=== PATIENT | male | born 1930 | race Caucasian/White ===

== ENCOUNTER 2016-10-13 09:51 | Day surgery (SDC) | payer MEDICARE, BC ==
[~2016-10-13] VITALS: Ht 170.2 cm; Wt 75.0 kg
[2016-10-13] VITALS (23 sets, daily range): BP systolic 119–202; BP diastolic 50–110; PULSE 54–89; RESP 15–25; Ht 170.2 cm; Wt 75.0 kg
[~2016-10-13 09:51] MED LIST: ASCO500C7 PO; ASPI325T4 PO; BENA1TAB13 PO; CALC-176 PO; CLOB15CR2 TOP; CLOP75TA27 PO; ISOS30TA5 PO; METO-448 PO; NIT4 SL; PANT40TA3 PO; TAMS-14 PO
[2016-10-13] MEDS ORDERED: ASPI-664 PO (10:50)
[2016-10-13] MEDS ORDERED: AMIO100T4 PO (10:52)
[2016-10-13 11:14] LABS: ADD SCAN DIFF NO
[2016-10-13] MEDS ORDERED: IODIXANOL LOCM 50 ML BTL ONE (11:20)
[2016-10-13] MEDS ORDERED: LIDOCAINE 1% (MDV) 20 ML INJ ONE (11:20)
[2016-10-13] MEDS ORDERED: BUPIVACAINE 0.5% (SDV) 30 ML INJ ONE (11:20)
[2016-10-13] MEDS ORDERED: POLYMYXIN/BACITRACIN 1L IRRIG IRR SCH (11:30)
[2016-10-13 11:34] LABS: BASOPHIL # 0.1 10^3/ul (0.0-0.1); EOSINOPHILS # 0.2 10^3/ul (0.0-0.5); EOSINOPHILS % 2.5 % (0.0-7.0); HEMATOCRIT 39.7 % (42.0-52.0); HEMOGLOBIN 12.9 g/dl (14.0-18.0); LYMPHOCYTES # 1.2 10^3/ul (0.8-2.9); LYMPHOCYTES % 16.2 % (15.0-51.0); MEAN CORPUSCULAR HEMOGLOBIN 30.3 pg (29.0-33.0); MEAN CORPUSCULAR HGB CONC 32.5 g/dl (32.0-37.0); MEAN CORPUSCULAR VOLUME 93.2 fl (82.0-101.0); MEAN PLATELET VOLUME 10.5 fl (7.4-10.4); MONOCYTE # 0.7 10^3/ul (0.3-0.9); MONOCYTES % 9.6 % (0.0-11.0); NEUTROPHIL # 5.1 10^3/ul (1.6-7.5); NEUTROPHILS % 70.4 % (39.0-77.0); PLATELET COUNT 238 10^3/UL (140-415); RED BLOOD COUNT 4.26 10^6/ul (4.70-6.10); WHITE BLOOD COUNT 7.2 10^3/ul (4.8-10.8)
[2016-10-13 11:37] LABS: ALBUMIN/GLOBULIN RATIO 1.21; BILIRUBIN,INDIRECT 0.7 mg/dl (0-1.1); BILIRUBIN,TOTAL 0.7 mg/dl (0.2-1.3); CALCIUM 9.2 mg/dl (8.4-10.2); CREATININE 1.1 mg/dl (0.61-1.24); POTASSIUM 4.2 mmol/L (3.5-5.1); TOTAL PROTEIN 7.3 g/dl (6.1-8.1)
[2016-10-13 11:38] LABS: INR 1.11; PROTIME 14.3 Sec (12.2-14.2); PT RATIO 1.1
[2016-10-13 11:39] LABS: PARTIAL THROMBOPLASTIN TIME 33.3 Sec (25.0-35.0)
[2016-10-13] MEDS ORDERED: PROPOFOL 40 ML ONE (11:57)
[2016-10-13] MEDS ORDERED: LIDOCAINE 2% (SDV) 5 ML INJ ONE (11:57)
[2016-10-13] MEDS ORDERED: VANCOMYCIN 1 GM in NS 250 ML IVPB SCH (12:30)
[2016-10-13] MEDS ORDERED: SOD CHLORIDE 0.9% 1,000 ML IV SCH (12:52)
[2016-10-13] MEDS ORDERED: VANCOMYCIN IV PER PHARMACY XX STA (12:52)
[2016-10-13] MEDS ORDERED: ACETAMINOPHEN 325 MG TAB PO PRN (13:00)
[2016-10-13] MEDS ORDERED: AL HYDROX/MG HYDROX/SIMETH 30 ML CUP PO PRN (13:00)
[2016-10-13] MEDS ORDERED: morphine 2 MG INJ IV PRN (13:00)
[2016-10-13] MEDS ORDERED: FENTAnyl 50 MCG/ML VIAL ONE (13:07)
--- NOTE | 2016-10-13 13:15 | SP ---
DATE OF PROCEDURE: REFERRING PHYSICIAN: Dr. Medina and Dr. Barragan. REASON FOR IMPLANTATION: Symptomatic bradycardia, sick sinus syndrome. POST PROCEDURE DIAGNOSIS: Symptomatic bradycardia, sick sinus syndrome. PROCEDURE PERFORMED: 1. Upper extremity venogram. 2. Fluoroscopy. 3. Single chamber pacemaker placement. DEVICE INFORMATION: The implanted device is [employer] Assurity MRI pacemaker 1272, serial #[id number]. RV lead is [employer] Tendril MRI lead LPA, 1200-58 cm lead, serial number [id number] , placed in the RV apex, septal area. Acute threshold R-wave was 8.3 millivolts, lead impedance 750 ohms, threshold 0.75 volts at 0.4 msec. Initial setting is VVI 60. DESCRIPTION OF PROCEDURE: The informed consent was obtained the patient. The patient was brought t o catheterization, patient has ALLERGY TO PENICILLIN, and vancomycin was given for prophylaxis. Lef t side of the chest was prepped and draped in usual sterile fashion. Anesthesiologist supervised ai rway and sedation. Using #10 scalpel, a 3 cm incision was made in the left side of the chest. Usin g cautery and blunt dissection, the pocket was created. Upper extremity venogram was performed usin g modified Seldinger technique, subclavian vein was cannulated and J-wire passed easily. Using 8-Fr ench sheath as a base, the RV lead was advanced into RV apex and actively fixed into the wall and so me slack was left inside the lead and the sheath was pulled away. The lead was sutured to the muscl e with 0 Ethibond sutures. The device attached to the lead. Pocket was irrigated with antibiotic s olution and entire system was placed inside the pocket. The skin was closed in multiple layers of 2 -0 Vicryl sutures. Steri-Strips were applied and presented to the incision. The patient appears to have tolerated the procedure well. Chest x-ray was done to rule out pneumothorax. The patient renaldo l be monitored and discharged home with antibiotics. I would like to thank Dr. Medina and Dr. Barragan for referring this patient for my evaluation. Dictated By: JOSIAH CARD/JONATAN Conf#: [id number] DID#: [id number]
[2016-10-13] MEDS ORDERED: hydrALAzine 20 MG INJ IV PRN (13:30)
[2016-10-13] MEDS ORDERED: VANCOMYCIN IV PER PHARMACY XX SCH (13:30)
[2016-10-13] MEDS ORDERED: ONDANSETRON 4 MG INJ IV PRN (13:30)
[2016-10-13] MEDS ORDERED: METOCLOPRAMIDE 10 MG INJ IV PRN (13:30)
[2016-10-13] MEDS ORDERED: morphine (1 MG/ML) 10ML SYRINGE IV PRN (13:30)
[2016-10-13] MEDS ORDERED: FENTAnyl 50 MCG/ML VIAL IV PRN (13:30)
[2016-10-13] MEDS ORDERED: LABETALOL HCL 20MG INJ IV PRN (13:30)
[2016-10-13] MEDS ORDERED: OXYCODONE/ACETAMINOPHEN (5/325) TAB PO PRN ×2 (13:30)
[2016-10-13] MEDS ORDERED: DIPHENHYDRAMINE 50 MG INJ IV PRN (13:30)
[2016-10-13] MEDS ORDERED: MEPERIDINE 25 MG INJ IV PRN (13:30)
[2016-10-13] MEDS ORDERED: ASPIRIN 81 MG TAB PO STA (13:58)
[2016-10-13] MEDS ORDERED: CLOPIDOGREL 75 MG TAB PO STA (13:59)
--- NOTE | 2016-10-13 13:59 | RADRPT ---
PROCEDURE: XR Chest. CLINICAL INDICATION: Status post device implant. TECHNIQUE: Single frontal chest x-ray. COMPARISON: 01/09/2016 FINDINGS: The patient is status post a single lead left pacemaker placement with the the tip overlying the rig ht ventricle. There is mild hypoinflation with bibasilar atelectatic changes. No focal consolidati ons, pneumothorax, or pleural effusion is seen. The heart size is within normal limits. Aortic ath erosclerotic calcifications are present. Median sternotomy wires are in place. The osseous structu res are grossly intact. IMPRESSION: 1. Interval placement of single lead left-sided pacemaker with lead tip overlying the right ventric le. No radiographic evidence of complication. 2. Aortic atherosclerosis. RPTAT: EE .Pa Lundberg MD, Date Time Electronically viewed and signed by .Pa Lundberg MD, on 10/13/2016 13:59 .A/
[2016-10-13] MEDS ORDERED: LABETALOL HCL 20MG INJ ONE (14:40)
--- NOTE | 2016-10-13 18:51 | HP ---
Date/Time of Note Date/Time of Note DATE: 10/13/16 TIME: 18:44 Assessment/Plan VTE Prophylaxis VTE Prophylaxis Intervention: other Lines/Catheters IV Catheter Type (from Nrs): Peripheral IV Urinary Cath still in place: Yes Reason Cath still needed: urinary retention Assessment/Plan Problems: (1) BPH (benign prostatic hypertrophy) with urinary retention Status: Chronic Comment: Patient has a Mcgregor catheter in at this time as per cardiology. Continue his treatment with plan for ultimate urology discontinuation of (2) Diastolic dysfunction Status: Chronic Comment: Noted. With the pacemaker and we can use low-dose beta-blockade to help control for the (3) Gastroesophageal reflux disease Status: Chronic Comment: Proton pump inhibitor therapy Qualifiers: Esophagitis presence: without esophagitis Qualified Code: K21.9 - Gastroesophageal reflux disease without esophagitis (4) Anemia Status: Chronic Comment: Significantly improved as compared to 9 months ago Qualifiers: Anemia type: iron deficiency Iron deficiency anemia type: chronic blood loss Qualified Code: D50.0 - Iron deficiency anemia due to chronic blood loss (5) CAD (coronary artery disease) Status: Chronic Comment: Since his PCI with bare-metal stent placement of the right coronary artery 11 months ago he is done well. Continue the formal usage of Brilinta. Please note he may not be feeling well as a side effect of that medication cardiology will determine when it is safe to replace this with a different type of anticoagulant therapy Qualifiers: Coronary Disease-Associated Artery/Lesion type: cabazon artery [place] vs. transplanted heart: cabazon heart Associated angina: without angina Qualified Code: I25.10 - Coronary artery disease involving cabazon coronary artery of cabazon heart without angina pectoris (6) Essential (primary) hypertension Status: Chronic Comment: Stable and controlled (7) Dyslipidemia Status: Chronic Comment: On statin therapy HPI/ROS Admit Date/Time Admit Date/Time October 13, 2016 at 12:52 Hx of Present Illness 86-year-old male patient of Dr. Pearson admitted after elective pacemaker implantation. Inspector [employer] has asked us to take care of the paperwork for H&P. Please see dictated H&P from neurosurgery research director ARLEN Patient reports he is feeling well but states that he has not quite felt well for some months since 1 of his admissions when he came in for cardiac issues. He is also anxiously awaiting repair of his bilateral inguinal hernias. Constitutional: no complaints (Denies fevers chills or sweats) Eyes: no complaints Respiratory: no complaints Cardiovascular: no complaints (Specifically denies chest pain or palpitation) Gastrointestinal: no complaints Genitourinary: no complaints Musculoskeletal: no complaints Skin: no complaints Neurologic: no complaints Endocrine: no complaints PMH/Family/Social Past Medical History BPH with obstruction; status post prostatectomy; history of bladder stones; Medical History: congestive heart failure (Diastolic dysfunction), coronary artery disease, high cholesterol, hypertension Past Surgical History Status post cystoscopy and removal of bladder stone; status post TURP Family History Significant Family History: no pertinent family hx Social History Alcohol Use: none Smoking Status: Former smoker Drug Use: none Exam/Review of Systems Vital Signs Vitals Vital Signs Date Time Temp Pulse Resp B/P Pulse Ox O2 Delivery O2 Flow Rate FiO2 10/13/16 16:32 65 10/13/16 14:59 98.5 24 119/50 99 Nasal Cannula 2.0 Exam Exam Older male lying in bed Constitutional: alert, oriented Eyes: EOMI, nl conjunctiva, nl lids, nl sclera Neck: non-tender, supple Respiratory: clear to auscultation, normal air movement Cardiovascular: diastolic murmur (Consistent with aortic sclerosis without stenosis), nl pulses Gastrointestinal: nl liver, spleen, non-tender, soft Extremities: normal pulses Labs Result Diagram: 10/13/16 1108 10/13/16 1108 Medications Medications Current Medications Vancomycin HCl (Vancocin) 250 ml @ 125 mls/hr OC IVPB ; Start 10/13/16 at 12:30 ; Stop 10/13/16 at 20:00 Acetaminophen (Tylenol Tab) 650 mg Q4H PRN PO NON-CARDIAC PAIN LEVEL (1-3) Last administered on 10/13/16t 16:35; Admin Dose 650 MG; Start 10/13/16 at 13:00 Morphine Sulfate (morphine) 2 mg Q2H PRN IV FOR NON CARDIAC PAIN (4-10); Start 10/13/16 at 13:00 Al Hydrox/Mg Hydrox/Simethicone (Mag-Al Plus) 30 ml Q4H PRN PO GASTROINTESTINAL UPSET; Start 10/13/16 at 13:00 Miscellaneous Information (* Miscellaneous Pharmacy Order) DC all Lovenox, Hepari... ONCE XX ; Start 10/13/16 at 13:00 Vancomycin HCl (Vanco Iv Per Pharmacy) PER PHARMACY DOSING NOTE XX ; Start 10/13 at 13:30 LATIA RICE MD October 13, 2016 18:51
[2016-10-14 00:29] VITALS: PULSE 73
[2016-10-14 04:23] VITALS: BP 128/64; PULSE 63; RESP 20
[2016-10-14 07:33] LABS: ADD SCAN DIFF NO
[2016-10-14 07:36] LABS: BASOPHIL # 0.1 10^3/ul (0.0-0.1); BASOPHILS % 0.7 % (0.0-2.0); EOSINOPHILS # 0.2 10^3/ul (0.0-0.5); EOSINOPHILS % 1.8 % (0.0-7.0); HEMATOCRIT 35.5 % (42.0-52.0); HEMOGLOBIN 11.7 g/dl (14.0-18.0); LYMPHOCYTES # 1.1 10^3/ul (0.8-2.9); MEAN CORPUSCULAR HEMOGLOBIN 30.4 pg (29.0-33.0); MEAN CORPUSCULAR VOLUME 92.2 fl (82.0-101.0); MEAN PLATELET VOLUME 10.4 fl (7.4-10.4); MONOCYTE # 0.8 10^3/ul (0.3-0.9); MONOCYTES % 8.5 % (0.0-11.0); NEUTROPHIL # 6.8 10^3/ul (1.6-7.5); NEUTROPHILS % 76.7 % (39.0-77.0); PLATELET COUNT 202 10^3/UL (140-415); RED BLOOD COUNT 3.85 10^6/ul (4.70-6.10); RED CELL DISTRIBUTION WIDTH 14.1 % (11.5-14.5); WHITE BLOOD COUNT 8.8 10^3/ul (4.8-10.8)
[2016-10-14 08:07] LABS: CALCIUM 8.7 mg/dl (8.4-10.2); CREATININE 0.95 mg/dl (0.61-1.24); POTASSIUM 3.9 mmol/L (3.5-5.1)
[2016-10-14 08:14] VITALS: PULSE 69
[2016-10-14 08:28] VITALS: BP 163/58; RESP 18
[2016-10-14] MEDS ORDERED: VANCOMYCIN 1 GM in NS 250 ML IVPB SCH (10:00)
[2016-10-14 11:37] VITALS: BP 138/65; RESP 18
[2016-10-14 12:29] VITALS: PULSE 61
--- NOTE | 2016-10-14 13:04 | PDOCDIS ---
Discharge Instructions DIAGNOSIS Discharge Diagnosis: Bradycardia dysrhythmia; BPH; diastolic dysfunction; GERD CONDITION Patient Condition: Fair HOME CARE INSTRUCTIONS: Special Diet: Regular ACTIVITY: Activity Restrictions: Slowly Increase Activity Do not operate Power Tool FOLLOW UP/APPOINTMENTS Appointments Dr. Barragan of cardiology in the next 1 week. LATIA RICE MD October 14, 2016 13:04
--- NOTE | 2016-10-14 13:10 | DS ---
Date/Time of Note Date/Time of Note DATE: 10/14/16 TIME: 13:05 Discharge Summary Admission/Discharge Info Admit Date/Time October 13, 2016 at 12:52 Discharge Date/Time 10/14/2016 Final Diagnosis Cardiac dysrhythmia; atrial fibrillation; bradycardia dysrhythmia; diastolic dysfunction; aortic sclerosis; BPH; Patient Condition: Good Consults Internal medicine Procedures REFERRING PHYSICIAN: Dr. Medina and Dr. Barragan. REASON FOR IMPLANTATION: Symptomatic bradycardia, sick sinus syndrome. POST PROCEDURE DIAGNOSIS: Symptomatic bradycardia, sick sinus syndrome. PROCEDURE PERFORMED: 1. Upper extremity venogram. 2. Fluoroscopy. 3. Single chamber pacemaker placement. DEVICE INFORMATION: The implanted device is [employer] Assurity MRI pacemaker 1272, serial #[id number]. RV lead is [employer] Tendril MRI lead LPA, 1200-58 cm lead, serial number [id number], placed in the RV apex, septal area. Acute threshold R-wave was 8.3 millivolts, lead impedance 750 ohms, threshold 0.75 volts at 0.4 msec. Initial setting is VVI 60. DESCRIPTION OF PROCEDURE: The informed consent was obtained the patient. The patient was brought to catheterization, patient has ALLERGY TO PENICILLIN, and vancomycin was given for prophylaxis. Left side of the chest was prepped and draped in usual sterile fashion. Anesthesiologist supervised airway and sedation. Using #10 scalpel, a 3 cm incision was made in the left side of the chest. Using cautery and blunt dissection, the pocket was created. Upper extremity venogram was performed using modified Seldinger technique, subclavian vein was cannulated and J-wire passed easily. Using 8-[place] sheath as a base, the RV lead was advanced into RV apex and actively fixed into the wall and some slack was left inside the lead and the sheath was pulled away. The lead was sutured to the muscle with 0 Ethibond sutures. The device attached to the lead. Pocket was irrigated with antibiotic solution and entire system was placed inside the pocket. The skin was closed in multiple layers of 2-0 Vicryl sutures. Steri-Strips were applied and presented to the incision. The patient appears to have tolerated the procedure well. Chest x-ray was done to rule out pneumothorax. The patient will be monitored and discharged home with antibiotics. I would like to thank Dr. Medina and Dr. Barragan for referring this patient for my evaluation. Dictated By: JOSIAH SAUL MD Hx of Present Illness 86-year-old male patient of Dr. Pearson admitted after elective pacemaker implantation. [address] Magistrate has asked us to take care of the paperwork for H&P. Please see dictated H&P from counter hop Hospital Course 86-year-old male who is admitted for pacemaker placement to treat and support sick sinus syndrome with bradycardia dysrhythmia. At this time he is tolerated the procedure is doing well. He is ready for discharge. He will follow-up with cardiology Home Meds Active Scripts Clopidogrel Bisulfate (Clopidogrel) 75 Mg Tablet, 75 MG PO DAILY for 90 Days, # 90 TAB 3 Refills Prov:INDY CHAPMAN MD 10/22/15 Reported Medications Amiodarone Hcl* (Amiodarone Hcl*) 100 Mg Tablet, 100 MG PO DAILY, #30 TAB 10/13/16 Aspirin (Low Dose Aspirin) 81 Mg Tablet., 81 MG PO DAILY, #30 TAB 10/13/16 Pantoprazole* (Protonix*) 40 Mg Tablet.dr, 40 MG PO DAILY, TAB 01/09/16 Benazepril-Hydrochlorothiazide (Benazepril-Hydrochlorothiazide) 20-12.5 Mg Tablet, 1 TAB PO DAILY, #30 TAB 01/09/16 Nitroglycerin* (Nitrostat*) 0.4 Mg Tab.subl, 0.4 MG SL Q5MIN Y for CHEST PAIN, BOTTLE 10/18/15 Discontinued Reported Medications Clobetasol Propionate/Emoll (Clobetasol Emollient) 0.05%-45 Gm Cream..g., 1 APPLIC TOP BID, #1 TUB APPLY TO AFFECTE AREA 01/09/16 Tamsulosin Hcl* (Flomax*) 0.4 Mg Cap.er.24h, 0.4 MG PO BID, CAP 01/09/16 Aspirin* (Aspirin*) 325 Mg Tablet, 325 MG PO DAILY, TAB 01/09/16 Ascorbic Acid* (Vitamin C*) 500 Mg Capsule.sa, 100 MG PO DAILY, CAP 10/18/15 Calcium Cmb 2-Mag Cmb 12-Vit D3 (Calcium 500) 1 Each Tablet, 1 TAB PO DAILY, TAB 10/18/15 Discontinued Scripts Isosorbide Mononitrate* (Isosorbide Mononitrate*) 30 Mg Tab.er.24h, 30 MG PO DAILY for 30 Days, TAB 1 Refill Prov:LATIA RICE MD 01/12/16 Metoprolol Tartrate* (Lopressor*) 25 Mg Tab, 25 MG PO BID for 30 Days, TAB 1 Refill Prov:LATIA RICE MD 01/12/16 Primary Care Provider Robinson Pearson MD Time spent on discharge: < 30 minutes Pending Labs Laboratory Tests Test 10/13/16 18:55 10/14/16 07:05 Thyroid Stimulating Hormone (TSH) 1.160MIU/L (0.465-4.680) Hepatitis B Surface Antigen NEGATIVE (NEGATIVE) Hepatitis C Antibody NEGATIVE (NEGATIVE) White Blood Count 8.810^3/ul (4.8-10.8) Red Blood Count 3.8510^6/ul (4.70-6.10) Hemoglobin 11.7g/dl (14.0-18.0) Hematocrit 35.5% (42.0-52.0) Mean Corpuscular Volume 92.2fl (82.0-101.0) Mean Corpuscular Hemoglobin 30.4pg (29.0-33.0) Mean Corpuscular Hemoglobin Concent 33.0g/dl (32.0-37.0) Red Cell Distribution Width 14.1% (11.5-14.5) Platelet Count 65579^3/UL (140-415) Mean Platelet Volume 10.4fl (7.4-10.4) Neutrophils % 76.7% (39.0-77.0) Lymphocytes % 12.0% (15.0-51.0) Monocytes % 8.5% (0.0-11.0) Eosinophils % 1.8% (0.0-7.0) Basophils % 0.7% (0.0-2.0) Nucleated Red Blood Cells % 0.0/100WBC (0.0-0.0) Neutrophils # 6.810^3/ul (1.6-7.5) Lymphocytes # 1.110^3/ul (0.8-2.9) Monocytes # 0.810^3/ul (0.3-0.9) Eosinophils # 0.210^3/ul (0.0-0.5) Basophils # 0.110^3/ul (0.0-0.1) Nucleated Red Blood Cells # 0.010^3/ul (0.0-0.0) Sodium Level 137mmol/L (135-144) Potassium Level 3.9mmol/L (3.5-5.1) Chloride Level 107mmol/L (97-110) Carbon Dioxide Level 26mmol/L (21-31) Anion Gap 8 (8-16) Blood Urea Nitrogen 20mg/dl (7-20) Creatinine 0.95mg/dl (0.61-1.24) Glucose Level 102mg/dl (70-220) Calcium Level 8.7mg/dl (8.4-10.2) LATIA RICE MD October 14, 2016 13:10
--- NOTE | 2016-10-14 13:35 | CONS ---
Date/Time of Note Date/Time of Note DATE: 10/14/16 TIME: 13:29 Assessment/Plan Assessment/Plan Chief Complaint/Hosp Course IMp: 1.bradycardia s/p PPM POD#1 2.s/p PTCA/stent 3.H/O PAFL 4.HTN 5.HL Recc: -d/c planning -Continue current medications -will give abx prophylaxis x 5 days post procedure -f/u in office 7-10 days Problems: Consultation Date/Type/Reason Admit Date/Time October 13, 2016 at 12:52 Initial Consult Date 10/13/2016 Type of Consultation: Cardiology Reason for Consultation cardiomyopathy Referring Provider: LATIA RICE MD Exam/Review of Systems Vital Signs Vitals Vital Signs Date Time Temp Pulse Resp B/P Pulse Ox O2 Delivery O2 Flow Rate FiO2 10/14/16 12:29 61 10/14/16 11:37 97.6 18 138/65 96 10/13/16 20:00 Nasal Cannula 4.0 Intake and Output 10/13/16 10/13/16 10/14/16 15:00 23:00 07:00 Intake Total 630 ml 300 ml Output Total 625 ml 300 ml 600 ml Balance -625 ml 330 ml -300 ml Exam Review of Systems: CONSTITUTIONAL: No fevers, chills. PULMONARY: No sob CARDIOVASCULAR: No chest pain/palpitations GASTROINTESTINAL: No nausea/vomiting. GENITOURINARY: No hematuria/dysuria. MUSCULOSKELETAL: No myagias/arthalgias. PSYCHIATRIC: The patient denies depression. NEUROLOGIC: No weakness Constitutional: alert Psych: no complaints Head: normocephalic ENMT: mucosa pink and moist Neck: jvd, supple Respiratory: diminished breath sounds Cardiovascular: regular rate and rhythm Gastrointestinal: non-tender, soft Musculoskeletal: muscle tone Extremities: normal pulses Neurological: confused Results Result Diagram: 10/14/16 0705 10/14/16 0705 Results 24 hrs Laboratory Tests Test 10/13/16 18:55 10/14/16 07:05 Thyroid Stimulating Hormone (TSH) 1.160 Hepatitis B Surface Antigen NEGATIVE Hepatitis C Antibody NEGATIVE White Blood Count 8.8 # Red Blood Count 3.85 L Hemoglobin 11.7 L Hematocrit 35.5 L Mean Corpuscular Volume 92.2 Mean Corpuscular Hemoglobin 30.4 Mean Corpuscular Hemoglobin Concent 33.0 Red Cell Distribution Width 14.1 Platelet Count 202 Mean Platelet Volume 10.4 Neutrophils % 76.7 Lymphocytes % 12.0 L Monocytes % 8.5 Eosinophils % 1.8 Basophils % 0.7 Nucleated Red Blood Cells % 0.0 Neutrophils # 6.8 Lymphocytes # 1.1 Monocytes # 0.8 Eosinophils # 0.2 Basophils # 0.1 Nucleated Red Blood Cells # 0.0 Sodium Level 137 Potassium Level 3.9 Chloride Level 107 Carbon Dioxide Level 26 Anion Gap 8 Blood Urea Nitrogen 20 Creatinine 0.95 Glucose Level 102 Calcium Level 8.7 Medications Medications Current Medications Acetaminophen (Tylenol Tab) 650 mg Q4H PRN PO NON-CARDIAC PAIN LEVEL (1-3) Last administered on 10/13/16t 16:35; Admin Dose 650 MG; Start 10/13/16 at 13:00 Morphine Sulfate (morphine) 2 mg Q2H PRN IV FOR NON CARDIAC PAIN (4-10); Start 10/13/16 at 13:00 Al Hydrox/Mg Hydrox/Simethicone (Mag-Al Plus) 30 ml Q4H PRN PO GASTROINTESTINAL UPSET; Start 10/13/16 at 13:00 Vancomycin HCl PER PHARMACY DOSING NOTE XX ; Start 10/13/16 at 13:30 Vancomycin HCl (Vancocin) 250 ml @ 125 mls/hr Q24H IVPB ; Start 10/14/16 at 10: 00 JEFF REYNOSO October 14, 2016 13:35
--- NOTE | 2016-10-14 20:35 | RADRPT ---
Vent Rate: 60 bpm RR Interval: 0 msec AL Interval: 0 msec QRS Duration: 186 msec QT Interval: 560 msec QTC Interval: 560 msec P-R-T [place]: 0 - 133 - -37 degrees Electronic ventricular pacemaker Electronically Signed By: Wiliam Barragan [id number]
== END 2016-10-14 14:16 | disposition home or self-care (01) ==
LOC: SDS 09:51 → REC 12:52 → TEL 13:47
PROVIDERS: ADMIT Internal Medicine Clinical Cardiac Electrophysiology; ATTEND Internal Medicine Clinical Cardiac Electrophysiology
DX: I49.5 Sick sinus syndrome (principal); I48.91 Unspecified atrial fibrillation; N40.0 Benign prostatic hyperplasia without lower urinary tract symptoms; I10 Essential (primary) hypertension; I25.10 Atherosclerotic heart disease of native coronary artery without angina pectoris; Z98.61 Coronary angioplasty status; I25.2 Old myocardial infarction; Z95.1 Presence of aortocoronary bypass graft
CPT/HCPCS: 33212; 71010; 75820; 80048; 80053; 84443; 85025; 85610; 85730; 86803; 87340; 93005; A4310; G0378; J0360; J3010; J3370; Q9967

== ENCOUNTER 2017-08-18 12:40 | Inpatient (IN) | END 2017-08-22 15:06 | disposition home or self-care (01) | DRG 391 ==

== ENCOUNTER 2017-08-25 13:42 | Observation (INO) | END 2017-08-27 16:13 | disposition home or self-care (01) ==

== ENCOUNTER 2018-10-01 10:33 | Inpatient (IN) | payer MEDICARE, BC ==
[~2018-10-01] VITALS: Ht 177.8 cm; Wt 70.0 kg
[~2018-10-01 10:33] MED LIST changes: -ASCO500C7 PO; -ASPI325T4 PO; +BISA5TAB6 PO; -CALC-176 PO; -CLOB15CR2 TOP; +DUTA0.5C PO; +HYDR-3601 PO; -ISOS30TA5 PO; -METO-448 PO; +MULT-7 PO; -NIT4 SL; +NITR0.4T39 SL; -PANT40TA3 PO; +PANT40TA4 PO; -TAMS-14 PO
[2018-10-01 10:44] VITALS: Ht 177.8 cm; Wt 70.0 kg
[2018-10-01] MEDS ORDERED: AMIO200T4 PO (11:41)
[2018-10-01] MEDS ORDERED: DILT180C72 PO (11:42)
[2018-10-01] MEDS ORDERED: ISOS30TA67 PO (11:42)
[2018-10-01] MEDS ORDERED: CLOP75TA27 PO (11:42)
[2018-10-01] MEDS ORDERED: PANT40TA3 PO (11:43)
[2018-10-01] MEDS ORDERED: TAMS-14 PO (11:43)
[2018-10-01] MEDS ORDERED: FENTAnyl 50 MCG/ML VIAL IV ONE (12:00)
[2018-10-01] MEDS ORDERED: ONDANSETRON 4 MG INJ IV STA (13:06)
[2018-10-01] MEDS ORDERED: morphine 2 MG INJ IV STA ×2 (13:06→13:59)
[2018-10-01] MEDS ORDERED: ONDANSETRON 4 MG INJ IV PRN ×2 (13:30→15:30)
[2018-10-01] MEDS ORDERED: ACETAMINOPHEN 325 MG TAB PO PRN (13:30)
--- NOTE | 2018-10-01 13:43 | ERD ---
ER Documentation Chief Complaint Chief Complaint MECHANICAL FALL; DENIES KO/SYNCOPE HPI This is an 88-year-old male with a past medical history of hypertension, coronary artery disease status post CABG, atrial fibrillation, CHF status post pacemaker, on Plavix who is presenting after a mechanical fall. The patient was deconstruct think boxes in his home when he lost his balance and fell to the right. He hit his right hip and right shoulder and he has pain with difficulty ranging both joints. The patient did not hit his head. He does not endorse any head trauma or injury. He did not lose consciousness. He does not endorse any other trauma or injury. The patient denies feeling sick recently. The patient denies fever or chills. The patient has had no headache or vision changes. The patient does not endorse neck or back pain. The patient denies lightheadedness or dizziness. The patient has had no chest pain or trouble breathing. The patient denies nausea or vomiting. The patient denies abdominal pain. The patient denies changes to bowel movements or urination. The patient has had no focal deficits. The patient has had no weakness or numbness or tingling to the face or extremities. ROS All systems reviewed and are negative except as per history of present illness. Medications Home Meds Reported Medications Tamsulosin Hcl* (Flomax*) 0.4 Mg Cap.er.24h, 0.4 MG PO DAILY, CAP 10/01/18 Pantoprazole* (Protonix*) 40 Mg Tablet.dr, 40 MG PO DAILY, TAB 10/01/18 Isosorbide Mononitrate* (Isosorbide Mononitrate*) 30 Mg Tab.er.24h, 30 MG PO DAILY, TAB 10/01/18 Clopidogrel Bisulfate (Clopidogrel) 75 Mg Tablet, 75 MG PO DAILY, #30 TAB 10/01/18 Diltiazem Hcl* (Cardizem CD*) 180 Mg Cap.sr.24h, 180 MG PO DAILY, #30 CAP 10/01/18 Amiodarone Hcl* (Amiodarone Hcl*) 200 Mg Tablet, 200 MG PO DAILY, #30 TAB 10/01/18 Discontinued Reported Medications Hydrocodone Bit-Acetaminophen (Hydrocodone Bit-APAP) 5-325MG Tablet, 1 TAB PO Q6H PRN for PAIN, TAB 08/19/17 Multivitamin (Daily Multiple Vitamin) 1 Each Tablet, 1 EACH PO, TAB 3/22/18 Bisacodyl* (Bisacodyl*) 5 Mg Tablet.dr, 10 MG PO DAILY PRN for CONSTIPATION, TAB 08/19/17 Pantoprazole* (Pantoprazole*) 40 Mg Tablet.dr, 40 MG PO AC BREAKFAST, TAB 08/18/17 Clopidogrel Bisulfate (Clopidogrel) 75 Mg Tablet, 75 MG PO DAILY, #30 TAB 08/18/17 Nitroglycerin* (Nitrostat*) 0.4 Mg Tab.subl, 0.4 MG SL Q5MIN PRN for CHEST PAIN, BOTTLE 08/18/17 Dutasteride* (Avodart*) 0.5 Mg Capsule, 0.5 MG PO DAILY, CAP 08/18/17 Benazepril-Hydrochlorothiazide (Benazepril-Hydrochlorothiazide) 20-12.5 Mg Tablet, 0.5 TAB PO DAILY, #30 TAB 08/18/17 Allergies Allergies: Coded Allergies: Penicillins (Verified Allergy, Severe, hives, 10/01/18) ticagrelor (Verified Allergy, Intermediate, N/V, 10/01/18) Sulfa (Sulfonamide Antibiotics) (Verified Allergy, Unknown, 10/01/18) cephalexin (Verified Allergy, Unknown, 10/01/18) ciprofloxacin (Verified Allergy, Unknown, 10/01/18) dutasteride (Verified Allergy, Unknown, 10/01/18) nitrofurantoin (Verified Allergy, Unknown, 10/01/18) sotalol (Verified Allergy, Unknown, 10/01/18) amlodipine (Verified Adverse Reaction, Intermediate, extreme nausea, 10/01) lubiprostone (Verified Adverse Reaction, Intermediate, severe nausea, 10/01/18) carvedilol (Unverified Adverse Reaction, Mild, nausea, 10/01/18) apixaban (Unverified Adverse Reaction, Unknown, UPSET STOMACH, 10/01/18) lisinopril (Verified Adverse Reaction, Unknown, severe nausea, 10/01/18) PMhx/Soc History of Surgery: Yes (CABG 1974, pacemaker) Anesthesia Reaction: No Hx Neurological Disorder: No Hx Respiratory Disorders: No Hx Cardiac Disorders: Yes (Hypertension, coronary artery disease, atrial fibrillation, CHF) Hx Psychiatric Problems: No Hx Miscellaneous Medical Probl: Yes (GERD) Hx Alcohol Use: No Hx Substance Use: No Hx Tobacco Use: No (hx of smoking for 34 years) Smoking Status: Never smoker FmHx Family History: No diabetes Physical Exam Vitals Vital Signs Date Temp Pulse Resp B/P (MAP) Pulse Ox O2 O2 Flow FiO2 Time Delivery Rate 10/01/18 88 16 159/82 98 Room Air 12:54 (107) 10/01/18 98.1 78 18 153/87 99 10:44 (109) Physical Exam Const: No apparent distress, well-developed, well-nourished Head: Normocephalic, Atraumatic Eyes: Normal Conjunctiva. Extraocular movements intact. Pupils equal, round a nd reactive to light ENT: Normal External Ears, Nose and Mouth. Neck: Full range of motion. No meningismus. Resp: Clear to auscultation bilaterally, No wheezes, rales or rhonchi Cardio: Regular rate and rhythm. No murmurs, rubs or gallops. Pacemaker present. Abd: Soft, non tender, non distended. Normal bowel sounds Skin: No petechiae or rashes Back: No midline tenderness. No CVA tenderness Ext: No cyanosis. Right leg shortening. Decreased range of motion to right hip and right shoulder secondary to pain. Strength and sensation intact distally. Pulses intact distally. Neur: Awake and alert, oriented 4. Cranial nerves intact. No facial droop. Normal strength, sensation and coordination. Psych: Normal Mood and Affect Result Diagram: 10/01/18 1151 10/01/18 1151 Results 24 hrs Laboratory Tests Test 10/01/18 11:51 White Blood Count 8.6 10^3/ul Red Blood Count 3.48 10^6/ul Hemoglobin 10.6 g/dl Hematocrit 32.1 % Mean Corpuscular Volume 92.2 fl Mean Corpuscular Hemoglobin 30.5 pg Mean Corpuscular Hemoglobin Concent 33.0 g/dl Red Cell Distribution Width 15.8 % Platelet Count 230 10^3/UL Mean Platelet Volume 10.2 fl Immature Granulocytes % 0.500 % Neutrophils % 79.7 % Lymphocytes % 10.9 % Monocytes % 6.9 % Eosinophils % 1.2 % Basophils % 0.8 % Nucleated Red Blood Cells % 0.0 /100WBC Immature Granulocytes # 0.040 10^3/ul Neutrophils # 6.9 10^3/ul Lymphocytes # 0.9 10^3/ul Monocytes # 0.6 10^3/ul Eosinophils # 0.1 10^3/ul Basophils # 0.1 10^3/ul Nucleated Red Blood Cells # 0.0 10^3/ul Prothrombin Time 14.7 Sec Prothrombin Time Ratio 1.1 INR International Normalized Ratio 1.14 Sodium Level 142 mmol/L Potassium Level 4.1 mmol/L Chloride Level 107 mmol/L Carbon Dioxide Level 27 mmol/L Anion Gap 8 Blood Urea Nitrogen 27 mg/dl Creatinine 1.40 mg/dl Est Glomerular Filtrat Rate mL/min mL/min Glucose Level 128 mg/dl Calcium Level 9.4 mg/dl Current Medications Medications Dose Sig/Dolores Start Time Status Last (Trade) Ordered Route PRN Stop Time Admin Dose Reason Admin Fentanyl 25 mcg ONCE ONCE 10/01/18 DC 10/01/18 (Sublimaze) IV 12:00 10/01/18 12:15 12:01 Ondansetron 4 mg BRIDGE ORDER 10/01/18 HCl (Zofran PRN IV 13:30 10/02/18 Inj) NAUSEA/VOMITI 13:29 NG 650 mg ER BRIDGE 10/01/18 Acetaminophen PRN PO 13:30 10/02/18 (Tylenol .MILD PAIN 13:29 Tab) 1-3 OR TEMP Morphine 2 mg ONCE STAT 10/01/18 DC 10/01/18 Sulfate IV 13:06 10/01/18 13:21 (morphine) 13:15 Ondansetron 4 mg ONCE STAT 10/01/18 DC 10/01/18 HCl (Zofran IV 13:06 10/01/18 13:21 Inj) 13:16 Procedures/MDM MDM The patient's presentation warrants further investigation. Previous medical records, if available, were reviewed. LABS The patient's laboratory testing was obtained and reviewed. No emergent treatment was required unless described below. CBC: No E/o systemic infection or thrombocytopenia. Normocytic anemia, not emergent. Chemistry: No E/o severe acidosis or alkalosis or diabetic ketoacidosis. Elevated BUN and creatinine in line with chronic kidney disease. PT/INR: No E/o significant coagulopathy EKG EKG read by me: Rate/Rhythm: Irregular irregular rhythm indicating atrial fibrillation with a demand pacemaker Intervals: Normal QRS and QTc [place]: Normal Impression: No evidence of acute ischemia. Negative sgarbossa criteria. At rial fibrillation. IMAGING Imaging and Radiology interpretation reviewed. CXR COMPARISON: DR FARRAR 08/25/2017 FINDINGS: Support lines and tubes: Left-sided dual chamber pacemaker with its leads over the heart. Mediastinum: Enlarged heart. Calcified atherosclerosis in the aorta. Median sternotomy wires and surgical clips over the heart. Lungs: Central pulmonary vascular congestion and interstitial prominence in both lungs. Retrocardiac opacity that may reflect left lower lobe atelectasis or infiltrate combined with small pleural effusion. Right lower lung infiltrates with small right pleural effusion. No pneumothorax. Osseous structures: Intact. Osteopenia. Degenerative changes in the shoulders. Other: None. IMPRESSION: Cardiomegaly with calcified atherosclerosis in the aorta. Central pulmonary vascular congestion and interstitial prominence in both lungs. Retrocardiac opacity that may reflect left lower lobe atelectasis or infiltrate combined with small pleural effusion. Right lower lung infiltrates with small right pleural effusion. Electronically viewed and signed by Miky Jaime MD, MD on 10/01/2018 12:43 XR R Shoulder FINDINGS: There is a minimally displaced fracture of the surgical neck of the humerus. The fracture involves the margin of the greater tuberosity. The humeral head remains in the glenoid. There is moderate degenerative change at the acromioclavicular joint and there is marginal hypertrophy at the lateral edge of the acromion. The soft tissues are unremarkable. IMPRESSION: Nondisplaced fracture of the surgical neck of the right humerus. Electronically viewed and signed by Physician Shanon on 10/01/2018 11:39 XR R Hip FINDINGS: There is an intertrochanteric fracture of the right femur with mild varus angulation. There is mild circumferential degenerative change at the hip with a cam and pincer deformity. The soft tissues are unremarkable. IMPRESSION: Intertrochanteric fracture of the right femur with mild varus deformity. 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 Electronically viewed and signed by Physician Shanon on 10/01/2018 11:41 TREATMENT/DISPOSITION The patient presents after a mechanical fall. He hit his right hip and right shoulder, both of which sustained fractures as described above. The patient has been treated for pain in the emergency department. He was provided a sling for his right humeral fracture. The patient is not currently ambulatory. The patie nt will require admission and orthopedic evaluation in the hospital. The patient does have a skin tear to the right elbow. A wound dressing was applied. There is nothing to suture. The patient reports that his last tetanus shot was 2 or 3 years ago. The patient did not hit his head. The patient presents after a trauma. The patient was evaluated fully without evidence of emergent posttraumatic pathology. The patient has no focal deficits. I've low suspicion for intracranial pathology. I have low suspicion for cerebral ischemia or intracranial hemorrhage. The patient has no cervical spine tenderness. He can move his neck in all directions without any pain. As stated above, he does not have any focal deficits. He is not altered or intoxicated. He does not have any distracting injuries. The patient's cervical spine was clinically cleared using the Nexus C-spine rule. The patient does not have any saddle anesthesia. He has not been incontinent of urine or stool. He has not had any retention of urine or stool. I have low suspicion for spinal cord injury. The patient's chest x-ray does not reveal any evidence of pneumothorax. There is evidence of pleural effusions and pulmonary edema. The radiologist describes infiltration in the lungs as well, which I suspect is related to his chronic CHF. The patient's symptoms are not consistent with pneumonia. I doubt an infectious etiology and do not intend to initiate antibiotics in the emergency department. I do not suspect pericardial effusion. I do not see any mediastinal free air. I have low suspicion for esophageal tear or rupture. The patient does not have a widened mediastinum. The patient does not have chest pain radiating to the back. It does not have a sharp or tearing quality. I have low suspicion for thoracic aortic aneurysm or rupture or dissection. The patient's symptoms are not consistent with pulmonary embolism. The patient does not have any abdominal pain. I have low suspicion for posttraumatic intra-abdominal pathology. The patient's vital signs are unremarkable. I low suspicion for hepatic or splenic or renal trauma. The patient does not have any GI or urinary bleeding. I decreased suspicion for intestinal injury. I have low suspicion for urethral injury. ADMISSION At this time, I feel that the patient requires admission for further evaluation and management. The patient will be admitted to Dr. Maher in accordance with the patient's insurance. The patient was accepted at 1300 on 10/01/2018. Dr. Edwards was called to be consulted on the case. Disclaimer: Inadvertent spelling and grammatical errors are likely due to EHR/dictation software use and do not reflect on the overall quality of patient care. Note that the electronic time recorded on this note does not necessarily reflect the actual time of the patient encounter. Departure Diagnosis: Primary Impression: Hip fracture, right Encounter type: initial encounter Fracture type: closed Qualified Codes: S72.001A - Fracture of unspecified part of neck of right femur, initial encounter for closed fracture Additional Impressions: Right humeral fracture Encounter type: initial encounter Humerus Location: surgical neck F racture type: closed Fracture morphology: 2-part Fracture alignment: nondisplaced Qualified Codes: S42.224A - 2-part nondisplaced fracture of surgical neck of right humerus, initial encounter for closed fracture Fall from ground level Normocytic anemia Chronic kidney disease Chronic kidney disease stage: unspecified stage Qualified Codes: N18.9 - Chronic kidney disease, unspecified Chronic CHF Heart failure type: unspecified Qualified Codes: I50.9 - Heart failure, unspecified Chronic atrial fibrillation Condition: Serious JADON HAMILTON MD October 01, 2018 13:41
[2018-10-01] MEDS ORDERED: NACL 0.9% 3 ML SYG IV SCH (15:30)
[2018-10-01] MEDS: morphine 2 MG INJ IV PRN ×2 (17:15→21:49)
[2018-10-01 18:26] VITALS: BP 133/87; PULSE 99; RESP 18
--- NOTE | 2018-10-01 19:26 | CONS ---
Assessment/Plan Assessment/Plan Hospital Course (Demo Recall) 88-year-old male with multiple medical problems including significant cardiac history with right minimally displaced proximal humerus fracture and right intertrochanteric hip fracture. Given the patient's age and comorbidities we will have to weigh the benefits and risks of performing surgery for both the proximal humerus and the hip. It would be difficult for the patient to mobilize without fixing the humerus fracture after fixation of the hip fracture. However given the patient's significant comorbidities it may be best to operate on the hip fracture first and see how he does clinically and if he is unable to mobilize return back to the operating room to fix the proximal humerus fracture. Benefits and risks reviewed with the patient. Risks include but not limited to medical complications, anesthetic complications, cardiopulmonary complications, bleeding, infection, nonunion, malunion, hardware failure, pain, stiffness, arthritis, need for further surgery, hardware removal, neurovascular injury. He understood these and wished to proceed with surgery. Plan: Plan for intramedullary nailing of right IT fracture. We will further discuss options to fix the humerus. Nonweightbearing right upper extremity and right lower extremity N.p.o. at midnight Medical clearance for surgery Pain control Consultation Date/Type/Reason Admit Date/Time October 01, 2018 at 13:07 Date of Consultation: October 01, 2018 Reason for Consultation Right humeral neck fracture and right intertrochanteric hip fracture Date/Time of Note DATE: 10/01/18 TIME: 19:12 Hx of Present Illness 88-year-old male presents to the emergency department by [facility] after a ground-level fall while he was cleaning his garage. He was unable to get up for 30 minutes until help arrived. He complains right shoulder and right hip pain. Denies numbness and tingling. Denies any head trauma. Denies loss of consciousness. Patient denies fever, chills, shortness of breath, chest pain, nausea/vomiting, constipation, diarrhea, numbness, and tingling. Past Medical History Hypertension A. fib CHF Pacemaker Home Meds Reported Medications Tamsulosin Hcl* (Flomax*) 0.4 Mg Cap.er.24h, 0.4 MG PO DAILY, CAP 10/01/18 Pantoprazole* (Protonix*) 40 Mg Tablet.dr, 40 MG PO DAILY, TAB 10/01/18 Isosorbide Mononitrate* (Isosorbide Mononitrate*) 30 Mg Tab.er.24h, 30 MG PO DAILY, TAB 10/01/18 Clopidogrel Bisulfate (Clopidogrel) 75 Mg Tablet, 75 MG PO DAILY, #30 TAB 10/01/18 Diltiazem Hcl* (Cardizem CD*) 180 Mg Cap.sr.24h, 180 MG PO DAILY, #30 CAP 10/01/18 Amiodarone Hcl* (Amiodarone Hcl*) 200 Mg Tablet, 200 MG PO DAILY, #30 TAB 10/01/18 Discontinued Reported Medications Hydrocodone Bit-Acetaminophen (Hydrocodone Bit-APAP) 5-325MG Tablet, 1 TAB PO Q6H PRN for PAIN, TAB 08/19/17 Multivitamin (Daily Multiple Vitamin) 1 Each Tablet, 1 EACH PO, TAB 08/19/17 Bisacodyl* (Bisacodyl*) 5 Mg Tablet.dr, 10 MG PO DAILY PRN for CONSTIPATION, TAB 08/19/17 Pantoprazole* (Pantoprazole*) 40 Mg Tablet.dr, 40 MG PO AC BREAKFAST, TAB 08/18/17 Clopidogrel Bisulfate (Clopidogrel) 75 Mg Tablet, 75 MG PO DAILY, #30 TAB 08/18/17 Nitroglycerin* (Nitrostat*) 0.4 Mg Tab.subl, 0.4 MG SL Q5MIN PRN for CHEST PAIN, BOTTLE 08/18/17 Dutasteride* (Avodart*) 0.5 Mg Capsule, 0.5 MG PO DAILY, CAP 08/18/17 Benazepril-Hydrochlorothiazide (Benazepril-Hydrochlorothiazide) 20-12.5 Mg Tablet, 0.5 TAB PO DAILY, #30 TAB 08/18/17 Medications Current Medications Ondansetron HCl (Zofran Inj) 4 mg BRIDGE ORDER PRN IV NAUSEA/VOMITING Last administered on 10/01/18at 17:15; Admin Dose 4 MG; Start 10/01/18 at 13:30; Stop 10/02/18 at 13:29 Acetaminophen (Tylenol Tab) 650 mg ER BRIDGE PRN PO .MILD PAIN 1-3 OR TEMP; Start 10/01/18 at 13:30; Stop 10/02/18 at 13:29 Amiodarone HCl (Cordarone) 200 mg DAILY PO ; Start 10/02/18 at 09:00 Clopidogrel Bisulfate (plaVIX) 75 mg DAILY PO ; Start 10/02/18 at 09:00 Diltiazem HCl (Cardizem Cd) 180 mg DAILY PO ; Start 10/02/18 at 09:00 Isosorbide Mononitrate (Imdur) 30 mg DAILY PO ; Start 10/02/18 at 09:00 Pantoprazole (Protonix Tab) 40 mg DAILY@0600 PO ; Start 10/02/18 at 06:00 Tamsulosin HCl (Flomax) 0.4 mg DAILY@2100 PO ; Start 10/01/18 at 21:00 IV Flush (NS 3 ml) 3 ml PER PROTOCOL IV ; Start 10/01/18 at 15:30 Ondansetron HCl (Zofran Inj) 4 mg Q6H PRN IV NAUSEA/VOMITING; Start 10/01/18 at 15:30 Acetaminophen (Tylenol Tab) 650 mg Q6H PRN PO .PAIN 1-3 OR TEMP; Start 10/01/18 at 15:30 Ibuprofen (Motrin) 600 mg Q6H PRN PO .PAIN 1-3; Start 10/01/18 at 15:30 Acetaminophen/ Hydrocodone Bitart ([place] (5/325)) 1 tab Q6H PRN PO .MOD PAIN 4- 6; Start 10/01/18 at 15:30 Morphine Sulfate (morphine) 2 mg Q4H PRN IV .SEVERE PAIN 7-10 Last administered on 10/01/18at 17:15; Admin Dose 2 MG; Start 10/01/18 at 15:30 Docusate Sodium (Colace) 100 mg Q12H PRN PO .CONSTIPATION; Start 10/01/18 at 15:30 Bisacodyl (Dulcolax) 5 mg DAILY PRN PO .CONSTIPATION; Start 10/01/18 at 15:30 Sodium Biphosphate/ Sodium Phosphate (Fleet Enema) 133 ml DAILY PRN ND .CONSTIPATION; Start 10/01/18 at 15:30 Heparin Sodium (Porcine) (Heparin (5000 Units/1ml)) 5,000 unit Q12 SC ; Start 10/01/18 at 21:00 Allergies: Coded Allergies: Penicillins (Verified Allergy, Severe, hives, 10/01/18) ticagrelor (Verified Allergy, Intermediate, N/V, 10/01/18) Sulfa (Sulfonamide Antibiotics) (Verified Allergy, Unknown, 10/01/18) cephalexin (Verified Allergy, Unknown, 10/01/18) ciprofloxacin (Verified Allergy, Unknown, 10/01/18) dutasteride (Verified Allergy, Unknown, 10/01/18) nitrofurantoin (Verified Allergy, Unknown, 10/01/18) sotalol (Verified Allergy, Unknown, 10/01/18) amlodipine (Verified Adverse Reaction, Intermediate, extreme nausea, 10/01/18) lubiprostone (Verified Adverse Reaction, Intermediate, severe nausea, 10/01/18) carvedilol (Unverified Adverse Reaction, Mild, nausea, 10/01/18) apixaban (Unverified Adverse Reaction, Unknown, UPSET STOMACH, 10/01/18) lisinopril (Verified Adverse Reaction, Unknown, severe nausea, 10/01/18) Past Surgical History CABG 1974 Family History Significant Family History: no pertinent family hx Social History Smoking Status: Former smoker Drug Use: none Exam/Review of Systems Exam Vitals Vital Signs Date Temp Pulse Resp B/P (MAP) Pulse Ox O2 O2 Flow FiO2 Time Delivery Rate 10/01/18 98.2 99 18 133/87 98 Room Air 18:26 (102) Exam General: Awake, alert, in no acute distress, pleasant and cooperative Heart: regular rhythm Lungs: breathing comfortably, no tachypnea or dyspnea MUSCULOSKELETAL: Right upper extremity: Skin intact. There is ecchymosis over the anterior shoulder and proximal humerus. There is tenderness to palpation over the proximal humerus. No gross deformity. No significant swelling. Sensation intact to light touch in a median, ulnar, radial, and axillary distribution. Motor is intact in a median, ulnar, radial, anterior interosseous, and posterior interosseous nerve distribution. Radial and ulnar artery are +2. Wrist extension and flexion are intact. Compartments are soft. Right lower extremity: Skin intact. The leg is shortened and externally rotated when compared to contralateral extremity. There is groin pain to logroll. Sensation intact to light touch in a sural, saphenous, deep peroneal, sup erficial peroneal, medial and lateral plantar nerve distribution. Motor is intact, patient able to dorsiflex and plantarflex ankle and extend and flex great toe. Dorsalis Pedis pulse +2, Brisk capillary refill. Compartments are soft. Calves non-tender to palpation bilaterally. Results Result Diagram: 10/01/18 1151 10/01/18 1151 Results 24hrs Laboratory Tests Test 10/01/18 11:51 White Blood Count 8.6 # Red Blood Count 3.48 L Hemoglobin 10.6 L Hematocrit 32.1 L Mean Corpuscular Volume 92.2 Mean Corpuscular Hemoglobin 30.5 Mean Corpuscular Hemoglobin Concent 33.0 Red Cell Distribution Width 15.8 H Platelet Count 230 # Mean Platelet Volume 10.2 Immature Granulocytes % 0.500 H Neutrophils % 79.7 H Lymphocytes % 10.9 L Monocytes % 6.9 Eosinophils % 1.2 Basophils % 0.8 Nucleated Red Blood Cells % 0.0 Immature Granulocytes # 0.040 H Neutrophils # 6.9 Lymphocytes # 0.9 Monocytes # 0.6 Eosinophils # 0.1 Basophils # 0.1 Nucleated Red Blood Cells # 0.0 Prothrombin Time 14.7 Prothrombin Time Ratio 1.1 INR International Normalized Ratio 1.14 Sodium Level 142 Potassium Level 4.1 Chloride Level 107 Carbon Dioxide Level 27 Anion Gap 8 Blood Urea Nitrogen 27 H Creatinine 1.40 H Est Glomerular Filtrat Rate mL/min Glucose Level 128 Calcium Level 9.4 Imaging Imaging The patient received a standard set of films of the affected shoulder including an AP, Scapular Y and Axillary views in the emergency department. Films personally reviewed by myself: The glenohumeral joint is reduced. 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 The humeral head is high riding. There is acetabularization of the acromion and femoralization of the humerus. There is a minimally displaced proximal humerus fracture involving the surgical neck and greater tuberosity. AP and lateral views of the right hip and femur were personally reviewed. Demonstrate a minimally comminuted intertrochanteric hip fracture. There are moderate to severe degenerative changes of the hip joint. Medications Medication Current Medications Ondansetron HCl (Zofran Inj) 4 mg BRIDGE ORDER PRN IV NAUSEA/VOMITING Last administered on 10/01/18at 17:15; Admin Dose 4 MG; Start 10/01/18 at 13:30; Stop 10/02/18 at 13:29 Acetaminophen (Tylenol Tab) 650 mg ER BRIDGE PRN PO .MILD PAIN 1-3 OR TEMP; Start 10/01/18 at 13:30; Stop 10/02/18 at 13:29 Amiodarone HCl (Cordarone) 200 mg DAILY PO ; Start 10/02/18 at 09:00 Clopidogrel Bisulfate (plaVIX) 75 mg DAILY PO ; Start 10/02/18 at 09:00 Diltiazem HCl (Cardizem Cd) 180 mg DAILY PO ; Start 10/02/18 at 09:00 Isosorbide Mononitrate (Imdur) 30 mg DAILY PO ; Start 10/02/18 at 09:00 Pantoprazole (Protonix Tab) 40 mg DAILY@0600 PO ; Start 10/02/18 at 06:00 Tamsulosin HCl (Flomax) 0.4 mg DAILY@2100 PO ; Start 10/01/18 at 21:00 IV Flush (NS 3 ml) 3 ml PER PROTOCOL IV ; Start 10/01/18 at 15:30 Ondansetron HCl (Zofran Inj) 4 mg Q6H PRN IV NAUSEA/VOMITING; Start 10/01/18 at 15:30 Acetaminophen (Tylenol Tab) 650 mg Q6H PRN PO .PAIN 1-3 OR TEMP; Start 10/01/18 at 15:30 Ibuprofen (Motrin) 600 mg Q6H PRN PO .PAIN 1-3; Start 10/01/18 at 15:30 Acetaminophen/ Hydrocodone Bitart ([place] (5/325)) 1 tab Q6H PRN PO .MOD PAIN 4- 6; Start 10/01/18 at 15:30 Morphine Sulfate (morphine) 2 mg Q4H PRN IV .SEVERE PAIN 7-10 Last administered on 10/01/18at 17:15; Admin Dose 2 MG; Start 10/01/18 at 15:30 Docusate Sodium (Colace) 100 mg Q12H PRN PO .CONSTIPATION; Start 10/01/18 at 15:30 Bisacodyl (Dulcolax) 5 mg DAILY PRN PO .CONSTIPATION; Start 10/01/18 at 15:30 Sodium Biphosphate/ Sodium Phosphate (Fleet Enema) 133 ml DAILY PRN ND .CONSTIPATION; Start 10/01/18 at 15:30 Heparin Sodium (Porcine) (Heparin (5000 Units/1ml)) 5,000 unit Q12 SC ; Start 10/01/18 at 21:00 HAM ROBLES MD October 01, 2018 19:26
[2018-10-01 19:45] VITALS: BP 155/86; PULSE 88; RESP 20
[2018-10-01 20:10] VITALS: BP 136/79; PULSE 82
[2018-10-01] MEDS: HEPARIN 5,000 UNIT/1 ML VIAL SC SCH (21:00)
[2018-10-01] MEDS: TAMSULOSIN (SR) 0.4 MG CAP PO SCH (21:00)
[2018-10-02] VITALS (9 sets, daily range): BP systolic 120–146; BP diastolic 58–84; PULSE 79–137; RESP 16–23
--- NOTE | 2018-10-02 01:46 | CONS ---
DATE OF ADMISSION: 10/01/2018 DATE OF CONSULTATION: 10/01/2018 REASON FOR CONSULTATION: Preoperative evaluation. REQUESTING PHYSICIAN: Dr. Maher. HISTORY OF PRESENT ILLNESS: Mr. Santo is an 88-year-old male with a history of coronary artery dise ase, status post known stent to right coronary artery in 2016 by myself and then followed more recent ly by alternative cardiology, ____, who appears to have done a PCI of the patient's ramus, circu mflex and RCA in the recent past, peripheral arterial disease, status post MANAGER PORTABLE to SFAs bilaterally, a trial fibrillation, recurrent, recently off of anticoagulation, possibly due to a gastrointestinal bl eed, status post permanent pacemaker for bradyarrhythmias in 2016, who states that today he was in [employer] s garage doing some work and he went to cut something and as he went to cut it he states that he lost his balance, fell back on his side, and subsequently had pain and inability to stand. The patient d enied a prodrome of chest pain, shortness of breath, palpitations. Upon arrival, temperature of 98.1 , blood pressure 150/87, pulse 70, respiratory rate 18, sat 99%. The patient's labs revealed a white count 8.6, BUN 10.6, platelet count 230. Sodium 142, potassium 4.1, creatinine 1.4, BUN 27. INR o f 1.1. The patient underwent a hip x-ray revealing intertrochanteric fracture of the right femur, a shoulder x-ray revealing a nondisplaced fracture of the surgical neck of the right humerus, a chest x -ray that revealed cardiomegaly, calcified ____ pulmonary vascular congestion ____ in both lungs, ret rocardiac opacity may reflect left lower lobe atelectasis or infiltrate, right lower lung infiltrates and small right pleural effusion. The patient's electrocardiogram revealed atrial fibrillation, rat e 91, with intermittent demand pacing within the middle of the EKG with nonspecific ST-T abnormalitie s. The patient is admitted to the floor and admit to floor, ____ denies chest pain, shortness of glen ath. PAST MEDICAL HISTORY: As above in HPI. MEDICATIONS: Currently in hospital: 1. Amiodarone 10 mg a day. 1. Plavix 75 mg daily. 2. Diltiazem 180 mg p.o. daily. 3. Imdur 30 mg daily. 4. Protonix 40 mg daily. 5. Flomax 0.4 mg daily. 6. Heparin 5000 subq q.12h. 7. Morphine p.r.n. 8. Colace p.r.n. 9. Zofran p.r.n. 10. Tylenol p.r.n. ALLERGIES: PENICILLIN, SULFA, AMLODIPINE, ELIQUIS, CARVEDILOL, KEFLEX, CIPROFLOXACIN, LISONOPRIL. SOCIAL HISTORY: No current tobacco, ETOH or illicit drug use. FAMILY HISTORY: No history of sudden cardiac or early CAD. REVIEW OF SYSTEMS: As above in HPI. CONSTITUTIONAL: No fevers, chills. PULMONARY: Shortness of breath. CARDIOVASCULAR: No current chest pain. ENDOCRINE: History of stents. GASTROINTESTINAL: No vomiting. GENITOURINARY: Renal failure. PSYCHIATRIC: No documented psychiatric history. NEUROLOGIC: No documented history of CVA. PHYSICAL EXAMINATION VITAL SIGNS: Temperature 98.4, blood pressure most recently 155/86, pulse 88, respiratory rate 20, s at 95%. GENERAL: The patient is alert, awake, complaining of pain in the hip and shoulder. NECK: JVP approximately 90 cm water. CHEST: Fair movement throughout with mildly decreased breath sounds at bases bilaterally. HEART: Irregularly irregular, I/ systolic murmur. ABDOMEN: Positive bowel sounds, soft. EXTREMITIES: No significant pitting edema, 1+ pulses, bilateral posterior tibial. LABORATORY DATA: As above in HPI. No further labs for my review at this time. IMAGING STUDIES: As above in HPI. No further imaging studies for my review at this time. ECG: As above in HPI. No further electrograms for my review at this time. IMPRESSION: 1. Preoperative evaluation prior to lower extremity open reduction internal fixation for right hip f racture. 2. Abnormal electrocardiogram with nonspecific ST ____ abnormality, assess for acute coronary syndro me. 3. Atrial fibrillation, currently rate controlled at this time, not on systemic anticoagulation at [facility] due to possible bleeding complications. 4. History of percutaneous transluminal coronary angioplasty and stent placement to the right keith ry artery in 2016 and unknown if possibly restented in addition to ramus and circumflex in 1999 or mo re recently by Dr. Ng. 5. History of MANAGER PORTABLE to lower extremities. 6. Status post fall, mechanical by description. 7. Right hip fracture. 8. Right humeral fracture. RECOMMENDATIONS: 1. At this time, would check serial EKGs to assess for any significant ongoing changes; an EKG in th e morning, EKG for any complaints of chest pain or change in rhythm. 2. Continue the patient's diltiazem for control of heart rate at this time with possible need for up titration to improve overall heart rate control. Additionally, continue the patient's amiodarone fo r now, although if the patient remains in atrial fibrillation, likely would ____ discontinue this. 3. Continue the patient's Plavix. Unclear when the patient's most recent stent was placed, and the patient is unclear about this on questioning. Will have to speak with Dr. Ng. 4. Continue the patient ____ Imdur for now. 5. Would reassess patient's ejection fraction with a 2D echo. 6. We will complete a rule out for myocardial infarction to ensure the patient's ____ chronic in denise ure and patient did not suffer any recent acute coronary syndromes in anticipation of upcoming need f or surgery. 7. If patient's troponins return negative x3 and the patient's echo does not reveal any new signific ant new abnormalities, the patient will be reasonable to proceed to the OR at a moderate cardiovascu lar risks on current medications, possibly including Plavix, depending on when the patient's most rec ent stent has been placed. 8. Postoperatively, would check a 12-lead EKG to assess for any significant changes and watch closel y for any signs or symptoms of cardiovascular complications including, but not limited to, the onset of chest pain, shortness of breath, uncontrolled cardiac arrhythmias or development of congestive hea rt failure. Thank you for allowing me to take part in the care of this patient. Dictated By: JEFF CARMICHAEL/JONATAN Conf#: [id number] DID#: [id number] CC: Dontrell Edwards; FREEDOM MAHER MD;*End*
[2018-10-02] MEDS: PANTOPRAZOLE (EC) 40 MG TAB PO SCH (06:00)
[2018-10-02] MEDS: morphine 2 MG INJ IV PRN ×4 (06:12→18:39)
[2018-10-02] MEDS ORDERED: EPHEDrine 25 MG/5 ML SYG ONE (07:00)
--- NOTE | 2018-10-02 07:40 | HP ---
Date/Time of Note Date/Time of Note DATE: 10/02/18 TIME: Assessment/Plan VTE Prophylaxis [place] [facility] [place]: 11 SCD applied [place] [facility] [place] Yes Pharmacological prophylaxis: NA/contraindicated Pharm contraindication: surgical contra Lines/Catheters IV Catheter Type (from [facility] Saline Lock Urinary Cath still in place: No (able to use urinal while on bed; no MD order for FC insertion) Assessment/Plan Problems: (1) Fall from ground level Status: Acute Comment: Resulting in 2 fractures. Post-op PT very important to reduce risk of fractures in future. (2) Right humeral fracture Status: Acute Comment: To OR today provided cleared by cardiology. Defer to Ortho. Qualifiers: Encounter type: initial encounter Humerus Location: surgical neck Fracture type: closed Fracture morphology: 2-part Fracture alignment: nondisplaced Qualified Codes: S42.224A - 2-part nondisplaced fracture of surgical neck of right humerus, initial encounter for closed fracture (3) Hip fracture, right Status: Acute Comment: To OR today provided cleared by cardiology. Defer to Ortho. Qualifiers: Encounter type: initial encounter Fracture type: closed Qualified Codes: S72.001A - Fracture of unspecified part of neck of right femur, initial encounter for closed fracture (4) CVD (cardiovascular disease) Status: Chronic Comment: On plavix and imdur. Defer to cardiology. (5) Ischemic cardiomyopathy Status: Resolved Comment: Pt. having current ECHO to confirm EF. On plavix and imdur. Defer to cardiology. (6) Diastolic dysfunction Status: Chronic Comment: Pt. having current ECHO to confirm EF and diastolic fxn. On low-dose lasix. Defer to cardiology. (7) Ejection fraction < 50% Status: Chronic Comment: Pt. having current ECHO to confirm EF. Defer to cardiology. (8) Aortic stenosis Status: Chronic Comment: Stable. Having ECHO. Cardiology monitoring. Qualifiers: Cardiac valve disease etiology: nonrheumatic Qualified Codes: I35.0 - Nonrheumatic aortic (valve) stenosis (9) Atrial fibrillation Status: Chronic Comment: Rate controlled. 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 had bleeding episode previously w/ anticoag. Pt. was to have Watchman procedure in near future. Rate controlled and stable. Qualifiers: Atrial fibrillation type: chronic Qualified Codes: I48.2 - Chronic atrial fibrillation (10) Essential (primary) hypertension Status: Chronic Comment: BP in fair control. On diltiazem 180 mg bid (11) Dyslipidemia Status: Chronic Comment: Not currently on statin. Defer to dyslipidemia (12) BPH (benign prostatic hypertrophy) with urinary retention Status: Chronic Comment: Cont. tamsulosin (13) Gastroesophageal reflux disease Status: Chronic Comment: Cont. pantoprazole (14) Chronic kidney disease Status: Chronic Comment: Mildly improved since admit yesterday. Stable Qualifiers: Chronic kidney disease stage: unspecified stage Qualified Codes: N18.9 - Chronic kidney disease, unspecified (15) Normocytic anemia Status: Chronic Comment: Likely related to underlying renal disease. 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 seen and evaluated. Pt. w/ 2 fractures and requires surgery per ortho. Pt. is intermediate risk for these intermediate risk procedures. Provided pt. is cleared by cardiology pt. should proceed at this level with surgery without further risk stratification. Result Diagram: 10/02/18 0440 10/02/18 0440 Results 24hrs Laboratory Tests Test 10/01/18 11:51 10/02/18 00:28 10/02/18 04:40 White Blood Count 8.6 # 8.5 Red Blood Count 3.48 L 3.42 L Hemoglobin 10.6 L 10.4 L Hematocrit 32.1 L 31.1 L Mean Corpuscular Volume 92.2 90.9 Mean Corpuscular Hemoglobin 30.5 30.4 Mean Corpuscular Hemoglobin Concent 33.0 33.4 Red Cell Distribution Width 15.8 H 15.9 H Platelet Count 230 # 210 Mean Platelet Volume 10.2 10.2 Immature Granulocytes % 0.500 H 0.400 Neutrophils % 79.7 H 74.4 Lymphocytes % 10.9 L 12.5 L Monocytes % 6.9 11.4 H Eosinophils % 1.2 0.5 Basophils % 0.8 0.8 Nucleated Red Blood Cells % 0.0 0.0 Immature Granulocytes # 0.040 H 0.030 Neutrophils # 6.9 6.3 Lymphocytes # 0.9 1.1 Monocytes # 0.6 1.0 H Eosinophils # 0.1 0.0 Basophils # 0.1 0.1 Nucleated Red Blood Cells # 0.0 0.0 Prothrombin Time 14.7 Prothrombin Time Ratio 1.1 INR International Normalized Ratio 1.14 Sodium Level 142 139 Potassium Level 4.1 4.6 Chloride Level 107 106 Carbon Dioxide Level 27 26 Anion Gap 8 7 Blood Urea Nitrogen 27 H 23 H Creatinine 1.40 H 1.21 Est Glomerular Filtrat Rate mL/min Glucose Level 128 102 Calcium Level 9.4 9.4 Troponin I < 0.012 < 0.012 Hemoglobin A1c 5.5 Total Bilirubin 1.1 Direct Bilirubin 0.00 Indirect Bilirubin 1.1 Aspartate Amino Transf (AST/SGOT) 22 Alanine Aminotransferase (ALT/SGPT) 19 Alkaline Phosphatase 50 Total Protein 6.3 Albumin 3.6 Globulin 2.70 Albumin/Globulin Ratio 1.33 Thyroid Stimulating Hormone (TSH) 1.520 HPI/ROS Admit Date/Time Admit Date/Time October 01, 2018 at 13:07 Hx of Present Illness 88 y/o C M w/ h/o CAD s/p CABG and stent, , A-fib, ischemic cardiomyopathy w/ diastolic dysfxn, PVD, HTN, hyperlipidemia, CKD stage 2, BPH, GERD, mycosis fungoides in [facility] until yesterday am when he was in his garage cutting boxes. Box was difficult to cut and w/ excess force pt. threw himself off-balance. Back-peddled and fell striking his R shoulder and R hip. Could not get up. Yelled for help for 30 minutes before someone came and called 911. BIBA to [facility]- ER. In ER XR showed intertrochanteric R hip fx w/ mild varus deformity and non- displaced fx R humeral neck. ROS Constitutional: no complaints Eyes: no complaints ENT: no complaints Respiratory: no complaints Cardiovascular: no complaints Gastrointestinal: no complaints Genitourinary: no complaints Musculoskeletal: bone/joint pain (fracture sites) Neurologic: no complaints PMH/Family/Social Past Medical History Medical History: cancer (mycosis fungoides), congestive heart failure, coronary artery disease, GERD, high cholesterol, hypertension, renal disease, other (A- fib, PVD) Medications Current Medications Ondansetron HCl (Zofran Inj) 4 mg BRIDGE ORDER PRN IV NAUSEA/VOMITING Last administered on 10/01/18at 17:15; Admin Dose 4 MG; Start 10/01/18 at 13:30; Stop 10/02/18 at 13:29 Acetaminophen (Tylenol Tab) 650 mg ER BRIDGE PRN PO .MILD PAIN 1-3 OR TEMP; St art 10/01/18 at 13:30; Stop 10/02/18 at 13:29 Amiodarone HCl (Cordarone) 200 mg DAILY PO ; Start 10/02/18 at 09:00 Clopidogrel Bisulfate (plaVIX) 75 mg DAILY PO ; Start 10/02/18 at 09:00 Isosorbide Mononitrate (Imdur) 30 mg DAILY PO ; Start 10/02/18 at 09:00 Pantoprazole (Protonix Tab) 40 mg DAILY@0600 PO ; Start 10/02/18 at 06:00 Tamsulosin HCl (Flomax) 0.4 mg DAILY@2100 PO ; Start 10/01/18 at 21:00 IV Flush (NS 3 ml) 3 ml PER PROTOCOL IV ; Start 10/01/18 at 15:30 Ondansetron HCl (Zofran Inj) 4 mg Q6H PRN IV NAUSEA/VOMITING; Start 10/01/18 at 15:30 Acetaminophen (Tylenol Tab) 650 mg Q6H PRN PO .PAIN 1-3 OR TEMP; Start 10/01/18 at 15:30 Ibuprofen (Motrin) 600 mg Q6H PRN PO .PAIN 1-3; Start 10/01/18 at 15:30 Acetaminophen/ Hydrocodone Bitart ([place] (5/325)) 1 tab Q6H PRN PO .MOD PAIN 4- 6; Start 10/01/18 at 15:30 Morphine Sulfate (morphine) 2 mg Q4H PRN IV .SEVERE PAIN 7-10 Last administered on 10/02/18at 06:12; Admin Dose 2 MG; Start 10/01/18 at 15:30 Docusate Sodium (Colace) 100 mg Q12H PRN PO .CONSTIPATION; Start 10/01/18 at 15:30 Bisacodyl (Dulcolax) 5 mg DAILY PRN PO .CONSTIPATION; Start 10/01/18 at 15:30 Sodium Biphosphate/ Sodium Phosphate (Fleet Enema) 133 ml DAILY PRN [place] .CONSTIPATION; Start 10/01/18 at 15:30 Heparin Sodium (Porcine) (Heparin (5000 Units/1ml)) 5,000 unit Q12 SC ; Start 10/01/18 at 21:00 Diltiazem HCl (Cardizem Cd) 180 mg BID PO ; Start 10/02/18 at 09:00 Furosemide (Lasix) 20 mg ONCE ONCE IV ; Start 10/02/18 at 08:00; Stop 10/02/18 at 08:01 Coded Allergies: Penicillins (Verified Allergy, Severe, hives, 10/01/18) ticagrelor (Verified Allergy, Intermediate, N/V, 10/01/18) Sulfa (Sulfonamide Antibiotics) (Verified Allergy, Unknown, 10/01/18) cephalexin (Verified Allergy, Unknown, 10/01/18) ciprofloxacin (Verified Allergy, Unknown, 10/01/18) dutasteride (Verified Allergy, Unknown, 10/01/18) nitrofurantoin (Verified Allergy, Unknown, 10/01/18) sotalol (Verified Allergy, Unknown, 10/01/18) amlodipine (Verified Adverse Reaction, Intermediate, extreme nausea, 10/01/18) lubiprostone (Verified Adverse Reaction, Intermediate, severe nausea, 10/01/18) carvedilol (Unverified Adverse Reaction, Mild, nausea, 10/01/18) apixaban (Unverified Adverse Reaction, Unknown, UPSET STOMACH, 10/01/18) lisinopril (Verified Adverse Reaction, Unknown, severe nausea, 10/01/18) Past Surgical History Past Surgical Hx: angioplasty, coronary bypass surgery, other (TURP, cataracts, inguinal hernia, umbilical hernia, PVD stent, pacemaker) Family History Significant Family History: no pertinent family hx Social History lives w/ and son Alcohol Use: none Smoking Status: Former smoker (quit > 40 y. ago) Drug Use: none Exam/Review of Systems Vital Signs Vitals VS - Last 72 Hours, by Label Date Temp Pulse Resp B/P (MAP) Pulse Ox O2 O2 Flow FiO2 Time Delivery Rate 10/02/18 98.0 79 17 132/75 96 Room Air 02:35 (94) 10/01/18 98.1 82 136/79 20:10 (98) 10/01/18 98.4 88 20 155/86 95 19:45 (109) 10/01/18 98.2 99 18 133/87 98 Room Air 18:26 (102) 10/01/18 88 18 138/76 99 Room Air 17:22 (96) 10/01/18 97.9 75 22 147/87 97 Room Air 15:00 (107) 10/01/18 99.0 77 16 149/81 98 Room Air 13:00 (103) 10/01/18 88 16 159/82 98 Room Air 12:54 (107) 10/01/18 98.1 78 18 153/87 99 10:44 (109) Vital Signs Date Temp Pulse Resp B/P (MAP) Pulse Ox O2 O2 Flow FiO2 Time Delivery Rate 10/02/18 98.0 79 17 132/75 96 Room Air 02:35 (94) Intake and Output 10/01/18 10/01/18 10/02/18 1515:00 23:00 07:00 IntakeIntake Total 660 ml 120 ml OutputOutput Total 950 ml 400 ml BalanceBalance -290 ml -280 ml Exam Constitutional: alert, oriented, well developed Psych: no complaints, nl mood/affect Eyes: nl conjunctiva, EOMI, nl lids, nl sclera, PERRL ENMT: nl external ears & nose, mucosa pink and moist Neck: supple, non-tender; No bruits, No masses, No thyromegaly Respiratory: clear to auscultation, normal air movement Cardiovascular: nl pulses, irregular rhythm; No regular rate and rhythm, No edema, No murmurs/extra sounds, No rub Gastrointestinal: soft, nl liver, spleen, non-tender, bowel sounds; No mass, No rebound or guarding Musculoskeletal: nl extremities to inspection Extremities: normal pulses; No cyanosis, No clubbing, No edema Neurological: MILL OPERATOR II-XII intact, nl mental status, nl speech, nl strength FREEDOM REYES MD October 02, 2018 07:30
[2018-10-02] MEDS ORDERED: FUROSEMIDE 20 MG INJ IV ONE (08:00)
[2018-10-02] MEDS: HEPARIN 5,000 UNIT/1 ML VIAL SC SCH ×2 (09:00→23:52)
[2018-10-02] MEDS ORDERED: DILTIAZEM (CD) 180 MG CAP PO SCH (09:00)
[2018-10-02] MEDS: CLOPIDOGREL 75 MG TAB PO SCH (09:00)
[2018-10-02] MEDS: AMIODARONE 200 MG TAB PO SCH (09:18)
[2018-10-02] MEDS: ISOSORBIDE MONONITRATE(SR)30 MG TAB PO SCH (09:19)
[2018-10-02] MEDS: DILTIAZEM (CD) 180 MG CAP PO SCH (09:20)
--- NOTE | 2018-10-02 13:02 | RADRPT ---
Echocardiogram Report Patient Name: JB RICARDOPatient ID: [id number] : [id number] (88y 5m)Study Date: 10/02/2018 7:12:31 AM Gender: MAccession #: [id number] [facility] Location: [facility] Ref.Physician: JEFF BARRAGAN Height(Cm): BSA: Weight(Kg): Quality: AdequateAccount #: Procedures: Echocardiographic Report: Transthoracic echocardiogram with complete 2D, M-Mode, and doppler examination. Indications: Pre-op. Measurements: 2D/M Mode Doppler Measurement Value Normal Range Measurement Value Normal Range LVIDd 2D 4.4 [ 4.2 - 5.8 ] cm HARIKA VTI 1.3 [ 2.0 - 4.0 ] cm2 LVIDs 2D 3.5 [ 2.5 - 4.0 ] cm AV Mean Blayne 1.4 [ 70.0 - 90.0 ] cm/sec LVPWd 2D 0.9 [ 0.6 - 1.0 ] cm AV Mean PG 9.0 [ 2.0 - 4.0 ] mmHg IVSd 2D 0.8 [ 0.6 - 1.0 ] cm AV VTI 39.9 cm EDV 2D 89.6 [ 62.0 - 150.0 ] ml LVOT Mean Blayne 0.6 [ 60.0 - 80.0 ] cm/sec ESV 2D 51.9 [ 21.0 - 61.0 ] ml LVOT Mean PG 2.0 [ 1.0 - 3.0 ] mmHg EF 2D 42.1 [ 52.0 - 72.0 ] percent LVOT Peak Blayne 1.0 [ 70.0 - 110.0 ] cm/sec LA Dimen 2D 5.0 [ 3.0 - 4.0 ] cm LVOT Peak PG 4.0 [ 2.0 - 6.0 ] mmHg LVOT Diam 2.0 [ 2.3 - 2.9 ] cm LVOT VTI 16.0 [ 20.0 - 30.0 ] cm MV E Peak Blayne 1.5 [ 60.0 - 130.0 ] cm/sec Lat E` Blayne 0.1 [ 10.0 - 15.0 ] cm/sec Lateral E/E` 11.3 [ 1.0 - 2.0 ] ratio Med E` Blayne 0.1 cm/sec TR Peak Blayne 2.7 [ 100.0 - 280.0 ] cm/sec TR Peak PG 30.0 mmHg Findings: Left Ventricle: Normal left ventricular cavity size. Normal left ventricular wall thickness. Moderate global left ventricular systolic dysfunction. Ejection fraction is visually estimated at 30 %. Right Ventricle: Normal right ventricular size. Normal right ventricular systolic function. Left Atrium: There is mild to mod enlargement of left atrium. Right Atrium: The right atrium is normal in size. Atrial Septum: Normal atrial septum. Ventricular septum: Normal/intact ventricular septum. Mitral Valve: Normal appearance of the mitral valve. Moderate mitral valve regurgitation. Aortic Valve: Moderate aortic stenosis. Aortic valve Max velocity 2.01 m/sec. Max PG 16.10 mmHg. Mean PG 9.00 mmHg. Aortic valve area 1.26 cm2. Tricuspid Valve: Normal appearance of the tricuspid valve. There is mild tricuspid regurgitation. Pulmonic Valve: Normal pulmonic valve appearance. No evidence of pulmonic regurgitation. Pericardium: Normal pericardium with no significant pericardial effusion. Aorta: Normal aortic root. IVC: The IVC is not well visualized. Conclusions: Normal left ventricular cavity size. Normal left ventricular wall thickness. Moderate to severe global left ventricular systolic dysfunction. Ejection fraction is visually estimated at 30 %. There is mild to mod enlargement of left atrium. Normal appearance of the mitral valve. Moderate mitral valve regurgitation. Moderate aortic stenosis. Aortic valve Max velocity 2.01 m/sec. Max PG 16.10 mmHg. Mean PG 9.00 mmHg. Aortic valve area 1.26 cm2. Normal appearance of the tricuspid valve. There is mild tricuspid regurgitation. Electronically Signed By: Jeff Barragan 2018-10-02 13:01:54 PDT
--- NOTE | 2018-10-02 13:48 | PN ---
Date/Time of Note Date/Time of Note DATE: 10/02/18 TIME: 13:45 Assessment/Plan Lines/Catheters IV Catheter Type (from Nrsg): Saline Lock [place] in Place (from Nrs): No (able to use urinal while on bed; no MD order for FC insertion) Assessment/Plan Chief Complaint/Hosp Course 88-year-old male with significant cardiac history with acute right intertrochanteric hip fracture and nondisplaced right humeral surgical neck fracture. Cardiology has seen the patient. Personally spoke with part time. Per part time review patient is high risk secondary to cardiac disease. Patient recently has undergone numerous attempts of revascularization some being not successful. Taking this into consideration in speaking with the family the decision was made to nonoperatively treat the right humerus neck fracture. We will continue to plan to fix the right intertrochanteric hip fracture today. Plan: Nonweightbearing right lower extremity Nonweightbearing right upper extremity. Sling for right upper extremity. Pain control N.p.o. Surgery today for IM nail of right IT fracture. Subjective 24 Hr Interval Summary Patient doing well No acute events overnight Pain is well controlled Exam/Review of Systems Vital Signs Vitals Vital Signs Date Temp Pulse Resp B/P (MAP) Pulse Ox O2 O2 Flow FiO2 Time Delivery Rate 10/02/18 98.2 108 18 139/84 93 Room Air 08:23 (102) Intake and Output 10/01/18 10/01/18 10/02/18 1515:00 23:00 07:00 IntakeIntake Total 660 ml 120 ml OutputOutput Total 950 ml 400 ml BalanceBalance -290 ml -280 ml Exam Free Text/Dictation MUSCULOSKELETAL: Right upper extremity: Skin intact. There is ecchymosis over the anterior shoulder and proximal humerus. There is tenderness to palpation over the proximal humerus. No gross deformity. No significant swelling. Sensation intact to light touch in a median, ulnar, radial, and axillary distribution. Motor is intact in a median, ulnar, radial, anterior interosseous, and posterior interosseous nerve distribution. Radial and ulnar artery are +2. Wrist extension and flexion are intact. Compartments are soft. Right lower extremity: Skin intact. The leg is shortened and externally rotated when compared to contralateral extremity. There is groin pain to logroll. Sensation intact to light touch in a sural, saphenous, deep peroneal, superficial peroneal, medial and lateral plantar nerve distribution. Motor is intact, patient able to dorsiflex and plantarflex ankle and extend and flex great toe. Dorsalis Pedis pulse +2, Brisk capillary refill. Compartments are soft. Calves non-tender to palpation bilaterally. Results Result Diagram: 10/02/18 0440 10/02/18 0440 HAM ROBLES MD October 02, 2018 13:48
--- NOTE | 2018-10-02 13:54 | CONS ---
Assessment/Plan Assessment/Plan Hospital Course (Demo Recall) IMPRESSION: 1. Preoperative evaluation prior to lower extremity open reduction internal fixation for right hip fracture.-neg trop x 3/Echo EF 30% with moderate 2. Abnormal electrocardiogram with nonspecific ST abnormality, assess for acute coronary syndrome.-neg trop x 3 3. Atrial fibrillation, currently rate controlled at this time, not on systemic anticoagulation at baseline due to possible bleeding complications. 4. History of percutaneous transluminal coronary angioplasty and stent placement to the right coronary artery in 2016 and to LCX 2017(now known to be occluded chronically with SHEET METAL ENGINEER of LAD that is collateralized by RCA after discussion with DR GARCIA this AM) 5. History of INGREDIENT HANDLER to lower extremities with occlusion of RLE 6. Status post fall, mechanical by description. 7. Right hip fracture. 8. Right humeral fracture. 9. H/O BIV/ICD Recc: -At this time patient has no contraindication to proceeding to OR(no active ACS/decompensated CHF/controlled arrythmia) but is at high risk for cardiovascular complications due to chronic occlusions of coronary vessels and depressed EF/mod /AF. Have discussed this with treating surgeon and patient who understand and would like to proceed given high morbidity/mortality of un- operated Hip fx. Would avoid fluid shifts/BP swing and stage surgery for Hip and shoulder as you are doing. Post--operatively check 12 lead ecg and watch closely for s/sx of cv complications. -Post-operatively would resume patient's baseline dilitiazem/imdur/amio and plavix as soon as safe per treating surgeon. -pain control -post-operatively will add afterload reduction given low EF Consultation Date/Type/Reason Admit Date/Time October 01, 2018 at 13:07 Initial Consult Date 10/01/18 Type of Consult Cardiology Reason for Consultation preop Requesting Provider: FREEDOM REYES MD Date/Time of Note DATE: 10/02/18 TIME: 13:42 Exam/Review of Systems Vital Signs Vitals Vital Signs Date Temp Pulse Resp B/P (MAP) Pulse Ox O2 O2 Flow FiO2 Time Delivery Rate 10/02/18 98.2 108 18 139/84 93 Room Air 08:23 (102) Intake and Output 10/01/18 10/01/18 10/02/18 1515:00 23:00 07:00 IntakeIntake Total 660 ml 120 ml OutputOutput Total 950 ml 400 ml BalanceBalance -290 ml -280 ml Exam Exam Review of Systems: CONSTITUTIONAL: No fevers, chills. PULMONARY: No sob CARDIOVASCULAR: No chest pain/palpitations GASTROINTESTINAL: No nausea/vomiting. GENITOURINARY: No hematuria/dysuria. MUSCULOSKELETAL: No myagias/arthalgias. PSYCHIATRIC: The patient denies depression. NEUROLOGIC: No weakness Constitutional: alert Psych: no complaints Head: normocephalic ENMT: mucosa pink and moist Neck: supple, jvd (9 cm water) Respiratory: diminished breath sounds (at vbases/B) Cardiovascular: irregular rhythm Gastrointestinal: soft, non-tender Musculoskeletal: muscle tone (normal) Extremities: edema (none) Labs Result Diagram: 10/02/180 10/02/18 0440 Results 24hrs Laboratory Tests Test 10/02/18 00:28 10/02/18 04:40 10/02/18 12:01 Troponin I < 0.012 < 0.012 < 0.012 White Blood Count 8.5 Red Blood Count 3.42 L Hemoglobin 10.4 L Hematocrit 31.1 L Mean Corpuscular Volume 90.9 Mean Corpuscular Hemoglobin 30.4 Mean Corpuscular Hemoglobin Concent 33.4 Red Cell Distribution Width 15.9 H Platelet Count 210 Mean Platelet Volume 10.2 Immature Granulocytes % 0.400 Neutrophils % 74.4 Lymphocytes % 12.5 L Monocytes % 11.4 H Eosinophils % 0.5 Basophils % 0.8 Nucleated Red Blood Cells % 0.0 Immature Granulocytes # 0.030 Neutrophils # 6.3 Lymphocytes # 1.1 Monocytes # 1.0 H Eosinophils # 0.0 Basophils # 0.1 Nucleated Red Blood Cells # 0.0 Sodium Level 139 Potassium Level 4.6 Chloride Level 106 Carbon Dioxide Level 26 Anion Gap 7 Blood Urea Nitrogen 23 H Creatinine 1.21 Est Glomerular Filtrat Rate mL/min Glucose Level 102 Hemoglobin A1c 5.5 Calcium Level 9.4 Total Bilirubin 1.1 Direct Bilirubin 0.00 Indirect Bilirubin 1.1 Aspartate Amino Transf (AST/SGOT) 22 Alanine Aminotransferase (ALT/SGPT) 19 Alkaline Phosphatase 50 Total Protein 6.3 Albumin 3.6 Globulin 2.70 Albumin/Globulin Ratio 1.33 Thyroid Stimulating Hormone (TSH) 1.520 Medications Medications Current Medications Amiodarone HCl (Cordarone) 200 mg DAILY PO Last administered on 10/02/18at 09:18; Admin Dose 200 MG; Start 10/02/18 at 09:00 Clopidogrel Bisulfate (plaVIX) 75 mg DAILY PO ; Start 10/02/18 at 09:00 Isosorbide Mononitrate (Imdur) 30 mg DAILY PO Last administered on 10/02/18at 09:19; Admin Dose 30 MG; Start 10/02/18 at 09:00 Pantoprazole (Protonix Tab) 40 mg DAILY@0600 PO ; Start 10/02/18 at 06:00 Tamsulosin HCl (Flomax) 0.4 mg DAILY@2100 PO ; Start 10/01/18 at 21:00 IV Flush (NS 3 ml) 3 ml PER PROTOCOL IV ; Start 10/01/18 at 15:30 Ondansetron HCl (Zofran Inj) 4 mg Q6H PRN IV NAUSEA/VOMITING; Start 10/01/18 at 15:30 Acetaminophen (Tylenol Tab) 650 mg Q6H PRN PO .PAIN 1-3 OR TEMP; Start 10/01/18 at 15:30 Ibuprofen (Motrin) 600 mg Q6H PRN PO .PAIN 1-3; Start 10/01/18 at 15:30 Acetaminophen/ Hydrocodone Bitart ([place] (5/325)) 1 tab Q6H PRN PO .MOD PAIN 4- 6; Start 10/01/18 at 15:30 Morphine Sulfate (morphine) 2 mg Q4H PRN IV .SEVERE PAIN 7-10 Last administered on 10/02/18at 10:09; Admin Dose 2 MG; Start 10/01/18 at 15:30 Docusate Sodium (Colace) 100 mg Q12H PRN PO .CONSTIPATION; Start 10/01/18 at 15:30 Bisacodyl (Dulcolax) 5 mg DAILY PRN PO .CONSTIPATION; Start 10/01/18 at 15:30 Sodium Biphosphate/ Sodium Phosphate (Fleet Enema) 133 ml DAILY PRN [place] .CONSTIPATION; Start 10/01/18 at 15:30 Heparin Sodium (Porcine) (Heparin (5000 Units/1ml)) 5,000 unit Q12 SC ; Start 10/01/18 at 21:00 Diltiazem HCl (Cardizem Cd) 180 mg BID PO Last administered on 10/02/18at 09:20; Admin Dose 180 MG; Start 10/02/18 at 09:00 JEFF REYNOSO October 02, 2018 13:54
[2018-10-02] MEDS ORDERED: ROPIVACAINE 0.5 % 30 ML VIAL ONE (18:42)
--- NOTE | 2018-10-02 18:56 | PREAC ---
Date/Time of Note Date/Time of Note DATE: 10/02/18 TIME: 18:52 Anesthesia Eval and Record Evaluation Time Pre-Procedure Interview DATE: 10/02/18 TIME: 18:52 Age 88 Sex male NPO: 8 hrs Preoperative diagnosis right hip fx Planned procedure ORIF right hip Past Medical History Past Medical History: Includes Cardio: HTN, Dyslipidemia, CAD, CABG, PTCA/Stent, Arrythmia, PPM/AICD, CHF (EF30%) GI: GERD Surgery & Anesthesia Issues No known issue Meds Anticoagulation: No Beta Joseph within 24 hr: No Reason Beta Joseph not given: Pt. not on B-Joseph Reported Medications Tamsulosin Hcl* (Flomax*) 0.4 Mg Cap.er.24h, 0.4 MG PO DAILY, CAP 10/01/18 Pantoprazole* (Protonix*) 40 Mg Tablet.dr, 40 MG PO DAILY, TAB 10/01/18 Isosorbide Mononitrate* (Isosorbide Mononitrate*) 30 Mg Tab.er.24h, 30 MG PO DAILY, TAB 10/01/18 Clopidogrel Bisulfate (Clopidogrel) 75 Mg Tablet, 75 MG PO DAILY, #30 TAB 10/01/18 Diltiazem Hcl* (Cardizem CD*) 180 Mg Cap.sr.24h, 180 MG PO DAILY, #30 CAP 10/01/18 Amiodarone Hcl* (Amiodarone Hcl*) 200 Mg Tablet, 200 MG PO DAILY, #30 TAB 10/01/18 Discontinued Reported Medications Hydrocodone Bit-Acetaminophen (Hydrocodone Bit-APAP) 5-325MG Tablet, 1 TAB PO Q6H PRN for PAIN, TAB 08/19/17 Multivitamin (Daily Multiple Vitamin) 1 Each Tablet, 1 EACH PO, TAB 08/19/17 Bisacodyl* (Bisacodyl*) 5 Mg Tablet.dr, 10 MG PO DAILY PRN for CONSTIPATION, TAB 08/19/17 Pantoprazole* (Pantoprazole*) 40 Mg Tablet.dr, 40 MG PO AC BREAKFAST, TAB 08/18/17 Clopidogrel Bisulfate (Clopidogrel) 75 Mg Tablet, 75 MG PO DAILY, #30 TAB 08/18/17 Nitroglycerin* (Nitrostat*) 0.4 Mg Tab.subl, 0.4 MG SL Q5MIN PRN for CHEST PAIN, BOTTLE 08/18/17 Dutasteride* (Avodart*) 0.5 Mg Capsule, 0.5 MG PO DAILY, CAP 08/18/17 Benazepril-Hydrochlorothiazide (Benazepril-Hydrochlorothiazide) 20-12.5 Mg Tablet, 0.5 TAB PO DAILY, #30 TAB 08/18/17 Current Medications Amiodarone HCl (Cordarone) 200 mg DAILY PO Last administered on 10/02/18at 09:18; Admin Dose 200 MG; Start 10/02/18 at 09:00 Clopidogrel Bisulfate (plaVIX) 75 mg DAILY PO ; Start 10/02/18 at 09:00 Isosorbide Mononitrate (Imdur) 30 mg DAILY PO Last administered on 10/02/18at 09:19; Admin Dose 30 MG; Start 10/02/18 at 09:00 Pantoprazole (Protonix Tab) 40 mg DAILY@0600 PO ; Start 10/02/18 at 06:00 Tamsulosin HCl (Flomax) 0.4 mg DAILY@2100 PO ; Start 10/01/18 at 21:00 IV Flush (NS 3 ml) 3 ml PER PROTOCOL IV ; Start 10/01/18 at 15:30 Ondansetron HCl (Zofran Inj) 4 mg Q6H PRN IV NAUSEA/VOMITING; Start 10/01/18 at 15:30 Acetaminophen (Tylenol Tab) 650 mg Q6H PRN PO .PAIN 1-3 OR TEMP; Start 10/01/18 at 15:30 Ibuprofen (Motrin) 600 mg Q6H PRN PO .PAIN 1-3; Start 10/01/18 at 15:30 Acetaminophen/ Hydrocodone Bitart ([place] (5/325)) 1 tab Q6H PRN PO .MOD PAIN 4- 6; Start 10/01/18 at 15:30 Morphine Sulfate (morphine) 2 mg Q4H PRN IV .SEVERE PAIN 7-10 Last administered on 10/02/18at 18:39; Admin Dose 2 MG; Start 10/01/18 at 15:30 Docusate Sodium (Colace) 100 mg Q12H PRN PO .CONSTIPATION; Start 10/01/18 at 15:30 Bisacodyl (Dulcolax) 5 mg DAILY PRN PO .CONSTIPATION; Start 10/01/18 at 15:30 Sodium Biphosphate/ Sodium Phosphate (Fleet Enema) 133 ml DAILY PRN [place] .CONSTIPATION; Start 10/01/18 at 15:30 Heparin Sodium (Porcine) (Heparin (5000 Units/1ml)) 5,000 unit Q12 SC ; Start 10/01/18 at 21:00 Diltiazem HCl (Cardizem Cd) 180 mg BID PO Last administered on 10/02/18at 09:20; Admin Dose 180 MG; Start 10/02/18 at 09:00 Meds reviewed: Yes Allergies Coded Allergies: Penicillins (Verified Allergy, Severe, hives, 10/01/18) ticagrelor (Verified Allergy, Intermediate, N/V, 10/01/18) Sulfa (Sulfonamide Antibiotics) (Verified Allergy, Unknown, 10/01/18) cephalexin (Verified Allergy, Unknown, 10/01/18) ciprofloxacin (Verified Allergy, Unknown, 10/01/18) dutasteride (Verified Allergy, Unknown, 10/01/18) nitrofurantoin (Verified Allergy, Unknown, 10/01/18) sotalol (Verified Allergy, Unknown, 10/01/18) amlodipine (Verified Adverse Reaction, Intermediate, extreme nausea, 10/01/18) lubiprostone (Verified Adverse Reaction, Intermediate, severe nausea, 10/01/18) carvedilol (Unverified Adverse Reaction, Mild, nausea, 10/01/18) apixaban (Unverified Adverse Reaction, Unknown, UPSET STOMACH, 10/01/18) lisinopril (Verified Adverse Reaction, Unknown, severe nausea, 10/01/18) Allergies Reviewed: Yes Labs/Studies Labs Reviewed: Reviewed by anesthesiologist Result Diagram: 10/02/18 0440 10/02/18 0440 Laboratory Tests 10/02/18 04:40 test: N/A Studies: ECG (a fib), CXR (vascular congestion) Pre-procedure Exam Last vitals Vital Signs Date Temp Pulse Resp B/P (MAP) Pulse Ox O2 O2 Flow FiO2 Time Delivery Rate 10/02/18 98.1 103 18 138/72 92 Room Air 15:09 (94) Airway: Adequate mouth opening Mallampati: Mallampati I Teeth: Abnormal (partial denture) Lung: Normal Heart: Abnormal (a fib) ASA Physical Status ASA physical status: 3 Emergency: None Planned Anesthetic General/MAC: ETT, LMA Nerve block: Femoral (right) Planned Pain Management Single shot nerve block, Parenteral pain med Pre-operative Attestations Prior to commencing anesthesia and surgery, the patient was re-evaluated, there was verification of: *The patient's identity *The results of appropriate recent lab work and preoperative vital signs *The above evaluation not changing prior to induction *Anesthetic plan, risk benefits, alternative and complications discussed with patient/family; questions answered; patient/family understands, accepts and wishes to proceed. DENA THOMAS MD October 02, 2018 18:56
[2018-10-02] MEDS ORDERED: FENTAnyl 50 MCG/ML VIAL ONE ×2 (19:04→20:14)
[2018-10-02] MEDS ORDERED: CLINDAMYCIN 900 MG/D5W (PMX) 50 ML IVPB ONE (19:04)
[2018-10-02] MEDS ORDERED: ONDANSETRON 4 MG INJ ONE (19:04)
[2018-10-02] MEDS ORDERED: ETOMIDATE 20 MG INJ ONE (19:04)
[2018-10-02] MEDS ORDERED: METOCLOPRAMIDE 10 MG INJ ONE (19:04)
[2018-10-02] MEDS ORDERED: PHENYLephrine (100 MCG/ML) 10ML SYG ONE ×3 (19:37→21:11)
[2018-10-02] MEDS ORDERED: TRANEXAMIC ACID 1GM/100ML(PMX) 100 ML ONE ×2 (19:48→21:38)
[2018-10-02] MEDS ORDERED: EPINEPHRINE 4 MG in D5W 250 ML IV ONE (20:00)
[2018-10-02] MEDS ORDERED: PHENYLephrine 20MG IN 250 ML 250 ML ONE (20:13)
[2018-10-02] MEDS ORDERED: MIDAZOLAM 1 MG/ML 2 ML INJ ONE (20:20)
[2018-10-02] MEDS ORDERED: PHENYLephrine 20MG IN 250 ML 250 ML IV SCH (21:00)
[2018-10-02] MEDS ORDERED: MEPERIDINE 25 MG INJ IV PRN (21:30)
[2018-10-02] MEDS ORDERED: ONDANSETRON 4 MG INJ IV PRN (21:30)
[2018-10-02] MEDS ORDERED: HYDROmorphONE 0.5 MG/0.5 ML SYG IV PRN ×3 (21:30)
[2018-10-02] MEDS ORDERED: EPHEDrine SULFATE 50 MG/5 ML SYG IV PRN (21:30)
[2018-10-02] MEDS ORDERED: FENTAnyl 50 MCG/ML VIAL IV PRN ×3 (21:30)
[2018-10-02] MEDS ORDERED: DIPHENHYDRAMINE 50 MG INJ IV PRN (21:30)
[2018-10-02] MEDS: CLINDAMYCIN 900 MG/D5W (PMX) 50 ML IVPB SCH (23:54)
[2018-10-03] VITALS (41 sets, daily range): BP systolic 100–146; BP diastolic 51–78; PULSE 78–118; RESP 15–30
--- NOTE | 2018-10-03 00:20 | OPR ---
Date/Time of Note Date/Time of Note DATE: 10/03/18 TIME: 00:13 Operative Report Procedure Date: October 02, 2018 Preoperative Diagnosis Right IT fracture Postoperative Diagnosis As above Operation/Procedure Performed Right intramedullary nailing of right IT fracture Surgeon see signature line Slurry Tank Tender None Anesthesia Type: general Estimated Blood Loss: 150 - 200 ml's Transfusion none Specimen None Grafts/Implants Implants Leonel gamma cephalo-medullary nail size 11 x 420, 125 degree angle 110 mm lag screw 1 distal interlocking screws Complications none Pt Condition Post Procedure: guarded Disposition: other (ICU) Procedure Description Indications and consent: This is a 88-year-old male with with multiple medical problems including significant cardiac disease who presented to the emergency department after a mechanical fall and sustained a right intertrochanteric hip fracture as well as a nondisplaced right proximal humerus fracture. Orthopedics was consulted. Preoperative clearance process was begun. After having a discussion with the clinical science liaison as well as the patient it was decided to only fix the hip fracture and to treat that humerus fracture nonoperatively given his significant morbidities of cardiac disease the significant increase in anesthetic time and increase in surgical stress of fixation for both fractures was too high risk. I discussed treatment options with the patient. I recommended surgical treatment as nonoperative treatment would leave the patient bed bound. I reviewed the benefits and risks. The risks include but not limited to medical complications, cardiopulmonary complications, anesthetic complications, bleeding, infection, nonunion, malunion, hardware failure, continued pain, need for further surgery, need for removal of hardware, neurovascular injury. The patient understood these benefits and risks and wished to proceed with surgery. Procedure in detail: Patient was brought to the operating room. The patient was given a general anesthetic and placed in supine position on the [place] table. All bony prominences were well-padded. Patient was appropriately positioned and put in traction on the right lower extremity. At this time fluoroscopy was used to confirm positioning as well as reduction of right intertrochanteric hip fra cture. At this time the right lower extremity was prepped and draped in normal sterile fashion. A timeout was performed confirming the patient's name, medical record number, diagnosis, procedure performed, and laterality procedure. 900 mg of clindamycin was dosed. Fluoroscopy was used to localize the tip of greater trochanter and obtain the longitudinal axis of the femur. A #10 blade was used to make a skin incision several centimeters proximal and posterior to the tip of the greater trochanter. IT band was sharply incised. Tip of the greater trochanter could be palpated. The guidepin was then placed on the tip of the greater trochanter. Placement was confirmed on both AP and lateral fluoroscopy. The pin was then driven down with a wire hook up driver just past the lesser trochanter. Soft tissue guide was placed over the guidepin followed by the opening reamer. This was then removed. A ball-tipped guidewire with a bend was placed into the opening hole. The guide wire was confirmed to be in the femur on both AP and lateral films. It was placed in the center of the femur distally in both the AP and lateral planes. This was measured at approximately 430 mm, a 420 mm length nail was chosen. The canal was quite capacious began reaming with a 10 mm reamer and sequentially reamed up to a 13 mm reamer where there was appropriate chatter at the isthmus. Care was taken distally as the guidewire was near the anterior cortex secondary to a significant femoral bow. The larger reamer was reamed under lateral fluoroscopy. Therefore a 11 x 420 mm nail with 125 degree angle was chosen. This was then placed over the guidewire until the proper depth was obtained in the guidewire was then pulled out. A small 2 cm incision was made over the location of the future lag screw. The lag screw sleeve was placed through the jig and a guidepin was placed center center in the femoral head which was confirmed on both AP and lateral fluoroscopy. The pin was driven to the subchondral bone. This measured 110 mm. Therefore reamed to 115 mm and placed 110 mm screw. The set screw was then tightened and backed out a quarter turn to allow sliding of the lag screw. The screw was center center in the femoral head on both AP and lateral films. Our attention turned distally where perfect circles were obtained. The dynamic interlocking screw hole were used in static position. Appropriate drill was used to drill through these holes using perfect [place] technique followed by the appropriate length screws. All jigs and hardware was removed and final x-rays were obtained confirming good reduction of the fracture and positioning placement of the hardware. At this time all wounds were closely irrigated. The IT band was closed with #1 Vicryl in [id number] fashion followed by subcutaneous closure and arpit for the skin. The lag screw and interlocking screw incisions were closed with 2-0 Vicryl and skin for arpit. The dressings were covered with Mepilex dressing. All counts were correct x2 Disposition: Patient was awoken from anesthesia and transferred back in stable condition. Patient will be weight-bear as tolerated in the right lower extremity. He will be nonweightbearing on the right upper extremity. Will receive Ancef 2 g for 24 hours postop. The patient will be on DVT prophylaxis, lovenox 40mg daily x6 weeks and SCDs while admitted. I like to see the patient in clinic in 2 weeks. Implants Leonel gamma cephalo-medullary nail size 11 x 420, 125 degree angle 110 mm lag screw 1 distal interlocking screws HAM ROBLES MD October 03, 2018 00:20
[2018-10-03] MEDS: TAMSULOSIN (SR) 0.4 MG CAP PO SCH ×2 (00:50→20:57)
[2018-10-03] MEDS: DILTIAZEM (CD) 180 MG CAP PO SCH ×3 (00:50→20:35)
[2018-10-03] MEDS: CLINDAMYCIN 900 MG/D5W (PMX) 50 ML IVPB SCH ×3 (05:47→18:20)
[2018-10-03] MEDS: PANTOPRAZOLE (EC) 40 MG TAB PO SCH (05:47)
[2018-10-03] MEDS: morphine 2 MG INJ IV PRN ×4 (07:31→20:59)
--- NOTE | 2018-10-03 07:34 | PAC ---
Date/Time of Note Date/Time of Note DATE: 10/03/18 TIME: 07:34 Post-Anesthesia Notes Post-Anesthesia Note Last documented vital signs Vital Signs Date Temp Pulse Resp B/P (MAP) Pulse Ox O2 O2 Flow FiO2 Time Delivery Rate 10/03/18 98.9 78 22 116/52 97 06:30 (73) 10/03/18 98.9 04:00 10/03/18 2.0 03:51 10/03/18 Nasal 00:00 Cannula Activity: WNL Respiratory function: WNL Cardiovascular function: WNL Mental status: Baseline Pain reasonably controlled: Yes Hydration appropriate: Yes Nausea/Vomiting absent: No DENA THOMAS MD October 03, 2018 07:34
[2018-10-03] MEDS: CLOPIDOGREL 75 MG TAB PO SCH (08:10)
[2018-10-03] MEDS: AMIODARONE 200 MG TAB PO SCH (08:10)
[2018-10-03] MEDS: ISOSORBIDE MONONITRATE(SR)30 MG TAB PO SCH (08:11)
[2018-10-03] MEDS: HEPARIN 5,000 UNIT/1 ML VIAL SC SCH ×2 (08:12→20:42)
--- NOTE | 2018-10-03 09:25 | RADRPT ---
Vent Rate: 114 bpm RR Interval: 605 msec AR Interval: [id number] msec QRS Duration: 101 msec QT Interval: 359 msec QTC Interval: 462 msec P-R-T Man[place]: [id number] - 96 - -42 degrees V-paced complexes...other complexes, A-rate>240 Right axis deviation...QRS axis ( 54,974) Electronically Signed By: Jaret Garcia
--- NOTE | 2018-10-03 11:26 | CONS ---
Assessment/Plan Assessment/Plan Hospital Course (Demo Recall) IMPRESSION: 1. Preoperative evaluation prior to lower extremity open reduction internal fixation for right hip fracture.-neg trop x 3/Echo EF 30% with moderate . Was high risk. Now is post-op s/p LE ORIF 2. Abnormal electrocardiogram with nonspecific ST abnormality, assess for acute coronary syndrome.-neg trop x 3 3. Atrial fibrillation, currently rate controlled at this time, not on systemic anticoagulation at baseline due to possible bleeding complications. 4. 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 Status post fall, mechanical by description. 7. Right hip fracture. 8. Right humeral fracture. 9. H/O BIV/ICD Recc: -Continue patient dilt and would add low dose BB as tolerated -Will hold on starting ACEI today given renal insuff -Follow volume status clsoely -pain control -check 12 lead ecg Consultation Date/Type/Reason Admit Date/Time October 01, 2018 at 13:07 Initial Consult Date 10/01/18 Type of Consult Cardiology Reason for Consultation preop Requesting Provider: FREEDOM REYES MD Date/Time of Note DATE: 10/03/18 TIME: 11:17 Exam/Review of Systems Vital Signs Vitals Vital Signs Date Temp Pulse Resp B/P (MAP) Pulse Ox O2 O2 Flow FiO2 Time Delivery Rate 10/03/18 87 20 133/69 98 Nasal 2.0 10:00 (90) Cannula 10/03/18 98.2 07:00 Intake and Output 10/02/18 10/02/18 10/03/18 1515:00 23:00 07:00 IntakeIntake Total 1350 ml 150 ml OutputOutput Total 1000 ml 1450 ml 445 ml BalanceBalance -1000 ml -100 ml -295 ml Exam Exam Review of Systems: CONSTITUTIONAL: No fevers, chills. PULMONARY: No sob CARDIOVASCULAR: No chest pain/palpitations GASTROINTESTINAL: No nausea/vomiting. GENITOURINARY: No hematuria/dysuria. MUSCULOSKELETAL: No myagias/arthalgias. PSYCHIATRIC: The patient denies depression. NEUROLOGIC: No weakness Constitutional: alert Psych: no complaints Head: normocephalic ENMT: mucosa pink and moist Neck: supple, jvd (9 cm water) Respiratory: diminished breath sounds (at bases/B) Cardiovascular: regular rate and rhythm Gastrointestinal: soft, non-tender Musculoskeletal: muscle tone (normal) Extremities: edema (none) Neurological: other (No focal deficits) Labs Result Diagram: 10/02/183 10/02/18 2223 Results 24hrs Laboratory Tests Test 10/02/18 12:01 10/02/18 22:23 Troponin I < 0.012 White Blood Count 11.9 #H Red Blood Count 3.29 L Hemoglobin 9.9 L Hematocrit 30.2 L Mean Corpuscular Volume 91.8 Mean Corpuscular Hemoglobin 30.1 Mean Corpuscular Hemoglobin Concent 32.8 Red Cell Distribution Width 15.5 H Platelet Count 196 Mean Platelet Volume 10.2 Immature Granulocytes % 0.600 H Neutrophils % 79.5 H Lymphocytes % 6.5 L Monocytes % 12.8 H Eosinophils % 0.0 Basophils % 0.6 Nucleated Red Blood Cells % 0.0 Immature Granulocytes # 0.070 H Neutrophils # 9.5 H Lymphocytes # 0.8 Monocytes # 1.5 H Eosinophils # 0.0 Basophils # 0.1 Nucleated Red Blood Cells # 0.0 Prothrombin Time 17.2 H Prothrombin Time Ratio 1.3 INR International Normalized Ratio 1.39 Activated Partial Thromboplast Time 35.7 H Sodium Level 139 Potassium Level 3.8 Chloride Level 105 Carbon Dioxide Level 22 Anion Gap 12 Blood Urea Nitrogen 26 H Creatinine 1.34 H Est Glomerular Filtrat Rate mL/min Glucose Level 131 Calcium Level 8.6 Medications Medications Current Medications Amiodarone HCl (Cordarone) 200 mg DAILY PO Last administered on 10/03/18at 08:10; Admin Dose 200 MG; Start 10/02/18 at 09:00 Clopidogrel Bisulfate (plaVIX) 75 mg DAILY PO Last administered on 10/03/18 08:10; Admin Dose 75 MG; Start 10/02/18 at 09:00 Isosorbide Mononitrate (Imdur) 30 mg DAILY PO Last administered on 10/03/18at 08:11; Admin Dose 30 MG; Start 10/02/18 at 09:00 Pantoprazole (Protonix Tab) 40 mg DAILY@0600 PO Last administered on 5/6/19at 05:47; Admin Dose 40 MG; Start 10/02/18 at 06:00 Tamsulosin HCl (Flomax) 0.4 mg DAILY@2100 PO Last administered on 10/03/18at 00:50; Admin Dose 0.4 MG; Start 10/01/18 at 21:00 IV Flush (NS 3 ml) 3 ml PER PROTOCOL IV ; Start 10/01/18 at 15:30 Ondansetron HCl (Zofran Inj) 4 mg Q6H PRN IV NAUSEA/VOMITING; Start 10/01/18 at 15:30 Acetaminophen (Tylenol Tab) 650 mg Q6H PRN PO .PAIN 1-3 OR TEMP; Start 10/01/18 at 15:30 Ibuprofen (Motrin) 600 mg Q6H PRN PO .PAIN 1-3; Start 10/01/18 at 15:30 Acetaminophen/ Hydrocodone Bitart ([place] (5/325)) 1 tab Q6H PRN PO .MOD PAIN 4- 6; Start 10/01/18 at 15:30 Morphine Sulfate (morphine) 2 mg Q4H PRN IV .SEVERE PAIN 7-10 Last administered on 10/03/18at 07:31; Admin Dose 2 MG; Start 10/01/18 at 15:30 Docusate Sodium (Colace) 100 mg Q12H PRN PO .CONSTIPATION; Start 10/01/18 at 15:30 Bisacodyl (Dulcolax) 5 mg DAILY PRN PO .CONSTIPATION; Start 10/01/18 at 15:30 Sodium Biphosphate/ Sodium Phosphate (Fleet Enema) 133 ml DAILY PRN [place] .CONSTIPATION; Start 10/01/18 at 15:30 Heparin Sodium (Porcine) (Heparin (5000 Units/1ml)) 5,000 unit Q12 SC Last administered on 10/03/18at 08:12; Admin Dose 5,000 UNIT; Start 10/01/18 at 21:00 Diltiazem HCl (Cardizem Cd) 180 mg BID PO Last administered on 10/03/18at 08:10; Admin Dose 180 MG; Start 10/02/18 at 09:00 Clindamycin HCl/ Dextrose 50 ml @ 50 mls/hr Q6 IVPB Last administered on 10/03/18at 11:09; Admin Dose 50 MLS/HR; Start 10/03/18 at 00:00; Stop 10/04/18 at 23:59 JEFF REYNOSO October 03, 2018 11:26
--- NOTE | 2018-10-03 14:31 | PN ---
Date/Time of Note Date/Time of Note DATE: 10/03/18 TIME: 14:28 Assessment/Plan VTE Prophylaxis Risk score (from Ns)>0 risk: 11 SCD applied (from Nsg): Yes Pharmacological prophylaxis: heparin Lines/Catheters IV Catheter Type (from Nrsg): Saline Lock Urinary Cath still in place: Yes Reason Cath still needed: urinary retention Assessment/Plan Result Diagram: 10/02/18 2223 10/02/18 2223 Results 24hrs Laboratory Tests Test 10/02/18 22:23 White Blood Count 11.9 #H Red Blood Count 3.29 L Hemoglobin 9.9 L Hematocrit 30.2 L Mean Corpuscular Volume 91.8 Mean Corpuscular Hemoglobin 30.1 Mean Corpuscular Hemoglobin Concent 32.8 Red Cell Distribution Width 15.5 H Platelet Count 196 Mean Platelet Volume 10.2 Immature Granulocytes % 0.600 H Neutrophils % 79.5 H Lymphocytes % 6.5 L Monocytes % 12.8 H Eosinophils % 0.0 Basophils % 0.6 Nucleated Red Blood Cells % 0.0 Immature Granulocytes # 0.070 H Neutrophils # 9.5 H Lymphocytes # 0.8 Monocytes # 1.5 H Eosinophils # 0.0 Basophils # 0.1 Nucleated Red Blood Cells # 0.0 Prothrombin Time 17.2 H Prothrombin Time Ratio 1.3 INR International Normalized Ratio 1.39 Activated Partial Thromboplast Time 35.7 H Sodium Level 139 Potassium Level 3.8 Chloride Level 105 Carbon Dioxide Level 22 Anion Gap 12 Blood Urea Nitrogen 26 H Creatinine 1.34 H Est Glomerular Filtrat Rate mL/min Glucose Level 131 Calcium Level 8.6 Subjective 24 Hr Interval Summary Free Text/Dictation seen earlier today post op orif rt hip, pain control is ok, no confusion, vs ok will start diet cardiac meds ifrah dr canterll. alert lungs sound clear, hr irregular abd soft, rt arm in dressing, rt hip post op dressings, no edema diet ordered careful w pain meds ok transfer to floor Musculoskeletal: other (rt arm fx. post orif rt hip) Exam/Review of Systems Exam Vitals Vital Signs Date Temp Pulse Resp B/P (MAP) Pulse Ox O2 O2 Flow FiO2 Time Delivery Rate 10/03/18 2.0 14:17 10/03/18 83 24 146/73 95 Nasal 14:00 (97) Cannula 10/03/18 98.6 12:00 Intake and Output 10/02/18 10/02/18 10/03/18 1515:00 23:00 07:00 IntakeIntake Total 1350 ml 150 ml OutputOutput Total 1000 ml 1450 ml 445 ml BalanceBalance -1000 ml -100 ml -295 ml Results Results 24hrs Laboratory Tests Test 10/02/18 22:23 White Blood Count 11.9 #H Red Blood Count 3.29 L Hemoglobin 9.9 L Hematocrit 30.2 L Mean Corpuscular Volume 91.8 Mean Corpuscular Hemoglobin 30.1 Mean Corpuscular Hemoglobin Concent 32.8 Red Cell Distribution Width 15.5 H Platelet Count 196 Mean Platelet Volume 10.2 Immature Granulocytes % 0.600 H Neutrophils % 79.5 H Lymphocytes % 6.5 L Monocytes % 12.8 H Eosinophils % 0.0 Basophils % 0.6 Nucleated Red Blood Cells % 0.0 Immature Granulocytes # 0.070 H Neutrophils # 9.5 H Lymphocytes # 0.8 Monocytes # 1.5 H Eosinophils # 0.0 Basophils # 0.1 Nucleated Red Blood Cells # 0.0 Prothrombin Time 17.2 H Prothrombin Time Ratio 1.3 INR International Normalized Ratio 1.39 Activated Partial Thromboplast Time 35.7 H Sodium Level 139 Potassium Level 3.8 Chloride Level 105 Carbon Dioxide Level 22 Anion Gap 12 Blood Urea Nitrogen 26 H Creatinine 1.34 H Est Glomerular Filtrat Rate mL/min Glucose Level 131 Calcium Level 8.6 Medications Medication Current Medications Amiodarone HCl (Cordarone) 200 mg DAILY PO Last administered on 10/03/18at 08:10; Admin Dose 200 MG; Start 10/02/18 at 09:00 Clopidogrel Bisulfate (plaVIX) 75 mg DAILY PO Last administered on 10/03/18at 0 8:10; Admin Dose 75 MG; Start 10/02/18 at 09:00 Isosorbide Mononitrate (Imdur) 30 mg DAILY PO Last administered on 10/03/18at 08:11; Admin Dose 30 MG; Start 10/02/18 at 09:00 Pantoprazole (Protonix Tab) 40 mg DAILY@0600 PO Last administered on 10/03/18at 05:47; Admin Dose 40 MG; Start 10/02/18 at 06:00 Tamsulosin HCl (Flomax) 0.4 mg DAILY@2100 PO Last administered on 10/03/18at 00:50; Admin Dose 0.4 MG; Start 10/01/18 at 21:00 IV Flush (NS 3 ml) 3 ml PER PROTOCOL IV ; Start 10/01/18 at 15:30 Ondansetron HCl (Zofran Inj) 4 mg Q6H PRN IV NAUSEA/VOMITING; Start 10/01/18 at 15:30 Acetaminophen (Tylenol Tab) 650 mg Q6H PRN PO .PAIN 1-3 OR TEMP; Start 10/01/18 at 15:30 Ibuprofen (Motrin) 600 mg Q6H PRN PO .PAIN 1-3; Start 10/01/18 at 15:30 Acetaminophen/ Hydrocodone Bitart ([place] (5/325)) 1 tab Q6H PRN PO .MOD PAIN 4- 6; Start 10/01/18 at 15:30 Morphine Sulfate (morphine) 2 mg Q4H PRN IV .SEVERE PAIN 7-10 Last administered on 10/03/18at 11:58; Admin Dose 2 MG; Start 10/01/18 at 15:30 Docusate Sodium (Colace) 100 mg Q12H PRN PO .CONSTIPATION; Start 10/01/18 at 15:30 Bisacodyl (Dulcolax) 5 mg DAILY PRN PO .CONSTIPATION; Start 10/01/18 at 15:30 Sodium Biphosphate/ Sodium Phosphate (Fleet Enema) 133 ml DAILY PRN [place] .CONSTIPATION; Start 10/01/18 at 15:30 Heparin Sodium (Porcine) (Heparin (5000 Units/1ml)) 5,000 unit Q12 SC Last administered on 10/03/18at 08:12; Admin Dose 5,000 UNIT; Start 10/01/18 at 21:00 Diltiazem HCl (Cardizem Cd) 180 mg BID PO Last administered on 10/03/18at 08:10; Admin Dose 180 MG; Start 10/02/18 at 09:00 Clindamycin HCl/ Dextrose 50 ml @ 50 mls/hr Q6 IVPB Last administered on 10/03/18at 11:09; Admin Dose 50 MLS/HR; Start 10/03/18 at 00:00; Stop 10/04/18 at 23:59 Metoprolol Tartrate (Lopressor) 25 mg BID PO ; Start 5/6/19 at 21:00 ROLAND STEPHEN MD October 03, 2018 14:31
[2018-10-03] MEDS: METOPROLOL 25 MG TAB PO SCH (20:36)
[2018-10-03] MEDS: ACETAMINOPHEN 325 MG TAB PO PRN (20:36)
[2018-10-04] VITALS (23 sets, daily range): BP systolic 95–134; BP diastolic 56–109; PULSE 79–100; RESP 12–28
[2018-10-04] MEDS: HYDROCODONE/APAP (5/325) TAB PO PRN ×2 (00:03→21:11)
[2018-10-04] MEDS: morphine 2 MG INJ IV PRN (01:05)
[2018-10-04] MEDS: CLINDAMYCIN 900 MG/D5W (PMX) 50 ML IVPB SCH ×4 (01:25→17:59)
[2018-10-04] MEDS: PANTOPRAZOLE (EC) 40 MG TAB PO SCH (06:33)
--- NOTE | 2018-10-04 08:14 | CONS ---
Consult Date/Type/Reason Admit Date/Time October 01, 2018 at 13:07 Initial Consult Date 10/01/18 Requesting Provider: FREEDOM REYES MD Date/Time of Note DATE: 10/04/18 TIME: 08:08 Subjective NO acute events - BP in good range - awaiting transfer to tele - paced intermittently. ROS: No fever, no chills, no nausea, no vomiting, no diarrhea/constipation No recent weight changes No chest pain, no PND, no orthopnea - mild SOB No dizziness, blurred vision No thirst, no heat or cold intolerance Objective Vitals Vital Signs Date Temp Pulse Resp B/P (MAP) Pulse Ox O2 O2 Flow FiO2 Time Delivery Rate 10/04/18 97.5 83 16 101/63 97 Room Air 07:00 (76) 10/03/18 2.0 19:00 Intake and Output 10/03/18 10/03/18 10/04/18 1515:00 23:00 07:00 IntakeIntake Total 495 ml 205 ml 50 ml OutputOutput Total 225 ml 160 ml 120 ml BalanceBalance 270 ml 45 ml -70 ml Exam General: WN/WD/NAD, AOx 3 HEENT: Unicetric/atraumatic/EOMI ( follow commands) NECK: JVD elevated, no thyromegaly Lymph: no lymphadenopathy HEART: regular with no S3, II/ systolic murmur at apex, pacer L side LUNGS: Coarse sounds ABD: soft, NT, ND, +BS : Intact Neuro: non focal SKIN: chronic changes EXT: trace edema, post op Results/Medications Result Diagram: 10/04/18 0451 10/04/18 0451 Results 24 hrs Laboratory Tests Test 10/04/18 04:51 White Blood Count 8.5 # Red Blood Count 2.75 L Hemoglobin 8.4 L Hematocrit 24.8 L Mean Corpuscular Volume 90.2 Mean Corpuscular Hemoglobin 30.5 Mean Corpuscular Hemoglobin Concent 33.9 Red Cell Distribution Width 15.6 H Platelet Count 185 Mean Platelet Volume 10.9 H Immature Granulocytes % 0.400 Neutrophils % 78.8 H Lymphocytes % 7.3 L Monocytes % 12.7 H Eosinophils % 0.4 Basophils % 0.4 Nucleated Red Blood Cells % 0.0 Immature Granulocytes # 0.030 Neutrophils # 6.7 Lymphocytes # 0.6 L Monocytes # 1.1 H Eosinophils # 0.0 Basophils # 0.0 Nucleated Red Blood Cells # 0.0 Sodium Level 133 L Potassium Level 4.1 Chloride Level 101 Carbon Dioxide Level 23 Anion Gap 9 Blood Urea Nitrogen 38 #H Creatinine 1.61 H Est Glomerular Filtrat Rate mL/min Glucose Level 120 Calcium Level 8.2 L Home Meds Reported Medications Tamsulosin Hcl* (Flomax*) 0.4 Mg Cap.er.24h, 0.4 MG PO DAILY, CAP 10/01/18 Pantoprazole* (Protonix*) 40 Mg Tablet.dr, 40 MG PO DAILY, TAB 10/01/18 Isosorbide Mononitrate* (Isosorbide Mononitrate*) 30 Mg Tab.er.24h, 30 MG PO DAILY, TAB 10/01/18 Clopidogrel Bisulfate (Clopidogrel) 75 Mg Tablet, 75 MG PO DAILY, #30 TAB 10/01/18 Diltiazem Hcl* (Cardizem CD*) 180 Mg Cap.sr.24h, 180 MG PO DAILY, #30 CAP 10/01/18 Amiodarone Hcl* (Amiodarone Hcl*) 200 Mg Tablet, 200 MG PO DAILY, #30 TAB 10/01/18 Discontinued Reported Medications Hydrocodone Bit-Acetaminophen (Hydrocodone Bit-APAP) 5-325MG Tablet, 1 TAB PO Q6H PRN for PAIN, TAB 08/19/17 Multivitamin (Daily Multiple Vitamin) 1 Each Tablet, 1 EACH PO, TAB 08/19/17 Bisacodyl* (Bisacodyl*) 5 Mg Tablet.dr, 10 MG PO DAILY PRN for CONSTIPATION, TAB 08/19/17 Pantoprazole* (Pantoprazole*) 40 Mg Tablet.dr, 40 MG PO AC BREAKFAST, TAB 08/18/17 Clopidogrel Bisulfate (Clopidogrel) 75 Mg Tablet, 75 MG PO DAILY, #30 TAB 08/18/17 Nitroglycerin* (Nitrostat*) 0.4 Mg Tab.subl, 0.4 MG SL Q5MIN PRN for CHEST PAIN, BOTTLE 08/18/17 Dutasteride* (Avodart*) 0.5 Mg Capsule, 0.5 MG PO DAILY, CAP 08/18/17 Benazepril-Hydrochlorothiazide (Benazepril-Hydrochlorothiazide) 20-12.5 Mg Tablet, 0.5 TAB PO DAILY, #30 TAB 08/18/17 Medications Current Medications Amiodarone HCl (Cordarone) 200 mg DAILY PO Last administered on 10/03/18 08:10; Admin Dose 200 MG; Start 10/02/18 at 09:00 Clopidogrel Bisulfate (plaVIX) 75 mg DAILY PO Last administered on 10/03/18 08:10; Admin Dose 75 MG; Start 10/02/18 at 09:00 Isosorbide Mononitrate (Imdur) 30 mg DAILY PO Last administered on 10/03/18 08:11; Admin Dose 30 MG; Start 10/02/18 at 09:00 Pantoprazole (Protonix Tab) 40 mg DAILY@0600 PO Last administered on 10/04/18 06:33; Admin Dose 40 MG; Start 10/02/18 at 06:00 Tamsulosin HCl (Flomax) 0.4 mg DAILY@2100 PO Last administered on 10/03/18 20:57; Admin Dose 0.4 MG; Start 10/01/18 at 21:00 IV Flush (NS 3 ml) 3 ml PER PROTOCOL IV ; Start 10/01/18 at 15:30 Ondansetron HCl (Zofran Inj) 4 mg Q6H PRN IV NAUSEA/VOMITING Last administered on 10/03/18 15:51; Admin Dose 4 MG; Start 10/01/18 at 15:30 Acetaminophen (Tylenol Tab) 650 mg Q6H PRN PO .PAIN 1-3 OR TEMP Last administered on 10/03/18 20:36; Admin Dose 650 MG; Start 10/01/18 at 15:30 Ibuprofen (Motrin) 600 mg Q6H PRN PO .PAIN 1-3; Start 10/01/18 at 15:30 Acetaminophen/ Hydrocodone Bitart ([place] (5/325)) 1 tab Q6H PRN PO .MOD PAIN 4- 6 Last administered on 10/04/18 00:03; Admin Dose 1 TAB; Start 10/01/18 at 15:30 Morphine Sulfate (morphine) 2 mg Q4H PRN IV .SEVERE PAIN 7-10 Last administered on 10/04/18 01:05; Admin Dose 2 MG; Start 10/01/18 at 15:30 Docusate Sodium (Colace) 100 mg Q12H PRN PO .CONSTIPATION; Start 10/01/18 at 15: 30 Bisacodyl (Dulcolax) 5 mg DAILY PRN PO .CONSTIPATION; Start 10/01/18 at 15:30 Sodium Biphosphate/ Sodium Phosphate (Fleet Enema) 133 ml DAILY PRN [place] .CONSTIPATION; Start 10/01/18 at 15:30 Heparin Sodium (Porcine) (Heparin (5000 Units/1ml)) 5,000 unit Q12 SC Last administered on 10/03/18at 20:42; Admin Dose 5,000 UNIT; Start 10/01/18 at 21:00 Diltiazem HCl (Cardizem Cd) 180 mg BID PO Last administered on 10/03/18at 20:35; Admin Dose 180 MG; Start 10/02/18 at 09:00 Metoprolol Tartrate (Lopressor) 25 mg BID PO Last administered on 10/03/18at 20:36; Admin Dose 25 MG; Start 10/03/18 at 21:00 Clindamycin HCl/ Dextrose 50 ml @ 50 mls/hr Q6 IVPB Last administered on 10/04/18at 06:33; Admin Dose 50 MLS/HR; Start 10/03/18 at 18:00; Stop 10/04/18 at 23:59 Assessment/Plan Hospital Course (Demo Recall) 1. Preoperative evaluation prior to lower extremity open reduction internal fixation for right hip fracture.-neg trop x 3/Echo EF 30% with moderate . Was high risk. Now is post-op s/p LE ORIF - tolerated procedure well- will monitor clinically now. 2. Abnormal electrocardiogram with nonspecific ST abnormality, assess for acute coronary syndrome.-neg trop x 3 - intermittently paced. 3. Atrial fibrillation, currently rate controlled at this time, not on systemic anticoagulation at baseline due to possible bleeding complications - rate controlled. 4. History of percutaneous transluminal coronary angioplasty and stent placement to the right coronary artery in 2016 and to LCX 2017(now known to be occluded chronically with [employer] DESIGN[employer] of LAD that is collateralized by RCA after discussion with DR GARCIA this AM) - tolerated procedure well. 5. 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 Status post fall, mechanical by description. 7. Right hip fracture- repaired. 8. Right humeral fracture. 9. H/O BIV/ICD - JOSIAH SAUL MD October 04, 2018 08:14
[2018-10-04] MEDS: DILTIAZEM (CD) 180 MG CAP PO SCH ×2 (08:19→21:02)
[2018-10-04] MEDS: ISOSORBIDE MONONITRATE(SR)30 MG TAB PO SCH (08:19)
[2018-10-04] MEDS: CLOPIDOGREL 75 MG TAB PO SCH (08:19)
[2018-10-04] MEDS: METOPROLOL 25 MG TAB PO SCH ×2 (08:20→21:01)
[2018-10-04] MEDS: AMIODARONE 200 MG TAB PO SCH (08:20)
[2018-10-04] MEDS: HEPARIN 5,000 UNIT/1 ML VIAL SC SCH ×2 (08:28→21:03)
--- NOTE | 2018-10-04 13:29 | PQ ---
Date/Time of Note Date/Time of Note DATE: 10/04/18 TIME: 13:27 Physician Query Documentation Clarification Per 2D Echo: "Moderate to severe global left ventricular systolic dysfunction. Ejection fraction is visually estimated at 30 %. There is mild to mod enlargement of left atrium." Per CXR: "Central pulmonary vascular congestion" EF 30%; Treated w/ IV Lasix Please further specify a diagnosis. 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 [ X ] Yes [ ] No Please provide your response by clicking edit document,makingyour choice (x ), clicking ok/save and finally clicking sign. You may alsodocument your responseon your progress notes. Thank you for your time. Sincerely, Musa Cortez [facility] Specialist [address] [email or web address] [email or web address] MUSA CORTEZ October 04, 2018 13:29 FREEDOM REYES MD October 05, 2018 08:59
--- NOTE | 2018-10-04 14:41 | PN ---
Date/Time of Note Date/Time of Note DATE: 10/04/18 TIME: 14:32 Assessment/Plan VTE Prophylaxis Risk score (from Ns)>0 risk: 13 SCD applied (from Ns): Yes Pharmacological prophylaxis: heparin Lines/Catheters IV Catheter Type (from Nrsg): Peripheral IV Urinary Cath still in place: Yes Reason Cath still needed: urinary retention, skin wounds contaminated by urine Assessment/Plan Problems: (1) Status post-operative repair of closed fracture of right hip Status: Acute Comment: Doing well POD#1. To move out of ICU. Primary team to manage PT and pain control. (2) Drug-induced constipation Status: Acute Comment: Mild. Methylnaltrexone x 1. Pt. has colace and dulcolax prn written. (3) Decreased urine output Status: Acute Comment: furosemide 20 mg po x 1 and monitor UOP and renal function. (4) Hip fracture, right Status: Resolved Qualifiers: Encounter type: initial encounter Fracture type: closed Qualified Codes: S72.001A - Fracture of unspecified part of neck of right femur, initial encounter for closed fracture (5) Right humeral fracture Status: Acute Comment: To be managed conservatively w/ sling per primary team Qualifiers: Encounter type: initial encounter Humerus Location: surgical neck Fracture type: closed Fracture morphology: 2-part Fracture alignment: nondisplaced Qualified Codes: S42.224A - 2-part nondisplaced fracture of surgical neck of right humerus, initial encounter for closed fracture (6) CVD (cardiovascular disease) Status: Chronic Comment: On clopidogrel, isosorbide, metoprolol, diltiazem. Cardiology following. (7) Aortic stenosis Status: Chronic Comment: Per cardiology Qualifiers: Cardiac valve disease etiology: nonrheumatic Qualified Codes: I35.0 - Nonr heumatic aortic (valve) stenosis (8) Diastolic dysfunction Status: Chronic Comment: on metoprolol, amiodarone, diltiazem. Will give furosemide 20 mg po x 1 and monitor renal fxn. (9) Ischemic cardiomyopathy Status: Resolved Comment: furosemide 20 mg po x 1. (10) Ejection fraction < 50% Status: Chronic Comment: furosemide 20 mg po x 1 (11) Atrial fibrillation Status: Chronic Comment: cont. amiodarone. No anticoagulation for this pt. due to h/o bleeding Qualifiers: Atrial fibrillation type: chronic Qualified Codes: I48.2 - Chronic atrial fibrillation (12) Gastroesophageal reflux disease Status: Chronic Comment: Cont. PPI (13) Essential (primary) hypertension Status: Chronic Comment: cont. metoprolol and diltiazem (14) BPH (benign prostatic hypertrophy) with urinary retention Status: Chronic Comment: cont. tamsulosin. Currently w/ armijo cath. (15) Normocytic anemia Status: Chronic Comment: Worse today. Recheck CBC in am (16) Chronic kidney disease Status: Chronic Comment: Mildly worse today. Furosemide 20 mg po x 1 and recheck tomorrow. 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 Result Diagram: 10/04/18 0451 10/04/18 0451 Results 24hrs Laboratory Tests Test 10/04/18 04:51 White Blood Count 8.5 # Red Blood Count 2.75 L Hemoglobin 8.4 L Hematocrit 24.8 L Mean Corpuscular Volume 90.2 Mean Corpuscular Hemoglobin 30.5 Mean Corpuscular Hemoglobin Concent 33.9 Red Cell Distribution Width 15.6 H Platelet Count 185 Mean Platelet Volume 10.9 H Immature Granulocytes % 0.400 Neutrophils % 78.8 H Lymphocytes % 7.3 L Monocytes % 12.7 H Eosinophils % 0.4 Basophils % 0.4 Nucleated Red Blood Cells % 0.0 Immature Granulocytes # 0.030 Neutrophils # 6.7 Lymphocytes # 0.6 L Monocytes # 1.1 H Eosinophils # 0.0 Basophils # 0.0 Nucleated Red Blood Cells # 0.0 Sodium Level 133 L Potassium Level 4.1 Chloride Level 101 Carbon Dioxide Level 23 Anion Gap 9 Blood Urea Nitrogen 38 #H Creatinine 1.61 H Est Glomerular Filtrat Rate mL/min Glucose Level 120 Calcium Level 8.2 L Subjective 24 Hr Interval Summary Constitutional: no complaints, improved Respiratory: no complaints Cardiovascular: no complaints Gastrointestinal: constipation Genitourinary: other (decreased UOP per RN) Musculoskeletal: bone/joint pain (minimal and well-controlled post-op. Has not required pain meds since early this am. ) Neurologic: no complaints Exam/Review of Systems Exam Vitals VS - Last 72 Hours, by Label Date Temp Pulse Resp B/P (MAP) Pulse Ox O2 O2 Flow FiO2 Time Delivery Rate 10/04/18 83 13 105/73 97 Room Air 14:00 (84) 10/04/18 81 19 115/62 97 Room Air 13:00 (79) 10/04/18 97.9 88 27 134/109 100 Room Air 12:00 (117) 10/04/18 82 12:00 10/04/18 82 16 108/65 97 Room Air 11:00 (79) 10/04/18 81 25 109/70 97 Room Air 10:00 (83) 10/04/18 80 26 100/63 96 Room Air 09:00 (75) 10/04/18 83 16 98/56 (70) 94 Room Air 08:00 10/04/18 88 08:00 10/04/18 97.5 83 16 101/63 97 Room Air 07:00 (76) 10/04/18 85 04:00 10/04/18 99.2 84 21 97/61 (73) 95 04:00 10/04/18 80 18 95/62 (73) 98 03:00 10/04/18 85 21 101/67 93 02:00 (78) 10/04/18 100 18 103/70 96 01:00 (81) 10/04/18 98.8 90 23 114/65 95 00:00 (81) 10/04/18 84 00:00 10/03/18 82 19 110/72 96 23:00 (85) 10/03/18 85 21 97 22:30 10/03/18 85 20 107/68 94 22:00 (81) 10/03/18 81 26 92 21:30 10/03/18 99.8 21:21 10/03/18 83 20 112/75 93 21:00 (87) 10/03/18 100.2 20:36 10/03/18 88 23 96 20:30 10/03/18 100.2 83 21 118/70 93 Room Air 20:00 (86) 10/03/18 90 20:00 10/03/18 82 24 94 19:30 10/03/18 97 28 113/73 92 19:00 (86) 10/03/18 97 28 113/73 92 Nasal 2.0 19:00 (86) Cannula 10/03/18 93 22 126/68 91 Nasal 2.0 18:00 (87) Cannula 10/03/18 94 30 121/72 91 Nasal 2.0 17:00 (88) Cannula 10/03/18 85 26 125/69 92 Nasal 2.0 16:00 (87) Cannula 10/03/18 94 16:00 10/03/18 85 21 126/69 93 Nasal 2.0 15:00 (88) Cannula 10/03/18 2.0 14:17 10/03/18 83 24 146/73 95 Nasal 2.0 14:00 (97) Cannula 10/03/18 79 19 107/67 97 Nasal 2.0 13:00 (80) Cannula 10/03/18 99 12:00 10/03/18 98.6 103 23 115/78 97 Nasal 2.0 12:00 (90) Cannula 10/03/18 87 20 133/69 98 Nasal 2.0 10:00 (90) Cannula 10/03/18 112 18 122/60 99 Nasal 2.0 09:00 (80) Cannula 10/03/18 89 08:00 10/03/18 99 23 115/53 98 Nasal 2.0 08:00 (73) Cannula 10/03/18 Nasal 2.0 07:50 Cannula 10/03/18 98.2 94 24 122/58 98 Nasal 2.0 07:00 (79) Cannula 10/03/18 78 22 116/52 97 06:30 (73) 10/03/18 100 22 111/54 98 06:00 (73) 10/03/18 101 23 102/51 98 05:30 (68) 10/03/18 92 26 100/52 98 05:00 (68) 10/03/18 88 19 128/57 95 04:30 (80) 10/03/18 98.9 93 21 118/56 96 04:00 (76) 10/03/18 102 04:00 10/03/18 95 2.0 03:51 10/03/18 104 21 129/61 96 03:30 (83) 10/03/18 104 19 122/58 97 03:15 (79) 10/03/18 95 21 124/56 96 03:00 (78) 10/03/18 97 25 124/56 96 02:45 (78) 10/03/18 84 26 127/55 96 02:30 (79) 10/03/18 104 19 123/57 96 02:15 (79) 10/03/18 85 24 120/55 96 02:00 (76) 10/03/18 94 17 121/55 96 01:45 (77) 10/03/18 81 17 125/56 98 01:30 (79) 10/03/18 103 17 120/60 98 01:15 (80) 10/03/18 85 23 126/58 99 01:00 (80) 10/03/18 101 15 116/58 95 00:45 (77) 10/03/18 118 16 120/57 96 00:30 (78) 10/03/18 97 16 129/59 96 00:15 (82) 10/03/18 Nasal 00:00 Cannula 10/03/18 98.4 101 16 126/59 96 00:00 (81) 10/03/18 106 00:00 10/02/18 108 23 120/60 96 23:45 (80) 10/02/18 112 20 123/58 94 23:30 (79) 10/02/18 101 18 123/61 93 23:15 (81) 10/02/18 113 17 131/64 94 23:00 (86) 10/02/18 16 99 Mask 22:42 10/02/18 Simple 6.0 22:38 Mask 10/02/18 98.0 22:38 10/02/18 98.6 137 16 146/71 99 Mask 22:30 (96) 10/02/18 96 8.0 22:30 10/02/18 98.1 103 18 138/72 92 Room Air 15:09 (94) 10/02/18 98.2 108 18 139/84 93 Room Air 08:23 (102) 10/02/18 98.0 79 17 132/75 96 Room Air 02:35 (94) 10/01/18 98.1 82 136/79 20:10 (98) 10/01/18 98.4 88 20 155/86 95 19:45 (109) 10/01/18 98.2 99 18 133/87 98 Room Air 18:26 (102) 10/01/18 88 18 138/76 99 Room Air 17:22 (96) 10/01/18 97.9 75 22 147/87 97 Room Air 15:00 (107) Vital Signs Date Temp Pulse Resp B/P (MAP) Pulse Ox O2 O2 Flow FiO2 Time Delivery Rate 10/04/18 83 13 105/73 97 Room Air 14:00 (84) 10/04/18 97.9 12:00 10/03/18 2.0 19:00 Intake and Output 10/03/18 10/03/18 10/04/18 1515:00 23:00 07:00 IntakeIntake Total 495 ml 205 ml 100 ml OutputOutput Total 225 ml 160 ml 120 ml BalanceBalance 270 ml 45 ml -20 ml Constitutional: alert, oriented, well developed Psych: no complaints, nl mood/affect Respiratory: clear to auscultation, normal air movement Cardiovascular: regular rate and rhythm, nl pulses; No edema, No murmurs/extra sounds, No rub Gastrointestinal: soft, nl liver, spleen, non-tender, bowel sounds; No mass, No rebound or guarding Musculoskeletal: nl extremities to inspection Extremities: normal pulses; No cyanosis, No clubbing, No edema Neurological: FIRST MATE II-XII intact, nl mental status, nl speech, nl strength Results Results 24hrs Laboratory Tests Test 10/04/18 04:51 White Blood Count 8.5 # Red Blood Count 2.75 L Hemoglobin 8.4 L Hematocrit 24.8 L Mean Corpuscular Volume 90.2 Mean Corpuscular Hemoglobin 30.5 Mean Corpuscular Hemoglobin Concent 33.9 Red Cell Distribution Width 15.6 H Platelet Count 185 Mean Platelet Volume 10.9 H Immature Granulocytes % 0.400 Neutrophils % 78.8 H Lymphocytes % 7.3 L Monocytes % 12.7 H Eosinophils % 0.4 Basophils % 0.4 Nucleated Red Blood Cells % 0.0 Immature Granulocytes # 0.030 Neutrophils # 6.7 Lymphocytes # 0.6 L Monocytes # 1.1 H Eosinophils # 0.0 Basophils # 0.0 Nucleated Red Blood Cells # 0.0 Sodium Level 133 L Potassium Level 4.1 Chloride Level 101 Carbon Dioxide Level 23 Anion Gap 9 Blood Urea Nitrogen 38 #H Creatinine 1.61 H Est Glomerular Filtrat Rate mL/min Glucose Level 120 Calcium Level 8.2 L Medications Medication Current Medications Amiodarone HCl (Cordarone) 200 mg DAILY PO Last administered on 10/04/18at 08:20; Admin Dose 200 MG; Start 10/02/18 at 09:00 Clopidogrel Bisulfate (plaVIX) 75 mg DAILY PO Last administered on 10/04/18 08:19; Admin Dose 75 MG; Start 10/02/18 at 09:00 Isosorbide Mononitrate (Imdur) 30 mg DAILY PO Last administered on 10/04/18 08:19; Admin Dose 30 MG; Start 10/02/18 at 09:00 Pantoprazole (Protonix Tab) 40 mg DAILY@0600 PO Last administered on 10/04/18 06:33; Admin Dose 40 MG; Start 10/02/18 at 06:00 Tamsulosin HCl (Flomax) 0.4 mg DAILY@2100 PO Last administered on 10/03/18 20:57; Admin Dose 0.4 MG; Start 10/01/18 at 21:00 IV Flush (NS 3 ml) 3 ml PER PROTOCOL IV ; Start 10/01/18 at 15:30 Ondansetron HCl (Zofran Inj) 4 mg Q6H PRN IV NAUSEA/VOMITING Last administered on 10/03/18 15:51; Admin Dose 4 MG; Start 10/01/18 at 15:30 Acetaminophen (Tylenol Tab) 650 mg Q6H PRN PO .PAIN 1-3 OR TEMP Last administered on 10/03/18 20:36; Admin Dose 650 MG; Start 10/01/18 at 15:30 Ibuprofen (Motrin) 600 mg Q6H PRN PO .PAIN 1-3; Start 10/01/18 at 15:30 Acetaminophen/ Hydrocodone Bitart ([place] (5/325)) 1 tab Q6H PRN PO .MOD PAIN 4- 6 Last administered on 10/04/18 00:03; Admin Dose 1 TAB; Start 10/01/18 at 15:30 Morphine Sulfate (morphine) 2 mg Q4H PRN IV .SEVERE PAIN 7-10 Last administered on 10/04/18 01:05; Admin Dose 2 MG; Start 10/01/18 at 15:30 Docusate Sodium (Colace) 100 mg Q12H PRN PO .CONSTIPATION; Start 10/01/18 at 15:30 Bisacodyl (Dulcolax) 5 mg DAILY PRN PO .CONSTIPATION; Start 10/01/18 at 15:30 Sodium Biphosphate/ Sodium Phosphate (Fleet Enema) 133 ml DAILY PRN [place] .CON STIPATION; Start 10/01/18 at 15:30 Heparin Sodium (Porcine) (Heparin (5000 Units/1ml)) 5,000 unit Q12 SC Last administered on 10/04/18at 08:28; Admin Dose 5,000 UNIT; Start 10/01/18 at 21:00 Diltiazem HCl (Cardizem Cd) 180 mg BID PO Last administered on 10/04/18at 08:19; Admin Dose 180 MG; Start 10/02/18 at 09:00 Metoprolol Tartrate (Lopressor) 25 mg BID PO Last administered on 10/04/18at 08:20; Admin Dose 25 MG; Start 10/03/18 at 21:00 Clindamycin HCl/ Dextrose 50 ml @ 50 mls/hr Q6 IVPB Last administered on 10/04/18at 11:29; Admin Dose 50 MLS/HR; Start 10/03/18 at 18:00; Stop 10/04/18 at 23:59 FREEDOM REYES MD October 04, 2018 14:41
[2018-10-04] MEDS: METHYLNALTREXONE 12 MG/0.6 ML VIAL SC SCH (14:58)
[2018-10-04] MEDS ORDERED: FUROSEMIDE 20 MG TAB PO ONE (15:00)
--- NOTE | 2018-10-04 18:22 | PN ---
Date/Time of Note Date/Time of Note DATE: 10/04/18 TIME: 18:20 Assessment/Plan Lines/Catheters IV Catheter Type (from Nrsg): Peripheral IV Mcgregor in Place (from Nrsg): Yes Assessment/Plan Chief Complaint/Hosp Course 88-year-old male with significant cardiac history postop day #2 status post IM nail right IT fracture. Patient also has nondisplaced right proximal humerus fracture. Plan: Transfer to floor Weight-bear as tolerated right lower extremity Nonweightbearing right upper extremity. Sling for right upper extremity. We will start pendulums at 2 weeks. Pain control Heart healthy diet DVT prophylaxis: SCDs. Lovenox 40 mg daily x6 weeks. Physical therapy Discharge planning Subjective 24 Hr Interval Summary Patient doing well No acute events overnight. Patient still in ICU. Transfer orders are in. Just waiting for bed. Pain is well controlled Exam/Review of Systems Vital Signs Vitals Vital Signs Date Temp Pulse Resp B/P (MAP) Pulse Ox O2 O2 Flow FiO2 Time Delivery Rate 10/04/18 87 23 120/99 96 Room Air 18:00 (106) 10/04/18 97.9 12:00 10/03/18 2.0 19:00 Intake and Output 10/03/18 10/03/18 10/04/18 1515:00 23:00 07:00 IntakeIntake Total 495 ml 205 ml 100 ml OutputOutput Total 225 ml 160 ml 120 ml BalanceBalance 270 ml 45 ml -20 ml Exam Free Text/Dictation MUSCULOSKELETAL: Right upper extremity: Skin intact. There is ecchymosis over the anterior shoulder and proximal humerus. There is tenderness to palpation over the proximal humerus. No gross deformity. No significant swelling. Sensation intact to light touch in a median, ulnar, radial, and axillary distribution. Motor is intact in a median, ulnar, radial, anterior interosseous, and posterior interosseous nerve distribution. Radial and ulnar artery are +2. Wrist extension and flexion are intact. Compartments are soft. Right lower extremity: Dressings are clean, dry, intact. Sensation intact to light touch in a sural, saphenous, deep peroneal, superficial peroneal, medial and lateral plantar nerve distribution. Motor is intact, patient able to dorsiflex and plantarflex ankle and extend and flex great toe. Dorsalis Pedis pulse +2, Brisk capillary refill. Compartments are soft. Calves non-tender to palpation bilaterally. Results Result Diagram: 10/04/18 0451 10/04/18 0451 HAM ROBLES MD October 04, 2018 18:22
[2018-10-04] MEDS: TAMSULOSIN (SR) 0.4 MG CAP PO SCH (21:02)
[2018-10-05] VITALS (24 sets, daily range): BP systolic 101–150; BP diastolic 54–131; PULSE 79–110; RESP 11–40
[2018-10-05] MEDS: PANTOPRAZOLE (EC) 40 MG TAB PO SCH (06:20)
[2018-10-05] MEDS: METHYLNALTREXONE 12 MG/0.6 ML VIAL SC SCH (08:12)
[2018-10-05] MEDS: DILTIAZEM (CD) 180 MG CAP PO SCH ×3 (08:13→20:59)
[2018-10-05] MEDS: AMIODARONE 200 MG TAB PO SCH (08:13)
[2018-10-05] MEDS: CLOPIDOGREL 75 MG TAB PO SCH (08:13)
[2018-10-05] MEDS: HEPARIN 5,000 UNIT/1 ML VIAL SC SCH ×2 (08:37→20:54)
[2018-10-05] MEDS: METOPROLOL 25 MG TAB PO SCH ×2 (08:37→20:53)
[2018-10-05] MEDS: ISOSORBIDE MONONITRATE(SR)30 MG TAB PO SCH (08:37)
[2018-10-05] MEDS ORDERED: ENOXAPARIN 40 MG/0.4 ML SYG SC SCH (09:00)
--- NOTE | 2018-10-05 13:04 | PN ---
Date/Time of Note Date/Time of Note DATE: 10/05/18 TIME: 13:00 Assessment/Plan VTE Prophylaxis Risk score (from Nsg)>0 risk: 13 SCD applied (from Nsg): Yes Pharmacological prophylaxis: heparin Lines/Catheters IV Catheter Type (from Nrsg): Peripheral IV Urinary Cath still in place: Yes Reason Cath still needed: other (indicate) Assessment/Plan Result Diagram: 10/05/18 0400 10/05/18 0400 Results 24hrs Laboratory Tests Test 10/05/18 04:00 White Blood Count 7.2 Red Blood Count 2.60 L Hemoglobin 8.0 L Hematocrit 23.4 L Mean Corpuscular Volume 90.0 Mean Corpuscular Hemoglobin 30.8 Mean Corpuscular Hemoglobin Concent 34.2 Red Cell Distribution Width 15.7 H Platelet Count 221 Mean Platelet Volume 10.8 H Immature Granulocytes % 0.400 Neutrophils % 80.2 H Lymphocytes % 7.8 L Monocytes % 10.3 Eosinophils % 1.0 Basophils % 0.3 Nucleated Red Blood Cells % 0.0 Immature Granulocytes # 0.030 Neutrophils # 5.8 Lymphocytes # 0.6 L Monocytes # 0.7 Eosinophils # 0.1 Basophils # 0.0 Nucleated Red Blood Cells # 0.0 Sodium Level 133 L Potassium Level 3.8 Chloride Level 100 Carbon Dioxide Level 25 Anion Gap 8 Blood Urea Nitrogen 42 H Creatinine 1.56 H Est Glomerular Filtrat Rate mL/min Glucose Level 97 Calcium Level 8.3 L Phosphorus Level 4.2 Magnesium Level 1.9 Subjective 24 Hr Interval Summary Free Text/Dictation 3rd post op day, orif rt hip. fx rt arm, no surgery. sx some mid thigh discomfort, getting up w p.t. but not walking yest. no co sob, chest pain labs with mild anemia, will follow, no tx at this point. renal fx stable. vs ok, rhythm stable controlled afib alert, talkative. co no sleep. unable to tx re no beds lungs clear, abd soft, armijo clear drainage, no edema or leg pain.dressing not seen Musculoskeletal: bone/joint pain Exam/Review of Systems Exam Vitals Vital Signs Date Temp Pulse Resp B/P (MAP) Pulse Ox O2 O2 Flow FiO2 Time Delivery Rate 10/05/18 97.8 83 23 124/69 97 Room Air 12:00 (87) 10/03/18 2.0 19:00 Intake and Output 10/04/18 10/04/18 10/05/18 1515:00 23:00 07:00 IntakeIntake Total 370 ml 150 ml 140 ml OutputOutput Total 150 ml 240 ml 350 ml BalanceBalance 220 ml -90 ml -210 ml Results Results 24hrs Laboratory Tests Test 10/05/18 04:00 White Blood Count 7.2 Red Blood Count 2.60 L Hemoglobin 8.0 L Hematocrit 23.4 L Mean Corpuscular Volume 90.0 Mean Corpuscular Hemoglobin 30.8 Mean Corpuscular Hemoglobin Concent 34.2 Red Cell Distribution Width 15.7 H Platelet Count 221 Mean Platelet Volume 10.8 H Immature Granulocytes % 0.400 Neutrophils % 80.2 H Lymphocytes % 7.8 L Monocytes % 10.3 Eosinophils % 1.0 Basophils % 0.3 Nucleated Red Blood Cells % 0.0 Immature Granulocytes # 0.030 Neutrophils # 5.8 Lymphocytes # 0.6 L Monocytes # 0.7 Eosinophils # 0.1 Basophils # 0.0 Nucleated Red Blood Cells # 0.0 Sodium Level 133 L Potassium Level 3.8 Chloride Level 100 Carbon Dioxide Level 25 Anion Gap 8 Blood Urea Nitrogen 42 H Creatinine 1.56 H Est Glomerular Filtrat Rate mL/min Glucose Level 97 Calcium Level 8.3 L Phosphorus Level 4.2 Magnesium Level 1.9 Medications Medication Current Medications Amiodarone HCl (Cordarone) 200 mg DAILY PO Last administered on 10/05/18at 08:13; Admin Dose 200 MG; Start 10/02/18 at 09:00 Clopidogrel Bisulfate (plaVIX) 75 mg DAILY PO Last administered on 10/05/18at 08:13; Admin Dose 75 MG; Start 10/02/18 at 09:00 Pantoprazole (Protonix Tab) 40 mg DAILY@0600 PO Last administered on 10/05/18at 06:20; Admin Dose 40 MG; Start 10/02/18 at 06:00 Tamsulosin HCl (Flomax) 0.4 mg DAILY@2100 PO Last administered on 10/04/18at 21:02; Admin Dose 0.4 MG; Start 10/01/18 at 21:00 IV Flush (NS 3 ml) 3 ml PER PROTOCOL IV ; Start 10/01/18 at 15:30 Ondansetron HCl (Zofran Inj) 4 mg Q6H PRN IV NAUSEA/VOMITING Last administered on 10/03/18 15:51; Admin Dose 4 MG; Start 10/01/18 at 15:30 Acetaminophen (Tylenol Tab) 650 mg Q6H PRN PO .PAIN 1-3 OR TEMP Last administered on 10/03/18 20:36; Admin Dose 650 MG; Start 10/01/18 at 15:30 Ibuprofen (Motrin) 600 mg Q6H PRN PO .PAIN 1-3; Start 10/01/18 at 15:30 Acetaminophen/ Hydrocodone Bitart ([place] (5/325)) 1 tab Q6H PRN PO .MOD PAIN 4- 6 Last administered on 10/04/18 21:11; Admin Dose 1 TAB; Start 10/01/18 at 15:30 Morphine Sulfate (morphine) 2 mg Q4H PRN IV .SEVERE PAIN 7-10 Last administered on 10/04/18 01:05; Admin Dose 2 MG; Start 10/01/18 at 15:30 Docusate Sodium (Colace) 100 mg Q12H PRN PO .CONSTIPATION; Start 10/01/18 at 15:30 Bisacodyl (Dulcolax) 5 mg DAILY PRN PO .CONSTIPATION; Start 10/01/18 at 15:30 Sodium Biphosphate/ Sodium Phosphate (Fleet Enema) 133 ml DAILY PRN [place] .CONSTIPATION; Start 10/01/18 at 15:30 Heparin Sodium (Porcine) (Heparin (5000 Units/1ml)) 5,000 unit Q12 SC Last administered on 10/04/18 21:03; Admin Dose 5,000 UNIT; Start 10/01/18 at 21:00 Diltiazem HCl (Cardizem Cd) 180 mg BID PO Last administered on 10/05/18 08:13; Admin Dose 180 MG; Start 10/02/18 at 09:00 Metoprolol Tartrate (Lopressor) 25 mg BID PO Last administered on 10/04/18 21:01; Admin Dose 25 MG; Start 10/03/18 at 21:00 Methylnaltrexone [place] (Relistor) 12 mg DAILY SC Last administered on 10/05/18 08:12; Admin Dose 12 MG; Start 10/04/18 at 15:00 ROLAND STEPHEN MD October 05, 2018 13:04
[2018-10-05] MEDS: morphine 2 MG INJ IV PRN ×2 (15:02→22:15)
[2018-10-05] MEDS: TAMSULOSIN (SR) 0.4 MG CAP PO SCH (20:52)
[2018-10-06] VITALS (9 sets, daily range): BP systolic 116–146; BP diastolic 59–94; PULSE 68–102; RESP 12–27
[2018-10-06] MEDS: morphine 2 MG INJ IV PRN ×2 (02:58→21:42)
[2018-10-06] MEDS: PANTOPRAZOLE (EC) 40 MG TAB PO SCH (06:33)
[2018-10-06] MEDS: METOPROLOL 25 MG TAB PO SCH ×2 (09:00→20:08)
[2018-10-06] MEDS: AMIODARONE 200 MG TAB PO SCH (09:23)
[2018-10-06] MEDS: DILTIAZEM (CD) 180 MG CAP PO SCH ×2 (09:23→20:08)
[2018-10-06] MEDS: CLOPIDOGREL 75 MG TAB PO SCH (09:23)
[2018-10-06] MEDS: BISACODYL (EC) 5 MG TAB PO PRN (09:24)
[2018-10-06] MEDS: DOCUSATE SODIUM 100 MG CAP PO PRN (09:24)
[2018-10-06] MEDS: METHYLNALTREXONE 12 MG/0.6 ML VIAL SC SCH (09:25)
[2018-10-06] MEDS: HEPARIN 5,000 UNIT/1 ML VIAL SC SCH ×2 (09:27→20:20)
--- NOTE | 2018-10-06 18:15 | PN ---
Date/Time of Note Date/Time of Note DATE: 10/06/18 TIME: 18:07 Assessment/Plan VTE Prophylaxis Risk score (from [facility])>0 risk: 17 SCD applied (from [facility]): Yes Pharmacological prophylaxis: heparin Lines/Catheters IV C[facility] Type ([facility] [place] Urinary Cath still in place: Yes Reason Cath still needed: skin wounds contaminated by urine Assessment/Plan Problems: (1) Right humeral fracture Status: Acute Comment: Conservative management. Pain controlled. Qualifiers: Encounter type: initial encounter Humerus Location: surgical neck Fracture type: closed Fracture morphology: 2-part Fracture alignment: nondisplaced Qualified Codes: S42.224A - 2-part nondisplaced fracture of surgical neck of right humerus, initial encounter for closed fracture (2) Hip fracture, right Status: Resolved Comment: S/p repair. PT states pt. can only sit at edge of bed. Will likely be too low level for ARU. Consider SNF Qualifiers: Encounter type: initial encounter Fracture type: closed Qualified Codes: S72.001A - Fracture of unspecified part of neck of right femur, initial encounter for closed fracture (3) Status post-operative repair of closed fracture of right hip Status: Acute Comment: POD#4. S/p repair. PT states pt. can only sit at edge of bed. Will likely be too low level for ARU. Consider SNF (4) CVD (cardiovascular disease) Status: Chronic Comment: Cont. clopidogrel (5) Aortic stenosis Status: Chronic Comment: Cardiology following Qualifiers: Cardiac valve disease etiology: nonrheumatic Qualified Codes: I35.0 - Nonrheumatic aortic (valve) stenosis (6) Diastolic dysfunction Status: Chronic Comment: S/p repair. PT states pt. can only sit at edge of bed. Will likely be too low level for ARU. Consider SNF (7) Ejection fraction < 50% Status: Chronic Comment: Cont. metoprolol, diltiazem. Cardiology following. Furosemide prn. (8) Essential (primary) hypertension Status: Chronic Comment: Cont. metoprolol, diltiazem (9) Atrial fibrillation Status: Chronic Comment: Cont. amiodarone, diltiazem, metoprolol Qualifiers: Atrial fibrillation type: chronic Qualified Codes: I48.2 - Chronic atrial fibrillation (10) Chronic CHF Status: Chronic Comment: Cont. metoprolol. Furosemide prn. Cardiology following Qualifiers: Heart failure type: unspecified Qualified Codes: I50.9 - Heart failure, un specified (11) BPH (benign prostatic hypertrophy) with urinary retention Status: Chronic Comment: Cont. tamsulosin (12) Chronic kidney disease Status: Chronic Comment: Improved w/ furosemide. Optimized at this time. Qualifiers: Chronic kidney disease stage: unspecified stage Qualified Codes: N18.9 - Chronic kidney disease, unspecified (13) Normocytic anemia Status: Chronic Comment: Improved since surgery. Cont. to monitor. (14) Gastroesophageal reflux disease Status: Chronic Comment: Cont. 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 Comment: stable and chronic Result Diagram: 10/06/1843510/06/18435 Results 24hrs Laboratory Tests Test 10/06/18 04:36 White Blood Count 7.4 Red Blood Count 3.05 L Hemoglobin 9.3 L Hematocrit 27.0 L Mean Corpuscular Volume 88.5 Mean Corpuscular Hemoglobin 30.5 Mean Corpuscular Hemoglobin Concent 34.4 Red Cell Distribution Width 15.1 H Platelet Count 268 # Mean Platelet Volume 10.3 Immature Granulocytes % 0.500 H Neutrophils % 74.2 Lymphocytes % 12.1 L Monocytes % 10.8 Eosinophils % 1.9 Basophils % 0.5 Nucleated Red Blood Cells % 0.0 Immature Granulocytes # 0.040 H Neutrophils # 5.5 Lymphocytes # 0.9 Monocytes # 0.8 Eosinophils # 0.1 Basophils # 0.0 Nucleated Red Blood Cells # 0.0 Sodium Level 135 Potassium Level 3.8 Chloride Level 103 Carbon Dioxide Level 23 Anion Gap 9 Blood Urea Nitrogen 32 H Creatinine 1.14 Est Glomerular Filtrat Rate mL/min Glucose Level 98 Calcium Level 8.4 Subjective 24 Hr Interval Summary Constitutional: no complaints, improved Respiratory: no complaints Cardiovascular: no complaints Gastrointestinal: no complaints Genitourinary: no complaints Musculoskeletal: bone/joint pain (RUE, RLE but manageable) Neurologic: no complaints Exam/Review of Systems Exam Vitals VS - Last 72 Hours, by Label Date Temp Pulse Resp B/P (MAP) Pulse Ox O2 O2 Flow FiO2 Time Delivery Rate 10/06/18 98.0 91 18 140/76 94 14:54 (97) 10/06/18 98.0 102 18 124/94 96 07:24 (104) 10/06/18 98.5 96 18 129/59 93 Room Air 05:40 (82) 10/06/18 79 04:00 10/06/18 100 12 146/76 95 Room Air 03:00 (99) 10/06/18 83 14 129/78 96 Room Air 02:00 (95) 10/06/18 88 18 137/70 95 Room Air 01:00 (92) 10/06/18 82 00:00 10/06/18 98.5 80 27 116/73 93 Room Air 00:00 (87) 10/05/18 89 16 96 Room Air 23:00 10/05/18 89 14 124/76 97 Room Air 22:00 (92) 10/05/18 87 27 96 Room Air 21:00 10/05/18 85 20:00 10/05/18 98.6 89 24 118/78 96 Room Air 20:00 (91) 10/05/18 95 21 19:49 10/05/18 96 22 115/78 95 Room Air 19:00 (90) 10/05/18 110 25 118/54 95 Room Air 18:00 (75) 10/05/18 97 21 148/92 97 Room Air 17:00 (110) 10/05/18 105 16:00 10/05/18 97.9 110 25 140/86 94 Room Air 16:00 (104) 10/05/18 92 23 114/79 97 Room Air 15:00 (91) 10/05/18 101 21 126/79 96 Room Air 14:00 (95) 10/05/18 96 21 112/79 98 Room Air 13:00 (90) 10/05/18 97.8 83 23 124/69 97 Room Air 12:00 (87) 10/05/18 110 12:00 10/05/18 94 16 150/131 98 Room Air 11:00 (137) 10/05/18 93 21 131/68 99 Room Air 10:00 (89) 10/05/18 88 40 126/69 98 Room Air 09:00 (88) 10/05/18 93 19 137/85 97 Room Air 08:01 (102) 10/05/18 94 08:00 10/05/18 98.0 100 28 133/95 99 Room Air 07:00 (108) 10/05/18 85 23 104/66 98 Room Air 05:00 (79) 10/05/18 97.6 82 16 112/69 97 Room Air 04:00 (83) 10/05/18 89 04:00 10/05/18 87 16 113/69 96 Room Air 03:00 (84) 10/05/18 92 11 118/80 98 Room Air 02:00 (93) 10/05/18 85 22 101/64 99 Room Air 01:00 (76) 10/05/18 98.7 86 20 109/64 97 Room Air 00:00 (79) 10/05/18 79 00:00 10/05/18 79 00:00 10/04/18 87 24 119/73 96 Room Air 23:00 (88) 10/04/18 83 17 111/67 98 Room Air 22:00 (82) 10/04/18 88 20 126/79 100 Room Air 21:00 (95) 10/04/18 100 20:03 10/04/18 85 20:00 10/04/18 98.8 82 12 120/60 95 Room Air 20:00 (80) 10/04/18 84 19 124/106 97 Room Air 19:00 (112) 10/04/18 87 23 120/99 96 Room Air 18:00 (106) 10/04/18 85 15 115/73 96 Room Air 17:00 (87) 10/04/18 79 16:00 10/04/18 95 28 117/74 97 Room Air 16:00 (88) 10/04/18 82 17 122/70 97 Room Air 15:00 (87) 10/04/18 83 13 105/73 97 Room Air 14:00 (84) 10/04/18 81 19 115/62 97 Room Air 13:00 (79) 10/04/18 97.9 88 27 134/109 100 Room Air 12:00 (117) 10/04/18 82 12:00 10/04/18 82 16 108/65 97 Room Air 11:00 (79) 10/04/18 81 25 109/70 97 Room Air 10:00 (83) 10/04/18 80 26 100/63 96 Room Air 09:00 (75) 10/04/18 83 16 98/56 (70) 94 Room Air 08:00 10/04/18 88 08:00 10/04/18 97.5 83 16 101/63 97 Room Air 07:00 (76) 10/04/18 85 04:00 10/04/18 99.2 84 21 97/61 (73) 95 04:00 10/04/18 80 18 95/62 (73) 98 03:00 10/04/18 85 21 101/67 93 02:00 (78) 10/04/18 100 18 103/70 96 01:00 (81) 10/04/18 98.8 90 23 114/65 95 00:00 (81) 10/04/18 84 00:00 10/03/18 82 19 110/72 96 23:00 (85) 10/03/18 85 21 97 22:30 10/03/18 85 20 107/68 94 22:00 (81) 10/03/18 81 26 92 21:30 10/03/18 99.8 21:21 10/03/18 83 20 112/75 93 21:00 (87) 10/03/18 100.2 20:36 10/03/18 88 23 96 20:30 10/03/18 100.2 83 21 118/70 93 Room Air 20:00 (86) 10/03/18 90 20:00 10/03/18 82 24 94 19:30 10/03/18 97 28 113/73 92 19:00 (86) 10/03/18 97 28 113/73 92 Nasal 2.0 19:00 (86) Cannula Vital Signs Date Temp Pulse Resp B/P (MAP) Pulse Ox O2 O2 Flow FiO2 Time Delivery Rate 10/06/18 98.0 91 18 140/76 94 14:54 (97) 10/06/18 Room Air 05:40 10/05/18 21 19:49 10/03/18 2.0 19:00 Intake and Output 10/05/18 10/05/18 10/06/18 1414:59 22:59 06:59 IntakeIntake Total 170 ml 300 ml 60 ml OutputOutput Total 245 ml 345 ml 390 ml BalanceBalance -75 ml -45 ml -330 ml Constitutional: alert, oriented, frail Psych: no complaints, nl mood/affect Respiratory: clear to auscultation, normal air movement Cardiovascular: regular rate and rhythm, nl pulses; No edema, No murmurs/extra sounds, No rub Gastrointestinal: soft, nl liver, spleen, non-tender, bowel sounds; No mass, No rebound or guarding Musculoskeletal: nl extremities to inspection Extremities: normal pulses; No cyanosis, No clubbing, No edema Neurological: LETTERPRESS SETTER II-XII intact, nl mental status, nl speech, nl strength Results Results 24hrs Laboratory Tests Test 10/06/18 04:36 White Blood Count 7.4 Red Blood Count 3.05 L Hemoglobin 9.3 L Hematocrit 27.0 L Mean Corpuscular Volume 88.5 Mean Corpuscular Hemoglobin 30.5 Mean Corpuscular Hemoglobin Concent 34.4 Red Cell Distribution Width 15.1 H Platelet Count 268 # Mean Platelet Volume 10.3 Immature Granulocytes % 0.500 H Neutrophils % 74.2 Lymphocytes % 12.1 L Monocytes % 10.8 Eosinophils % 1.9 Basophils % 0.5 Nucleated Red Blood Cells % 0.0 Immature Granulocytes # 0.040 H Neutrophils # 5.5 Lymphocytes # 0.9 Monocytes # 0.8 Eosinophils # 0.1 Basophils # 0.0 Nucleated Red Blood Cells # 0.0 Sodium Level 135 Potassium Level 3.8 Chloride Level 103 Carbon Dioxide Level 23 Anion Gap 9 Blood Urea Nitrogen 32 H Creatinine 1.14 Est Glomerular Filtrat Rate mL/min Glucose Level 98 Calcium Level 8.4 Medications Medication Current Medications Amiodarone HCl (Cordarone) 200 mg DAILY PO Last administered on 10/06/18 09:23; Admin Dose 200 MG; Start 10/02/18 at 09:00 Clopidogrel Bisulfate (plaVIX) 75 mg DAILY PO Last administered on 10/06/18 09:23; Admin Dose 75 MG; Start 10/02/18 at 09:00 Pantoprazole (Protonix Tab) 40 mg DAILY@0600 PO Last administered on 10/06/18at 06:33; Admin Dose 40 MG; Start 10/02/18 at 06:00 Tamsulosin HCl (Flomax) 0.4 mg DAILY@2100 PO Last administered on 10/05/18 20:52; Admin Dose 0.4 MG; Start 10/01/18 at 21:00 IV Flush (NS 3 ml) 3 ml PER PROTOCOL IV ; Start 10/01/18 at 15:30 Ondansetron HCl (Zofran Inj) 4 mg Q6H PRN IV NAUSEA/VOMITING Last administered on 10/03/18at 15:51; Admin Dose 4 MG; Start 10/01/18 at 15:30 Acetaminophen (Tylenol Tab) 650 mg Q6H PRN PO .PAIN 1-3 OR TEMP Last administered on 10/03/18 20:36; Admin Dose 650 MG; Start 10/01/18 at 15:30 Ibuprofen (Motrin) 600 mg Q6H PRN PO .PAIN 1-3; Start 10/01/18 at 15:30 Acetaminophen/ Hydrocodone Bitart ([place] (5/325)) 1 tab Q6H PRN PO .MOD PAIN 4- 6 Last administered on 10/04/18 21:11; Admin Dose 1 TAB; Start 10/01/18 at 15:30 Morphine Sulfate (morphine) 2 mg Q4H PRN IV .SEVERE PAIN 7-10 Last administered on 10/06/18 02:58; Admin Dose 2 MG; Start 10/01/18 at 15:30 Docusate Sodium (Colace) 100 mg Q12H PRN PO .CONSTIPATION Last administered on 10/06/18 09:24; Admin Dose 100 MG; Start 10/01/18 at 15:30 Bisacodyl (Dulcolax) 5 mg DAILY PRN PO .CONSTIPATION Last administered on 10/06/18 09:24; Admin Dose 5 MG; Start 10/01/18 at 15:30 Sodium Biphosphate/ Sodium Phosphate (Fleet Enema) 133 ml DAILY PRN [place] .C ONSTIPATION; Start 10/01/18 at 15:30 Heparin Sodium (Porcine) (Heparin (5000 Units/1ml)) 5,000 unit Q12 SC Last administered on 10/06/18 09:27; Admin Dose 5,000 UNIT; Start 10/01/18 at 21:00 Diltiazem HCl (Cardizem Cd) 180 mg BID PO Last administered on 10/06/18 09:23; Admin Dose 180 MG; Start 10/02/18 at 09:00 Metoprolol Tartrate (Lopressor) 25 mg BID PO Last administered on 10/05/18 20:53; Admin Dose 25 MG; Start 10/03/18 at 21:00 Methylnaltrexone [place] (Relistor) 12 mg DAILY SC Last administered on 10/06/18 09:25; Admin Dose 12 MG; Start 10/04/18 at 15:00 FREEDOM REYES MD October 06, 2018 18:15
[2018-10-06] MEDS: TAMSULOSIN (SR) 0.4 MG CAP PO SCH (20:08)
[2018-10-06] MEDS: NA PHOSPHATE/BIPHOS 133 ML ENEMA PR PRN (20:13)
--- NOTE | 2018-10-06 20:16 | CONS ---
Assessment/Plan Assessment/Plan Hospital Course (Demo Recall) IMPRESSION: 1. Preoperative evaluation prior to lower extremity open reduction internal fixation for right hip fracture.-neg trop x 3/Echo EF 30% with moderate . Was high risk. Now is post-op s/p LE ORIF 2. Abnormal electrocardiogram with nonspecific ST abnormality, assess for acute coronary syndrome.-neg trop x 3 3. Atrial fibrillation, currently rate controlled at this time, not on systemic anticoagulation at baseline due to possible bleeding complications. 4. 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 History of STENCILER to lower extremities with occlusion of RLE 6. Status post fall, mechanical by description. 7. Right hip fracture. 8. Right humeral fracture. 9. H/O BIV/ICD Recc: -Now transferred to [facility] [place]-surg -Continue patient dilt and BB as patient will comply -IF creatnne remains stable tomorrow will start afterload reduction with ACEI -Follow volume status clsoely -pain control -Check BNP and will spot dose lasix as necessary Consultation Date/Type/Reason Admit Date/Time October 01, 2018 at 13:07 Initial Consult Date 10/01/18 Type of Consult Cardiology Reason for Consultation preop/cardiomyopathy Requesting Provider: FREEDOM REYES MD Date/Time of Note DATE: 10/06/18 TIME: 20:14 Exam/Review of Systems Vital Signs Vitals Vital Signs Date Temp Pulse Resp B/P (MAP) Pulse Ox O2 O2 Flow FiO2 Time Delivery Rate 10/06/18 98.0 91 18 140/76 94 14:54 (97) 10/06/18 Room Air 05:40 10/05/18 21 19:49 10/03/18 2.0 19:00 Intake and Output 10/05/18 10/05/18 10/06/18 1515:00 23:00 07:00 IntakeIntake Total 270 ml 200 ml 60 ml OutputOutput Total 275 ml 390 ml 315 ml BalanceBalance -5 ml -190 ml -255 ml Exam Exam Review of Systems: CONSTITUTIONAL: No fevers, chills. PULMONARY: No sob CARDIOVASCULAR: No chest pain/palpitations GASTROINTESTINAL: No nausea/vomiting. GENITOURINARY: No hematuria/dysuria. MUSCULOSKELETAL: pain in shoulder PSYCHIATRIC: The patient denies depression. NEUROLOGIC: No weakness Constitutional: alert Psych: no complaints Head: normocephalic ENMT: mucosa pink and moist Neck: supple, jvd (9 cm water) Respiratory: clear to auscultation Cardiovascular: regular rate and rhythm Gastrointestinal: soft, non-tender Musculoskeletal: muscle tone (normal) Extremities: edema (none) Labs Result Diagram: 10/06/18 0436 10/06/18 0436 Results 24hrs Laboratory Tests Test 10/06/18 04:36 White Blood Count 7.4 Red Blood Count 3.05 L Hemoglobin 9.3 L Hematocrit 27.0 L Mean Corpuscular Volume 88.5 Mean Corpuscular Hemoglobin 30.5 Mean Corpuscular Hemoglobin Concent 34.4 Red Cell Distribution Width 15.1 H Platelet Count 268 # Mean Platelet Volume 10.3 Immature Granulocytes % 0.500 H Neutrophils % 74.2 Lymphocytes % 12.1 L Monocytes % 10.8 Eosinophils % 1.9 Basophils % 0.5 Nucleated Red Blood Cells % 0.0 Immature Granulocytes # 0.040 H Neutrophils # 5.5 Lymphocytes # 0.9 Monocytes # 0.8 Eosinophils # 0.1 Basophils # 0.0 Nucleated Red Blood Cells # 0.0 Sodium Level 135 Potassium Level 3.8 Chloride Level 103 Carbon Dioxide Level 23 Anion Gap 9 Blood Urea Nitrogen 32 H Creatinine 1.14 Est Glomerular Filtrat Rate mL/min Glucose Level 98 Calcium Level 8.4 Medications Medications Current Medications Amiodarone HCl (Cordarone) 200 mg DAILY PO Last administered on 10/06/18at 09:23; Admin Dose 200 MG; Start 10/02/18 at 09:00 Clopidogrel Bisulfate (plaVIX) 75 mg DAILY PO Last administered on 10/06/18at 09:23; Admin Dose 75 MG; Start 10/02/18 at 09:00 Pantoprazole (Protonix Tab) 40 mg DAILY@0600 PO Last administered on 10/06/18at 06:33; Admin Dose 40 MG; Start 10/02/18 at 06:00 Tamsulosin HCl (Flomax) 0.4 mg DAILY@2100 PO Last administered on 10/06/18at 20:08; Admin Dose 0.4 MG; Start 10/01/18 at 21:00 IV Flush (NS 3 ml) 3 ml PER PROTOCOL IV ; Start 10/01/18 at 15:30 Ondansetron HCl (Zofran Inj) 4 mg Q6H PRN IV NAUSEA/VOMITING Last administered on 10/03/18 15:51; Admin Dose 4 MG; Start 10/01/18 at 15:30 Acetaminophen (Tylenol Tab) 650 mg Q6H PRN PO .PAIN 1-3 OR TEMP Last administered on 10/03/18 20:36; Admin Dose 650 MG; Start 10/01/18 at 15:30 Ibuprofen (Motrin) 600 mg Q6H PRN PO .PAIN 1-3; Start 10/01/18 at 15:30 Acetaminophen/ Hydrocodone Bitart ([place] (5/325)) 1 tab Q6H PRN PO .MOD PAIN 4- 6 Last administered on 10/04/18 21:11; Admin Dose 1 TAB; Start 10/01/18 at 15:30 Morphine Sulfate (morphine) 2 mg Q4H PRN IV .SEVERE PAIN 7-10 Last administered on 10/06/18 02:58; Admin Dose 2 MG; Start 10/01/18 at 15:30 Docusate Sodium (Colace) 100 mg Q12H PRN PO .CONSTIPATION Last administered on 10/06/18 09:24; Admin Dose 100 MG; Start 10/01/18 at 15:30 Bisacodyl (Dulcolax) 5 mg DAILY PRN PO .CONSTIPATION Last administered on 10/06/18 09:24; Admin Dose 5 MG; Start 10/01/18 at 15:30 Sodium Biphosphate/ Sodium Phosphate (Fleet Enema) 133 ml DAILY PRN [place] .CONSTIPATION; Start 10/01/18 at 15:30 Heparin Sodium (Porcine) (Heparin (5000 Units/1ml)) 5,000 unit Q12 SC Last administered on 10/06/18 09:27; Admin Dose 5,000 UNIT; Start 10/01/18 at 21:00 Diltiazem HCl (Cardizem Cd) 180 mg BID PO Last administered on 10/06/18 09:23; Admin Dose 180 MG; Start 10/02/18 at 09:00 Metoprolol Tartrate (Lopressor) 25 mg BID PO Last administered on 10/05/18 20:53; Admin Dose 25 MG; Start 10/03/18 at 21:00 Methylnaltrexone [place] (Relistor) 12 mg DAILY SC Last administered on 10/06/18at 09:25; Admin Dose 12 MG; Start 10/04/18 at 15:00 JEFF REYNOSO October 06, 2018 20:16
[2018-10-07 00:05] VITALS: BP 138/81; PULSE 56; RESP 20
[2018-10-07] MEDS: morphine 2 MG INJ IV PRN (02:29)
[2018-10-07] MEDS: PANTOPRAZOLE (EC) 40 MG TAB PO SCH (05:23)
[2018-10-07 07:53] VITALS: BP 139/83; PULSE 58; RESP 18
[2018-10-07] MEDS: METOPROLOL 25 MG TAB PO SCH ×2 (09:00→20:34)
[2018-10-07] MEDS: METHYLNALTREXONE 12 MG/0.6 ML VIAL SC SCH (09:00)
[2018-10-07] MEDS: AMIODARONE 200 MG TAB PO SCH (09:11)
[2018-10-07] MEDS: CLOPIDOGREL 75 MG TAB PO SCH (09:12)
[2018-10-07] MEDS: DILTIAZEM (CD) 180 MG CAP PO SCH ×2 (09:12→20:33)
[2018-10-07] MEDS: HEPARIN 5,000 UNIT/1 ML VIAL SC SCH ×2 (09:21→20:35)
--- NOTE | 2018-10-07 11:51 | CONS ---
Consult Date/Type/Reason Admit Date/Time October 01, 2018 at 13:07 Initial Consult Date 10/01/18 Requesting Provider: FREEDOM REYES MD Date/Time of Note DATE: 10/07/18 TIME: 11:49 Subjective NO acute events - pt comfortable - recovering slowly - no CP now. ROS: No fever, no chills, no nausea, no vomiting, no diarrhea/constipation - mild SOB Objective Vitals Vital Signs Date Temp Pulse Resp B/P (MAP) Pulse Ox O2 O2 Flow FiO2 Time Delivery Rate 10/07/18 96.0 58 18 139/83 95 07:53 (101) 10/07/18 Room Air 00:05 10/05/18 21 19:49 10/03/18 2.0 19:00 Intake and Output 10/06/18 10/06/18 10/07/18 1515:00 23:00 07:00 IntakeIntake Total 200 ml 250 ml OutputOutput Total 150 ml 600 ml BalanceBalance 50 ml -350 ml Exam General: WN/WD/NAD, AOx 3 HEENT: Unicetric/atraumatic/EOMI (follow commands) NECK: JVD elevated, no thyromegaly Lymph: no lymphadenopathy HEART: regular with no S3, II/ systolic murmur at apex - ICD, 2/6 m at base LUNGS: Coarse sounds ABD: soft, NT, ND, +BS : Intact Neuro: non focal SKIN: chronic changes EXT: trace edema Results/Medications Result Diagram: 10/07/18 0416 10/07/18 0416 Results 24 hrs Laboratory Tests Test 10/07/18 04:16 10/07/18 04:33 White Blood Count 8.2 Red Blood Count 3.29 L Hemoglobin 9.9 L Hematocrit 28.7 L Mean Corpuscular Volume 87.2 Mean Corpuscular Hemoglobin 30.1 Mean Corpuscular Hemoglobin Concent 34.5 Red Cell Distribution Width 15.2 H Platelet Count 321 Mean Platelet Volume 10.0 Immature Granulocytes % 0.600 H Neutrophils % 71.6 Lymphocytes % 12.0 L Monocytes % 12.5 H Eosinophils % 2.3 Basophils % 1.0 Nucleated Red Blood Cells % 0.0 Immature Granulocytes # 0.050 H Neutrophils # 5.9 Lymphocytes # 1.0 Monocytes # 1.0 H Eosinophils # 0.2 Basophils # 0.1 Nucleated Red Blood Cells # 0.0 Sodium Level 135 Potassium Level 3.7 Chloride Level 104 Carbon Dioxide Level 24 Anion Gap 7 Blood Urea Nitrogen 25 H Creatinine 0.96 Est Glomerular Filtrat Rate mL/min Glucose Level 115 Calcium Level 8.5 B-Type Natriuretic Peptide 9020 H Home Meds Reported Medications Tamsulosin Hcl* (Flomax*) 0.4 Mg Cap.er.24h, 0.4 MG PO DAILY, CAP 10/01/18 Pantoprazole* (Protonix*) 40 Mg Tablet.dr, 40 MG PO DAILY, TAB 10/01/18 Isosorbide Mononitrate* (Isosorbide Mononitrate*) 30 Mg Tab.er.24h, 30 MG PO DAILY, TAB 10/01/18 Clopidogrel Bisulfate (Clopidogrel) 75 Mg Tablet, 75 MG PO DAILY, #30 TAB 10/01/18 Diltiazem Hcl* (Cardizem CD*) 180 Mg Cap.sr.24h, 180 MG PO DAILY, #30 CAP 10/01/18 Amiodarone Hcl* (Amiodarone Hcl*) 200 Mg Tablet, 200 MG PO DAILY, #30 TAB 10/01/18 Discontinued Reported Medications Hydrocodone Bit-Acetaminophen (Hydrocodone Bit-APAP) 5-325MG Tablet, 1 TAB PO Q6H PRN for PAIN, TAB 08/19/17 Multivitamin (Daily Multiple Vitamin) 1 Each Tablet, 1 EACH PO, TAB 08/19/17 Bisacodyl* (Bisacodyl*) 5 Mg Tablet.dr, 10 MG PO DAILY PRN for CONSTIPATION, TAB 08/19/17 Pantoprazole* (Pantoprazole*) 40 Mg Tablet.dr, 40 MG PO AC BREAKFAST, TAB 08/18/17 Clopidogrel Bisulfate (Clopidogrel) 75 Mg Tablet, 75 MG PO DAILY, #30 TAB 08/18/17 Nitroglycerin* (Nitrostat*) 0.4 Mg Tab.subl, 0.4 MG SL Q5MIN PRN for CHEST PAIN, BOTTLE 08/18/17 Dutasteride* (Avodart*) 0.5 Mg Capsule, 0.5 MG PO DAILY, CAP 08/18/17 Benazepril-Hydrochlorothiazide (Benazepril-Hydrochlorothiazide) 20-12.5 Mg Tablet, 0.5 TAB PO DAILY, #30 TAB 08/18/17 Medications Current Medications Amiodarone HCl (Cordarone) 200 mg DAILY PO Last administered on 10/07/18 09:11; Admin Dose 200 MG; Start 10/02/18 at 09:00 Clopidogrel Bisulfate (plaVIX) 75 mg DAILY PO Last administered on 10/07/18 09:12; Admin Dose 75 MG; Start 10/02/18 at 09:00 Pantoprazole (Protonix Tab) 40 mg DAILY@0600 PO Last administered on 10/07/18 05:23; Admin Dose 40 MG; Start 10/02/18 at 06:00 Tamsulosin HCl (Flomax) 0.4 mg DAILY@2100 PO Last administered on 10/06/18 20:08; Admin Dose 0.4 MG; Start 10/01/18 at 21:00 IV Flush (NS 3 ml) 3 ml PER PROTOCOL IV ; Start 10/01/18 at 15:30 Ondansetron HCl (Zofran Inj) 4 mg Q6H PRN IV NAUSEA/VOMITING Last administered on 10/03/18 15:51; Admin Dose 4 MG; Start 10/01/18 at 15:30 Acetaminophen (Tylenol Tab) 650 mg Q6H PRN PO .PAIN 1-3 OR TEMP Last administered on 10/03/18 20:36; Admin Dose 650 MG; Start 10/01/18 at 15:30 Ibuprofen (Motrin) 600 mg Q6H PRN PO .PAIN 1-3; Start 10/01/18 at 15:30 Acetaminophen/ Hydrocodone Bitart ([place] (5/325)) 1 tab Q6H PRN PO .MOD PAIN 4- 6 Last administered on 10/04/18 21:11; Admin Dose 1 TAB; Start 10/01/18 at 15:30 Morphine Sulfate (morphine) 2 mg Q4H PRN IV .SEVERE PAIN 7-10 Last administered on 10/07/18 02:29; Admin Dose 2 MG; Start 10/01/18 at 15:30 Docusate Sodium (Colace) 100 mg Q12H PRN PO .CONSTIPATION Last administered on 10/06/18 09:24; Admin Dose 100 MG; Start 10/01/18 at 15:30 Bisacodyl (Dulcolax) 5 mg DAILY PRN PO .CONSTIPATION Last administered on 10/06/18 09:24; Admin Dose 5 MG; Start 10/01/18 at 15:30 Sodium Biphosphate/ Sodium Phosphate (Fleet Enema) 133 ml DAILY PRN [place] .CONSTIPATION Last administered on 10/06/18 20:13; Admin Dose 133 ML; Start 10/01/18 at 15:30 Heparin Sodium (Porcine) (Heparin (5000 Units/1ml)) 5,000 unit Q12 SC Last administered on 10/07/18 09:21; Admin Dose 5,000 UNIT; Start 10/01/18 at 21:00 Diltiazem HCl (Cardizem Cd) 180 mg BID PO Last administered on 10/07/18 09:12; Admin Dose 180 MG; Start 10/02/18 at 09:00 Metoprolol Tartrate (Lopressor) 25 mg BID PO Last administered on 10/05/18 20:53; Admin Dose 25 MG; Start 10/03/18 at 21:00 Methylnaltrexone [place] (Relistor) 12 mg DAILY SC Last administered on 10/06/18 09:25; Admin Dose 12 MG; Start 10/04/18 at 15:00 Assessment/Plan Hospital Course (Demo Recall) 1. Preoperative evaluation prior to lower extremity open reduction internal fixation for right hip fracture.-neg trop x 3/Echo EF 30% with moderate . Was high risk. Now is post-op s/p LE ORIF - tolerated procedure well- will monitor clinically now. Doing well, con't to recover. 2. Abnormal electrocardiogram with nonspecific ST abnormality, assess for acute coronary syndrome.-neg trop x 3 - intermittently paced. 3. Atrial fibrillation, currently rate controlled at this time, not on systemic anticoagulation at baseline due to possible bleeding complications - rate controlled. STABLE - off tele now. 4. History of percutaneous transluminal coronary angioplasty and stent placement to the right coronary artery in 2016 and to LCX 2017(now known to be occluded chronically with LASER TECHNICIAN of LAD that is collateralized by RCA after discussion with DR GARCIA this AM) - tolerated procedure well. 5. 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 Status post fall, mechanical by description. 7. Right hip fracture- repaired. 8. Right humeral fracture - treated. 9. H/O BIV/ICD - with good function. JOSIAH SAUL MD October 07, 2018 11:51
--- NOTE | 2018-10-07 13:24 | PN ---
Date/Time of Note Date/Time of Note DATE: 10/07/18 TIME: 13:21 Assessment/Plan VTE Prophylaxis Risk score (from Ns)>0 risk: 13 SCD applied (from Ns): Yes Pharmacological prophylaxis: heparin Lines/Catheters IV Catheter Type (from Nrs): Saline Lock Urinary Cath still in place: Yes Reason Cath still needed: urinary retention Assessment/Plan Result Diagram: 10/07/18 0416 10/07/18 0416 Results 24hrs Laboratory Tests Test 10/07/18 04:16 10/07/18 04:33 White Blood Count 8.2 Red Blood Count 3.29 L Hemoglobin 9.9 L Hematocrit 28.7 L Mean Corpuscular Volume 87.2 Mean Corpuscular Hemoglobin 30.1 Mean Corpuscular Hemoglobin Concent 34.5 Red Cell Distribution Width 15.2 H Platelet Count 321 Mean Platelet Volume 10.0 Immature Granulocytes % 0.600 H Neutrophils % 71.6 Lymphocytes % 12.0 L Monocytes % 12.5 H Eosinophils % 2.3 Basophils % 1.0 Nucleated Red Blood Cells % 0.0 Immature Granulocytes # 0.050 H Neutrophils # 5.9 Lymphocytes # 1.0 Monocytes # 1.0 H Eosinophils # 0.2 Basophils # 0.1 Nucleated Red Blood Cells # 0.0 Sodium Level 135 Potassium Level 3.7 Chloride Level 104 Carbon Dioxide Level 24 Anion Gap 7 Blood Urea Nitrogen 25 H Creatinine 0.96 Est Glomerular Filtrat Rate mL/min Glucose Level 115 Calcium Level 8.5 B-Type Natriuretic Peptide 9020 H Subjective 24 Hr Interval Summary Free Text/Dictation some progress w p.t. working on transfers, st up without difficulty. labs ok, cret to baseline no cardiac issues. zofia remains in. under review by aru, would prefer aru vs snf. lungs clear, abd soft, no edema, dressings ok continue w current regimen Exam/Review of Systems Exam Vitals Vital Signs Date Temp Pulse Resp B/P (MAP) Pulse Ox O2 O2 Flow FiO2 Time Delivery Rate 10/07/18 96.0 58 18 139/83 95 07:53 (101) 10/07/18 Room Air 00:05 10/05/18 21 19:49 10/03/18 2.0 19:00 Intake and Output 10/06/18 10/06/18 10/07/18 1515:00 23:00 07:00 IntakeIntake Total 200 ml 250 ml OutputOutput Total 150 ml 600 ml BalanceBalance 50 ml -350 ml Results Results 24hrs Laboratory Tests Test 10/07/18 04:16 10/07/18 04:33 White Blood Count 8.2 Red Blood Count 3.29 L Hemoglobin 9.9 L Hematocrit 28.7 L Mean Corpuscular Volume 87.2 Mean Corpuscular Hemoglobin 30.1 Mean Corpuscular Hemoglobin Concent 34.5 Red Cell Distribution Width 15.2 H Platelet Count 321 Mean Platelet Volume 10.0 Immature Granulocytes % 0.600 H Neutrophils % 71.6 Lymphocytes % 12.0 L Monocytes % 12.5 H Eosinophils % 2.3 Basophils % 1.0 Nucleated Red Blood Cells % 0.0 Immature Granulocytes # 0.050 H Neutrophils # 5.9 Lymphocytes # 1.0 Monocytes # 1.0 H Eosinophils # 0.2 Basophils # 0.1 Nucleated Red Blood Cells # 0.0 Sodium Level 135 Potassium Level 3.7 Chloride Level 104 Carbon Dioxide Level 24 Anion Gap 7 Blood Urea Nitrogen 25 H Creatinine 0.96 Est Glomerular Filtrat Rate mL/min Glucose Level 115 Calcium Level 8.5 B-Type Natriuretic Peptide 9020 H Medications Medication Current Medications Amiodarone HCl (Cordarone) 200 mg DAILY PO Last administered on 10/07/18at 09:11; Admin Dose 200 MG; Start 10/02/18 at 09:00 Clopidogrel Bisulfate (plaVIX) 75 mg DAILY PO Last administered on 10/07/18at 09:12; Admin Dose 75 MG; Start 10/02/18 at 09:00 Pantoprazole (Protonix Tab) 40 mg DAILY@0600 PO Last administered on 10/07/18at 05:23; Admin Dose 40 MG; Start 10/02/18 at 06:00 Tamsulosin HCl (Flomax) 0.4 mg DAILY@2100 PO Last administered on 10/06/18at 20:08; Admin Dose 0.4 MG; Start 10/01/18 at 21:00 IV Flush (NS 3 ml) 3 ml PER PROTOCOL IV ; Start 10/01/18 at 15:30 Ondansetron HCl (Zofran Inj) 4 mg Q6H PRN IV NAUSEA/VOMITING Last administered on 10/03/18at 15:51; Admin Dose 4 MG; Start 10/01/18 at 15:30 Acetaminophen (Tylenol Tab) 650 mg Q6H PRN PO .PAIN 1-3 OR TEMP Last administered on 10/03/18 20:36; Admin Dose 650 MG; Start 10/01/18 at 15:30 Ibuprofen (Motrin) 600 mg Q6H PRN PO .PAIN 1-3; Start 10/01/18 at 15:30 Acetaminophen/ Hydrocodone Bitart ([place] (5/325)) 1 tab Q6H PRN PO .MOD PAIN 4- 6 Last administered on 10/04/18 21:11; Admin Dose 1 TAB; Start 10/01/18 at 15:30 Morphine Sulfate (morphine) 2 mg Q4H PRN IV .SEVERE PAIN 7-10 Last administered on 10/07/18 02:29; Admin Dose 2 MG; Start 10/01/18 at 15:30 Docusate Sodium (Colace) 100 mg Q12H PRN PO .CONSTIPATION Last administered on 10/06/18 09:24; Admin Dose 100 MG; Start 10/01/18 at 15:30 Bisacodyl (Dulcolax) 5 mg DAILY PRN PO .CONSTIPATION Last administered on 10/06/18 09:24; Admin Dose 5 MG; Start 10/01/18 at 15:30 Sodium Biphosphate/ Sodium Phosphate (Fleet Enema) 133 ml DAILY PRN [place] .CONSTIPATION Last administered on 10/06/18 20:13; Admin Dose 133 ML; Start 10/01/18 at 15:30 Heparin Sodium (Porcine) (Heparin (5000 Units/1ml)) 5,000 unit Q12 SC Last administered on 10/07/18 09:21; Admin Dose 5,000 UNIT; Start 10/01/18 at 21:00 Diltiazem HCl (Cardizem Cd) 180 mg BID PO Last administered on 10/07/18 09:12; Admin Dose 180 MG; Start 10/02/18 at 09:00 Metoprolol Tartrate (Lopressor) 25 mg BID PO Last administered on 10/05/18 20:53; Admin Dose 25 MG; Start 10/03/18 at 21:00 Methylnaltrexone [place] (Relistor) 12 mg DAILY SC Last administered on 10/06/18 09:25; Admin Dose 12 MG; Start 10/04/18 at 15:00 ROLAND STEPHEN MD October 07, 2018 13:24
[2018-10-07 13:25] VITALS: BP 118/71; PULSE 64; RESP 18
[2018-10-07] MEDS: ACETAMINOPHEN 325 MG TAB PO PRN (13:35)
--- NOTE | 2018-10-07 15:40 | PN ---
Date/Time of Note Date/Time of Note DATE: 10/07/18 TIME: 15:39 Assessment/Plan Lines/Catheters IV Catheter Type (from Nrsg): Saline Lock [place] in Place (from Nrsg): Yes Assessment/Plan Chief Complaint/Hosp Course 88-year-old male with significant cardiac history postop day #5 status post IM nail right IT fracture. Patient also has nondisplaced right proximal humerus fracture. Plan: Weight-bear as tolerated right lower extremity Nonweightbearing right upper extremity. Sling for right upper extremity. We will start pendulums at 2 weeks. Pain control Heart healthy diet DVT prophylaxis: SCDs. Lovenox 40 mg daily x6 weeks. Physical therapy Discharge planning Okay to discharge from orthopedic standpoint Subjective 24 Hr Interval Summary Patient doing well No acute events overnight Pain is well controlled Exam/Review of Systems Vital Signs Vitals Vital Signs Date Temp Pulse Resp B/P (MAP) Pulse Ox O2 O2 Flow FiO2 Time Delivery Rate 10/07/18 97.3 64 18 118/71 96 13:25 (87) 10/07/18 Room Air 00:05 10/05/18 21 19:49 10/03/18 2.0 19:00 Intake and Output 10/06/18 10/06/18 10/07/18 1515:00 23:00 07:00 IntakeIntake Total 200 ml 250 ml OutputOutput Total 150 ml 600 ml BalanceBalance 50 ml -350 ml Exam Free Text/Dictation MUSCULOSKELETAL: Right upper extremity: Skin intact. There is ecchymosis over the anterior shoulder and proximal humerus. There is tenderness to palpation over the proximal humerus. No gross deformity. No significant swelling. Sensation intact to light touch in a median, ulnar, radial, and axillary distribution. Motor is intact in a median, ulnar, radial, anterior interosseous, and posterior interosseous nerve distribution. Radial and ulnar artery are +2. Wrist extension and flexion are intact. Compartments are soft. Right lower extremity: Dressings are clean, dry, intact. Sensation intact to light touch in a sural, saphenous, deep peroneal, superficial peroneal, medial and lateral plantar nerve distribution. Motor is intact, patient able to dorsiflex and plantarflex ankle and extend and flex great toe. Dorsalis Pedis pulse +2, Brisk capillary refill. Compartments are soft. Calves non-tender to palpation bilaterally. Results Result Diagram: 10/07/18 0416 10/07/18 0416 HAM ROBLES MD October 07, 2018 15:40
[2018-10-07 20:14] VITALS: BP 129/73; PULSE 94; RESP 18
[2018-10-07] MEDS: TAMSULOSIN (SR) 0.4 MG CAP PO SCH (20:33)
[2018-10-08] MEDS: morphine 2 MG INJ IV PRN (01:26)
[2018-10-08 02:46] VITALS: BP 120/68; PULSE 64; RESP 18
[2018-10-08] MEDS: PANTOPRAZOLE (EC) 40 MG TAB PO SCH (05:44)
[2018-10-08 07:30] VITALS: BP 132/90; PULSE 82; RESP 14
[2018-10-08] MEDS: METOPROLOL 25 MG TAB PO SCH ×2 (09:00→20:54)
[2018-10-08] MEDS: DILTIAZEM (CD) 180 MG CAP PO SCH ×2 (09:06→20:43)
[2018-10-08] MEDS: METHYLNALTREXONE 12 MG/0.6 ML VIAL SC SCH (09:07)
[2018-10-08] MEDS: AMIODARONE 200 MG TAB PO SCH (09:07)
[2018-10-08] MEDS: CLOPIDOGREL 75 MG TAB PO SCH (09:07)
[2018-10-08] MEDS: HEPARIN 5,000 UNIT/1 ML VIAL SC SCH ×2 (09:11→20:52)
[2018-10-08] MEDS: ACETAMINOPHEN 325 MG TAB PO PRN (09:13)
--- NOTE | 2018-10-08 14:37 | CONS ---
Consult Date/Type/Reason Admit Date/Time October 01, 2018 at 13:07 Initial Consult Date 10/01/18 Requesting Provider: FREEDOM REYES MD Date/Time of Note DATE: 10/08/18 TIME: 14:35 Subjective NO acute events - pt comfortable, BP stable - in good fluid status - doing well in rehab - con't pain Rx. ROS: No fever, no chills, no nausea, no vomiting, no diarrhea/constipation - better overall. Objective Vitals Vital Signs Date Temp Pulse Resp B/P (MAP) Pulse Ox O2 O2 Flow FiO2 Time Delivery Rate 10/08/18 97.8 82 14 132/90 100 Room Air 07:30 (104) 10/05/18 21 19:49 Intake and Output 10/07/18 10/07/18 10/08/18 1515:00 23:00 07:00 IntakeIntake Total 200 ml 550 ml OutputOutput Total 350 ml BalanceBalance 200 ml 200 ml Exam General: WN/WD/NAD, AOx 3 HEENT: Unicetric/atraumatic/EOMI ( follows commands) NECK: JVD elevated, no thyromegaly Lymph: no lymphadenopathy HEART: regular with no S3, II/ systolic murmur at apex, PMI L LUNGS: Coarse sounds ABD: soft, NT, ND, +BS : Intact Neuro: non focal SKIN: chronic changes EXT: trace edema - L arm in splint Results/Medications Result Diagram: 10/07/1841510/07/18415 Home Meds Reported Medications Tamsulosin Hcl* (Flomax*) 0.4 Mg Cap.er.24h, 0.4 MG PO DAILY, CAP 10/01/18 Pantoprazole* (Protonix*) 40 Mg Tablet.dr, 40 MG PO DAILY, TAB 10/01/18 Isosorbide Mononitrate* (Isosorbide Mononitrate*) 30 Mg Tab.er.24h, 30 MG PO DAILY, TAB 10/01/18 Clopidogrel Bisulfate (Clopidogrel) 75 Mg Tablet, 75 MG PO DAILY, #30 TAB 10/01/18 Diltiazem Hcl* (Cardizem CD*) 180 Mg Cap.sr.24h, 180 MG PO DAILY, #30 CAP 10/01/18 Amiodarone Hcl* (Amiodarone Hcl*) 200 Mg Tablet, 200 MG PO DAILY, #30 TAB 10/01/18 Discontinued Reported Medications Hydrocodone Bit-Acetaminophen (Hydrocodone Bit-APAP) 5-325MG Tablet, 1 TAB PO Q6H PRN for PAIN, TAB 08/19/17 Multivitamin (Daily Multiple Vitamin) 1 Each Tablet, 1 EACH PO, TAB 08/19/17 Bisacodyl* (Bisacodyl*) 5 Mg Tablet.dr, 10 MG PO DAILY PRN for CONSTIPATION, TAB 08/19/17 Pantoprazole* (Pantoprazole*) 40 Mg Tablet.dr, 40 MG PO AC BREAKFAST, TAB 08/18/17 Clopidogrel Bisulfate (Clopidogrel) 75 Mg Tablet, 75 MG PO DAILY, #30 TAB 08/18/17 Nitroglycerin* (Nitrostat*) 0.4 Mg Tab.subl, 0.4 MG SL Q5MIN PRN for CHEST PAIN, BOTTLE 08/18/17 Dutasteride* (Avodart*) 0.5 Mg Capsule, 0.5 MG PO DAILY, CAP 08/18/17 Benazepril-Hydrochlorothiazide (Benazepril-Hydrochlorothiazide) 20-12.5 Mg Tablet, 0.5 TAB PO DAILY, #30 TAB 08/18/17 Medications Current Medications Amiodarone HCl (Cordarone) 200 mg DAILY PO Last administered on 10/08/18at 09:0 7; Admin Dose 200 MG; Start 10/02/18 at 09:00 Clopidogrel Bisulfate (plaVIX) 75 mg DAILY PO Last administered on 10/08/18at 09:07; Admin Dose 75 MG; Start 10/02/18 at 09:00 Pantoprazole (Protonix Tab) 40 mg DAILY@0600 PO Last administered on 10/07/18 05:23; Admin Dose 40 MG; Start 10/02/18 at 06:00 Tamsulosin HCl (Flomax) 0.4 mg DAILY@2100 PO Last administered on 10/07/18at 20:33; Admin Dose 0.4 MG; Start 10/01/18 at 21:00 IV Flush (NS 3 ml) 3 ml PER PROTOCOL IV ; Start 10/01/18 at 15:30 Ondansetron HCl (Zofran Inj) 4 mg Q6H PRN IV NAUSEA/VOMITING Last administered on 10/03/18at 15:51; Admin Dose 4 MG; Start 10/01/18 at 15:30 Acetaminophen (Tylenol Tab) 650 mg Q6H PRN PO .PAIN 1-3 OR TEMP Last a dministered on 10/08/18 09:13; Admin Dose 650 MG; Start 10/01/18 at 15:30 Ibuprofen (Motrin) 600 mg Q6H PRN PO .PAIN 1-3; Start 10/01/18 at 15:30 Acetaminophen/ Hydrocodone Bitart ([place] (5/325)) 1 tab Q6H PRN PO .MOD PAIN 4- 6 Last administered on 10/04/18 21:11; Admin Dose 1 TAB; Start 10/01/18 at 15:30 Morphine Sulfate (morphine) 2 mg Q4H PRN IV .SEVERE PAIN 7-10 Last administered on 10/08/18 01:26; Admin Dose 2 MG; Start 10/01/18 at 15:30 Docusate Sodium (Colace) 100 mg Q12H PRN PO .CONSTIPATION Last administered on 10/06/18 09:24; Admin Dose 100 MG; Start 10/01/18 at 15:30 Bisacodyl (Dulcolax) 5 mg DAILY PRN PO .CONSTIPATION Last administered on 10/06/18 09:24; Admin Dose 5 MG; Start 10/01/18 at 15:30 Sodium Biphosphate/ Sodium Phosphate (Fleet Enema) 133 ml DAILY PRN [place] .CONSTIPATION Last administered on 10/06/18 20:13; Admin Dose 133 ML; Start 10/01/18 at 15:30 Heparin Sodium (Porcine) (Heparin (5000 Units/1ml)) 5,000 unit Q12 SC Last administered on 10/08/18 09:11; Admin Dose 5,000 UNIT; Start 10/01/18 at 21:00 Diltiazem HCl (Cardizem Cd) 180 mg BID PO Last administered on 10/08/18 09:06; Admin Dose 180 MG; Start 10/02/18 at 09:00 Metoprolol Tartrate (Lopressor) 25 mg BID PO Last administered on 10/07/18 20:34; Admin Dose 25 MG; Start 10/03/18 at 21:00 Methylnaltrexone [place] (Relistor) 12 mg DAILY SC Last administered on 5/11/19at 09:07; Admin Dose 12 MG; Start 10/04/18 at 15:00 Assessment/Plan Hospital Course (Demo Recall) 1. Arlene-op : 3/Echo EF 30% with moderate . Was high risk. Now is post-op s/p LE ORIF - tolerated procedure well- will monitor clinically now. Doing well, con't to recover. Con't to improve. 2. Abnormal electrocardiogram with nonspecific ST abnormality, assess for acute coronary syndrome.-neg trop x 3 - intermittently paced. 3. Atrial fibrillation, currently rate controlled at this time, not on systemic anticoagulation at baseline due to possible bleeding complications - rate controlled. STABLE - off tele now. 4. History of percutaneous transluminal coronary angioplasty and stent placemen t to the right coronary artery in 2016 and to LCX 2017(now known to be occluded chronically with REFORESTATION WORKER of LAD that is collateralized by RCA after discussion with DR GARCIA this AM) - tolerated procedure well. NO further interventions planned. 5. History of CLOTH SHRINKING TESTER to lower extremities with occlusion of RLE 6. Status post fall, mechanical by description.On meds now. 7. Right hip fracture- repaired. 8. Right humeral fracture - treated. 9. H/O BIV/ICD - with good function. JOSIAH SAUL MD October 08, 2018 14:37
[2018-10-08 14:42] VITALS: BP 119/90; PULSE 81; RESP 16
--- NOTE | 2018-10-08 18:11 | PN ---
Date/Time of Note Date/Time of Note DATE: 10/08/18 TIME: 18:08 Assessment/Plan VTE Prophylaxis Risk score (from Nsg)>0 risk: 10 SCD applied (from Nsg): Yes Pharmacological prophylaxis: heparin Lines/Catheters IV Catheter Type (from Nrsg): [place] Urinary Cath still in place: Yes Reason Cath still needed: urinary retention Assessment/Plan Hospital Course Right humeral fracture -s/p sling -continue pain control -continue PT as tolerated s/p repair of closed right hip fracture -pain control and PT as tolerated Atrial fibrillation -continue. amiodarone, diltiazem, metoprolol CHF -continue metoprolol and furosemide HTN -continue metoprolol and diltiazem BPH -continue tamsulosin Result Diagram: 10/07/18 0416 10/07/18415 Subjective 24 Hr Interval Summary Free Text/Dictation Patient seen and examined at bedside. No acute events overnight. He feels and denied any pain. Exam/Review of Systems Exam Vitals Vital Signs Date Temp Pulse Resp B/P (MAP) Pulse Ox O2 O2 Flow FiO2 Time Delivery Rate 10/08/18 98.0 81 16 119/90 95 Room Air 14:42 (100) 10/05/18 21 19:49 Intake and Output 10/07/18 10/07/18 10/08/18 1515:00 23:00 07:00 IntakeIntake Total 200 ml 550 ml OutputOutput Total 350 ml BalanceBalance 200 ml 200 ml Exam General: Comfortable in appearance, not in acute distress. Skin appropriate for ethnicity Eye: Extraocular movements are intact, Normal conjunctiva. HENT: Normocephalic, atraumatic. Respiratory: Respirations are non-labored, Breath sounds are equal, Symmetrical chest wall expansion. Cardiovascular: S1, S2. No murmur. No LE edema Gastrointestinal: Soft, Non-tender, Non-distended, Normal bowel sounds. Integumentary: Warm to touch. Sling on right upper extremity Neurologic: Alert, Oriented. Cognition and Speech: Speech clear and coherent, Functional cognition intact. Psychiatric: Cooperative, Appropriate mood & affect. Medications Medication Current Medications Amiodarone HCl (Cordarone) 200 mg DAILY PO Last administered on 10/08/18at 09:07; Admin Dose 200 MG; Start 10/02/18 at 09:00 Clopidogrel Bisulfate (plaVIX) 75 mg DAILY PO Last administered on 10/08/18 09:07; Admin Dose 75 MG; Start 10/02/18 at 09:00 Pantoprazole (Protonix Tab) 40 mg DAILY@0600 PO Last administered on 10/07/18 05:23; Admin Dose 40 MG; Start 10/02/18 at 06:00 Tamsulosin HCl (Flomax) 0.4 mg DAILY@2100 PO Last administered on 10/07/18 20:33; Admin Dose 0.4 MG; Start 10/01/18 at 21:00 IV Flush (NS 3 ml) 3 ml PER PROTOCOL IV ; Start 10/01/18 at 15:30 Ondansetron HCl (Zofran Inj) 4 mg Q6H PRN IV NAUSEA/VOMITING Last administered on 10/03/18 15:51; Admin Dose 4 MG; Start 10/01/18 at 15:30 Acetaminophen (Tylenol Tab) 650 mg Q6H PRN PO .PAIN 1-3 OR TEMP Last admi nistered on 10/08/18 09:13; Admin Dose 650 MG; Start 10/01/18 at 15:30 Ibuprofen (Motrin) 600 mg Q6H PRN PO .PAIN 1-3; Start 10/01/18 at 15:30 Acetaminophen/ Hydrocodone Bitart ([place] (5/325)) 1 tab Q6H PRN PO .MOD PAIN 4- 6 Last administered on 10/04/18 21:11; Admin Dose 1 TAB; Start 10/01/18 at 15:30 Morphine Sulfate (morphine) 2 mg Q4H PRN IV .SEVERE PAIN 7-10 Last administered on 10/08/18 01:26; Admin Dose 2 MG; Start 10/01/18 at 15:30 Docusate Sodium (Colace) 100 mg Q12H PRN PO .CONSTIPATION Last administered on 10/06/18 09:24; Admin Dose 100 MG; Start 10/01/18 at 15:30 Bisacodyl (Dulcolax) 5 mg DAILY PRN PO .CONSTIPATION Last administered on 10/06/18 09:24; Admin Dose 5 MG; Start 10/01/18 at 15:30 Sodium Biphosphate/ Sodium Phosphate (Fleet Enema) 133 ml DAILY PRN [place] .CONSTIPATION Last administered on 10/06/18 20:13; Admin Dose 133 ML; Start 10/01/18 at 15:30 Heparin Sodium (Porcine) (Heparin (5000 Units/1ml)) 5,000 unit Q12 SC Last administered on 10/08/18 09:11; Admin Dose 5,000 UNIT; Start 10/01/18 at 21:00 Diltiazem HCl (Cardizem Cd) 180 mg BID PO Last administered on 10/08/18 09:06; Admin Dose 180 MG; Start 10/02/18 at 09:00 Metoprolol Tartrate (Lopressor) 25 mg BID PO Last administered on 10/07/18 20:34; Admin Dose 25 MG; Start 10/03/18 at 21:00 Methylnaltrexone [place] (Relistor) 12 mg DAILY SC Last administered on 10/08/18 09:07; Admin Dose 12 MG; Start 10/04/18 at 15:00 SIENA WALLACE MD October 08, 2018 18:10
[2018-10-08 19:30] VITALS: BP 126/63; PULSE 75; RESP 18
[2018-10-08] MEDS: TAMSULOSIN (SR) 0.4 MG CAP PO SCH (20:56)
[2018-10-09 02:15] VITALS: BP 133/69; PULSE 97; RESP 20
[2018-10-09] MEDS: PANTOPRAZOLE (EC) 40 MG TAB PO SCH (06:01)
[2018-10-09] MEDS: BISACODYL (EC) 5 MG TAB PO PRN (06:14)
[2018-10-09 08:11] VITALS: BP 155/72; PULSE 80; RESP 18
[2018-10-09] MEDS: AMIODARONE 200 MG TAB PO SCH (08:51)
[2018-10-09] MEDS: CLOPIDOGREL 75 MG TAB PO SCH (08:52)
[2018-10-09] MEDS: METOPROLOL 25 MG TAB PO SCH ×2 (08:52→23:08)
[2018-10-09] MEDS: DILTIAZEM (CD) 180 MG CAP PO SCH ×2 (08:52→21:00)
[2018-10-09] MEDS: HEPARIN 5,000 UNIT/1 ML VIAL SC SCH ×2 (08:55→23:14)
[2018-10-09] MEDS: METHYLNALTREXONE 12 MG/0.6 ML VIAL SC SCH (08:56)
--- NOTE | 2018-10-09 15:39 | CONS ---
Consult Date/Type/Reason Admit Date/Time October 01, 2018 at 13:07 Initial Consult Date 10/01/18 Requesting Provider: FREEDOM REYES MD Date/Time of Note DATE: 10/09/18 TIME: 15:37 Subjective NO acute events - pt doing rehab now with PT - able to stand - much better now. NO CP - BP on high side - will allow for now. ROS: No fever, no chills, no nausea, no vomiting, no diarrhea/constipation - mild SOB Objective Vitals Vital Signs Date Temp Pulse Resp B/P (MAP) Pulse Ox O2 O2 Flow FiO2 Time Delivery Rate 10/09/18 98.3 80 18 155/72 99 Room Air 08:11 (99) 10/05/18 19:49 Intake and Output 10/08/18 10/08/18 10/09/18 1515:00 23:00 07:00 IntakeIntake Total 480 ml 470 ml 430 ml OutputOutput Total 500 ml 700 ml BalanceBalance 480 ml -30 ml -270 ml Exam General: WN/WD/NAD, AOx 3 HEENT: Unicetric/atraumatic/EOMI (follow commands) NECK: JVD elevated, no thyromegaly Lymph: no lymphadenopathy HEART: regular with no S3, II/ systolic murmur at apex LUNGS: Coarse sounds ABD: soft, NT, ND, +BS : Intact Neuro: non focal SKIN: chronic changes EXT: NO edema, UP brace/sling Results/Medications Result Diagram: 10/07/18 0416 10/07/18 041 Home Meds Reported Medications Tamsulosin Hcl* (Flomax*) 0.4 Mg Cap.er.24h, 0.4 MG PO DAILY, CAP 10/01/18 Pantoprazole* (Protonix*) 40 Mg Tablet.dr, 40 MG PO DAILY, TAB 10/01/18 Isosorbide Mononitrate* (Isosorbide Mononitrate*) 30 Mg Tab.er.24h, 30 MG PO DAILY, TAB 10/01/18 Clopidogrel Bisulfate (Clopidogrel) 75 Mg Tablet, 75 MG PO DAILY, #30 TAB 10/01/18 Diltiazem Hcl* (Cardizem CD*) 180 Mg Cap.sr.24h, 180 MG PO DAILY, #30 CAP 10/01/18 Amiodarone Hcl* (Amiodarone Hcl*) 200 Mg Tablet, 200 MG PO DAILY, #30 TAB 10/01/18 Medications Current Medications Amiodarone HCl (Cordarone) 200 mg DAILY PO Last administered on 10/09/18 08:51; Admin Dose 200 MG; Start 10/02/18 at 09:00 Clopidogrel Bisulfate (plaVIX) 75 mg DAILY PO Last administered on 10/09/18 08:52; Admin Dose 75 MG; Start 10/02/18 at 09:00 Pantoprazole (Protonix Tab) 40 mg DAILY@0600 PO Last administered on 10/09/18 06:01; Admin Dose 40 MG; Start 10/02/18 at 06:00 Tamsulosin HCl (Flomax) 0.4 mg DAILY@2100 PO Last administered on 10/08/18 20:56; Admin Dose 0.4 MG; Start 10/01/18 at 21:00 IV Flush (NS 3 ml) 3 ml PER PROTOCOL IV ; Start 10/01/18 at 15:30 Ondansetron HCl (Zofran Inj) 4 mg Q6H PRN IV NAUSEA/VOMITING Last administered on 10/03/18 15:51; Admin Dose 4 MG; Start 10/01/18 at 15:30 Acetaminophen (Tylenol Tab) 650 mg Q6H PRN PO .PAIN 1-3 OR TEMP Last administered on 10/08/18 09:13; Admin Dose 650 MG; Start 10/01/18 at 15:30 Ibuprofen (Motrin) 600 mg Q6H PRN PO .PAIN 1-3; Start 10/01/18 at 15:30 Acetaminophen/ Hydrocodone Bitart ([place] (5/325)) 1 tab Q6H PRN PO .MOD PAIN 4- 6 Last administered on 10/04/18 21:11; Admin Dose 1 TAB; Start 10/01/18 at 15:30 Morphine Sulfate (morphine) 2 mg Q4H PRN IV .SEVERE PAIN 7-10 Last administered on 10/08/18 01:26; Admin Dose 2 MG; Start 10/01/18 at 15:30 Docusate Sodium (Colace) 100 mg Q12H PRN PO .CONSTIPATION Last administered on 10/06/18 09:24; Admin Dose 100 MG; Start 10/01/18 at 15:30 Bisacodyl (Dulcolax) 5 mg DAILY PRN PO .CONSTIPATION Last administered on 10/09/18 06:14; Admin Dose 5 MG; Start 10/01/18 at 15:30 Sodium Biphosphate/ Sodium Phosphate (Fleet Enema) 133 ml DAILY PRN [place] .CONSTIPATION Last administered on 10/06/18 20:13; Admin Dose 133 ML; Start 10/01/18 at 15:30 Heparin Sodium (Porcine) (Heparin (5000 Units/1ml)) 5,000 unit Q12 SC Last administered on 10/09/18 08:55; Admin Dose 5,000 UNIT; Start 10/01/18 at 21:00 Diltiazem HCl (Cardizem Cd) 180 mg BID PO Last administered on 10/09/18 08:52; Admin Dose 180 MG; Start 10/02/18 at 09:00 Metoprolol Tartrate (Lopressor) 25 mg BID PO Last administered on 10/09/18 08:52; Admin Dose 25 MG; Start 10/03/18 at 21:00 Methylnaltrexone [place] (Relistor) 12 mg DAILY SC Last administered on 10/09/18 08:56; Admin Dose 12 MG; Start 10/04/18 at 15:00 Simethicone (Mylicon) 160 mg PC LUNCH PO Last administered on 10/09/18 12:46; Admin Dose 160 MG; Start 10/09/18 at 12:40 Assessment/Plan Hospital Course (Demo Recall) 1. Arlene-op : 3/Echo EF 30% with moderate . Was high risk. Now is post-op s/p LE ORIF - tolerated procedure well- will monitor clinically now. Doing well, con't to recover. Con't to improve. Doing well with PT. 2. Abnormal electrocardiogram with nonspecific ST abnormality, assess for acu te coronary syndrome.-neg trop x 3 - intermittently paced. 3. Atrial fibrillation, currently rate controlled at this time, not on systemic anticoagulation at baseline due to possible bleeding complications - rate controlled. STABLE - off tele now. 4. History of percutaneous transluminal coronary angioplasty and stent placement to the right coronary artery in 2016 and to LCX 2017(now known to be occluded chronically with AIR BATTLE MANAGER of LAD that is collateralized by RCA after discussion with DR GARCIA this AM) - tolerated procedure well. NO further interventions planned. NOW BP ON [facility] SIDE - will lre-evaluate tomorrow. 5. 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 Status post fall, mechanical by description.On meds now. 7. Right hip fracture- repaired. 8. Right humeral fracture - treated. 9. H/O BIV/ICD - with good function. JOSIAH SAUL MD October 09, 2018 15:39
--- NOTE | 2018-10-09 16:26 | PN ---
Date/Time of Note Date/Time of Note DATE: 10/09/18 TIME: 16:25 Assessment/Plan VTE Prophylaxis Risk score (from Nsg)>0 risk: 9 SCD applied (from Nsg): Yes Pharmacological prophylaxis: heparin Lines/Catheters IV Catheter Type (from Nrsg): Peripheral IV Urinary Cath still in place: Yes Reason Cath still needed: urinary retention Assessment/Plan Hospital Course Right humeral fracture -s/p sling -continue pain control -continue PT as tolerated s/p repair of closed right hip fracture -pain control and PT as tolerated Atrial fibrillation -continue. amiodarone, diltiazem, metoprolol CHF -continue metoprolol and furosemide HTN -continue metoprolol and diltiazem BPH -continue tamsulosin Flatulence -start gas x BID Result Diagram: 10/07/1841510/07/18415 Subjective 24 Hr Interval Summary Free Text/Dictation patient seen and examined at bedside, he is complaining of a lot of gas and u sually take gas X at home twice a day which helps tremendously Exam/Review of Systems Exam Vitals Vital Signs Date Temp Pulse Resp B/P (MAP) Pulse Ox O2 O2 Flow FiO2 Time Delivery Rate 10/09/18 98.3 80 18 155/72 99 Room Air 08:11 (99) 10/05/18 21 19:49 Intake and Output 10/08/18 10/08/18 10/09/18 1515:00 23:00 07:00 IntakeIntake Total 480 ml 470 ml 430 ml OutputOutput Total 500 ml 700 ml BalanceBalance 480 ml -30 ml -270 ml Exam General: Comfortable in appearance, not in acute distress. Skin appropriate for ethnicity Eye: Extraocular movements are intact, Normal conjunctiva. HENT: Normocephalic, atraumatic. Respiratory: Respirations are non-labored, Breath sounds are equal, Symmetrical chest wall expansion. Cardiovascular: S1, S2. No murmur. No LE edema Gastrointestinal: Soft, Non-tender, Non-distended, Normal bowel sounds. Integumentary: Warm to touch. Sling on right upper extremity Neurologic: Alert, Oriented. Cognition and Speech: Speech clear and coherent, Functional cognition intact. Psychiatric: Cooperative, Appropriate mood & affect. Medications Medication Current Medications Amiodarone HCl (Cordarone) 200 mg DAILY PO Last administered on 10/09/18 08:51; Admin Dose 200 MG; Start 10/02/18 at 09:00 Clopidogrel Bisulfate (plaVIX) 75 mg DAILY PO Last administered on 10/09/18 08:52; Admin Dose 75 MG; Start 10/02/18 at 09:00 Pantoprazole (Protonix Tab) 40 mg DAILY@0600 PO Last administered on 10/09/18 06:01; Admin Dose 40 MG; Start 10/02/18 at 06:00 Tamsulosin HCl (Flomax) 0.4 mg DAILY@2100 PO Last administered on 10/08/18 20:56; Admin Dose 0.4 MG; Start 10/01/18 at 21:00 IV Flush (NS 3 ml) 3 ml PER PROTOCOL IV ; Start 10/01/18 at 15:30 Ondansetron HCl (Zofran Inj) 4 mg Q6H PRN IV NAUSEA/VOMITING Last administered on 10/03/18 15:51; Admin Dose 4 MG; Start 10/01/18 at 15:30 Acetaminophen (Tylenol Tab) 650 mg Q6H PRN PO .PAIN 1-3 OR TEMP Last administered on 10/08/18 09:13; Admin Dose 650 MG; Start 10/01/18 at 15:30 Ibuprofen (Motrin) 600 mg Q6H PRN PO .PAIN 1-3; Start 10/01/18 at 15:30 Acetaminophen/ Hydrocodone Bitart ([place] (5/325)) 1 tab Q6H PRN PO .MOD PAIN 4- 6 Last administered on 10/04/18 21:11; Admin Dose 1 TAB; Start 10/01/18 at 15:30 Morphine Sulfate (morphine) 2 mg Q4H PRN IV .SEVERE PAIN 7-10 Last administered on 10/08/18 01:26; Admin Dose 2 MG; Start 10/01/18 at 15:30 Docusate Sodium (Colace) 100 mg Q12H PRN PO .CONSTIPATION Last administered on 10/06/18 09:24; Admin Dose 100 MG; Start 10/01/18 at 15:30 Bisacodyl (Dulcolax) 5 mg DAILY PRN PO .CONSTIPATION Last administered on 10/09/18 06:14; Admin Dose 5 MG; Start 10/01/18 at 15:30 Sodium Biphosphate/ Sodium Phosphate (Fleet Enema) 133 ml DAILY PRN [place] .CONSTIPATION Last administered on 10/06/18 20:13; Admin Dose 133 ML; Start 10/01/18 at 15:30 Heparin Sodium (Porcine) (Heparin (5000 Units/1ml)) 5,000 unit Q12 SC Last administered on 10/09/18 08:55; Admin Dose 5,000 UNIT; Start 10/01/18 at 21:00 Diltiazem HCl (Cardizem Cd) 180 mg BID PO Last administered on 10/09/18 08:52; Admin Dose 180 MG; Start 10/02/18 at 09:00 Metoprolol Tartrate (Lopressor) 25 mg BID PO Last administered on 10/09/18 08:52; Admin Dose 25 MG; Start 10/03/18 at 21:00 Methylnaltrexone [place] (Relistor) 12 mg DAILY SC Last administered on 10/09/18 08:56; Admin Dose 12 MG; Start 10/04/18 at 15:00 Simethicone (Mylicon) 160 mg PC LUNCH PO Last administered on 10/09/18 12:46; Admin Dose 160 MG; Start 10/09/18 at 12:40 SIENA WALLACE MD October 09, 2018 16:26
[2018-10-09 19:30] VITALS: BP 120/78; PULSE 93; RESP 18
[2018-10-09] MEDS: IBUPROFEN 600 MG TAB PO PRN (20:49)
[2018-10-09] MEDS: TAMSULOSIN (SR) 0.4 MG CAP PO SCH (23:11)
[2018-10-10 01:48] VITALS: BP 130/75; PULSE 96; RESP 20
[2018-10-10] MEDS: PANTOPRAZOLE (EC) 40 MG TAB PO SCH (06:18)
[2018-10-10] MEDS: DOCUSATE SODIUM 100 MG CAP PO PRN (06:19)
[2018-10-10 07:51] VITALS: BP 134/68; PULSE 84; RESP 18
[2018-10-10] MEDS: DILTIAZEM (CD) 180 MG CAP PO SCH ×2 (08:20→21:00)
[2018-10-10] MEDS: CLOPIDOGREL 75 MG TAB PO SCH (08:21)
[2018-10-10] MEDS: METOPROLOL 25 MG TAB PO SCH ×2 (08:25→21:00)
[2018-10-10] MEDS: AMIODARONE 200 MG TAB PO SCH (08:26)
[2018-10-10] MEDS: HEPARIN 5,000 UNIT/1 ML VIAL SC SCH ×2 (08:27→21:36)
[2018-10-10] MEDS: METHYLNALTREXONE 12 MG/0.6 ML VIAL SC SCH (08:27)
--- NOTE | 2018-10-10 08:54 | CONS ---
Consult Date/Type/Reason Admit Date/Time October 01, 2018 at 13:07 Initial Consult Date 10/01/18 Requesting Provider: FREEDOM REYES MD Date/Time of Note DATE: 10/10/18 TIME: 08:52 Subjective PT con't to improve - work with PT day prior - took a few steps - no CP - consider d/c [place] - discuss with nursing staff - will inform PMD. ROS: No fever, no chills, no nausea, no vomiting, no diarrhea/constipation No recent weight changes No chest pain, no PND, no orthopnea - mild SOB - chronic No dizziness, blurred vision No thirst, no heat or cold intolerance Objective Vitals Vital Signs Date Temp Pulse Resp B/P (MAP) Pulse Ox O2 O2 Flow FiO2 Time Delivery Rate 10/10/18 97.6 84 18 134/68 98 07:51 (90) 10/10/18 Room Air 01:48 Intake and Output 10/09/18 10/09/18 10/10/18 1515:00 23:00 07:00 IntakeIntake Total 1000 ml 220 ml OutputOutput Total 750 ml 350 ml BalanceBalance 250 ml -130 ml Exam General: WN/WD/NAD, AOx 3 HEENT: Unicetric/atraumatic/EOMI (follows commands) NECK: JVD elevated, no thyromegaly Lymph: no lymphadenopathy HEART: regular with no S3, II/ systolic murmur at apex, pacer L side LUNGS: Coarse sounds ABD: soft, NT, ND, +BS : Intact - [place] Neuro: non focal SKIN: chronic changes EXT: NO edema Results/Medications Result Diagram: 10/07/18 0416 10/07/18 041 Home Meds Reported Medications Tamsulosin Hcl* (Flomax*) 0.4 Mg Cap.er.24h, 0.4 MG PO DAILY, CAP 10/01/18 Pantoprazole* (Protonix*) 40 Mg Tablet.dr, 40 MG PO DAILY, TAB 10/01/18 Isosorbide Mononitrate* (Isosorbide Mononitrate*) 30 Mg Tab.er.24h, 30 MG PO DAILY, TAB 10/01/18 Clopidogrel Bisulfate (Clopidogrel) 75 Mg Tablet, 75 MG PO DAILY, #30 TAB 10/01/18 Diltiazem Hcl* (Cardizem CD*) 180 Mg Cap.sr.24h, 180 MG PO DAILY, #30 CAP 10/01/18 Amiodarone Hcl* (Amiodarone Hcl*) 200 Mg Tablet, 200 MG PO DAILY, #30 TAB 10/01/18 Medications Current Medications Amiodarone HCl (Cordarone) 200 mg DAILY PO Last administered on 10/10/18 08:26; Admin Dose 200 MG; Start 10/02/18 at 09:00 Clopidogrel Bisulfate (plaVIX) 75 mg DAILY PO Last administered on 10/10/18 08:21; Admin Dose 75 MG; Start 10/02/18 at 09:00 Pantoprazole (Protonix Tab) 40 mg DAILY@0600 PO Last administered on 10/10/18 06:18; Admin Dose 40 MG; Start 10/02/18 at 06:00 Tamsulosin HCl (Flomax) 0.4 mg DAILY@2100 PO Last administered on 10/09/18 23:11; Admin Dose 0.4 MG; Start 10/01/18 at 21:00 IV Flush (NS 3 ml) 3 ml PER PROTOCOL IV ; Start 10/01/18 at 15:30 Ondansetron HCl (Zofran Inj) 4 mg Q6H PRN IV NAUSEA/VOMITING Last administered on 10/03/18 15:51; Admin Dose 4 MG; Start 10/01/18 at 15:30 Acetaminophen (Tylenol Tab) 650 mg Q6H PRN PO .PAIN 1-3 OR TEMP Last administered on 10/08/18 09:13; Admin Dose 650 MG; Start 10/01/18 at 15:30 Ibuprofen (Motrin) 600 mg Q6H PRN PO .PAIN 1-3 Last administered on 10/09/18 20:49; Admin Dose 600 MG; Start 10/01/18 at 15:30 Acetaminophen/ Hydrocodone Bitart ([place] (5/325)) 1 tab Q6H PRN PO .MOD PAIN 4- 6 Last administered on 10/04/18 21:11; Admin Dose 1 TAB; Start 10/01/18 at 15:30 Morphine Sulfate (morphine) 2 mg Q4H PRN IV .SEVERE PAIN 7-10 Last administered on 10/08/18 01:26; Admin Dose 2 MG; Start 10/01/18 at 15:30 Docusate Sodium (Colace) 100 mg Q12H PRN PO .CONSTIPATION Last administered on 10/10/18 06:19; Admin Dose 100 MG; Start 10/01/18 at 15:30 Bisacodyl (Dulcolax) 5 mg DAILY PRN PO .CONSTIPATION Last administered on 10/09/18 06:14; Admin Dose 5 MG; Start 10/01/18 at 15:30 Sodium Biphosphate/ Sodium Phosphate (Fleet Enema) 133 ml DAILY PRN [place] .CONSTIPATION Last administered on 10/06/18 20:13; Admin Dose 133 ML; Start 10/01/18 at 15:30 Heparin Sodium (Porcine) (Heparin (5000 Units/1ml)) 5,000 unit Q12 SC Last administered on 10/10/18 08:27; Admin Dose 5,000 UNIT; Start 10/01/18 at 21:00 Diltiazem HCl (Cardizem Cd) 180 mg BID PO Last administered on 10/10/18 08:20; Admin Dose 180 MG; Start 10/02/18 at 09:00 Metoprolol Tartrate (Lopressor) 25 mg BID PO Last administered on 10/10/18 08:25; Admin Dose 25 MG; Start 10/03/18 at 21:00 Methylnaltrexone [place] (Relistor) 12 mg DAILY SC Last administered on 10/10/18 08:27; Admin Dose 12 MG; Start 10/04/18 at 15:00 Simethicone (Mylicon) 160 mg PC LUNCH PO Last administered on 10/09/18 12:46; Admin Dose 160 MG; Start 10/09/18 at 12:40 Assessment/Plan Hospital Course (Demo Recall) 1. Arlene-op : 3/Echo EF 30% with moderate . Was high risk. Now is post-op s/p LE ORIF - tolerated procedure well- will monitor clinically now. Doing well, con't to recover. Con't to improve. Doing well with PT. Not in CHF by exam. 2. Abnormal electrocardiogram with nonspecific ST abnormality, assess for acute coronary syndrome.-neg trop x 3 - intermittently paced. 3. Atrial fibrillation, currently rate controlled at this time, not on systemic anticoagulation at baseline due to possible bleeding complications - rate controlled. STABLE - off tele now. 4. History of percutaneous transluminal coronary angioplasty and stent placement to the right coronary artery in 2016 and to LCX 2017(now known to be occluded chronically with SALES REPRESENTATIVE CHURCH FURNITURE of LAD that is collateralized by RCA after discussion with DR GARCIA this AM) - tolerated procedure well. NO further interventions planned. NOW BP better. 5. 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 Status post fall, mechanical by description.On meds now. 7. Right hip fracture- repaired. Consider d/c [place]. 8. Right humeral fracture - treated. 9. H/O BIV/ICD - with good function. JOSIAH SAUL MD October 10, 2018 08:54
[2018-10-10] MEDS: IBUPROFEN 600 MG TAB PO PRN ×2 (09:18→21:34)
[2018-10-10 13:56] VITALS: BP 104/57; PULSE 80; RESP 18
--- NOTE | 2018-10-10 18:35 | PN ---
Date/Time of Note Date/Time of Note DATE: 10/10/18 TIME: 18:32 Assessment/Plan VTE Prophylaxis Risk score (from [facility] [place])>0 risk: 22 SCD applied (from [facility] [place]): Yes Pharmacological prophylaxis: heparin Lines/Catheters IV Catheter Type (from [facility]): Peripheral IV Urinary Cath still in place: No Assessment/Plan Problems: (1) Status post-operative repair of closed fracture of right hip Status: Acute Comment: Progressing nicely and now about to go to the acute rehabilitation unit for aggressive inpatient rehab (2) Right humeral fracture Status: Acute Comment: Stable and braced. Qualifiers: Encounter type: initial encounter Humerus Location: surgical neck Fracture type: closed Fracture morphology: 2-part Fracture alignment: nondisplaced Qualified Codes: S42.224A - 2-part nondisplaced fracture of surgical neck of right humerus, initial encounter for closed fracture (3) BPH (benign prostatic hypertrophy) with urinary retention Status: Chronic Comment: On alpha blockade, will add in a 5 alpha reductase inhibitor to complement this. Please note need to be careful given the patient's known aortic stenosis (4) Essential (primary) hypertension Status: Chronic Comment: Adequate control at this time (5) Dyslipidemia Status: Chronic Comment: Continue statin therapy (6) Diastolic dysfunction Status: Chronic Comment: Noted and blood pressure is controlled (7) Ejection fraction < 50% Status: Chronic Comment: Appropriate medications cautiously given the aortic stenosis (8) Aortic stenosis Status: Chronic Comment: Noted. Qualifiers: Cardiac valve disease etiology: nonrheumatic Qualified Codes: I35.0 - Nonrheumatic aortic (valve) stenosis Result Diagram: 10/07/18 0416 10/07/18 0416 Subjective 24 Hr Interval Summary Free Text/Dictation He is anxious to go to the acute rehabilitation unit tomorrow. Review of systems negative Constitutional: no complaints Respiratory: no complaints Cardiovascular: no complaints Gastrointestinal: no complaints Genitourinary: no complaints Endocrine: no complaints Exam/Review of Systems Exam Vitals Vital Signs Date Temp Pulse Resp B/P (MAP) Pulse Ox O2 O2 Flow FiO2 Time Delivery Rate 10/10/18 97.8 80 18 104/57 99 13:56 (73) 10/10/18 Room Air 01:48 Intake and Output 10/09/18 10/09/18 10/10/18 1515:00 23:00 07:00 IntakeIntake Total 1000 ml 220 ml OutputOutput Total 750 ml 350 ml BalanceBalance 250 ml -130 ml Constitutional: alert, oriented Neck: supple, non-tender Respiratory: clear to auscultation, normal air movement Cardiovascular: regular rate and rhythm, nl pulses Gastrointestinal: soft, nl liver, spleen, non-tender Medications Medication Current Medications Amiodarone HCl (Cordarone) 200 mg DAILY PO Last administered on 10/10/18 08:26; Admin Dose 200 MG; Start 10/02/18 at 09:00 Clopidogrel Bisulfate (plaVIX) 75 mg DAILY PO Last administered on 10/10/18 08:21; Admin Dose 75 MG; Start 10/02/18 at 09:00 Pantoprazole (Protonix Tab) 40 mg DAILY@0600 PO Last administered on 10/10/18 06:18; Admin Dose 40 MG; Start 10/02/18 at 06:00 Tamsulosin HCl (Flomax) 0.4 mg DAILY@2100 PO Last administered on 10/09/18 23:11; Admin Dose 0.4 MG; Start 10/01/18 at 21:00 IV Flush (NS 3 ml) 3 ml PER PROTOCOL IV ; Start 10/01/18 at 15:30 Ondansetron HCl (Zofran Inj) 4 mg Q6H PRN IV NAUSEA/VOMITING Last administered on 10/03/18 15:51; Admin Dose 4 MG; Start 10/01/18 at 15:30 Acetaminophen (Tylenol Tab) 650 mg Q6H PRN PO .PAIN 1-3 OR TEMP Last administered on 10/08/18 09:13; Admin Dose 650 MG; Start 10/01/18 at 15:30 Ibuprofen (Motrin) 600 mg Q6H PRN PO .PAIN 1-3 Last administered on 10/10/18 09:18; Admin Dose 600 MG; Start 10/01/18 at 15:30 Acetaminophen/ Hydrocodone Bitart ([place] (5/325)) 1 tab Q6H PRN PO .MOD PAIN 4- 6 Last administered on 10/04/18 21:11; Admin Dose 1 TAB; Start 10/01/18 at 15:30 Morphine Sulfate (morphine) 2 mg Q4H PRN IV .SEVERE PAIN 7-10 Last administered on 10/08/18 01:26; Admin Dose 2 MG; Start 10/01/18 at 15:30 Docusate Sodium (Colace) 100 mg Q12H PRN PO .CONSTIPATION Last administered on 10/10/18 06:19; Admin Dose 100 MG; Start 10/01/18 at 15:30 Bisacodyl (Dulcolax) 5 mg DAILY PRN PO .CONSTIPATION Last administered on 10/09/18 06:14; Admin Dose 5 MG; Start 10/01/18 at 15:30 Sodium Biphosphate/ Sodium Phosphate (Fleet Enema) 133 ml DAILY PRN [place] .CONSTIPATION Last administered on 10/06/18 20:13; Admin Dose 133 ML; Start 10/01/18 at 15:30 Heparin Sodium (Porcine) (Heparin (5000 Units/1ml)) 5,000 unit Q12 SC Last administered on 10/10/18 08:27; Admin Dose 5,000 UNIT; Start 10/01/18 at 21:00 Diltiazem HCl (Cardizem Cd) 180 mg BID PO Last administered on 10/10/18 08:20; Admin Dose 180 MG; Start 10/02/18 at 09:00 Metoprolol Tartrate (Lopressor) 25 mg BID PO Last administered on 10/10/18 08:25; Admin Dose 25 MG; Start 10/03/18 at 21:00 Methylnaltrexone [place] (Relistor) 12 mg DAILY SC Last administered on 10/10/18 08:27; Admin Dose 12 MG; Start 10/04/18 at 15:00 Simethicone (Mylicon) 160 mg PC LUNCH PO Last administered on 10/10/18 14:02; Admin Dose 160 MG; Start 10/09/18 at 12:40 Finasteride (Proscar) 5 mg DAILY PO ; Start 10/11/18 at 09:00; Status LATIA MCADAMS MD October 10, 2018 18:35
[2018-10-10 19:58] VITALS: BP 99/54; PULSE 94; RESP 18
[2018-10-10] MEDS: TAMSULOSIN (SR) 0.4 MG CAP PO SCH (21:36)
[2018-10-11 01:26] VITALS: BP 135/79; PULSE 87; RESP 18
[2018-10-11] MEDS: PANTOPRAZOLE (EC) 40 MG TAB PO SCH (05:34)
[2018-10-11 07:35] VITALS: BP 109/72; PULSE 104; RESP 18
[2018-10-11] MEDS: METOPROLOL 25 MG TAB PO SCH (09:00)
[2018-10-11] MEDS ORDERED: FINASTERIDE 5 MG TAB PO SCH (09:00)
[2018-10-11] MEDS: CLOPIDOGREL 75 MG TAB PO SCH (09:01)
[2018-10-11] MEDS: DILTIAZEM (CD) 180 MG CAP PO SCH (09:02)
[2018-10-11] MEDS: AMIODARONE 200 MG TAB PO SCH (09:02)
[2018-10-11] MEDS: HEPARIN 5,000 UNIT/1 ML VIAL SC SCH (09:04)
[2018-10-11] MEDS: METHYLNALTREXONE 12 MG/0.6 ML VIAL SC SCH (09:05)
[2018-10-11] MEDS: BISACODYL (EC) 5 MG TAB PO PRN (09:06)
[2018-10-11] MEDS: NA PHOSPHATE/BIPHOS 133 ML ENEMA PR PRN (11:27)
--- NOTE | 2018-10-11 11:36 | CONS ---
Consult Date/Type/Reason Admit Date/Time October 01, 2018 at 13:07 Initial Consult Date 10/01/18 Requesting Provider: FREEDOM REYES MD Date/Time of Note DATE: 10/11/18 TIME: 11:34 Subjective NO acute events - pt doing well - ++ constipation - con't Rx -no CP now. ROS: No fever, no chills, no nausea, no vomiting, no diarrhea/constipation - better overall Objective Vitals Vital Signs Date Temp Pulse Resp B/P (MAP) Pulse Ox O2 O2 Flow FiO2 Time Delivery Rate 10/11/18 97.6 104 18 109/72 99 Room Air 07:35 (84) Intake and Output 10/10/18 10/10/18 10/11/18 1515:00 23:00 07:00 IntakeIntake Total 400 ml 500 ml 400 ml OutputOutput Total 80 ml 600 ml BalanceBalance 400 ml 420 ml -200 ml Exam General: WN/WD/NAD, AOx 3 HEENT: Unicetric/atraumatic/EOMI ( follow commands) NECK: JVD elevated, no thyromegaly Lymph: no lymphadenopathy HEART: regular with no S3, II/ systolic murmur at apex LUNGS: Coarse sounds ABD: soft, NT, ND, +BS : Intact Neuro: non focal SKIN: chronic changes EXT: trace edema,, in sling Results/Medications Result Diagram: 10/07/18 04110/07/18415 Results 24 hrs Laboratory Tests Test 10/10/18 19:40 Iron Level 51 Total Iron Binding Capacity 275 Percent Iron Saturation 19 L Home Meds Reported Medications Tamsulosin Hcl* (Flomax*) 0.4 Mg Cap.er.24h, 0.4 MG PO DAILY, CAP 10/01/18 Pantoprazole* (Protonix*) 40 Mg Tablet.dr, 40 MG PO DAILY, TAB 10/01/18 Isosorbide Mononitrate* (Isosorbide Mononitrate*) 30 Mg Tab.er.24h, 30 MG PO DAILY, TAB 10/01/18 Clopidogrel Bisulfate (Clopidogrel) 75 Mg Tablet, 75 MG PO DAILY, #30 TAB 10/01/18 Diltiazem Hcl* (Cardizem CD*) 180 Mg Cap.sr.24h, 180 MG PO DAILY, #30 CAP 10/01/18 Amiodarone Hcl* (Amiodarone Hcl*) 200 Mg Tablet, 200 MG PO DAILY, #30 TAB 10/01/18 Medications Current Medications Amiodarone HCl (Cordarone) 200 mg DAILY PO Last administered on 10/11/18 09:02; Admin Dose 200 MG; Start 10/02/18 at 09:00 Clopidogrel Bisulfate (plaVIX) 75 mg DAILY PO Last administered on 10/11/18 09:01; Admin Dose 75 MG; Start 10/02/18 at 09:00 Pantoprazole (Protonix Tab) 40 mg DAILY@0600 PO Last administered on 10/11/18 05:34; Admin Dose 40 MG; Start 10/02/18 at 06:00 Tamsulosin HCl (Flomax) 0.4 mg DAILY@2100 PO Last administered on 10/10/18 21:36; Admin Dose 0.4 MG; Start 10/01/18 at 21:00 IV Flush (NS 3 ml) 3 ml PER PROTOCOL IV ; Start 10/01/18 at 15:30 Ondansetron HCl (Zofran Inj) 4 mg Q6H PRN IV NAUSEA/VOMITING Last administered on 10/03/18 15:51; Admin Dose 4 MG; Start 10/01/18 at 15:30 Acetaminophen (Tylenol Tab) 650 mg Q6H PRN PO .PAIN 1-3 OR TEMP Last admi nistered on 10/08/18 09:13; Admin Dose 650 MG; Start 10/01/18 at 15:30 Ibuprofen (Motrin) 600 mg Q6H PRN PO .PAIN 1-3 Last administered on 10/10/18 21:34; Admin Dose 600 MG; Start 10/01/18 at 15:30 Acetaminophen/ Hydrocodone Bitart ([place] (5/325)) 1 tab Q6H PRN PO .MOD PAIN 4- 6 Last administered on 10/04/18 21:11; Admin Dose 1 TAB; Start 10/01/18 at 15:30 Morphine Sulfate (morphine) 2 mg Q4H PRN IV .SEVERE PAIN 7-10 Last administered on 10/08/18 01:26; Admin Dose 2 MG; Start 10/01/18 at 15:30 Docusate Sodium (Colace) 100 mg Q12H PRN PO .CONSTIPATION Last administered on 10/10/18 06:19; Admin Dose 100 MG; Start 10/01/18 at 15:30 Bisacodyl (Dulcolax) 5 mg DAILY PRN PO .CONSTIPATION Last administered on 10/11/18 09:06; Admin Dose 5 MG; Start 10/01/18 at 15:30 Sodium Biphosphate/ Sodium Phosphate (Fleet Enema) 133 ml DAILY PRN [place] .CONSTIPATION Last administered on 10/11/18 11:27; Admin Dose 133 ML; Start 10/01/18 at 15:30 Heparin Sodium (Porcine) (Heparin (5000 Units/1ml)) 5,000 unit Q12 SC Last administered on 10/11/18 09:04; Admin Dose 5,000 UNIT; Start 10/01/18 at 21:00 Diltiazem HCl (Cardizem Cd) 180 mg BID PO Last administered on 10/11/18 09:02; Admin Dose 180 MG; Start 10/02/18 at 09:00 Metoprolol Tartrate (Lopressor) 25 mg BID PO Last administered on 10/10/18 08:25; Admin Dose 25 MG; Start 10/03/18 at 21:00 Methylnaltrexone [place] (Relistor) 12 mg DAILY SC Last administered on 10/11/18 09:05; Admin Dose 12 MG; Start 10/04/18 at 15:00 Simethicone (Mylicon) 160 mg PC LUNCH PO Last administered on 10/10/18 14:02; Admin Dose 160 MG; Start 10/09/18 at 12:40 Finasteride (Proscar) 5 mg DAILY PO ; Start 10/11/18 at 09:00 Assessment/Plan Hospital Course (Demo Recall) 1. Arlene-op : 3/Echo EF 30% with moderate . Was high risk. Now is post-op s/p LE ORIF - tolerated procedure well- will monitor clinically now. Doing well, con't to recover. Con't to improve. Doing well with PT. Not in CHF by exam. Increased abulation now - not in CHF by exam. 2. Abnormal electrocardiogram with nonspecific ST abnormality, assess for acute coronary syndrome.-neg trop x 3 - intermittently paced. 3. Atrial fibrillation, currently rate controlled at this time, not on systemic anticoagulation at baseline due to possible bleeding complications - rate controlled. STABLE - off tele now. Treated. 4. History of percutaneous transluminal coronary angioplasty and stent placement to the right coronary artery in 2016 and to LCX 2017(now known to be occluded chronically with CNA GNA of LAD that is collateralized by RCA after discussion with DR GARCIA this AM) - tolerated procedure well. NO further interventions planned. NOW BP better. 5. History of [employer] to lower extremities with occlusion of RLE 6. Status post fall, mechanical by description.On meds now. 7. Right hip fracture- repaired. Consider d/c Balbir. 8. Right humeral fracture - treated. 9. H/O BIV/ICD - with good function. 10. Constipation - primary team follows. JOSAIH SAUL MD October 11, 2018 11:36
--- NOTE | 2018-10-11 13:15 | DS ---
Date/Time of Note Date/Time of Note DATE: 10/11/18 TIME: 13:06 Discharge Summary Admission/Discharge Info Admit Date/Time October 01, 2018 at 13:07 Discharge Date/Time October 11, 2018; transferring to the acute rehabilitation unit Discharge Diagnosis Level fall with right humerus fracture and right hip fracture; again heart disease-coronary artery disease-diastolic dysfunction-systolic dysfunction- atrial fibrillation,: Aortic stenosis; essential hypertension; hyperlipidemia; prostatic hypertrophy; gastroesophageal reflux disease; chronic kidney disease stage II; mycosis fungoides Patient Condition: Fair Consults Pubic surgery-Dr. Edwards; cardiology-Dr. Barragan; Procedures Operative Report Procedure Date: October 02, 2018 Preoperative Diagnosis Right IT fracture Postoperative Diagnosis As above Operation/Procedure Performed Right intramedullary nailing of right IT fracture Electrocardiogram; V-paced complexes...other complexes, A-rate>240 Right axis deviation...QRS axis ( 91,269) echocardiogram Conclusions: Normal left ventricular cavity size. Normal left ventricular wall thickness. Moderate to severe global left ventricular systolic dysfunction. Ejection fraction is visually estimated at 30 %. There is mild to mod enlargement of left atrium. Normal appearance of the mitral valve. Moderate mitral valve regurgitation. Moderate aortic stenosis. Aortic valve Max velocity 2.01 m/sec. Max PG 16.10 mmHg. Mean PG 9.00 mmHg. Aortic valve area 1.26 cm2. Normal appearance of the tricuspid valve. There is mild tricuspid regurgitation. Hx of Present Illness HPI This is an 88-year-old male with a past medical history of hypertension, coronary artery disease status post CABG, atrial fibrillation, CHF status post pacemaker, on Plavix who is presenting after a mechanical fall. The patient was deconstruct think boxes in his home when he lost his balance and fell to the right. He hit his right hip and right shoulder and he has pain with difficulty ranging both joints. The patient did not hit his head. He does not endorse any head trauma or injury. He did not lose consciousness. He does not endorse any other trauma or injury. The patient denies feeling sick recently. The patient denies fever or chills. The patient has had no headache or vision changes. The patient does not endorse neck or back pain. The patient denies lightheadedness or dizziness. The patient has had no chest pain or trouble breathing. The patient denies nausea or vomiting. The patient denies abdominal pain. The patient denies changes to bowel movements or urination. The patient has had no focal deficits. The patient has had no weakness or numbness or tingling to the face or extremities. Hx of Present Illness 88-year-old male presents to the emergency department by [facility] after a ground-level fall while he was cleaning his garage. He was unable to get up for 30 minutes until help arrived. He complains right shoulder and right hip pain. Denies numbness and tingling. Denies any head trauma. Denies loss of consciousness. Patient denies fever, chills, shortness of breath, chest pain, nausea/vomiting, constipation, diarrhea, numbness, and tingling. Hx of Present Illness 88 y/o C M w/ h/o CAD s/p CABG and stent, , A-fib, ischemic cardiomyopathy w/ diastolic dysfxn, PVD, HTN, hyperlipidemia, CKD stage 2, BPH, GERD, mycosis fungoides in [facility] until yesterday am when he was in his garage cutting boxes. Box was difficult to cut and w/ excess force pt. threw himself off-balance. Back-peddled and fell striking his R shoulder and R hip. Could not get up. Yelled for help for 30 minutes before someone came and called 911. BIBA to [facility]- ER. In ER XR showed intertrochanteric R hip fx w/ mild varus deformity and non- displaced fx R humeral neck. Hospital Course Patient had a fall and suffered the aforementioned fractures. He was seen in surgical consultation who opined the following Hospital Course (Demo Recall) 88-year-old male with multiple medical problems including significant cardiac history with right minimally displaced proximal humerus fracture and right intertrochanteric hip fracture. Given the patient's age and comorbidities we will have to weigh the benefits and risks of performing surgery for both the proximal humerus and the hip. It would be difficult for the patient to mobilize without fixing the humerus fracture after fixation of the hip fracture. However given the patient's significant comorbidities it may be best to operate on the hip fracture first and see how he does clinically and if he is unable to mobilize return back to the operating room to fix the proximal humerus fracture. After successful surgery orthopedist is recommended following Plan: Weight-bear as tolerated right lower extremity Nonweightbearing right upper extremity. Sling for right upper extremity. We will start pendulums at 2 weeks. Pain control Heart healthy diet DVT prophylaxis: SCDs. Lovenox 40 mg daily x6 weeks. Physical therapy Discharge planning Okay to discharge from orthopedic standpoint Patient is done quite well medically and is now stable for transfer to the acute rehabilitation unit where he will be followed expectantly. Home Meds Reported Medications Tamsulosin Hcl* (Flomax*) 0.4 Mg Cap.er.24h, 0.4 MG PO DAILY, CAP 10/01/18 Pantoprazole* (Protonix*) 40 Mg Tablet.dr, 40 MG PO DAILY, TAB 10/01/18 Isosorbide Mononitrate* (Isosorbide Mononitrate*) 30 Mg Tab.er.24h, 30 MG PO DAILY, TAB 10/01/18 Clopidogrel Bisulfate (Clopidogrel) 75 Mg Tablet, 75 MG PO DAILY, #30 TAB 10/01/18 Diltiazem Hcl* (Cardizem CD*) 180 Mg Cap.sr.24h, 180 MG PO DAILY, #30 CAP 10/01/18 Amiodarone Hcl* (Amiodarone Hcl*) 200 Mg Tablet, 200 MG PO DAILY, #30 TAB 10/01/18 Follow-up Plan To the acute rehabilitation unit for ongoing care Primary Care Provider Robinson Stephen MD Time spent on discharge: > 30 minutes Pending Labs Laboratory Tests Test 10/10/18 19:40 Iron Level 51 ug/dl (35-150) Total Iron Binding Capacity 275 ug/dl (241-421) Percent Iron Saturation 19 % SAT (22-52) Copies To: CC: HAM EDWARDS MD; JACI SOLORIO MD; JEFF BARRAGAN; ROBINSON STEPHEN MD ; LATIA RICE MD October 11, 2018 13:15
[2018-10-11] MEDS ORDERED: MAGNESIUM CITRATE 300 ML BTL PO ONE (13:30)
[2018-10-11] MEDS ORDERED: LACTULOSE 30ML CUP PO ONE (13:30)
[2018-10-11 15:52] VITALS: BP 124/72; PULSE 123; RESP 18
[2018-10-11 19:29] VITALS: BP 110/76; PULSE 60; RESP 18
[2018-10-11] MEDS ORDERED: DILTIAZEM (CD) 180 MG CAP PO SCH (22:30)
== END 2018-10-11 20:06 | DRG 481 ==
LOC: E/R 10:33 → MS1 13:07 → ICU 10-02 22:09 → MS1 10-06 05:08
PROVIDERS: ADMIT Internal Medicine; ATTEND Internal Medicine
PROC: 0QS606Z Reposition Right Upper Femur with Intramedullary Internal Fixation Device, Open Approach (ICD-10-PCS; principal; 2018-10-03)
DX: S72.141A Displaced intertrochanteric fracture of right femur, initial encounter for closed fracture (principal); S42.224A 2-part nondisplaced fracture of surgical neck of right humerus, initial encounter for closed fracture; I13.0 Hypertensive heart and chronic kidney disease with heart failure and stage 1 through stage 4 chronic kidney disease, or unspecified chronic kidney disease; C84.05 Mycosis fungoides, lymph nodes of inguinal region and lower limb; I50.42 Chronic combined systolic (congestive) and diastolic (congestive) heart failure; I25.5 Ischemic cardiomyopathy; I48.91 Unspecified atrial fibrillation; I73.9 Peripheral vascular disease, unspecified; I35.0 Nonrheumatic aortic (valve) stenosis; I25.10 Atherosclerotic heart disease of native coronary artery without angina pectoris; K21.9 Gastro-esophageal reflux disease without esophagitis; N18.2 Chronic kidney disease, stage 2 (mild); E78.5 Hyperlipidemia, unspecified; N40.1 Benign prostatic hyperplasia with lower urinary tract symptoms; R33.8 Other retention of urine; W18.30XA Fall on same level, unspecified, initial encounter; Y93.H9 Activity, other involving exterior property and land maintenance, building and construction; Y92.008 Other place in unspecified non-institutional (private) residence as the place of occurrence of the external cause; Z95.5 Presence of coronary angioplasty implant and graft; Z98.62 Peripheral vascular angioplasty status; D63.1 Anemia in chronic kidney disease; Z95.810 Presence of automatic (implantable) cardiac defibrillator; I25.82 Chronic total occlusion of coronary artery; K59.03 Drug induced constipation; T50.905A Adverse effect of unspecified drugs, medicaments and biological substances, initial encounter; Y92.239 Unspecified place in hospital as the place of occurrence of the external cause; Z95.1 Presence of aortocoronary bypass graft
CPT/HCPCS: 71045; 73020; 73510; 73530; 73550; 80048; 80053; 83036; 83540; 83735; 83880; 84100; 84443; 84484; 85025; 85610; 85730; 86850; 86900; 86901; 87081; 93005; 93306; 96374; 97110; 97116; 97163; 97530; C1713; J0171; J1644; J1940; J2250; J2270; J2370; J2405; J2765; J2795; J3010; J7070

== ENCOUNTER 2018-10-11 16:40 | Inpatient (IN) | payer MEDICARE, BC ==
[~2018-10-11] VITALS: Ht 177.8 cm; Wt 68.9 kg
[~2018-10-11 16:40] MED LIST changes: +AMIO200T4 PO; -BENA1TAB13 PO; -BISA5TAB6 PO; +DILT180C72 PO; -DUTA0.5C PO; -HYDR-3601 PO; +ISOS30TA67 PO; -MULT-7 PO; -NITR0.4T39 SL; +PANT40TA3 PO; -PANT40TA4 PO; +TAMS-14 PO
[2018-10-11 20:00] VITALS: BP 130/62; PULSE 77; RESP 18
[2018-10-11 22:00] VITALS: Ht 177.8 cm; Wt 68.9 kg
[2018-10-11] MEDS ORDERED: NA PHOSPHATE/BIPHOS 133 ML ENEMA PR PRN (22:30)
[2018-10-11] MEDS ORDERED: morphine 2 MG INJ IV PRN (22:30)
[2018-10-11] MEDS ORDERED: ONDANSETRON 4 MG INJ IV PRN (22:30)
[2018-10-11] MEDS ORDERED: ACETAMINOPHEN 325 MG TAB PO PRN (22:30)
[2018-10-11] MEDS ORDERED: BISACODYL (EC) 5 MG TAB PO PRN ×2 (22:30)
[2018-10-11] MEDS ORDERED: DOCUSATE SODIUM 100 MG CAP PO PRN (22:30)
[2018-10-11] MEDS ORDERED: NACL 0.9% 3 ML SYG IV SCH (23:00)
[2018-10-11] MEDS: TAMSULOSIN (SR) 0.4 MG CAP PO SCH (23:55)
[2018-10-11] MEDS: HEPARIN 5,000 UNIT/1 ML VIAL SC SCH (23:56)
[2018-10-11] MEDS: IBUPROFEN 600 MG TAB PO PRN (23:59)
[2018-10-12] MEDS: DILTIAZEM (CD) 180 MG CAP PO SCH ×3 (00:01→21:33)
[2018-10-12] MEDS: METOPROLOL 25 MG TAB PO SCH ×3 (00:02→21:35)
[2018-10-12 02:28] VITALS: BP 122/64; PULSE 72; RESP 18
[2018-10-12] MEDS ORDERED: LACTULOSE 30ML CUP PO PRN (06:30)
[2018-10-12] MEDS: PANTOPRAZOLE (EC) 40 MG TAB PO SCH (06:50)
[2018-10-12 07:30] VITALS: BP 126/66; PULSE 79; RESP 20
--- NOTE | 2018-10-12 08:17 | HP ---
Date/Time of Note Date/Time of Note DATE: 10/12/18 TIME: 08:10 Assessment/Plan VTE Pro[place]axis [place] [facility] [place]: 15 SCD applied [place] [facility] [place] Yes Pharmacological prophylaxis: heparin Lines/Catheters IV Catheter Type (from [facility] Saline Lock Urinary Cath still in place: No Assessment/Plan Problems: (1) Status post-operative repair of closed fracture of right hip Status: Acute Comment: Progressing nicely with physical therapy and now in the acute rehabilitation unit for aggressive inpatient rehab. (2) Right humeral fracture Status: Acute Comment: As per recommendations of orthopedic surgery Qualifiers: Encounter type: subsequent encounter Humerus Location: proximal Fracture type: closed Fracture morphology: other fracture Fracture alignment: nondisplaced Fracture healing: with routine healing Qualified Codes: S42.294D - Other nondisplaced fracture of upper end of right humerus, subsequent encounter for fracture with routine healing (3) Ejection fraction < 50% Status: Chronic Comment: Noted and on medications as tolerated. Please note with aortic stenosis caution must be exercised (4) Diastolic dysfunction Status: Chronic Comment: Stable with blood pressure control (5) Aortic stenosis Status: Chronic Comment: Noted. Qualifiers: Cardiac valve disease etiology: nonrheumatic Qualified Codes: I35.0 - Nonrheumatic aortic (valve) stenosis (6) Atrial fibrillation Status: Chronic Comment: Rate control at this time Qualifiers: Atrial fibrillation type: paroxysmal Qualified Codes: I48.0 - Paroxysmal atrial fibrillation (7) Essential (primary) hypertension Status: Chronic Comment: Adequate control (8) Dyslipidemia Status: Chronic Comment: On medical therapy and stable (9) BPH (benign prostatic hypertrophy) with urinary retention Status: Chronic Comment: On pharmaceutical management (10) Chronic kidney disease Status: Chronic Comment: Noted. 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 Results 24hrs Laboratory Tests Test 10/12/18 00:10 Urine Color YELLOW Urine Clarity CLEAR Urine pH 5.0 Urine Specific [place] 1.011 Urine Ketones NEGATIVE Urine Nitrite NEGATIVE Urine Bilirubin NEGATIVE Urine Urobilinogen NEGATIVE Urine Leukocyte Esterase TRACE A Urine Microscopic RBC 0 Urine Microscopic WBC 5 Urine Hemoglobin NEGATIVE Urine Glucose NEGATIVE Urine Total Protein NEGATIVE HPI/ROS Admit Date/Time Admit Date/Time October 11, 2018 at 20:30 Hx of Present Illness Donnell 88-year-old male. He is right hand the right leg dominant. He had sustained a fall suffering a fracture of the right humerus and right hip. He underwent surgical correction of the right hip fracture. He is now transferred to the acute rehabilitation unit for ongoing care. ROS Constitutional: no complaints Eyes: no complaints ENT: no complaints Respiratory: no complaints Cardiovascular: no complaints Gastrointestinal: no complaints Genitourinary: no complaints Musculoskeletal: no complaints PMH/Family/Social Past Medical History Medical History: cancer (Mycosis fungoides and lymph nodes in the inguinal region), congestive heart failure (Diastolic dysfunction), coronary artery disease (Ischemic cardiomyopathy;), GERD, high cholesterol, hypertension, renal disease (Chronic kidney disease), other (Aortic stenosis) Medications Current Medications Acetaminophen (Tylenol Tab) 650 mg Q6H PRN PO .PAIN 1-3 OR TEMP; Start 10/11/18 at 22:30 Amiodarone HCl (Cordarone) 200 mg DAILY PO ; Start 10/12/18 at 09:00 Bisacodyl (Dulcolax) 5 mg DAILY PRN PO .CONSTIPATION; Start 10/11/18 at 22:30 Clopidogrel Bisulfate (plaVIX) 75 mg DAILY PO ; Start 10/12/18 at 09:00 Diltiazem HCl (Cardizem Cd) 180 mg BID PO Last administered on 10/12/18at 00:01; Admin Dose 180 MG; Start 10/11/18 at 22:30 Docusate Sodium (Colace) 100 mg Q12H PRN PO .CONSTIPATION; Start 10/11/18 at 22:30 Finasteride (Proscar) 5 mg DAILY PO ; Start 10/12/18 at 09:00 Heparin Sodium (Porcine) (Heparin (5000 Units/1ml)) 5,000 unit Q12 SC Last administered on 10/11/18at 23:56; Admin Dose 5,000 UNIT; Start 10/11/18 at 22:30 Acetaminophen/ Hydrocodone Bitart ([place] (5/325)) 1 tab Q6H PRN PO .MOD PAIN 4- 6; Start 10/11/18 at 22:30 Ibuprofen (Motrin) 600 mg Q6H PRN PO .PAIN 1-3 Last administered on 10/11/18at 23:59; Admin Dose 600 MG; Start 10/11/18 at 22:30 Methylnaltrexone [place] (Relistor) 12 mg DAILY SC ; Start 10/12/18 at 09:00 Metoprolol Tartrate (Lopressor) 25 mg BID PO Last administered on 10/12/18at 00:02; Admin Dose 25 MG; Start 10/11/18 at 22:30 Morphine Sulfate (morphine) 2 mg Q4H PRN IV .SEVERE PAIN 7-10; Start 10/11/18 at 22:30 Ondansetron HCl (Zofran Inj) 4 mg Q6H PRN IV NAUSEA/VOMITING; Start 10/11/18 at 22:30 Sodium Biphosphate/ Sodium Phosphate (Fleet Enema) 133 ml DAILY PRN [place] .CONSTIPATION; Start 10/11/18 at 22:30 Pantoprazole (Protonix Tab) 40 mg DAILY@0600 PO Last administered on 10/12/18at 06:50; Admin Dose 40 MG; Start 10/12/18 at 06:00 Tamsulosin HCl (Flomax) 0.4 mg DAILY@2100 PO Last administered on 10/11/18at 23:55; Admin Dose 0.4 MG; Start 10/11/18 at 22:30 Simethicone (Mylicon) 160 mg PC LUNCH PO ; Start 10/12/18 at 13:00 IV Flush (NS 3 ml) 3 ml PER PROTOCOL IV ; Start 10/11/18 at 23:00 Lactulose (Enulose) 20 gm DAILY PRN PO CONSTIPATION; Start 10/12/18 at 06:30 Bisacodyl (Dulcolax Supp) 10 mg DAILY PRN [place] CONSTIPATION; Start 10/12/18 at 06:30 Coded Allergies: Penicillins (Verified Allergy, Severe, hives, 10/01/18) ticagrelor (Verified Allergy, Intermediate, N/V, 10/01/18) Sulfa (Sulfonamide Antibiotics) (Verified Allergy, Unknown, 10/01/18) cephalexin (Verified Allergy, Unknown, 10/01/18) ciprofloxacin (Verified Allergy, Unknown, 10/01/18) dutasteride (Verified Allergy, Unknown, 10/01/18) nitrofurantoin (Verified Allergy, Unknown, 10/01/18) sotalol (Verified Allergy, Unknown, 10/01/18) amlodipine (Verified Adverse Reaction, Intermediate, extreme nausea, 10/01/18) lubiprostone (Verified Adverse Reaction, Intermediate, severe nausea, 10/01/18) carvedilol (Unverified Adverse Reaction, Mild, nausea, 10/01/18) apixaban (Unverified Adverse Reaction, Unknown, UPSET STOMACH, 10/01/18) lisinopril (Verified Adverse Reaction, Unknown, severe nausea, 10/01/18) Past Surgical History Past Surgical Hx: angioplasty, coronary bypass surgery, other (Past post ORIF of right hip fracture) Family History Significant Family History: no pertinent family hx Social History Alcohol Use: none Smoking Status: Former smoker Drug Use: none Exam/Review of Systems Vital Signs Vitals Vital Signs Date Temp Pulse Resp B/P (MAP) Pulse Ox O2 O2 Flow FiO2 Time Delivery Rate 10/12/18 97.9 72 18 122/64 94 Room Air 02:28 (83) Intake and Output 10/11/18 10/11/18 10/12/18 1414:59 22:59 06:59 IntakeIntake Total 440 ml OutputOutput Total 1100 ml BalanceBalance -660 ml Exam Constitutional: alert, oriented Head: normocephalic, atraumatic Eyes: nl conjunctiva, EOMI, nl lids Neck: supple, non-tender Respiratory: clear to auscultation, normal air movement Cardiovascular: nl pulses, irregular rhythm, murmurs/extra sounds (Patient did decrescendo systolic murmur left upper sternal border radiating to the carotids) Gastrointestinal: soft, nl liver, spleen, non-tender Musculoskeletal: nl extremities to inspection, nl gait and stance Extremities: other (Right upper extremity in a sling) LATIA RICE MD October 12, 2018 08:16
[2018-10-12] MEDS: AMIODARONE 200 MG TAB PO SCH (09:00)
[2018-10-12] MEDS: CLOPIDOGREL 75 MG TAB PO SCH (09:20)
[2018-10-12] MEDS: FINASTERIDE 5 MG TAB PO SCH (09:21)
[2018-10-12] MEDS: METHYLNALTREXONE 12 MG/0.6 ML VIAL SC SCH (09:22)
[2018-10-12] MEDS: HEPARIN 5,000 UNIT/1 ML VIAL SC SCH ×2 (09:23→21:33)
[2018-10-12 14:00] VITALS: BP 114/56; PULSE 80; RESP 18
--- NOTE | 2018-10-12 16:31 | CONS ---
Assessment/Plan Assessment/Plan Hospital Course (Demo Recall) 1. Preoperative evaluation prior to lower extremity open reduction internal fixation for right hip fracture.-neg trop x 3/Echo EF 30% with moderate . Was high risk. Now is post-op s/p LE ORIF 2. Abnormal electrocardiogram with nonspecific ST abnormality, assess for acute coronary syndrome.-neg trop x 3 3. Atrial fibrillation, currently rate controlled at this time, not on systemic anticoagulation at baseline due to possible bleeding complications. 4. History of percutaneous transluminal coronary angioplasty and stent placement to the right coronary artery in 2016 and to LCX 2017(now known to be occluded chronically with [employer]ARE[employer] of LAD that is collateralized by RCA after discussion with DR GARCIA this AM) 5. History of SIGHTSEEING GUIDE to lower extremities with occlusion of RLE 6. Status post fall, mechanical by description. 7. Right hip fracture. 8. Right humeral fracture. 9. H/O BIV/ICD Recc: -Now transferred to rehab -Continue patient dilt and BB as patient will comply -Would consider initiation of low dose afterload reduction which may have to be with hydralazine given listed allergies -Follow volume status clsoely -pain control -Follow volume status and spot dose lasix as necessary -PT/OT Consultation Date/Type/Reason Admit Date/Time October 11, 2018 at 20:30 Initial Consult Date 10/11/18 Type of Consult Cardiology Reason for Consultation cardiomyopathy/CHF/H/O stents Requesting Provider: FREEDOM REYES MD Date/Time of Note DATE: 10/12/18 TIME: 16:27 Exam/Review of Systems Vital Signs Vitals Vital Signs Date Temp Pulse Resp B/P (MAP) Pulse Ox O2 O2 Flow FiO2 Time Delivery Rate 10/12/18 97.3 80 18 114/56 98 Room Air 14:00 (75) Intake and Output 10/11/18 10/11/18 10/12/18 1414:59 22:59 06:59 IntakeIntake Total 440 ml OutputOutput Total 1100 ml BalanceBalance -660 ml Exam Exam Review of Systems: CONSTITUTIONAL: No fevers, chills. PULMONARY: No sob CARDIOVASCULAR: No chest pain/palpitations GASTROINTESTINAL: No nausea/vomiting. GENITOURINARY: No hematuria/dysuria. MUSCULOSKELETAL: pain in shoulder PSYCHIATRIC: The patient denies depression. NEUROLOGIC: No weakness Constitutional: alert Psych: no complaints Head: normocephalic ENMT: mucosa pink and moist Neck: supple, jvd (9 cm water) Respiratory: diminished breath sounds (at bases/B) Cardiovascular: regular rate and rhythm Gastrointestinal: soft, non-tender Musculoskeletal: muscle weakness (mild generalized) Extremities: edema (none) Neurological: other (No focal deficits) Labs Result Diagram: 10/12/18 0731 10/12/18 0731 Results 24hrs Laboratory Tests Test 10/12/18 00:10 10/12/18 07:31 Urine Color YELLOW Urine Clarity CLEAR Urine pH 5.0 Urine Specific [place] 1.011 Urine Ketones NEGATIVE Urine Nitrite NEGATIVE Urine Bilirubin NEGATIVE Urine Urobilinogen NEGATIVE Urine Leukocyte Esterase TRACE A Urine Microscopic RBC 0 Urine Microscopic WBC 5 Urine Hemoglobin NEGATIVE Urine Glucose NEGATIVE Urine Total Protein NEGATIVE White Blood Count 8.1 Red Blood Count 3.17 L Hemoglobin 9.6 L Hematocrit 29.2 L Mean Corpuscular Volume 92.1 Mean Corpuscular Hemoglobin 30.3 Mean Corpuscular Hemoglobin Concent 32.9 Red Cell Distribution Width 15.7 H Platelet Count 453 #H Mean Platelet Volume 9.6 Immature Granulocytes % 0.900 H Neutrophils % 67.6 Lymphocytes % 15.0 Monocytes % 8.7 Eosinophils % 6.2 Basophils % 1.6 Nucleated Red Blood Cells % 0.0 Immature Granulocytes # 0.070 H Neutrophils # 5.4 Lymphocytes # 1.2 Monocytes # 0.7 Eosinophils # 0.5 Basophils # 0.1 Nucleated Red Blood Cells # 0.0 Sodium Level 137 Potassium Level 4.0 Chloride Level 106 Carbon Dioxide Level 24 Anion Gap 7 Blood Urea Nitrogen 27 H Creatinine 1.15 Est Glomerular Filtrat Rate mL/min Glucose Level 95 Calcium Level 8.6 Total Bilirubin 0.6 Direct Bilirubin 0.00 Indirect Bilirubin 0.6 Aspartate Amino Transf (AST/SGOT) 25 Alanine Aminotransferase (ALT/SGPT) 20 Alkaline Phosphatase 63 Total Protein 5.9 L Albumin 2.9 L Globulin 3.00 Albumin/Globulin Ratio 0.96 Medications Medications Current Medications Acetaminophen (Tylenol Tab) 650 mg Q6H PRN PO .PAIN 1-3 OR TEMP; Start 10/11/18 at 22:30 Amiodarone HCl (Cordarone) 200 mg DAILY PO ; Start 10/12/18 at 09:00 Bisacodyl (Dulcolax) 5 mg DAILY PRN PO .CONSTIPATION; Start 10/11/18 at 22:30 Clopidogrel Bisulfate (plaVIX) 75 mg DAILY PO Last administered on 10/12/18 09:20; Admin Dose 75 MG; Start 10/12/18 at 09:00 Diltiazem HCl (Cardizem Cd) 180 mg BID PO Last administered on 10/12/18 09:18; Admin Dose 180 MG; Start 10/11/18 at 22:30 Docusate Sodium (Colace) 100 mg Q12H PRN PO .CONSTIPATION; Start 10/11/18 at 22:30 Finasteride (Proscar) 5 mg DAILY PO Last administered on 10/12/18 09:21; Admin Dose 5 MG; Start 10/12/18 at 09:00 Heparin Sodium (Porcine) (Heparin (5000 Units/1ml)) 5,000 unit Q12 SC Last administered on 10/12/18 09:23; Admin Dose 5,000 UNIT; Start 10/11/18 at 22:30 Acetaminophen/ Hydrocodone Bitart ([place] (5/325)) 1 tab Q6H PRN PO .MOD PAIN 4- 6; Start 10/11/18 at 22:30 Ibuprofen (Motrin) 600 mg Q6H PRN PO .PAIN 1-3 Last administered on 10/11/18 23:59; Admin Dose 600 MG; Start 10/11/18 at 22:30 Methylnaltrexone [place] (Relistor) 12 mg DAILY SC Last administered on 10/12/18 09:22; Admin Dose 12 MG; Start 10/12/18 at 09:00 Metoprolol Tartrate (Lopressor) 25 mg BID PO Last administered on 10/12/18 09 :20; Admin Dose 25 MG; Start 10/11/18 at 22:30 Morphine Sulfate (morphine) 2 mg Q4H PRN IV .SEVERE PAIN 7-10; Start 10/11/18 at 22:30 Ondansetron HCl (Zofran Inj) 4 mg Q6H PRN IV NAUSEA/VOMITING; Start 10/11/18 at 22:30 Sodium Biphosphate/ Sodium Phosphate (Fleet Enema) 133 ml DAILY PRN [place] .CONST IPATION; Start 10/11/18 at 22:30 Pantoprazole (Protonix Tab) 40 mg DAILY@0600 PO Last administered on 5/15/19at 06:50; Admin Dose 40 MG; Start 10/12/18 at 06:00 Tamsulosin HCl (Flomax) 0.4 mg DAILY@2100 PO Last administered on 10/11/18at 23:55; Admin Dose 0.4 MG; Start 10/11/18 at 22:30 Simethicone (Mylicon) 160 mg PC LUNCH PO Last administered on 10/12/18at 13:24; Admin Dose 160 MG; Start 10/12/18 at 13:00 IV Flush (NS 3 ml) 3 ml PER PROTOCOL IV ; Start 10/11/18 at 23:00 Lactulose (Enulose) 20 gm DAILY PRN PO CONSTIPATION; Start 10/12/18 at 06:30 Bisacodyl (Dulcolax Supp) 10 mg DAILY PRN [place] CONSTIPATION; Start 10/12/18 at 06:30 Multivitamins/ Minerals (Theragran-M) 1 tab DAILY PO ; Start 10/13/18 at 09:00 Ascorbic Acid (Vitamin C) 250 mg DAILY PO ; Start 10/13/18 at 09:00 Zinc Sulfate (Zinc Sulfate) 220 mg DAILY PO ; Start 10/13/18 at 09:00 JEFF REYNOSO October 12, 2018 16:31
--- NOTE | 2018-10-12 17:19 | CONS ---
DATE OF ADMISSION: 10/11/2018 DATE OF CONSULTATION: 10/12/2018 REHABILITATION POSTADMISSION PHYSICIAN EVALUATION REHABILITATION IMPAIRMENT CATEGORY: Major multiple fracture with right humeral fracture in addition to right intertrochanteric hip fracture status post intramedullary nailing. ACTIVE COMORBIDITIES: 1. Acute pain syndrome. 2. Coronary artery disease. 3. Atrial fibrillation. 4. Aortic stenosis. 5. Hypertension. 6. Hyperlipidemia. 7. BPH. 8. Gastroesophageal reflux disease. 9. Chronic kidney disease. 10. Impairments in self-care and mobility. HISTORY OF PRESENT ILLNESS: The patient is an 88-year-old gentleman who is status post a mechanical fall with resultant right humeral fracture in addition to right intertrochanteric hip fracture. The patient did undergo intramedullary nailing. The patient's hospital course notable for acute pain, in addition to significant impairments in self-care and mobility as compared to baseline. The patient has been cleared to transfer to the rehabilitation unit for comprehensive interdisciplinary rehab car e. FUNCTIONAL HISTORY: Prior to recent events, he was independent in self-care tasks and mobility. Cur rently requires maximal assist for self-care and mobility tasks. I have reviewed the preadmission screen and patient's current functional status is consistent with e preadmission screen. FAMILY AND SOCIAL HISTORY: The patient lives at home with family and hopes to return there upon disc harge. PAST MEDICAL HISTORY: 1. Coronary artery disease. 2. Atrial fibrillation. 3. Aortic stenosis. 4. Hypertension. 5. Hyperlipidemia. 6. BPH. 7. Gastroesophageal reflux disease. 8. Chronic kidney disease. CURRENT MEDICATIONS: 1. [place] p.r.n. 2. Ibuprofen 600 mg q.6 hours p.r.n. 3. Relistor 12 mg p.o. daily. 4. Lopressor 25 mg p.o. b.i.d. 5. Protonix 40 mg p.o. daily. 6. Cordarone 200 mg p.o. daily. 7. Plavix 75 mg p.o. daily. 8. Cardizem-CD 180 p.o. b.i.d. 9. Proscar 5 mg p.o. daily. 10. Heparin subQ. 11. Flomax 0.4 mg p.o. daily. 12. Mylicon p.r.n. ALLERGIES: PENICILLIN, SULFA, CEPHALEXIN, NITROFURANTOIN, CIPROFLOXACIN, AVODART, BRILINTA. PHYSICAL EXAMINATION: VITAL SIGNS: The patient is currently afebrile with stable vital signs. HEENT: Extraocular motions are intact. Oropharynx clear. NECK: Supple. LUNGS: Clear anteriorly. CARDIAC: S1, S2. ABDOMEN: Soft, nontender, positive bowel sounds. NEUROLOGIC: He is awake and alert. He is oriented to person and hospital. He will follow simple 1- step commands. He demonstrates antigravity strength in the left upper extremity. He is able to gras p and extend fingers on the right upper extremity. He does have a sling in place. He demonstrates a ntigravity strength in the left lower extremity and dorsiflexion and plantar flexion intact on the ri ght. PLAN: The patient has been admitted for comprehensive interdisciplinary acute rehab and is anticipat ed to tolerate 3 hours of daily therapy in divided doses for at least 5/7 days a week. Treatment ana rosa n will include: 1. Physical therapy to focus on bed mobility, transfers, household ambulation and wheelchair mobilit y with the goal of having the patient reach standby assist level. 2. Occupational therapy to focus on hygiene, grooming, dressing, bathing, and toileting activities w ith goal of having patient reach standby assist level. 3. Rehabilitation nursing for carryover of therapeutic interventions, the goal of continent of bowel and bladder, and the goal of pain adequately managed on oral medications. REHABILITATION BARRIER: Pain. INTERVENTION FOR BARRIER: Interdisciplinary approach. ESTIMATED LENGTH OF STAY: 14 days. DISPOSITION GOAL: Home with family. I acknowledge I performed a full physical examination on this patient within 24 hours of admission to the rehabilitation unit. I believe the patient is a good candidate for comprehensive interdisciplin anil rehab care and is anticipated to make reasonable goals in a reasonable period of time as outlined above. Dictated By: JACI LEMUS/JONATAN Conf#: [id number] DID#: [id number]
[2018-10-12 19:11] VITALS: BP 119/62; PULSE 82; RESP 18
[2018-10-12] MEDS: IBUPROFEN 600 MG TAB PO PRN (21:35)
[2018-10-12] MEDS: TAMSULOSIN (SR) 0.4 MG CAP PO SCH (21:37)
[2018-10-13 02:00] VITALS: BP 128/65; PULSE 77; RESP 18
[2018-10-13] MEDS: PANTOPRAZOLE (EC) 40 MG TAB PO SCH (06:54)
[2018-10-13] MEDS: AMIODARONE 200 MG TAB PO SCH (09:00)
[2018-10-13] MEDS: METHYLNALTREXONE 12 MG/0.6 ML VIAL SC SCH (09:00)
[2018-10-13] MEDS: ZINC SULFATE 220 MG CAP PO SCH (09:00)
[2018-10-13] MEDS: METOPROLOL 25 MG TAB PO SCH ×2 (09:00→20:39)
[2018-10-13] MEDS: DILTIAZEM (CD) 180 MG CAP PO SCH (09:00)
[2018-10-13] MEDS: FINASTERIDE 5 MG TAB PO SCH (09:00)
[2018-10-13] MEDS: MULTIVITAMINS/MINERALS TAB PO SCH (09:15)
[2018-10-13] MEDS: CLOPIDOGREL 75 MG TAB PO SCH (09:15)
[2018-10-13] MEDS: ASCORBIC ACID 250 MG TAB PO SCH (09:15)
[2018-10-13] MEDS: HEPARIN 5,000 UNIT/1 ML VIAL SC SCH ×2 (09:21→21:11)
[2018-10-13 10:25] VITALS: BP 118/65; PULSE 82; RESP 18
--- NOTE | 2018-10-13 12:59 | PN ---
Date/Time of Note Date/Time of Note DATE: 10/13/18 TIME: 12:56 Subjective Comfortable Objective Vital Signs Date Temp Pulse Resp B/P (MAP) Pulse Ox O2 O2 Flow FiO2 Time Delivery Rate 10/13/18 97.9 82 18 118/65 98 Room Air 10:25 (82) Intake and Output 10/12/18 10/12/18 10/13/18 1515:00 23:00 07:00 IntakeIntake Total 1100 ml OutputOutput Total 150 ml 350 ml 300 ml BalanceBalance -150 ml 750 ml -300 ml Exam pulm-cta max assist Results/Medications Result Diagram: 10/12/18 0731 10/12/18 0731 Medications Current Medications Acetaminophen (Tylenol Tab) 650 mg Q6H PRN PO .PAIN 1-3 OR TEMP; Start 10/11/18 at 22:30 Amiodarone HCl (Cordarone) 200 mg DAILY PO ; Start 10/12/18 at 09:00 Bisacodyl (Dulcolax) 5 mg DAILY PRN PO .CONSTIPATION; Start 10/11/18 at 22:30 Clopidogrel Bisulfate (plaVIX) 75 mg DAILY PO Last administered on 10/13/18at 09:15; Admin Dose 75 MG; Start 10/12/18 at 09:00 Diltiazem HCl (Cardizem Cd) 180 mg BID PO Last administered on 10/12/18at 21:33; Admin Dose 180 MG; Start 10/11/18 at 22:30 Docusate Sodium (Colace) 100 mg Q12H PRN PO .CONSTIPATION; Start 10/11/18 at 22:30 Finasteride (Proscar) 5 mg DAILY PO Last administered on 10/12/18at 09:21; Admin Dose 5 MG; Start 10/12/18 at 09:00 Heparin Sodium (Porcine) (Heparin (5000 Units/1ml)) 5,000 unit Q12 SC Last administered on 10/13/18at 09:21; Admin Dose 5,000 UNIT; Start 10/11/18 at 22:30 Acetaminophen/ Hydrocodone Bitart ([place] (5/325)) 1 tab Q6H PRN PO .MOD PAIN 4- 6; Start 10/11/18 at 22:30 Ibuprofen (Motrin) 600 mg Q6H PRN PO .PAIN 1-3 Last administered on 10/12/18 21:35; Admin Dose 600 MG; Start 10/11/18 at 22:30 Methylnaltrexone [place] (Relistor) 12 mg DAILY SC Last administered on 10/12/18 09:22; Admin Dose 12 MG; Start 10/12/18 at 09:00 Metoprolol Tartrate (Lopressor) 25 mg BID PO Last administered on 10/12/18 21:35; Admin Dose 25 MG; Start 10/11/18 at 22:30 Morphine Sulfate (morphine) 2 mg Q4H PRN IV .SEVERE PAIN 7-10; Start 10/11/18 at 22:30 Ondansetron HCl (Zofran Inj) 4 mg Q6H PRN IV NAUSEA/VOMITING; Start 10/11/18 at 22:30 Sodium Biphosphate/ Sodium Phosphate (Fleet Enema) 133 ml DAILY PRN [place] .CONSTIPATION; Start 10/11/18 at 22:30 Pantoprazole (Protonix Tab) 40 mg DAILY@0600 PO Last administered on 10/13/18 06:54; Admin Dose 40 MG; Start 10/12/18 at 06:00 Tamsulosin HCl (Flomax) 0.4 mg DAILY@2100 PO Last administered on 10/12/18 21:37; Admin Dose 0.4 MG; Start 10/11/18 at 22:30 Simethicone (Mylicon) 160 mg PC LUNCH PO Last administered on 10/12/18 13:24; Admin Dose 160 MG; Start 10/12/18 at 13:00 IV Flush (NS 3 ml) 3 ml PER PROTOCOL IV ; Start 10/11/18 at 23:00 Lactulose (Enulose) 20 gm DAILY PRN PO CONSTIPATION; Start 10/12/18 at 06:30 Bisacodyl (Dulcolax Supp) 10 mg DAILY PRN [place] CONSTIPATION; Start 10/12/18 at 06:30 Multivitamins/ Minerals (Theragran-M) 1 tab DAILY PO Last administered on 10/13/18 09:15; Admin Dose 1 TAB; Start 10/13/18 at 09:00 Ascorbic Acid (Vitamin C) 250 mg DAILY PO Last administered on 10/13/18 09:15; Admin Dose 250 MG; Start 10/13/18 at 09:00 Zinc Sulfate (Zinc Sulfate) 220 mg DAILY PO ; Start 10/13/18 at 09:00 Hydralazine HCl (Apresoline) 10 mg BID PO Last administered on 10/12/18at 21:34; Admin Dose 10 MG; Start 10/12/18 at 21:00 Assessment/Plan Additional Assessment/Plan Rehab- Major multiple fracture with right humeral fracture in addition to right intertrochanteric hip fracture status post intramedullary nailing. Continue rehab program Acute pain syndrome. Coronary artery disease. Atrial fibrillation. Aortic stenosis. Hypertension. Hyperlipidemia. BPH. Gastroesophageal reflux disease. Chronic kidney disease. JACI SOLORIO MD October 13, 2018 12:59
--- NOTE | 2018-10-13 13:35 | CONS ---
Assessment/Plan Assessment/Plan Hospital Course (Demo Recall) 1. Preoperative evaluation prior to lower extremity open reduction internal fixation for right hip fracture.-neg trop x 3/Echo EF 30% with moderate . Was high risk. Now is post-op s/p LE ORIF 2. Abnormal electrocardiogram with nonspecific ST abnormality, assess for acute coronary syndrome.-neg trop x 3 3. Atrial fibrillation, currently rate controlled at this time, not on systemic anticoagulation at baseline due to possible bleeding complications. 4. 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 Status post fall, mechanical by description. 7. Right hip fracture. 8. Right humeral fracture. 9. H/O BIV/ICD Recc: -Now transferred to rehab -Continue patient dilt and BB as patient will comply -Would consider initiation of low dose afterload reduction as tolerated -Follow volume status clsoely -pain control -Follow volume status and spot dose lasix as necessary -PT/OT Consultation Date/Type/Reason Admit Date/Time October 11, 2018 at 20:30 Initial Consult Date 10/11/18 Type of Consult Cardiology Reason for Consultation CHF/cardiomyopathy Requesting Provider: FREEDOM REYES MD Date/Time of Note DATE: 10/13/18 TIME: 13:34 Exam/Review of Systems Vital Signs Vitals Vital Signs Date Temp Pulse Resp B/P (MAP) Pulse Ox O2 O2 Flow FiO2 Time Delivery Rate 10/13/18 97.9 82 18 118/65 98 Room Air 10:25 (82) Intake and Output 10/12/18 10/12/18 10/13/18 1515:00 23:00 07:00 IntakeIntake Total 1100 ml OutputOutput Total 150 ml 350 ml 300 ml BalanceBalance -150 ml 750 ml -300 ml Exam Exam Review of Systems: CONSTITUTIONAL: No fevers, chills. PULMONARY: no sob CARDIOVASCULAR: No chest pain/palpitations GASTROINTESTINAL: No nausea/vomiting. GENITOURINARY: No hematuria/dysuria. MUSCULOSKELETAL: No myagias/arthalgias. PSYCHIATRIC: The patient denies depression. NEUROLOGIC: No weakness Constitutional: alert, oriented Psych: no complaints Head: normocephalic ENMT: mucosa pink and moist Neck: supple, jvd (9 cm water) Respiratory: clear to auscultation Cardiovascular: regular rate and rhythm Gastrointestinal: soft, non-tender Musculoskeletal: muscle weakness (mild generalized) Extremities: edema (none) Neurological: other (No focal deficicts) Labs Result Diagram: 10/12/1873010/12/18730 Medications Medications Current Medications Acetaminophen (Tylenol Tab) 650 mg Q6H PRN PO .PAIN 1-3 OR TEMP; Start 10/11/18 at 22:30 Amiodarone HCl (Cordarone) 200 mg DAILY PO ; Start 10/12/18 at 09:00 Bisacodyl (Dulcolax) 5 mg DAILY PRN PO .CONSTIPATION; Start 10/11/18 at 22:30 Clopidogrel Bisulfate (plaVIX) 75 mg DAILY PO Last administered on 10/13/18 09:15; Admin Dose 75 MG; Start 10/12/18 at 09:00 Diltiazem HCl (Cardizem Cd) 180 mg BID PO Last administered on 10/12/18at 21:33; Admin Dose 180 MG; Start 10/11/18 at 22:30 Docusate Sodium (Colace) 100 mg Q12H PRN PO .CONSTIPATION; Start 10/11/18 at 22:30 Finasteride (Proscar) 5 mg DAILY PO Last administered on 10/12/18at 09:21; Admin Dose 5 MG; Start 10/12/18 at 09:00 Heparin Sodium (Porcine) (Heparin (5000 Units/1ml)) 5,000 unit Q12 SC Last administered on 10/13/18 09:21; Admin Dose 5,000 UNIT; Start 10/11/18 at 22:30 Acetaminophen/ Hydrocodone Bitart ([place] (5/325)) 1 tab Q6H PRN PO .MOD PAIN 4- 6; Start 10/11/18 at 22:30 Ibuprofen (Motrin) 600 mg Q6H PRN PO .PAIN 1-3 Last administered on 10/12/18at 21:35; Admin Dose 600 MG; Start 10/11/18 at 22:30 Methylnaltrexone [place] (Relistor) 12 mg DAILY SC Last administered on 10/12/18 09:22; Admin Dose 12 MG; Start 10/12/18 at 09:00 Metoprolol Tartrate (Lopressor) 25 mg BID PO Last administered on 10/12/18at 21:35; Admin Dose 25 MG; Start 10/11/18 at 22:30 Morphine Sulfate (morphine) 2 mg Q4H PRN IV .SEVERE PAIN 7-10; Start 10/11/18 at 22:30 Ondansetron HCl (Zofran Inj) 4 mg Q6H PRN IV NAUSEA/VOMITING; Start 10/11/18 at 22:30 Sodium Biphosphate/ Sodium Phosphate (Fleet Enema) 133 ml DAILY PRN [place] .CONSTIPATION; Start 10/11/18 at 22:30 Pantoprazole (Protonix Tab) 40 mg DAILY@0600 PO Last administered on 10/13/18at 06:54; Admin Dose 40 MG; Start 10/12/18 at 06:00 Tamsulosin HCl (Flomax) 0.4 mg DAILY@2100 PO Last administered on 10/12/18at 21:37; Admin Dose 0.4 MG; Start 10/11/18 at 22:30 Simethicone (Mylicon) 160 mg PC LUNCH PO Last administered on 10/12/18at 13:24; Admin Dose 160 MG; Start 10/12/18 at 13:00 IV Flush (NS 3 ml) 3 ml PER PROTOCOL IV ; Start 10/11/18 at 23:00 Lactulose (Enulose) 20 gm DAILY PRN PO CONSTIPATION; Start 10/12/18 at 06:30 Bisacodyl (Dulcolax Supp) 10 mg DAILY PRN [place] CONSTIPATION; Start 10/12/18 at 06:30 Multivitamins/ Minerals (Theragran-M) 1 tab DAILY PO Last administered on 10/13/18at 09:15; Admin Dose 1 TAB; Start 10/13/18 at 09:00 Ascorbic Acid (Vitamin C) 250 mg DAILY PO Last administered on 10/13/18at 09:15; Admin Dose 250 MG; Start 10/13/18 at 09:00 Zinc Sulfate (Zinc Sulfate) 220 mg DAILY PO ; Start 10/13/18 at 09:00 Hydralazine HCl (Apresoline) 10 mg BID PO Last administered on 10/12/18at 21:34; Admin Dose 10 MG; Start 10/12/18 at 21:00 JEFF REYNOSO 16, 2019 13:35
[2018-10-13 14:54] VITALS: BP 113/58; PULSE 71; RESP 18
--- NOTE | 2018-10-13 17:38 | PN ---
Date/Time of Note Date/Time of Note DATE: 10/13/18 TIME: 17:35 Assessment/Plan VTE Prophylaxis Risk score (from Ns)>0 risk: 17 SCD applied (from Ns): Yes Pharmacological prophylaxis: heparin Lines/Catheters IV [facility] [place] Lock Urinary Cath still in place: No Assessment/Plan Problems: (1) Status post-operative repair of closed fracture of right hip Status: Acute Comment: Stable on proceeding with a protocol of the acute rehabilitation unit. (2) Essential (primary) hypertension Status: Chronic Comment: Adequate control at this time. I am in agreement with the cardiology colleagues to use less calcium channel lenka, more beta-lenka and/or possible angiotensin II receptor lenka. He did not have significant SUNNY inhibitor allergy i.e. he did not have angioneurotic edema, or renal failure (3) Ejection fraction < 50% Status: Chronic Comment: As above. (4) Diastolic dysfunction Status: Chronic Comment: Blood pressure control and rate control (5) Aortic stenosis Status: Chronic Comment: Noted. Very cautious with afterload reduction, which will start tomorrow morning Qualifiers: Cardiac valve disease etiology: nonrheumatic Qualified Codes: I35.0 - Nonrheumatic aortic (valve) stenosis (6) Atrial fibrillation Status: Chronic Comment: Rate controlled Qualifiers: Atrial fibrillation type: paroxysmal Qualified Codes: I48.0 - Paroxysmal atrial fibrillation (7) Dyslipidemia Status: Chronic Comment: On treatment (8) BPH (benign prostatic hypertrophy) with urinary retention Status: Chronic Comment: Table on treatment Result Diagram: 10/12/18 0731 10/12/18 0731 CC: JEFF REYNOSO; CLYDE GARCIA MD ; Subjective 24 Hr Interval Summary Free Text/Dictation Patient sitting up in bed and eating dinner unassisted. He reports he is doing well and has no significant complaints Constitutional: no complaints Respiratory: no complaints Cardiovascular: no complaints Gastrointestinal: no complaints Genitourinary: no complaints Exam/Review of Systems Exam Vitals Vital Signs Date Temp Pulse Resp B/P (MAP) Pulse Ox O2 O2 Flow FiO2 Time Delivery Rate 10/13/18 97.8 71 18 113/58 99 Room Air 14:54 (76) Intake and Output 10/12/18 10/12/18 10/13/18 1515:00 23:00 07:00 IntakeIntake Total 1100 ml OutputOutput Total 150 ml 350 ml 300 ml BalanceBalance -150 ml 750 ml -300 ml Constitutional: alert, oriented Neck: supple, non-tender Respiratory: clear to auscultation, normal air movement Cardiovascular: nl pulses, irregular rhythm Gastrointestinal: soft, nl liver, spleen, non-tender Medications Medication Current Medications Acetaminophen (Tylenol Tab) 650 mg Q6H PRN PO .PAIN 1-3 OR TEMP; Start 10/11/18 at 22:30 Amiodarone HCl (Cordarone) 200 mg DAILY PO ; Start 10/12/18 at 09:00 Bisacodyl (Dulcolax) 5 mg DAILY PRN PO .CONSTIPATION; Start 10/11/18 at 22:30 Clopidogrel Bisulfate (plaVIX) 75 mg DAILY PO Last administered on 10/13/18 09:15; Admin Dose 75 MG; Start 10/12/18 at 09:00 Docusate Sodium (Colace) 100 mg Q12H PRN PO .CONSTIPATION; Start 10/11/18 at 22:30 Finasteride (Proscar) 5 mg DAILY PO Last administered on 10/12/18at 09:21; Admin Dose 5 MG; Start 10/12/18 at 09:00 Heparin Sodium (Porcine) (Heparin (5000 Units/1ml)) 5,000 unit Q12 SC Last administered on 10/13/18 09:21; Admin Dose 5,000 UNIT; Start 10/11/18 at 22:30 Acetaminophen/ Hydrocodone Bitart ([place] (5/325)) 1 tab Q6H PRN PO .MOD PAIN 4- 6; Start 10/11/18 at 22:30 Ibuprofen (Motrin) 600 mg Q6H PRN PO .PAIN 1-3 Last administered on 10/12/18 21:35; Admin Dose 600 MG; Start 10/11/18 at 22:30 Methylnaltrexone [place] (Relistor) 12 mg DAILY SC Last administered on 10/12/18 09:22; Admin Dose 12 MG; Start 10/12/18 at 09:00 Metoprolol Tartrate (Lopressor) 25 mg BID PO Last administered on 10/12/18 21:35; Admin Dose 25 MG; Start 10/11/18 at 22:30 Morphine Sulfate (morphine) 2 mg Q4H PRN IV .SEVERE PAIN 7-10; Start 10/11/18 at 22:30 Ondansetron HCl (Zofran Inj) 4 mg Q6H PRN IV NAUSEA/VOMITING; Start 10/11/18 at 22:30 Sodium Biphosphate/ Sodium Phosphate (Fleet Enema) 133 ml DAILY PRN [place] .CONSTIPATION; Start 10/11/18 at 22:30 Tamsulosin HCl (Flomax) 0.4 mg DAILY@2100 PO Last administered on 10/12/18at 21:37; Admin Dose 0.4 MG; Start 10/11/18 at 22:30 Simethicone (Mylicon) 160 mg PC LUNCH PO Last administered on 10/13/18at 13:47; Admin Dose 160 MG; Start 10/12/18 at 13:00 IV Flush (NS 3 ml) 3 ml PER PROTOCOL IV ; Start 10/11/18 at 23:00 Lactulose (Enulose) 20 gm DAILY PRN PO CONSTIPATION; Start 10/12/18 at 06:30 Bisacodyl (Dulcolax Supp) 10 mg DAILY PRN [place] CONSTIPATION; Start 10/12/18 at 06:30 Multivitamins/ Minerals (Theragran-M) 1 tab DAILY PO Last administered on 10/13/18at 09:15; Admin Dose 1 TAB; Start 10/13/18 at 09:00 Ascorbic Acid (Vitamin C) 250 mg DAILY PO Last administered on 10/13/18at 09:15; Admin Dose 250 MG; Start 10/13/18 at 09:00 Zinc Sulfate (Zinc Sulfate) 220 mg DAILY PO ; Start 10/13/18 at 09:00 Losartan Potassium (Cozaar) 12.5 mg DAILY PO ; Start 10/14/18 at 09:00 Diltiazem HCl (Cardizem Cd) 120 mg BID PO ; Start 10/13/18 at 21:00; Status LATIA MCADAMS MD October 13, 2018 17:38
[2018-10-13 19:25] VITALS: BP 120/62; PULSE 80; RESP 18
[2018-10-13] MEDS: TAMSULOSIN (SR) 0.4 MG CAP PO SCH (20:39)
[2018-10-13] MEDS: HYDROCODONE/APAP (5/325) TAB PO PRN (20:49)
[2018-10-13] MEDS: DILTIAZEM (CD) 120 MG CAP PO SCH (22:44)
[2018-10-14] MEDS: IBUPROFEN 600 MG TAB PO PRN ×2 (01:29→20:51)
[2018-10-14 02:00] VITALS: BP 128/65; PULSE 75; RESP 18
[2018-10-14 07:00] VITALS: BP 133/63; PULSE 80; RESP 18
[2018-10-14] MEDS: METHYLNALTREXONE 12 MG/0.6 ML VIAL SC SCH (09:00)
[2018-10-14] MEDS: FINASTERIDE 5 MG TAB PO SCH (09:00)
[2018-10-14] MEDS ORDERED: LOSARTAN 25 MG TAB PO SCH (09:00)
[2018-10-14] MEDS: METOPROLOL 25 MG TAB PO SCH ×2 (09:00→20:48)
[2018-10-14] MEDS: AMIODARONE 200 MG TAB PO SCH (09:00)
[2018-10-14] MEDS: ZINC SULFATE 220 MG CAP PO SCH (09:54)
[2018-10-14] MEDS: ASCORBIC ACID 250 MG TAB PO SCH (09:54)
[2018-10-14] MEDS: MULTIVITAMINS/MINERALS TAB PO SCH (09:54)
[2018-10-14] MEDS: CLOPIDOGREL 75 MG TAB PO SCH (09:54)
[2018-10-14] MEDS: DILTIAZEM (CD) 120 MG CAP PO SCH (09:55)
[2018-10-14] MEDS: HEPARIN 5,000 UNIT/1 ML VIAL SC SCH ×2 (10:05→20:57)
--- NOTE | 2018-10-14 14:06 | PN ---
Date/Time of Note Date/Time of Note DATE: 10/14/18 TIME: 14:05 Subjective resting Objective Vital Signs Date Temp Pulse Resp B/P (MAP) Pulse Ox O2 O2 Flow FiO2 Time Delivery Rate 10/14/18 97.8 80 18 133/63 98 Room Air 07:00 (86) Intake and Output 10/13/18 10/13/18 10/14/18 1515:00 23:00 07:00 IntakeIntake Total 1130 ml 500 ml BalanceBalance 1130 ml 500 ml Exam pulm-cta mod/max 10 feet Results/Medications Result Diagram: 10/12/1873010/12/18730 Medications Current Medications Acetaminophen (Tylenol Tab) 650 mg Q6H PRN PO .PAIN 1-3 OR TEMP; Start 10/11/18 at 22:30 Amiodarone HCl (Cordarone) 200 mg DAILY PO ; Start 10/12/18 at 09:00 Bisacodyl (Dulcolax) 5 mg DAILY PRN PO .CONSTIPATION; Start 10/11/18 at 22:30 Clopidogrel Bisulfate (plaVIX) 75 mg DAILY PO Last administered on 10/14/18at 09:54; Admin Dose 75 MG; Start 10/12/18 at 09:00 Docusate Sodium (Colace) 100 mg Q12H PRN PO .CONSTIPATION; Start 10/11/18 at 22:30 Finasteride (Proscar) 5 mg DAILY PO Last administered on 10/12/18at 09:21; Admin Dose 5 MG; Start 10/12/18 at 09:00 Heparin Sodium (Porcine) (Heparin (5000 Units/1ml)) 5,000 unit Q12 SC Last administered on 10/14/18at 10:05; Admin Dose 5,000 UNIT; Start 10/11/18 at 22:30 Acetaminophen/ Hydrocodone Bitart ([employer] (5/325)) 1 tab Q6H PRN PO .MOD PAIN 4- 6 Last administered on 10/13/18at 20:49; Admin Dose 1 TAB; Start 10/11/18 at 22:30 Ibuprofen (Motrin) 600 mg Q6H PRN PO .PAIN 1-3 Last administered on 10/14/18at 01:29; Admin Dose 600 MG; Start 10/11/18 at 22:30 Methylnaltrexone [place] (Relistor) 12 mg DAILY SC Last administered on 10/12/18 09:22; Admin Dose 12 MG; Start 10/12/18 at 09:00 Metoprolol Tartrate (Lopressor) 25 mg BID PO Last administered on 10/13/18 20:39; Admin Dose 25 MG; Start 10/11/18 at 22:30 Morphine Sulfate (morphine) 2 mg Q4H PRN IV .SEVERE PAIN 7-10; Start 10/11/18 at 22:30 Ondansetron HCl (Zofran Inj) 4 mg Q6H PRN IV NAUSEA/VOMITING; Start 10/11/18 at 22:30 Sodium Biphosphate/ Sodium Phosphate (Fleet Enema) 133 ml DAILY PRN [place] .CONSTIPATION; Start 10/11/18 at 22:30 Tamsulosin HCl (Flomax) 0.4 mg DAILY@2100 PO Last administered on 10/13/18 20:39; Admin Dose 0.4 MG; Start 10/11/18 at 22:30 Simethicone (Mylicon) 160 mg PC LUNCH PO Last administered on 10/13/18at 13:47; Admin Dose 160 MG; Start 10/12/18 at 13:00 IV Flush (NS 3 ml) 3 ml PER PROTOCOL IV ; Start 10/11/18 at 23:00 Lactulose (Enulose) 20 gm DAILY PRN PO CONSTIPATION; Start 10/12/18 at 06:30 Bisacodyl (Dulcolax Supp) 10 mg DAILY PRN [place] CONSTIPATION; Start 10/12/18 at 06:30 Multivitamins/ Minerals (Theragran-M) 1 tab DAILY PO Last administered on 10/14/18 09:54; Admin Dose 1 TAB; Start 10/13/18 at 09:00 Ascorbic Acid (Vitamin C) 250 mg DAILY PO Last administered on 10/14/18 09:54; Admin Dose 250 MG; Start 10/13/18 at 09:00 Zinc Sulfate (Zinc Sulfate) 220 mg DAILY PO Last administered on 10/14/18 09:54; Admin Dose 220 MG; Start 10/13/18 at 09:00 Losartan Potassium (Cozaar) 12.5 mg DAILY PO ; Start 10/14/18 at 09:00 Diltiazem HCl (Cardizem Cd) 120 mg BID PO Last administered on 5/17/19at 09:55; Admin Dose 120 MG; Start 10/13/18 at 21:00 Assessment/Plan Additional Assessment/Plan Rehab- Major multiple fracture with right humeral fracture in addition to right intertrochanteric hip fracture status post intramedullary nailing. Continue rehab as tolerated Anemia Acute pain syndrome. Coronary artery disease. Atrial fibrillation. Aortic stenosis. Hypertension. Hyperlipidemia. BPH. Gastroesophageal reflux disease. Chronic kidney disease. JACI SOLORIO MD October 14, 2018 14:06
--- NOTE | 2018-10-14 14:46 | CONS ---
Assessment/Plan Assessment/Plan Hospital Course (Demo Recall) 1. Preoperative evaluation prior to lower extremity open reduction internal fixation for right hip fracture.-neg trop x 3/Echo EF 30% with moderate . Was high risk. Now is post-op s/p LE ORIF 2. Abnormal electrocardiogram with nonspecific ST abnormality, assess for acute coronary syndrome.-neg trop x 3 3. Atrial fibrillation, currently rate controlled at this time, not on systemic anticoagulation at baseline due to possible bleeding complications. 4. History of percutaneous transluminal coronary angioplasty and stent placement to the right coronary artery in 2016 and to LCX 2017(now known to be occluded chronically with MEDIA ASSISTANT of LAD that is collateralized by RCA after discussion with DR GARCIA this AM) 5. 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 Status post fall, mechanical by description. 7. Right hip fracture. 8. Right humeral fracture. 9. H/O BIV/ICD Recc: -Now transferred to rehab -Continue patient dilt and BB as patient will comply -Would consider initiation of low dose afterload reduction as tolerated -Follow volume status clsoely -pain control -Follow volume status and spot dose lasix as necessary -PT/OT Consultation Date/Type/Reason Admit Date/Time October 11, 2018 at 20:30 Initial Consult Date 10/11/18 Type of Consult Cardiology Requesting Provider: FREEDOM REYES MD Date/Time of Note DATE: 10/14/18 TIME: 14:38 Exam/Review of Systems Vital Signs Vitals Vital Signs Date Temp Pulse Resp B/P (MAP) Pulse Ox O2 O2 Flow FiO2 Time Delivery Rate 10/14/18 97.8 80 18 133/63 98 Room Air 07:00 (86) Intake and Output 10/13/18 10/13/18 10/14/18 1515:00 23:00 07:00 IntakeIntake Total 1130 ml 500 ml BalanceBalance 1130 ml 500 ml Exam Exam Review of Systems: CONSTITUTIONAL: No fevers, chills. PULMONARY: No sob CARDIOVASCULAR: No chest pain/palpitations GASTROINTESTINAL: No nausea/vomiting. GENITOURINARY: No hematuria/dysuria. MUSCULOSKELETAL: No myagias/arthalgias. PSYCHIATRIC: The patient denies depression. NEUROLOGIC: No weakness Constitutional: alert Psych: no complaints Head: normocephalic ENMT: mucosa pink and moist Neck: supple, jvd (9 cm water) Respiratory: clear to auscultation Cardiovascular: regular rate and rhythm Gastrointestinal: soft, non-tender Musculoskeletal: muscle tone (normal), muscle weakness (generl weakness) Extremities: edema (none) Labs Result Diagram: 10/12/1873010/12/18730 Medications Medications Current Medications Acetaminophen (Tylenol Tab) 650 mg Q6H PRN PO .PAIN 1-3 OR TEMP; Start 10/11/18 at 22:30 Amiodarone HCl (Cordarone) 200 mg DAILY PO ; Start 10/12/18 at 09:00 Bisacodyl (Dulcolax) 5 mg DAILY PRN PO .CONSTIPATION; Start 10/11/18 at 22:30 Clopidogrel Bisulfate (plaVIX) 75 mg DAILY PO Last administered on 10/14/18at 09:54; Admin Dose 75 MG; Start 10/12/18 at 09:00 Docusate Sodium (Colace) 100 mg Q12H PRN PO .CONSTIPATION; Start 10/11/18 at 22:30 Finasteride (Proscar) 5 mg DAILY PO Last administered on 10/12/18at 09:21; Admin Dose 5 MG; Start 10/12/18 at 09:00 Heparin Sodium (Porcine) (Heparin (5000 Units/1ml)) 5,000 unit Q12 SC Last administered on 10/14/18at 10:05; Admin Dose 5,000 UNIT; Start 10/11/18 at 22:30 Acetaminophen/ Hydrocodone Bitart ([place] (5/325)) 1 tab Q6H PRN PO .MOD PAIN 4- 6 Last administered on 10/13/18at 20:49; Admin Dose 1 TAB; Start 10/11/18 at 22:30 Ibuprofen (Motrin) 600 mg Q6H PRN PO .PAIN 1-3 Last administered on 10/14/18at 01:29; Admin Dose 600 MG; Start 10/11/18 at 22:30 Methylnaltrexone [place] (Relistor) 12 mg DAILY SC Last administered on 10/12/18 09:22; Admin Dose 12 MG; Start 10/12/18 at 09:00 Metoprolol Tartrate (Lopressor) 25 mg BID PO Last administered on 10/13/18at 20:39; Admin Dose 25 MG; Start 10/11/18 at 22:30 Morphine Sulfate (morphine) 2 mg Q4H PRN IV .SEVERE PAIN 7-10; Start 10/11/18 at 22:30 Ondansetron HCl (Zofran Inj) 4 mg Q6H PRN IV NAUSEA/VOMITING; Start 10/11/18 at 22:30 Sodium Biphosphate/ Sodium Phosphate (Fleet Enema) 133 ml DAILY PRN [place] .CONSTIPATION; Start 10/11/18 at 22:30 Tamsulosin HCl (Flomax) 0.4 mg DAILY@2100 PO Last administered on 10/13/18at 20:39; Admin Dose 0.4 MG; Start 10/11/18 at 22:30 Simethicone (Mylicon) 160 mg PC LUNCH PO Last administered on 10/13/18 13:47; Admin Dose 160 MG; Start 10/12/18 at 13:00 IV Flush (NS 3 ml) 3 ml PER PROTOCOL IV ; Start 10/11/18 at 23:00 Lactulose (Enulose) 20 gm DAILY PRN PO CONSTIPATION; Start 10/12/18 at 06:30 Bisacodyl (Dulcolax Supp) 10 mg DAILY PRN [place] CONSTIPATION; Start 10/12/18 at 06:30 Multivitamins/ Minerals (Theragran-M) 1 tab DAILY PO Last administered on 10/14/18 09:54; Admin Dose 1 TAB; Start 10/13/18 at 09:00 Ascorbic Acid (Vitamin C) 250 mg DAILY PO Last administered on 10/14/18 09:54; Admin Dose 250 MG; Start 10/13/18 at 09:00 Zinc Sulfate (Zinc Sulfate) 220 mg DAILY PO Last administered on 10/14/18 09:54; Admin Dose 220 MG; Start 10/13/18 at 09:00 Losartan Potassium (Cozaar) 12.5 mg DAILY PO ; Start 10/14/18 at 09:00 Diltiazem HCl (Cardizem Cd) 120 mg BID PO Last administered on 10/14/18 09:55; Admin Dose 120 MG; Start 10/13/18 at 21:00 JEFF REYNOSO October 14, 2018 14:46
[2018-10-14 15:16] VITALS: BP 144/72; PULSE 81; RESP 18
--- NOTE | 2018-10-14 15:49 | PN ---
Date/Time of Note Date/Time of Note DATE: 10/14/18 TIME: 15:45 Assessment/Plan VTE Prophylaxis Risk score (from [facility] [place])>0 risk: 15 SCD applied (from [facility] [place]): Yes Pharmacological prophylaxis: heparin Lines/Catheters IV Catheter Type (from [facility] Saline Lock Urinary Cath still in place: No Assessment/Plan Problems: (1) Status post-operative repair of closed fracture of right hip Status: Acute Comment: Progressing nicely with the protocol with acute rehabilitation unit. (2) Aortic stenosis Status: Chronic Comment: Tolerating very low-dose afterload reduction which is being used also for the patient's dysfunction of heart performance. Qualifiers: Cardiac valve disease etiology: nonrheumatic Qualified Codes: I35.0 - Nonrheumatic aortic (valve) stenosis (3) Diastolic dysfunction Status: Chronic Comment: Adequate blood pressure control (4) Ejection fraction < 50% Status: Chronic Comment: Usage of beta-blockade and afterload reduction therapy. (5) Atrial fibrillation Status: Chronic Comment: Rate is controlled with beta-lenka despite reduction in the usage of diltiazem Qualifiers: Atrial fibrillation type: paroxysmal Qualified Codes: I48.0 - Paroxysmal atrial fibrillation (6) Essential (primary) hypertension Status: Chronic Comment: Adequate control (7) BPH (benign prostatic hypertrophy) with urinary retention Status: Chronic Comment: Adequate control Result Diagram: 10/12/18 0731 10/12/18 0731 Subjective 24 Hr Interval Summary Free Text/Dictation Patient reports he is progressing with a physical therapy in the acute rehabilitation unit protocol Constitutional: no complaints Respiratory: no complaints Cardiovascular: no complaints Gastrointestinal: no complaints Genitourinary: no complaints Exam/Review of Systems Exam Vitals Vital Signs Date Temp Pulse Resp B/P (MAP) Pulse Ox O2 O2 Flow FiO2 Time Delivery Rate 10/14/18 97.8 81 18 144/72 99 Room Air 15:16 (96) Intake and Output 10/13/18 10/13/18 10/14/18 1515:00 23:00 07:00 IntakeIntake Total 1130 ml 500 ml BalanceBalance 1130 ml 500 ml Constitutional: alert, oriented Respiratory: clear to auscultation, normal air movement Cardiovascular: regular rate and rhythm, nl pulses Medications Medication Current Medications Acetaminophen (Tylenol Tab) 650 mg Q6H PRN PO .PAIN 1-3 OR TEMP; Start 10/11/18 at 22:30 Amiodarone HCl (Cordarone) 200 mg DAILY PO ; Start 10/12/18 at 09:00 Bisacodyl (Dulcolax) 5 mg DAILY PRN PO .CONSTIPATION; Start 10/11/18 at 22:30 Clopidogrel Bisulfate (plaVIX) 75 mg DAILY PO Last administered on 10/14/18at 09:54; Admin Dose 75 MG; Start 10/12/18 at 09:00 Docusate Sodium (Colace) 100 mg Q12H PRN PO .CONSTIPATION; Start 10/11/18 at 22:30 Finasteride (Proscar) 5 mg DAILY PO Last administered on 10/12/18at 09:21; Admin Dose 5 MG; Start 10/12/18 at 09:00 Heparin Sodium (Porcine) (Heparin (5000 Units/1ml)) 5,000 unit Q12 SC Last administered on 10/14/18at 10:05; Admin Dose 5,000 UNIT; Start 10/11/18 at 22:30 Acetaminophen/ Hydrocodone Bitart ([place] (5/325)) 1 tab Q6H PRN PO .MOD PAIN 4- 6 Last administered on 10/13/18at 20:49; Admin Dose 1 TAB; Start 10/11/18 at 22:30 Ibuprofen (Motrin) 600 mg Q6H PRN PO .PAIN 1-3 Last administered on 10/14/18at 01:29; Admin Dose 600 MG; Start 10/11/18 at 22:30 Methylnaltrexone [place] (Relistor) 12 mg DAILY SC Last administered on 10/12/18at 09:22; Admin Dose 12 MG; Start 10/12/18 at 09:00 Metoprolol Tartrate (Lopressor) 25 mg BID PO Last administered on 10/13/18at 20:39; Admin Dose 25 MG; Start 10/11/18 at 22:30 Morphine Sulfate (morphine) 2 mg Q4H PRN IV .SEVERE PAIN 7-10; Start 10/11/18 at 22:30 Ondansetron HCl (Zofran Inj) 4 mg Q6H PRN IV NAUSEA/VOMITING; Start 10/11/18 at 22:30 Sodium Biphosphate/ Sodium Phosphate (Fleet Enema) 133 ml DAILY PRN [place] .CONSTIPATION; Start 10/11/18 at 22:30 Tamsulosin HCl (Flomax) 0.4 mg DAILY@2100 PO Last administered on 10/13/18 20:39; Admin Dose 0.4 MG; Start 10/11/18 at 22:30 Simethicone (Mylicon) 160 mg PC LUNCH PO Last administered on 10/14/18 14:50; Admin Dose 160 MG; Start 10/12/18 at 13:00 IV Flush (NS 3 ml) 3 ml PER PROTOCOL IV ; Start 10/11/18 at 23:00 Lactulose (Enulose) 20 gm DAILY PRN PO CONSTIPATION; Start 10/12/18 at 06:30 Bisacodyl (Dulcolax Supp) 10 mg DAILY PRN [place] CONSTIPATION; Start 10/12/18 at 06:30 Multivitamins/ Minerals (Theragran-M) 1 tab DAILY PO Last administered on 10/14/18at 09:54; Admin Dose 1 TAB; Start 10/13/18 at 09:00 Ascorbic Acid (Vitamin C) 250 mg DAILY PO Last administered on 10/14/18at 09:54; Admin Dose 250 MG; Start 10/13/18 at 09:00 Zinc Sulfate (Zinc Sulfate) 220 mg DAILY PO Last administered on 10/14/18at 09:54; Admin Dose 220 MG; Start 10/13/18 at 09:00 Losartan Potassium (Cozaar) 12.5 mg DAILY PO ; Start 10/14/18 at 09:00 Diltiazem HCl (Cardizem Cd) 120 mg BID PO Last administered on 10/14/18at 09:55; Admin Dose 120 MG; Start 10/13/18 at 21:00 LATIA RICE MD October 14, 2018 15:49
[2018-10-14 20:00] VITALS: BP 117/59; PULSE 84; RESP 18
[2018-10-14] MEDS: LOSARTAN 25 MG TAB PO SCH (20:47)
[2018-10-14] MEDS: TAMSULOSIN (SR) 0.4 MG CAP PO SCH (20:51)
[2018-10-15 02:00] VITALS: BP 123/73; PULSE 81; RESP 18
[2018-10-15 07:30] VITALS: BP 128/70; PULSE 80; RESP 18
--- NOTE | 2018-10-15 08:20 | PN ---
Date/Time of Note Date/Time of Note DATE: 10/15/18 TIME: :19 Subjective Reports feeling better today Objective Vital Signs Date Temp Pulse Resp B/P (MAP) Pulse Ox O2 O2 Flow FiO2 Time Delivery Rate 10/15/18 98.2 81 18 123/73 96 Room Air 02:00 (90) Intake and Output 10/14/18 10/14/18 10/15/18 1515:00 23:00 07:00 IntakeIntake Total 120 ml 680 ml 360 ml OutputOutput Total 400 ml 250 ml BalanceBalance 120 ml 280 ml 110 ml Exam pulm-cta max/mod assist Results/Medications Result Diagram: 10/12/18 0731 10/12/18 0731 Medications Current Medications Acetaminophen (Tylenol Tab) 650 mg Q6H PRN PO .PAIN 1-3 OR TEMP; Start 10/11/18 at 22:30 Amiodarone HCl (Cordarone) 200 mg DAILY PO ; Start 10/12/18 at 09:00 Bisacodyl (Dulcolax) 5 mg DAILY PRN PO .CONSTIPATION; Start 10/11/18 at 22:30 Clopidogrel Bisulfate (plaVIX) 75 mg DAILY PO Last administered on 10/14/18at 09:54; Admin Dose 75 MG; Start 10/12/18 at 09:00 Docusate Sodium (Colace) 100 mg Q12H PRN PO .CONSTIPATION; Start 10/11/18 at 22:30 Finasteride (Proscar) 5 mg DAILY PO Last administered on 10/12/18at 09:21; Admin Dose 5 MG; Start 10/12/18 at 09:00 Heparin Sodium (Porcine) (Heparin (5000 Units/1ml)) 5,000 unit Q12 SC Last administered on 10/14/18at 20:57; Admin Dose 5,000 UNIT; Start 10/11/18 at 22:30 Acetaminophen/ Hydrocodone Bitart ([place] (5/325)) 1 tab Q6H PRN PO .MOD PAIN 4- 6 Last administered on 10/13/18at 20:49; Admin Dose 1 TAB; Start 10/11/18 at 22:30 Ibuprofen (Motrin) 600 mg Q6H PRN PO .PAIN 1-3 Last administered on 10/14/18at 20:51; Admin Dose 600 MG; Start 10/11/18 at 22:30 Methylnaltrexone [place] (Relistor) 12 mg DAILY SC Last administered on 10/12/18at 09:22; Admin Dose 12 MG; Start 10/12/18 at 09:00 Morphine Sulfate (morphine) 2 mg Q4H PRN IV .SEVERE PAIN 7-10; Start 10/11/18 at 22:30 Ondansetron HCl (Zofran Inj) 4 mg Q6H PRN IV NAUSEA/VOMITING; Start 10/11/18 at 22:30 Sodium Biphosphate/ Sodium Phosphate (Fleet Enema) 133 ml DAILY PRN [place] .CONSTIPATION; Start 10/11/18 at 22:30 Tamsulosin HCl (Flomax) 0.4 mg DAILY@2100 PO Last administered on 10/14/18at 20:51; Admin Dose 0.4 MG; Start 10/11/18 at 22:30 Simethicone (Mylicon) 160 mg PC LUNCH PO Last administered on 10/14/18at 14:50; Admin Dose 160 MG; Start 10/12/18 at 13:00 IV Flush (NS 3 ml) 3 ml PER PROTOCOL IV ; Start 10/11/18 at 23:00 Lactulose (Enulose) 20 gm DAILY PRN PO CONSTIPATION; Start 10/12/18 at 06:30 Bisacodyl (Dulcolax Supp) 10 mg DAILY PRN [place] CONSTIPATION; Start 10/12/18 at 06:30 Multivitamins/ Minerals (Theragran-M) 1 tab DAILY PO Last administered on 10/14/18at 09:54; Admin Dose 1 TAB; Start 10/13/18 at 09:00 Ascorbic Acid (Vitamin C) 250 mg DAILY PO Last administered on 10/14/18at 09:54; Admin Dose 250 MG; Start 10/13/18 at 09:00 Zinc Sulfate (Zinc Sulfate) 220 mg DAILY PO Last administered on 10/14/18at 09:54; Admin Dose 220 MG; Start 10/13/18 at 09:00 Diltiazem HCl (Cardizem Cd) 180 mg QAM PO ; Start 10/15/18 at 09:00 Losartan Potassium (Cozaar) 12.5 mg BID PO Last administered on 10/14/18at 20 :47; Admin Dose 12.5 MG; Start 10/14/18 at 21:00 Metoprolol Tartrate (Lopressor) 50 mg BID PO Last administered on 10/14/18at 20:48; Admin Dose 50 MG; Start 10/14/18 at 21:00 Assessment/Plan Additional Assessment/Plan Rehab- Major multiple fracture with right humeral fracture in addition to right intertrochanteric hip fracture status post intramedullary nailing. Continue rehab treatment plan Anemia Acute pain syndrome. Coronary artery disease. Atrial fibrillation. Aortic stenosis. Hypertension. Hyperlipidemia. BPH. Gastroesophageal reflux disease. Chronic kidney disease. JACI SOLORIO MD October 15, 2018 08:20
--- NOTE | 2018-10-15 08:34 | PN ---
Date/Time of Note Date/Time of Note DATE: 10/15/18 TIME: 08:29 Assessment/Plan VTE Prophylaxis Risk score (from [facility] [place])>0 risk: 15 SCD applied (from [facility] [place]): Yes Pharmacological prophylaxis: heparin Lines/Catheters IV Catheter Type (from [facility]): Saline Lock Urinary Cath still in place: No Assessment/Plan Problems: (1) Status post-operative repair of closed fracture of right hip Status: Acute Comment: Dressing nicely with the protocol for the acute rehabilitation unit. (2) Right humeral fracture Status: Acute Comment: Stable in the brace and patient is actively working with physical therapy Qualifiers: Encounter type: subsequent encounter Humerus Location: proximal Fracture type: closed Fracture morphology: other fracture Fracture alignment: nondisplaced Fracture healing: with routine healing Qualified Codes: S42.294D - Other nondisplaced fracture of upper end of right humerus, subsequent encounter for fracture with routine healing (3) Aortic stenosis Status: Chronic Comment: Able at this time. Please note he has tolerated the addition of low dose afterload reduction therapy with losartan 12.5 twice daily. Qualifiers: Cardiac valve disease etiology: nonrheumatic Qualified Codes: I35.0 - Nonrheumatic aortic (valve) stenosis (4) Ejection fraction < 50% Status: Chronic Comment: Now on afterload reduction therapy and beta-blockade and reduction in calcium channel lenka (5) Diastolic dysfunction Status: Chronic Comment: Good blood pressure control and rate control (6) Atrial fibrillation Status: Chronic Comment: Rate is controlled using beta-lenka and lower dose calcium channel lenka. Consideration to decrease the calcium channel lenka further given the known systolic and diastolic dysfunction and use more beta-blockade or beta- blockade in combination with digoxin for rate control. Defer to cardiology Qualifiers: Atrial fibrillation type: paroxysmal Qualified Codes: I48.0 - Paroxysmal atrial fibrillation (7) Essential (primary) hypertension Status: Chronic Comment: Adequate control (8) Dyslipidemia Status: Chronic Comment: Stable on treatment (9) BPH (benign prostatic hypertrophy) with urinary retention Status: Chronic Comment: Adequate control Result Diagram: 10/12/18 0731 10/12/18730 CC: JEFF REYNOSO MOINAKHTAR MD ; Subjective 24 Hr Interval Summary Free Text/Dictation Patient reports he is feeling well and actually is doing well without any dyspnea during physical activities Constitutional: no complaints (No fevers chills or sweats) Respiratory: no complaints (Cough no wheezing no shortness of breath including with exertion) Cardiovascular: no complaints (No chest pain no palpitations no orthopnea no PND no dizziness) Gastrointestinal: no complaints Genitourinary: no complaints Endocrine: no complaints Exam/Review of Systems Exam Vitals Vital Signs Date Temp Pulse Resp B/P (MAP) Pulse Ox O2 O2 Flow FiO2 Time Delivery Rate 10/15/18 98.2 81 18 123/73 96 Room Air 02:00 (90) Intake and Output 10/14/18 10/14/18 10/15/18 1515:00 23:00 07:00 IntakeIntake Total 120 ml 680 ml 360 ml OutputOutput Total 400 ml 250 ml BalanceBalance 120 ml 280 ml 110 ml Constitutional: alert, oriented Neck: supple, non-tender Respiratory: clear to auscultation, normal air movement Cardiovascular: nl pulses, irregular rhythm Gastrointestinal: soft, nl liver, spleen Medications Medication Current Medications Acetaminophen (Tylenol Tab) 650 mg Q6H PRN PO .PAIN 1-3 OR TEMP; Start 10/11/18 at 22:30 Amiodarone HCl (Cordarone) 200 mg DAILY PO ; Start 10/12/18 at 09:00 Bisacodyl (Dulcolax) 5 mg DAILY PRN PO .CONSTIPATION; Start 10/11/18 at 22:30 Clopidogrel Bisulfate (plaVIX) 75 mg DAILY PO Last administered on 10/14/18at 09:54; Admin Dose 75 MG; Start 10/12/18 at 09:00 Docusate Sodium (Colace) 100 mg Q12H PRN PO .CONSTIPATION; Start 10/11/18 at 22:30 Finasteride (Proscar) 5 mg DAILY PO Last administered on 10/12/18at 09:21; Admin Dose 5 MG; Start 10/12/18 at 09:00 Heparin Sodium (Porcine) (Heparin (5000 Units/1ml)) 5,000 unit Q12 SC Last administered on 10/14/18at 20:57; Admin Dose 5,000 UNIT; Start 10/11/18 at 22:30 Acetaminophen/ Hydrocodone Bitart ([place] (5/325)) 1 tab Q6H PRN PO .MOD PAIN 4- 6 Last administered on 10/13/18at 20:49; Admin Dose 1 TAB; Start 10/11/18 at 22:30 Ibuprofen (Motrin) 600 mg Q6H PRN PO .PAIN 1-3 Last administered on 10/14/18at 20:51; Admin Dose 600 MG; Start 10/11/18 at 22:30 Methylnaltrexone [place] (Relistor) 12 mg DAILY SC Last administered on 10/12/18at 09:22; Admin Dose 12 MG; Start 10/12/18 at 09:00 Morphine Sulfate (morphine) 2 mg Q4H PRN IV .SEVERE PAIN 7-10; Start 10/11/18 at 22:30 Ondansetron HCl (Zofran Inj) 4 mg Q6H PRN IV NAUSEA/VOMITING; Start 10/11/18 at 22:30 Sodium Biphosphate/ Sodium Phosphate (Fleet Enema) 133 ml DAILY PRN [place] .CONSTIPATION; Start 10/11/18 at 22:30 Tamsulosin HCl (Flomax) 0.4 mg DAILY@2100 PO Last administered on 10/14/18at 20:51; Admin Dose 0.4 MG; Start 10/11/18 at 22:30 Simethicone (Mylicon) 160 mg PC LUNCH PO Last administered on 10/14/18at 14:50; Admin Dose 160 MG; Start 10/12/18 at 13:00 IV Flush (NS 3 ml) 3 ml PER PROTOCOL IV ; Start 10/11/18 at 23:00 Lactulose (Enulose) 20 gm DAILY PRN PO CONSTIPATION; Start 10/12/18 at 06:30 Bisacodyl (Dulcolax Supp) 10 mg DAILY PRN [place] CONSTIPATION; Start 10/12/18 at 06:30 Multivitamins/ Minerals (Theragran-M) 1 tab DAILY PO Last administered on 10/14/18 09:54; Admin Dose 1 TAB; Start 10/13/18 at 09:00 Ascorbic Acid (Vitamin C) 250 mg DAILY PO Last administered on 10/14/18 09:54; Admin Dose 250 MG; Start 10/13/18 at 09:00 Zinc Sulfate (Zinc Sulfate) 220 mg DAILY PO Last administered on 10/14/18 09:54; Admin Dose 220 MG; Start 10/13/18 at 09:00 Diltiazem HCl (Cardizem Cd) 180 mg QAM PO ; Start 10/15/18 at 09:00 Losartan Potassium (Cozaar) 12.5 mg BID PO Last administered on 10/14/18at 20:47; Admin Dose 12.5 MG; Start 10/14/18 at 21:00 Metoprolol Tartrate (Lopressor) 50 mg BID PO Last administered on 10/14/18at 20:48; Admin Dose 50 MG; Start 10/14/18 at 21:00 LATIA RICE MD October 15, 2018 08:34
[2018-10-15] MEDS: FINASTERIDE 5 MG TAB PO SCH (08:44)
[2018-10-15] MEDS: AMIODARONE 200 MG TAB PO SCH (08:45)
[2018-10-15] MEDS: LOSARTAN 25 MG TAB PO SCH ×2 (08:46→20:43)
[2018-10-15] MEDS: MULTIVITAMINS/MINERALS TAB PO SCH (08:46)
[2018-10-15] MEDS: METOPROLOL 25 MG TAB PO SCH ×2 (08:46→20:43)
[2018-10-15] MEDS: ZINC SULFATE 220 MG CAP PO SCH (08:46)
[2018-10-15] MEDS: CLOPIDOGREL 75 MG TAB PO SCH (08:46)
[2018-10-15] MEDS: HEPARIN 5,000 UNIT/1 ML VIAL SC SCH ×2 (08:47→20:52)
[2018-10-15] MEDS: IBUPROFEN 600 MG TAB PO PRN ×2 (08:47→20:42)
[2018-10-15] MEDS: ASCORBIC ACID 250 MG TAB PO SCH (08:49)
[2018-10-15] MEDS ORDERED: DILTIAZEM (CD) 120 MG CAP PO SCH (09:00)
[2018-10-15] MEDS: METHYLNALTREXONE 12 MG/0.6 ML VIAL SC SCH (09:54)
[2018-10-15 14:00] VITALS: BP 106/61; PULSE 80; RESP 18
--- NOTE | 2018-10-15 14:54 | CONS ---
Consult Date/Type/Reason Admit Date/Time October 11, 2018 at 20:30 Initial Consult Date Requesting Provider: FREEDOM REYES MD Date/Time of Note DATE: 10/15/18 TIME: 14:52 Subjective NO acute events - pt in rehab now - compliant with care - doing well overall. ROS: No fever, no chills, no nausea, no vomiting, no diarrhea/constipation - mild SOB Objective Vitals Vital Signs Date Temp Pulse Resp B/P (MAP) Pulse Ox O2 O2 Flow FiO2 Time Delivery Rate 10/15/18 97.8 80 18 128/70 97 Room Air 07:30 (89) Intake and Output 10/14/18 10/14/18 10/15/18 1515:00 23:00 07:00 IntakeIntake Total 120 ml 680 ml 360 ml OutputOutput Total 400 ml 250 ml BalanceBalance 120 ml 280 ml 110 ml Exam General: WN/WD/NAD, AOx 3 HEENT: Unicetric/atraumatic/EOMI (follow commands) NECK: JVD elevated, no thyromegaly Lymph: no lymphadenopathy HEART: regular with no S3, II/ systolic murmur at apex, 1/6 at base LUNGS: Coarse sounds ABD: soft, NT, ND, +BS : Intact Neuro: non focal SKIN: chronic changes EXT: trace edema, sling Results/Medications Result Diagram: 10/12/1873010/12/18730 Home Meds Reported Medications Tamsulosin Hcl* (Flomax*) 0.4 Mg Cap.er.24h, 0.4 MG PO DAILY, CAP 10/01/18 Pantoprazole* (Protonix*) 40 Mg Tablet.dr, 40 MG PO DAILY, TAB 10/01/18 Isosorbide Mononitrate* (Isosorbide Mononitrate*) 30 Mg Tab.er.24h, 30 MG PO DAILY, TAB 10/01/18 Clopidogrel Bisulfate (Clopidogrel) 75 Mg Tablet, 75 MG PO DAILY, #30 TAB 10/01/18 Diltiazem Hcl* (Cardizem CD*) 180 Mg Cap.sr.24h, 180 MG PO DAILY, #30 CAP 10/01/18 Amiodarone Hcl* (Amiodarone Hcl*) 200 Mg Tablet, 200 MG PO DAILY, #30 TAB 10/01/18 Medications Current Medications Acetaminophen (Tylenol Tab) 650 mg Q6H PRN PO .PAIN 1-3 OR TEMP; Start 10/11/18 at 22:30 Amiodarone HCl (Cordarone) 200 mg DAILY PO Last administered on 10/15/18at 08:45; Admin Dose 200 MG; Start 10/12/18 at 09:00 Bisacodyl (Dulcolax) 5 mg DAILY PRN PO .CONSTIPATION; Start 10/11/18 at 22:30 Clopidogrel Bisulfate (plaVIX) 75 mg DAILY PO Last administered on 10/15/18at 08:46; Admin Dose 75 MG; Start 10/12/18 at 09:00 Docusate Sodium (Colace) 100 mg Q12H PRN PO .CONSTIPATION; Start 10/11/18 at 22:30 Finasteride (Proscar) 5 mg DAILY PO Last administered on 10/15/18at 08:44; Admin Dose 5 MG; Start 10/12/18 at 09:00 Heparin Sodium (Porcine) (Heparin (5000 Units/1ml)) 5,000 unit Q12 SC Last administered on 10/15/18at 08:47; Admin Dose 5,000 UNIT; Start 10/11/18 at 22:30 Acetaminophen/ Hydrocodone Bitart ([place] (5/325)) 1 tab Q6H PRN PO .MOD PAIN 4- 6 Last administered on 10/13/18at 20:49; Admin Dose 1 TAB; Start 10/11/18 at 22:30 Ibuprofen (Motrin) 600 mg Q6H PRN PO .PAIN 1-3 Last administered on 10/15/18 08:47; Admin Dose 600 MG; Start 10/11/18 at 22:30 Methylnaltrexone [place] (Relistor) 12 mg DAILY SC Last administered on 10/15/18 09:54; Admin Dose 12 MG; Start 10/12/18 at 09:00 Morphine Sulfate (morphine) 2 mg Q4H PRN IV .SEVERE PAIN 7-10; Start 10/11/18 at 22:30 Ondansetron HCl (Zofran Inj) 4 mg Q6H PRN IV NAUSEA/VOMITING; Start 10/11/18 at 22:30 Sodium Biphosphate/ Sodium Phosphate (Fleet Enema) 133 ml DAILY PRN [place] .CONSTIPATION; Start 10/11/18 at 22:30 Tamsulosin HCl (Flomax) 0.4 mg DAILY@2100 PO Last administered on 10/14/18at 2 0:51; Admin Dose 0.4 MG; Start 10/11/18 at 22:30 Simethicone (Mylicon) 160 mg PC LUNCH PO Last administered on 10/15/18at 12:12; Admin Dose 160 MG; Start 10/12/18 at 13:00 IV Flush (NS 3 ml) 3 ml PER PROTOCOL IV ; Start 10/11/18 at 23:00 Lactulose (Enulose) 20 gm DAILY PRN PO CONSTIPATION; Start 10/12/18 at 06:30 Bisacodyl (Dulcolax Supp) 10 mg DAILY PRN [place] CONSTIPATION; Start 10/12/18 at 06:30 Multivitamins/ Minerals (Theragran-M) 1 tab DAILY PO Last administered on 10/15/18 08:46; Admin Dose 1 TAB; Start 10/13/18 at 09:00 Ascorbic Acid (Vitamin C) 250 mg DAILY PO Last administered on 10/15/18 08:49; Admin Dose 250 MG; Start 10/13/18 at 09:00 Zinc Sulfate (Zinc Sulfate) 220 mg DAILY PO Last administered on 10/15/18 08:46; Admin Dose 220 MG; Start 10/13/18 at 09:00 Diltiazem HCl (Cardizem Cd) 180 mg QAM PO Last administered on 10/15/18 08:44; Admin Dose 180 MG; Start 10/15/18 at 09:00 Losartan Potassium (Cozaar) 12.5 mg BID PO Last administered on 10/15/18 08:46; Admin Dose 12.5 MG; Start 10/14/18 at 21:00 Metoprolol Tartrate (Lopressor) 50 mg BID PO Last administered on 10/15/18 08:46; Admin Dose 50 MG; Start 10/14/18 at 21:00 Assessment/Plan Hospital Course (Demo Recall) 1. Arlene-op : 3/Echo EF 30% with moderate . Was high risk. Now is post-op s/p LE ORIF - tolerated procedure well- will monitor clinically now. Doing well, co n't to recover. Con't to improve. Doing well with PT. Not in CHF by exam. NOw in rehab, doing well. 2. Abnormal electrocardiogram with nonspecific ST abnormality, assess for acute coronary syndrome.-neg trop x 3 - intermittently paced. Treated. 3. Atrial fibrillation, currently rate controlled at this time, not on systemic anticoagulation at baseline due to possible bleeding complications - rate controlled. STABLE - off tele now. Treated. 4. 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 NO further interventions planned. NOW BP better. 5. 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 Status post fall, mechanical by description.On meds now. 7. H/O BIV/ICD - with good function. 8. Constipation - primary team follows. Better now. JOSIAH SAUL MD October 15, 2018 14:54
[2018-10-15 20:00] VITALS: BP 94/54; PULSE 80; RESP 18
[2018-10-15] MEDS: TAMSULOSIN (SR) 0.4 MG CAP PO SCH (20:45)
[2018-10-16 08:00] VITALS: BP 98/58; PULSE 67; RESP 18
[2018-10-16] MEDS: DILTIAZEM (CD) 120 MG CAP PO SCH (08:34)
[2018-10-16] MEDS: AMIODARONE 200 MG TAB PO SCH (08:36)
[2018-10-16] MEDS: LOSARTAN 25 MG TAB PO SCH ×2 (08:36→20:49)
--- NOTE | 2018-10-16 08:36 | PN ---
Date/Time of Note Date/Time of Note DATE: 10/16/18 TIME: 08:33 Assessment/Plan VTE Prophylaxis Risk score (from [facility])>0 risk: 15 SCD applied (from [facility]): Yes Pharmacological prophylaxis: LMWH Lines/Catheters IV Catheter Type (from [facility] [place] Lock Urinary Cath still in place: No Assessment/Plan Problems: (1) Status post-operative repair of closed fracture of right hip Status: Acute Comment: Progressing nicely under the protocol the acute rehabilitation unit (2) Right humeral fracture Status: Acute Comment: Appears to be progressing nicely Qualifiers: Encounter type: subsequent encounter Humerus Location: proximal Fracture type: closed Fracture morphology: other fracture Fracture alignment: nondisplaced Fracture healing: with routine healing Qualified Codes: S42.294D - Other nondisplaced fracture of upper end of right humerus, subsequent encounter for fracture with routine healing (3) Aortic stenosis Status: Chronic Comment: Urgently stable and tolerating low-dose afterload reduction as advised by cardiology Qualifiers: Cardiac valve disease etiology: nonrheumatic Qualified Codes: I35.0 - No nrheumatic aortic (valve) stenosis (4) Atrial fibrillation Status: Chronic Comment: Rate is controlled with decreased dosage of calcium channel lenka Qualifiers: Atrial fibrillation type: paroxysmal Qualified Codes: I48.0 - Paroxysmal atrial fibrillation (5) Ejection fraction < 50% Status: Chronic Comment: More beta-blockade and angiotensin II receptor lenka and less calcium channel lenka (6) Diastolic dysfunction Status: Chronic Comment: As above (7) Essential (primary) hypertension Status: Chronic Comment: Adequate control (8) BPH (benign prostatic hypertrophy) with urinary retention Status: Chronic Comment: Adequate control (9) Dyslipidemia Status: Chronic Comment: Good control adequate control Result Diagram: 10/16/18 0637 10/16/18 0637 Results 24hrs Laboratory Tests Test 10/16/18 06:37 White Blood Count 8.6 Red Blood Count 3.14 L Hemoglobin 9.6 L Hematocrit 28.9 L Mean Corpuscular Volume 92.0 Mean Corpuscular Hemoglobin 30.6 Mean Corpuscular Hemoglobin Concent 33.2 Red Cell Distribution Width 16.3 H Platelet Count 459 H Mean Platelet Volume 9.5 Immature Granulocytes % 0.600 H Neutrophils % 70.1 Lymphocytes % 16.6 Monocytes % 6.7 Eosinophils % 4.5 Basophils % 1.5 Nucleated Red Blood Cells % 0.0 Immature Granulocytes # 0.050 H Neutrophils # 6.1 Lymphocytes # 1.4 Monocytes # 0.6 Eosinophils # 0.4 Basophils # 0.1 Nucleated Red Blood Cells # 0.0 Sodium Level 135 Potassium Level 3.9 Chloride Level 107 Carbon Dioxide Level 25 Anion Gap 3 L Blood Urea Nitrogen 28 H Creatinine 1.29 H Est Glomerular Filtrat Rate mL/min Glucose Level 94 Calcium Level 8.6 Total Bilirubin 0.6 Direct Bilirubin 0.00 Indirect Bilirubin 0.6 Aspartate Amino Transf (AST/SGOT) 20 Alanine Aminotransferase (ALT/SGPT) 18 Alkaline Phosphatase 75 Total Protein 5.7 L Albumin 2.9 L Globulin 2.80 Albumin/Globulin Ratio 1.03 CC: JEFF REYNOSO; CLYDE GARCIA MD ; Subjective 24 Hr Interval Summary Free Text/Dictation Patient reports he is doing well will be doing more physical therapy today on his own. Constitutional: no complaints (No fevers chills or sweats) Respiratory: no complaints (Shortness of breath no cough no wheezing) Cardiovascular: no complaints (Chest pain no palpitations no orthopnea no PND no syncope no near syncope no dizziness) Endocrine: no complaints Exam/Review of Systems Exam Vitals Vital Signs Date Temp Pulse Resp B/P (MAP) Pulse Ox O2 O2 Flow FiO2 Time Delivery Rate 10/15/18 98.1 80 18 94/54 (67) 97 Room Air 20:00 Intake and Output 10/15/18 10/15/18 10/16/18 1515:00 23:00 07:00 IntakeIntake Total 480 ml OutputOutput Total 100 ml BalanceBalance 380 ml Constitutional: alert, oriented Neck: supple, non-tender Respiratory: clear to auscultation, normal air movement Cardiovascular: nl pulses, irregular rhythm Results Results 24hrs Laboratory Tests Test 10/16/18 06:37 White Blood Count 8.6 Red Blood Count 3.14 L Hemoglobin 9.6 L Hematocrit 28.9 L Mean Corpuscular Volume 92.0 Mean Corpuscular Hemoglobin 30.6 Mean Corpuscular Hemoglobin Concent 33.2 Red Cell Distribution Width 16.3 H Platelet Count 459 H Mean Platelet Volume 9.5 Immature Granulocytes % 0.600 H Neutrophils % 70.1 Lymphocytes % 16.6 Monocytes % 6.7 Eosinophils % 4.5 Basophils % 1.5 Nucleated Red Blood Cells % 0.0 Immature Granulocytes # 0.050 H Neutrophils # 6.1 Lymphocytes # 1.4 Monocytes # 0.6 Eosinophils # 0.4 Basophils # 0.1 Nucleated Red Blood Cells # 0.0 Sodium Level 135 Potassium Level 3.9 Chloride Level 107 Carbon Dioxide Level 25 Anion Gap 3 L Blood Urea Nitrogen 28 H Creatinine 1.29 H Est Glomerular Filtrat Rate mL/min Glucose Level 94 Calcium Level 8.6 Total Bilirubin 0.6 Direct Bilirubin 0.00 Indirect Bilirubin 0.6 Aspartate Amino Transf (AST/SGOT) 20 Alanine Aminotransferase (ALT/SGPT) 18 Alkaline Phosphatase 75 Total Protein 5.7 L Albumin 2.9 L Globulin 2.80 Albumin/Globulin Ratio 1.03 Medications Medication Current Medications Acetaminophen (Tylenol Tab) 650 mg Q6H PRN PO .PAIN 1-3 OR TEMP; Start 10/11/18 at 22:30 Amiodarone HCl (Cordarone) 200 mg DAILY PO Last administered on 10/15/18 08:45; Admin Dose 200 MG; Start 10/12/18 at 09:00 Bisacodyl (Dulcolax) 5 mg DAILY PRN PO .CONSTIPATION; Start 10/11/18 at 22:30 Clopidogrel Bisulfate (plaVIX) 75 mg DAILY PO Last administered on 10/15/18 08:46; Admin Dose 75 MG; Start 10/12/18 at 09:00 Docusate Sodium (Colace) 100 mg Q12H PRN PO .CONSTIPATION; Start 10/11/18 at 22:30 Finasteride (Proscar) 5 mg DAILY PO Last administered on 10/15/18 08:44; Admin Dose 5 MG; Start 10/12/18 at 09:00 Heparin Sodium (Porcine) (Heparin (5000 Units/1ml)) 5,000 unit Q12 SC Last administered on 10/15/18 20:52; Admin Dose 5,000 UNIT; Start 10/11/18 at 22:30 Acetaminophen/ Hydrocodone Bitart ([place] (5/325)) 1 tab Q6H PRN PO .MOD PAIN 4- 6 Last administered on 10/13/18 20:49; Admin Dose 1 TAB; Start 10/11/18 at 22:30 Ibuprofen (Motrin) 600 mg Q6H PRN PO .PAIN 1-3 Last administered on 10/15/18 20:42; Admin Dose 600 MG; Start 10/11/18 at 22:30 Methylnaltrexone [place] (Relistor) 12 mg DAILY SC Last administered on 10/15/18 09:54; Admin Dose 12 MG; Start 10/12/18 at 09:00 Morphine Sulfate (morphine) 2 mg Q4H PRN IV .SEVERE PAIN 7-10; Start 10/11/18 at 22:30 Ondansetron HCl (Zofran Inj) 4 mg Q6H PRN IV NAUSEA/VOMITING; Start 10/11/18 at 22:30 Sodium Biphosphate/ Sodium Phosphate (Fleet Enema) 133 ml DAILY PRN [place] .CONSTI PATION; Start 10/11/18 at 22:30 Tamsulosin HCl (Flomax) 0.4 mg DAILY@2100 PO Last administered on 10/15/18 20:45; Admin Dose 0.4 MG; Start 10/11/18 at 22:30 Simethicone (Mylicon) 160 mg PC LUNCH PO Last administered on 10/15/18 12:12; Admin Dose 160 MG; Start 10/12/18 at 13:00 IV Flush (NS 3 ml) 3 ml PER PROTOCOL IV ; Start 10/11/18 at 23:00 Lactulose (Enulose) 20 gm DAILY PRN PO CONSTIPATION; Start 10/12/18 at 06:30 Bisacodyl (Dulcolax Supp) 10 mg DAILY PRN [place] CONSTIPATION; Start 10/12/18 at 06:30 Multivitamins/ Minerals (Theragran-M) 1 tab DAILY PO Last administered on 10/15/18 08:46; Admin Dose 1 TAB; Start 10/13/18 at 09:00 Ascorbic Acid (Vitamin C) 250 mg DAILY PO Last administered on 10/15/18 08:49; Admin Dose 250 MG; Start 10/13/18 at 09:00 Zinc Sulfate (Zinc Sulfate) 220 mg DAILY PO Last administered on 10/15/18 08:46; Admin Dose 220 MG; Start 10/13/18 at 09:00 Losartan Potassium (Cozaar) 12.5 mg BID PO Last administered on 10/15/18 08:46; Admin Dose 12.5 MG; Start 10/14/18 at 21:00 Metoprolol Tartrate (Lopressor) 50 mg BID PO Last administered on 10/15/18at 08 :46; Admin Dose 50 MG; Start 10/14/18 at 21:00 Diltiazem HCl (Cardizem Cd) 120 mg QAM PO ; Start 10/16/18 at 09:00 LATIA RICE MD October 16, 2018 08:36
[2018-10-16] MEDS: METOPROLOL 25 MG TAB PO SCH ×2 (08:37→20:48)
[2018-10-16] MEDS: METHYLNALTREXONE 12 MG/0.6 ML VIAL SC SCH (08:38)
[2018-10-16] MEDS: FINASTERIDE 5 MG TAB PO SCH (08:38)
[2018-10-16] MEDS: MULTIVITAMINS/MINERALS TAB PO SCH (08:38)
[2018-10-16] MEDS: ZINC SULFATE 220 MG CAP PO SCH (08:38)
[2018-10-16] MEDS: ASCORBIC ACID 250 MG TAB PO SCH (08:38)
[2018-10-16] MEDS: CLOPIDOGREL 75 MG TAB PO SCH (08:41)
[2018-10-16] MEDS: HEPARIN 5,000 UNIT/1 ML VIAL SC SCH ×2 (08:48→20:51)
--- NOTE | 2018-10-16 12:39 | CONS ---
Consult Date/Type/Reason Admit Date/Time October 11, 2018 at 20:30 Initial Consult Date Requesting Provider: FREEDOM REYES MD Date/Time of Note DATE: 10/16/18 TIME: 12:37 Subjective NO acute events - pt comfortable - no CP now - BP on low side, but no Sx - rahab to resume tomorrow ROS: No fever, no chills, no nausea, no vomiting, no diarrhea/constipation No recent weight changes No chest pain, no PND, no orthopnea No dizziness, blurred vision No thirst, no heat or cold intolerance Objective Vitals Vital Signs Date Temp Pulse Resp B/P (MAP) Pulse Ox O2 O2 Flow FiO2 Time Delivery Rate 10/16/18 97.8 67 18 98/58 (71) 94 Room Air 08:00 Intake and Output 10/15/18 10/15/18 10/16/18 1414:59 22:59 06:59 IntakeIntake Total 480 ml OutputOutput Total 100 ml BalanceBalance 380 ml Exam General: WN/WD/NAD, AOx 3 HEENT: Unicetric/atraumatic/EOMI (follows commands) NECK: JVD elevated, no thyromegaly Lymph: no lymphadenopathy HEART: regular with no S3, II/ systolic murmur at apex LUNGS: Coarse sounds ABD: soft, NT, ND, +BS : Intact Neuro: non focal SKIN: chronic changes EXT: trace edema, brace Results/Medications Result Diagram: 10/16/18 0637 10/16/18 0637 Results 24 hrs Laboratory Tests Test 10/16/18 06:37 White Blood Count 8.6 Red Blood Count 3.14 L Hemoglobin 9.6 L Hematocrit 28.9 L Mean Corpuscular Volume 92.0 Mean Corpuscular Hemoglobin 30.6 Mean Corpuscular Hemoglobin Concent 33.2 Red Cell Distribution Width 16.3 H Platelet Count 459 H Mean Platelet Volume 9.5 Immature Granulocytes % 0.600 H Neutrophils % 70.1 Lymphocytes % 16.6 Monocytes % 6.7 Eosinophils % 4.5 Basophils % 1.5 Nucleated Red Blood Cells % 0.0 Immature Granulocytes # 0.050 H Neutrophils # 6.1 Lymphocytes # 1.4 Monocytes # 0.6 Eosinophils # 0.4 Basophils # 0.1 Nucleated Red Blood Cells # 0.0 Sodium Level 135 Potassium Level 3.9 Chloride Level 107 Carbon Dioxide Level 25 Anion Gap 3 L Blood Urea Nitrogen 28 H Creatinine 1.29 H Est Glomerular Filtrat Rate mL/min Glucose Level 94 Calcium Level 8.6 Total Bilirubin 0.6 Direct Bilirubin 0.00 Indirect Bilirubin 0.6 Aspartate Amino Transf (AST/SGOT) 20 Alanine Aminotransferase (ALT/SGPT) 18 Alkaline Phosphatase 75 Total Protein 5.7 L Albumin 2.9 L Globulin 2.80 Albumin/Globulin Ratio 1.03 Home Meds Reported Medications Tamsulosin Hcl* (Flomax*) 0.4 Mg Cap.er.24h, 0.4 MG PO DAILY, CAP 10/01/18 Pantoprazole* (Protonix*) 40 Mg Tablet.dr, 40 MG PO DAILY, TAB 10/01/18 Isosorbide Mononitrate* (Isosorbide Mononitrate*) 30 Mg Tab.er.24h, 30 MG PO DAILY, TAB 10/01/18 Clopidogrel Bisulfate (Clopidogrel) 75 Mg Tablet, 75 MG PO DAILY, #30 TAB 10/01/18 Diltiazem Hcl* (Cardizem CD*) 180 Mg Cap.sr.24h, 180 MG PO DAILY, #30 CAP 10/01/18 Amiodarone Hcl* (Amiodarone Hcl*) 200 Mg Tablet, 200 MG PO DAILY, #30 TAB 10/01/18 Medications Current Medications Acetaminophen (Tylenol Tab) 650 mg Q6H PRN PO .PAIN 1-3 OR TEMP; Start 10/11/18 at 22:30 Amiodarone HCl (Cordarone) 200 mg DAILY PO Last administered on 10/15/18at 08:45; Admin Dose 200 MG; Start 10/12/18 at 09:00 Bisacodyl (Dulcolax) 5 mg DAILY PRN PO .CONSTIPATION; Start 10/11/18 at 22:30 Clopidogrel Bisulfate (plaVIX) 75 mg DAILY PO Last administered on 10/16/18at 08:41; Admin Dose 75 MG; Start 10/12/18 at 09:00 Docusate Sodium (Colace) 100 mg Q12H PRN PO .CONSTIPATION; Start 10/11/18 at 22:30 Finasteride (Proscar) 5 mg DAILY PO Last administered on 10/16/18at 08:38; Admin Dose 5 MG; Start 10/12/18 at 09:00 Heparin Sodium (Porcine) (Heparin (5000 Units/1ml)) 5,000 unit Q12 SC Last administered on 10/16/18 08:48; Admin Dose 5,000 UNIT; Start 10/11/18 at 22:30 Acetaminophen/ Hydrocodone Bitart ([place] (5/325)) 1 tab Q6H PRN PO .MOD PAIN 4- 6 Last administered on 10/13/18 20:49; Admin Dose 1 TAB; Start 10/11/18 at 22:30 Ibuprofen (Motrin) 600 mg Q6H PRN PO .PAIN 1-3 Last administered on 10/15/18 20:42; Admin Dose 600 MG; Start 10/11/18 at 22:30 Methylnaltrexone [place] (Relistor) 12 mg DAILY SC Last administered on 10/16/18 08:38; Admin Dose 12 MG; Start 10/12/18 at 09:00 Morphine Sulfate (morphine) 2 mg Q4H PRN IV .SEVERE PAIN 7-10; Start 10/11/18 at 22:30 Ondansetron HCl (Zofran Inj) 4 mg Q6H PRN IV NAUSEA/VOMITING; Start 10/11/18 at 22:30 Sodium Biphosphate/ Sodium Phosphate (Fleet Enema) 133 ml DAILY PRN [place] .CONSTIP ATION; Start 10/11/18 at 22:30 Tamsulosin HCl (Flomax) 0.4 mg DAILY@2100 PO Last administered on 10/15/18 20:45; Admin Dose 0.4 MG; Start 10/11/18 at 22:30 Simethicone (Mylicon) 160 mg PC LUNCH PO Last administered on 10/16/18 12:06; Admin Dose 160 MG; Start 10/12/18 at 13:00 IV Flush (NS 3 ml) 3 ml PER PROTOCOL IV ; Start 10/11/18 at 23:00 Lactulose (Enulose) 20 gm DAILY PRN PO CONSTIPATION Last administered on 10/16/18 12:06; Admin Dose 20 GM; Start 10/12/18 at 06:30 Bisacodyl (Dulcolax Supp) 10 mg DAILY PRN [place] CONSTIPATION; Start 10/12/18 at 06:30 Multivitamins/ Minerals (Theragran-M) 1 tab DAILY PO Last administered on 5/19/19at 08:38; Admin Dose 1 TAB; Start 10/13/18 at 09:00 Ascorbic Acid (Vitamin C) 250 mg DAILY PO Last administered on 10/16/18at 08:38; Admin Dose 250 MG; Start 10/13/18 at 09:00 Zinc Sulfate (Zinc Sulfate) 220 mg DAILY PO Last administered on 10/16/18at 0 8:38; Admin Dose 220 MG; Start 10/13/18 at 09:00 Losartan Potassium (Cozaar) 12.5 mg BID PO Last administered on 10/15/18at 08:46; Admin Dose 12.5 MG; Start 10/14/18 at 21:00 Metoprolol Tartrate (Lopressor) 50 mg BID PO Last administered on 10/15/18 08:46; Admin Dose 50 MG; Start 10/14/18 at 21:00 Diltiazem HCl (Cardizem Cd) 120 mg QAM PO ; Start 10/16/18 at 09:00 Assessment/Plan Hospital Course (Demo Recall) 1. Arlene-op : 3/Echo EF 30% with moderate . Was high risk. Now is post-op s/p LE ORIF - tolerated procedure well- will monitor clinically now. Doing well, con't to recover. Con't to improve. Doing well with PT. Not in CHF by exam. Now in rehab, doing well. Good fluid status now. 2. Abnormal electrocardiogram with nonspecific ST abnormality, assess for acute coronary syndrome.-neg trop x 3 - intermittently paced. Treated. 3. Atrial fibrillation, currently rate controlled at this time, not on systemic anticoagulation at baseline due to possible bleeding complications - rate controlled. STABLE - off tele now. Treated. Treated. 4. History of percutaneous transluminal coronary angioplasty and stent placement to the right coronary artery in 2016 and to LCX 2017(now known to be occluded chronically with SUB ARC OPERATOR of LAD that is collateralized by RCA after discussion with DR GARCIA this AM) - tolerated procedure well. NO further interventions planned. NOW BP better. 5. 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 Status post fall, mechanical by description.On meds now. 7. H/O BIV/ICD - with good function. 8. Constipation - primary team follows. Lactulose given. JOSIAH SAUL MD October 16, 2018 12:39
[2018-10-16 14:00] VITALS: BP 110/60; PULSE 80; RESP 18
[2018-10-16] MEDS ORDERED: PENDING SANTYL ORDER FOR WOUND CARE XX PRN (15:30)
[2018-10-16 20:00] VITALS: BP 130/61; PULSE 81; RESP 18
[2018-10-16] MEDS: TAMSULOSIN (SR) 0.4 MG CAP PO SCH (21:09)
[2018-10-16] MEDS: BISACODYL 10 MG SUPP PR PRN (21:12)
[2018-10-16] MEDS: IBUPROFEN 600 MG TAB PO PRN (22:07)
[2018-10-17 02:15] VITALS: BP 128/71; PULSE 79; RESP 18
[2018-10-17 07:45] VITALS: BP 123/70; RESP 18
[2018-10-17] MEDS: CLOPIDOGREL 75 MG TAB PO SCH (08:59)
[2018-10-17] MEDS: ZINC SULFATE 220 MG CAP PO SCH (08:59)
[2018-10-17] MEDS: AMIODARONE 200 MG TAB PO SCH (08:59)
[2018-10-17] MEDS: MULTIVITAMINS/MINERALS TAB PO SCH (08:59)
[2018-10-17] MEDS: ASCORBIC ACID 250 MG TAB PO SCH (08:59)
[2018-10-17] MEDS: HEPARIN 5,000 UNIT/1 ML VIAL SC SCH ×2 (08:59→21:18)
[2018-10-17] MEDS: FINASTERIDE 5 MG TAB PO SCH (08:59)
[2018-10-17] MEDS: METOPROLOL 25 MG TAB PO SCH ×2 (09:00→21:16)
[2018-10-17] MEDS: LOSARTAN 25 MG TAB PO SCH ×2 (09:00→21:16)
[2018-10-17] MEDS: DILTIAZEM (CD) 120 MG CAP PO SCH (09:00)
[2018-10-17] MEDS: METHYLNALTREXONE 12 MG/0.6 ML VIAL SC SCH (09:04)
[2018-10-17] MEDS: HYDROCODONE/APAP (5/325) TAB PO PRN (10:22)
[2018-10-17] MEDS: POLYETHYLENE GLYCOL 17 GM PACKET PO SCH (12:03)
--- NOTE | 2018-10-17 12:14 | PN ---
Date/Time of Note Date/Time of Note DATE: 10/17/18 TIME: 12:13 Objective Vital Signs Date Temp Pulse Resp B/P (MAP) Pulse Ox O2 O2 Flow FiO2 Time Delivery Rate 10/17/18 98.4 18 123/70 97 Room Air 07:45 (87) 10/17/18 79 02:15 Intake and Output 10/16/18 10/16/18 10/17/18 1515:00 23:00 07:00 IntakeIntake Total 660 ml 240 ml OutputOutput Total 630 ml 300 ml BalanceBalance 30 ml -60 ml Exam INTERDISCIPLINARY TEAM CONFERENCE Attended by PT, OT, ST, Furniture Assembler, Social Work, Rehabilitation Nursing, Grinding Wheel Dresser and Management ProfessionalLifestyle Director Exam: Pulm- cta Abd-soft BOWEL- Cont BLADDER-Cont SKIN- blanchable heels OT- DRESSING-max BATHING-max TOILETING-max PT- BED MOBILITY-max TRANSFERS-max AMBULATION-max A/P- Interdisciplinary team conference held today. Please see interdisciplinary sheet. Working toward d.c. on 10/26 with post discharge follow up of physical therapy, occupational therapy. Results/Medications Result Diagram: 10/16/1837 10/16/18636 Medications Current Medications Acetaminophen (Tylenol Tab) 650 mg Q6H PRN PO .PAIN 1-3 OR TEMP; Start 10/11/18 at 22:30 Amiodarone HCl (Cordarone) 200 mg DAILY PO Last administered on 10/17/18at 08:59; Admin Dose 200 MG; Start 10/12/18 at 09:00 Bisacodyl (Dulcolax) 5 mg DAILY PRN PO .CONSTIPATION Last administered on 10/16/18at 17:28; Admin Dose 5 MG; Start 10/11/18 at 22:30 Clopidogrel Bisulfate (plaVIX) 75 mg DAILY PO Last administered on 10/17/18at 08:59; Admin Dose 75 MG; Start 10/12/18 at 09:00 Docusate Sodium (Colace) 100 mg Q12H PRN PO .CONSTIPATION; Start 10/11/18 at 22:30 Finasteride (Proscar) 5 mg DAILY PO Last administered on 10/17/18at 08:59; Admin Dose 5 MG; Start 10/12/18 at 09:00 Heparin Sodium (Porcine) (Heparin (5000 Units/1ml)) 5,000 unit Q12 SC Last administered on 10/17/18 08:59; Admin Dose 5,000 UNIT; Start 10/11/18 at 22:30 Acetaminophen/ Hydrocodone Bitart ([place] (5/325)) 1 tab Q6H PRN PO .MOD PAIN 4- 6 Last administered on 10/17/18 10:22; Admin Dose 1 TAB; Start 10/11/18 at 22:30 Ibuprofen (Motrin) 600 mg Q6H PRN PO .PAIN 1-3 Last administered on 10/16/18 22:07; Admin Dose 600 MG; Start 10/11/18 at 22:30 Methylnaltrexone [place] (Relistor) 12 mg DAILY SC Last administered on 10/17/18 09:04; Admin Dose 12 MG; Start 10/12/18 at 09:00 Morphine Sulfate (morphine) 2 mg Q4H PRN IV .SEVERE PAIN 7-10; Start 10/11/18 at 22:30 Ondansetron HCl (Zofran Inj) 4 mg Q6H PRN IV NAUSEA/VOMITING; Start 10/11/18 at 22:30 Sodium Biphosphate/ Sodium Phosphate (Fleet Enema) 133 ml DAILY PRN [place] .CONSTIPATION; Start 10/11/18 at 22:30 Tamsulosin HCl (Flomax) 0.4 mg DAILY@2100 PO Last administered on 10/16/18 21:09; Admin Dose 0.4 MG; Start 10/11/18 at 22:30 Simethicone (Mylicon) 160 mg PC LUNCH PO Last administered on 10/17/18 12:03; Admin Dose 160 MG; Start 10/12/18 at 13:00 IV Flush (NS 3 ml) 3 ml PER PROTOCOL IV ; Start 10/11/18 at 23:00 Lactulose (Enulose) 20 gm DAILY PRN PO CONSTIPATION Last administered on 10/16/18 12:06; Admin Dose 20 GM; Start 10/12/18 at 06:30 Bisacodyl (Dulcolax Supp) 10 mg DAILY PRN [place] CONSTIPATION Last administered on 10/16/18 21:12; Admin Dose 10 MG; Start 10/12/18 at 06:30 Multivitamins/ Minerals (Theragran-M) 1 tab DAILY PO Last administered on 5/20/19at 08:59; Admin Dose 1 TAB; Start 10/13/18 at 09:00 Ascorbic Acid (Vitamin C) 250 mg DAILY PO Last administered on 10/17/18 08:59; Admin Dose 250 MG; Start 10/13/18 at 09:00 Zinc Sulfate (Zinc Sulfate) 220 mg DAILY PO Last administered on 10/17/18 08:59; Admin Dose 220 MG; Start 10/13/18 at 09:00 Losartan Potassium (Cozaar) 12.5 mg BID PO Last administered on 10/16/18at 20:49; Admin Dose 12.5 MG; Start 10/14/18 at 21:00 Metoprolol Tartrate (Lopressor) 50 mg BID PO Last administered on 10/16/18 20:48; Admin Dose 50 MG; Start 10/14/18 at 21:00 Diltiazem HCl (Cardizem Cd) 120 mg QAM PO ; Start 10/16/18 at 09:00 Miscellaneous Information (Pending [facility] Order For Wound Care) This patient art... PRN PRN XX WOUND CARE; Start 10/16/18 at 15:30 Polyethylene Glycol (Miralax) 17 gm WITH LUNCH PO Last administered on 10/17/18at 12:03; Admin Dose 17 GM; Start 10/17/18 at 12:00 Bisacodyl (Dulcolax) 10 mg DAILY PO ; Start 10/18/18 at 09:00 JACI SOLORIO MD October 17, 2018 12:14
--- NOTE | 2018-10-17 13:01 | CONS ---
Assessment/Plan Assessment/Plan Hospital Course (Demo Recall) 1. Preoperative evaluation prior to lower extremity open reduction internal fixation for right hip fracture.-neg trop x 3/Echo EF 30% with moderate . Was high risk. Now is post-op s/p LE ORIF 2. Abnormal electrocardiogram with nonspecific ST abnormality, assess for acute coronary syndrome.-neg trop x 3 3. Atrial fibrillation, currently rate controlled at this time, not on systemic anticoagulation at baseline due to possible bleeding complications. 4. History of percutaneous transluminal coronary angioplasty and stent placement to the right coronary artery in 2016 and to LCX 2017(now known to be occluded chronically with J2EE ARCHITECT of LAD that is collateralized by RCA after discussion with DR GARCIA this AM) 5. History of RESIN MIXER to lower extremities with occlusion of RLE 6. Status post fall, mechanical by description. 7. Right hip fracture. 8. Right humeral fracture. 9. H/O BIV/ICD 10. HTN-holding of antihypertensives today Recc: -Now transferred to rehab -Continue patient dilt and BB as patient will comply but willl reduce dose to allow patient to better tolerate -Continue losartan afterload reduction as tolerated -Follow volume status clsoely -pain control -Follow volume status and spot dose lasix as necessary -PT/OT -resume outpatient plavix as tolerated Consultation Date/Type/Reason Admit Date/Time October 11, 2018 at 20:30 Initial Consult Date 10/11/18 Type of Consult Cardiology Reason for Consultation cardiomyopathy Requesting Provider: FREEDOM REYES MD Date/Time of Note DATE: 10/17/18 TIME: 12:57 Exam/Review of Systems Vital Signs Vitals Vital Signs Date Temp Pulse Resp B/P (MAP) Pulse Ox O2 O2 Flow FiO2 Time Delivery Rate 10/17/18 98.4 18 123/70 97 Room Air 07:45 (87) 10/17/18 79 02:15 Intake and Output 10/16/18 10/16/18 10/17/18 1515:00 23:00 07:00 IntakeIntake Total 660 ml 240 ml OutputOutput Total 630 ml 300 ml BalanceBalance 30 ml -60 ml Exam Exam Review of Systems: CONSTITUTIONAL: No fevers, chills. PULMONARY: No sob CARDIOVASCULAR: No chest pain/palpitations GASTROINTESTINAL: No nausea/vomiting. GENITOURINARY: No hematuria/dysuria. MUSCULOSKELETAL: pain in shoulder PSYCHIATRIC: The patient denies depression. NEUROLOGIC: No weakness Constitutional: alert, oriented Psych: no complaints Head: normocephalic ENMT: mucosa pink and moist Neck: supple, jvd (9 cm water) Respiratory: diminished breath sounds (at bases/B) Cardiovascular: regular rate and rhythm Gastrointestinal: soft, non-tender Musculoskeletal: muscle weakness (mild generalized) Extremities: edema (none) Neurological: other (No focal deficits) Labs Result Diagram: 10/16/1863610/16/18636 Medications Medications Current Medications Acetaminophen (Tylenol Tab) 650 mg Q6H PRN PO .PAIN 1-3 OR TEMP; Start 10/11/18 at 22:30 Amiodarone HCl (Cordarone) 200 mg DAILY PO Last administered on 10/17/18 08:59; Admin Dose 200 MG; Start 10/12/18 at 09:00 Bisacodyl (Dulcolax) 5 mg DAILY PRN PO .CONSTIPATION Last administered on 10/16/18 17:28; Admin Dose 5 MG; Start 10/11/18 at 22:30 Clopidogrel Bisulfate (plaVIX) 75 mg DAILY PO Last administered on 10/17/18 08:59; Admin Dose 75 MG; Start 10/12/18 at 09:00 Docusate Sodium (Colace) 100 mg Q12H PRN PO .CONSTIPATION; Start 10/11/18 at 22:30 Finasteride (Proscar) 5 mg DAILY PO Last administered on 10/17/18 08:59; Admin Dose 5 MG; Start 10/12/18 at 09:00 Heparin Sodium (Porcine) (Heparin (5000 Units/1ml)) 5,000 unit Q12 SC Last administered on 10/17/18 08:59; Admin Dose 5,000 UNIT; Start 10/11/18 at 22:30 Acetaminophen/ Hydrocodone Bitart ([place] (5/325)) 1 tab Q6H PRN PO .MOD PAIN 4- 6 Last administered on 10/17/18 10:22; Admin Dose 1 TAB; Start 10/11/18 at 22:30 Ibuprofen (Motrin) 600 mg Q6H PRN PO .PAIN 1-3 Last administered on 10/16/18 22:07; Admin Dose 600 MG; Start 10/11/18 at 22:30 Methylnaltrexone [place] (Relistor) 12 mg DAILY SC Last administered on 10/17/18 09:04; Admin Dose 12 MG; Start 10/12/18 at 09:00 Morphine Sulfate (morphine) 2 mg Q4H PRN IV .SEVERE PAIN 7-10; Start 10/11/18 at 22:30 Ondansetron HCl (Zofran Inj) 4 mg Q6H PRN IV NAUSEA/VOMITING; Start 10/11/18 at 22:30 Sodium Biphosphate/ Sodium Phosphate (Fleet Enema) 133 ml DAILY PRN [place] .CONSTIPATION; Start 10/11/18 at 22:30 Tamsulosin HCl (Flomax) 0.4 mg DAILY@2100 PO Last administered on 10/16/18 21:09; Admin Dose 0.4 MG; Start 10/11/18 at 22:30 Simethicone (Mylicon) 160 mg PC LUNCH PO Last administered on 10/17/18 12:03; Admin Dose 160 MG; Start 10/12/18 at 13:00 IV Flush (NS 3 ml) 3 ml PER PROTOCOL IV ; Start 10/11/18 at 23:00 Lactulose (Enulose) 20 gm DAILY PRN PO CONSTIPATION Last administered on 12:06; Admin Dose 20 GM; Start 10/12/18 at 06:30 Bisacodyl (Dulcolax Supp) 10 mg DAILY PRN [place] CONSTIPATION Last administered on 10/16/18 21:12; Admin Dose 10 MG; Start 10/12/18 at 06:30 Multivitamins/ Minerals (Theragran-M) 1 tab DAILY PO Last administered on 10/17/18 08:59; Admin Dose 1 TAB; Start 10/13/18 at 09:00 Ascorbic Acid (Vitamin C) 250 mg DAILY PO Last administered on 10/17/18 08:59; Admin Dose 250 MG; Start 10/13/18 at 09:00 Zinc Sulfate (Zinc Sulfate) 220 mg DAILY PO Last administered on 10/17/18 08:59; Admin Dose 220 MG; Start 10/13/18 at 09:00 Losartan Potassium (Cozaar) 12.5 mg BID PO Last administered on 10/16/18 20:49; Admin Dose 12.5 MG; Start 10/14/18 at 21:00 Metoprolol Tartrate (Lopressor) 50 mg BID PO Last administered on 10/16/18at 20:48; Admin Dose 50 MG; Start 10/14/18 at 21:00 Diltiazem HCl (Cardizem Cd) 120 mg QAM PO ; Start 10/16/18 at 09:00 Miscellaneous Information ([facility]) This patient art... PRN PRN XX WOUND CARE; Start 10/16/18 at 15:30 Polyethylene Glycol (Miralax) 17 gm WITH LUNCH PO Last administered on 10/17/18at 12:03; Admin Dose 17 GM; Start 10/17/18 at 12:00 Bisacodyl (Dulcolax) 10 mg DAILY PO ; Start 10/18/18 at 09:00 JEFF REYNOSO October 17, 2018 13:01
[2018-10-17 13:35] VITALS: BP 101/57; PULSE 81; RESP 19
[2018-10-17 20:10] VITALS: BP 119/74; PULSE 80; RESP 18
[2018-10-17] MEDS: IBUPROFEN 600 MG TAB PO PRN (21:14)
[2018-10-17] MEDS: TAMSULOSIN (SR) 0.4 MG CAP PO SCH (21:21)
[2018-10-18 02:15] VITALS: BP 129/78; PULSE 80; RESP 18
[2018-10-18 08:00] VITALS: BP 125/93; PULSE 80; RESP 18
[2018-10-18] MEDS: BISACODYL (EC) 5 MG TAB PO SCH (08:18)
--- NOTE | 2018-10-18 08:18 | PN ---
Date/Time of Note Date/Time of Note DATE: 10/18/18 TIME: 08:18 Subjective Comfortable. Objective Vital Signs Date Temp Pulse Resp B/P (MAP) Pulse Ox O2 O2 Flow FiO2 Time Delivery Rate 10/18/18 97.6 80 18 129/78 95 Room Air 02:15 (95) Intake and Output 10/17/18 10/17/18 10/18/18 1515:00 23:00 07:00 IntakeIntake Total 340 ml OutputOutput Total 750 ml BalanceBalance -410 ml Exam pulm-cta abd-soft mod/max transfer Results/Medications Result Diagram: 10/16/1863610/16/18636 Medications Current Medications Acetaminophen (Tylenol Tab) 650 mg Q6H PRN PO .PAIN 1-3 OR TEMP; Start 10/11/18 at 22:30 Amiodarone HCl (Cordarone) 200 mg DAILY PO Last administered on 10/17/18 08:59; Admin Dose 200 MG; Start 10/12/18 at 09:00 Bisacodyl (Dulcolax) 5 mg DAILY PRN PO .CONSTIPATION Last administered on 10/16/18at 17:28; Admin Dose 5 MG; Start 10/11/18 at 22:30 Clopidogrel Bisulfate (plaVIX) 75 mg DAILY PO Last administered on 10/17/18 08:59; Admin Dose 75 MG; Start 10/12/18 at 09:00 Docusate Sodium (Colace) 100 mg Q12H PRN PO .CONSTIPATION; Start 10/11/18 at 22:30 Finasteride (Proscar) 5 mg DAILY PO Last administered on 10/17/18 08:59; Admin Dose 5 MG; Start 10/12/18 at 09:00 Heparin Sodium (Porcine) (Heparin (5000 Units/1ml)) 5,000 unit Q12 SC Last administered on 10/17/18 21:18; Admin Dose 5,000 UNIT; Start 10/11/18 at 22:30 Acetaminophen/ Hydrocodone Bitart ([place] (5/325)) 1 tab Q6H PRN PO .MOD PAIN 4- 6 Last administered on 10/17/18at 10:22; Admin Dose 1 TAB; Start 10/11/18 at 22:30 Ibuprofen (Motrin) 600 mg Q6H PRN PO .PAIN 1-3 Last administered on 10/17/18 21:14; Admin Dose 600 MG; Start 10/11/18 at 22:30 Methylnaltrexone [place] (Relistor) 12 mg DAILY SC Last administered on 10/17/18 09:04; Admin Dose 12 MG; Start 10/12/18 at 09:00 Morphine Sulfate (morphine) 2 mg Q4H PRN IV .SEVERE PAIN 7-10; Start 10/11/18 at 22:30 Ondansetron HCl (Zofran Inj) 4 mg Q6H PRN IV NAUSEA/VOMITING; Start 10/11/18 at 22:30 Sodium Biphosphate/ Sodium Phosphate (Fleet Enema) 133 ml DAILY PRN [place] .CONSTIPATION; Start 10/11/18 at 22:30 Tamsulosin HCl (Flomax) 0.4 mg DAILY@2100 PO Last administered on 10/17/18 21:21; Admin Dose 0.4 MG; Start 10/11/18 at 22:30 Simethicone (Mylicon) 160 mg PC LUNCH PO Last administered on 10/17/18 12:03; Admin Dose 160 MG; Start 10/12/18 at 13:00 IV Flush (NS 3 ml) 3 ml PER PROTOCOL IV ; Start 10/11/18 at 23:00 Lactulose (Enulose) 20 gm DAILY PRN PO CONSTIPATION Last administered on 10/16/18 12:06; Admin Dose 20 GM; Start 10/12/18 at 06:30 Bisacodyl (Dulcolax Supp) 10 mg DAILY PRN [place] CONSTIPATION Last administered on 10/16/18 21:12; Admin Dose 10 MG; Start 10/12/18 at 06:30 Multivitamins/ Minerals (Theragran-M) 1 tab DAILY PO Last administered on 10/17/18 08:59; Admin Dose 1 TAB; Start 10/13/18 at 09:00 Ascorbic Acid (Vitamin C) 250 mg DAILY PO Last administered on 10/17/18 08:59; Admin Dose 250 MG; Start 10/13/18 at 09:00 Zinc Sulfate (Zinc Sulfate) 220 mg DAILY PO Last administered on 10/17/18 08:59; Admin Dose 220 MG; Start 10/13/18 at 09:00 Losartan Potassium (Cozaar) 12.5 mg BID PO Last administered on 5/20/19at 21:16; Admin Dose 12.5 MG; Start 10/14/18 at 21:00 Diltiazem HCl (Cardizem Cd) 120 mg QAM PO ; Start 10/16/18 at 09:00 [facility] This patient art... PRN PRN XX WOUND CARE; Start 10/16/18 at 15:30 Polyethylene Glycol (Miralax) 17 gm WITH LUNCH PO Last administered on 10/17/18at 12:03; Admin Dose 17 GM; Start 10/17/18 at 12:00 Bisacodyl (Dulcolax) 10 mg DAILY PO ; Start 10/18/18 at 09:00 Metoprolol Tartrate (Lopressor) 25 mg BID PO Last administered on 10/17/18at 21:16; Admin Dose 25 MG; Start 10/17/18 at 21:00 Assessment/Plan Additional Assessment/Plan Rehab- Major multiple fracture with right humeral fracture in addition to right intertrochanteric hip fracture status post intramedullary nailing. Continue rehab interdisciplinary rehab Anemia Acute pain syndrome. Coronary artery disease. Atrial fibrillation. Aortic stenosis. Hypertension. Hyperlipidemia. BPH. Gastroesophageal reflux disease. Chronic kidney disease. JACI SOLORIO MD October 18, 2018 08:18
[2018-10-18] MEDS: HYDROCODONE/APAP (5/325) TAB PO PRN ×2 (08:19→12:19)
[2018-10-18] MEDS: ZINC SULFATE 220 MG CAP PO SCH (08:19)
[2018-10-18] MEDS: CLOPIDOGREL 75 MG TAB PO SCH (08:19)
[2018-10-18] MEDS: LOSARTAN 25 MG TAB PO SCH ×2 (08:20→21:58)
[2018-10-18] MEDS: FINASTERIDE 5 MG TAB PO SCH (08:21)
[2018-10-18] MEDS: MULTIVITAMINS/MINERALS TAB PO SCH (08:22)
[2018-10-18] MEDS: ASCORBIC ACID 250 MG TAB PO SCH (08:22)
[2018-10-18] MEDS: HEPARIN 5,000 UNIT/1 ML VIAL SC SCH ×2 (08:24→22:00)
[2018-10-18] MEDS: METHYLNALTREXONE 12 MG/0.6 ML VIAL SC SCH (08:28)
[2018-10-18] MEDS: AMIODARONE 200 MG TAB PO SCH (08:29)
[2018-10-18] MEDS: DILTIAZEM (CD) 120 MG CAP PO SCH (08:31)
[2018-10-18] MEDS: METOPROLOL 25 MG TAB PO SCH ×2 (08:32→21:58)
[2018-10-18] MEDS ORDERED: CLOPIDOGREL 75 MG TAB PO SCH (09:00)
[2018-10-18] MEDS: POLYETHYLENE GLYCOL 17 GM PACKET PO SCH (12:00)
--- NOTE | 2018-10-18 13:57 | CONS ---
Consult Date/Type/Reason Admit Date/Time October 11, 2018 at 20:30 Initial Consult Date Requesting Provider: FREEDOM REYES MD Date/Time of Note DATE: 10/18/18 TIME: 13:55 Subjective No acute events - pt doing well - ambulatory - no CP - in good fluid status - compliant with rehab - gradual steady improvement. ROS: No fever, no chills, no nausea, no vomiting, no diarrhea/constipation No recent weight changes No chest pain, no PND, no orthopnea No dizziness, blurred vision No thirst, no heat or cold intolerance Objective Vitals Vital Signs Date Temp Pulse Resp B/P (MAP) Pulse Ox O2 O2 Flow FiO2 Time Delivery Rate 10/18/18 97.8 80 18 125/93 98 Room Air 08:00 (104) Intake and Output 10/17/18 10/17/18 10/18/18 1515:00 23:00 07:00 IntakeIntake Total 340 ml OutputOutput Total 750 ml BalanceBalance -410 ml Exam General: WN/WD/NAD, AOx 3 HEENT: Unicetric/atraumatic/EOMI ( follows commands) NECK: JVD elevated, no thyromegaly Lymph: no lymphadenopathy HEART: regular with no S3, II/ systolic murmur at apex LUNGS: Coarse sounds ABD: soft, NT, ND, +BS : Intact Neuro: non focal SKIN: chronic changes EXT: trace edema, in sling Results/Medications Result Diagram: 10/16/1837 10/16/18 0637 Home Meds Reported Medications Tamsulosin Hcl* (Flomax*) 0.4 Mg Cap.er.24h, 0.4 MG PO DAILY, CAP 10/01/18 Pantoprazole* (Protonix*) 40 Mg Tablet.dr, 40 MG PO DAILY, TAB 10/01/18 Isosorbide Mononitrate* (Isosorbide Mononitrate*) 30 Mg Tab.er.24h, 30 MG PO DAILY, TAB 10/01/18 Clopidogrel Bisulfate (Clopidogrel) 75 Mg Tablet, 75 MG PO DAILY, #30 TAB 10/01/18 Diltiazem Hcl* (Cardizem CD*) 180 Mg Cap.sr.24h, 180 MG PO DAILY, #30 CAP 10/01/18 Amiodarone Hcl* (Amiodarone Hcl*) 200 Mg Tablet, 200 MG PO DAILY, #30 TAB 10/01/18 Medications Current Medications Acetaminophen (Tylenol Tab) 650 mg Q6H PRN PO .PAIN 1-3 OR TEMP; Start 10/11/18 at 22:30 Amiodarone HCl (Cordarone) 200 mg DAILY PO Last administered on 10/17/18 08:59; Admin Dose 200 MG; Start 10/12/18 at 09:00 Bisacodyl (Dulcolax) 5 mg DAILY PRN PO .CONSTIPATION Last administered on 10/16/18 17:28; Admin Dose 5 MG; Start 10/11/18 at 22:30 Clopidogrel Bisulfate (plaVIX) 75 mg DAILY PO Last administered on 10/18/18 08:19; Admin Dose 75 MG; Start 10/12/18 at 09:00 Docusate Sodium (Colace) 100 mg Q12H PRN PO .CONSTIPATION; Start 10/11/18 at 22:30 Finasteride (Proscar) 5 mg DAILY PO Last administered on 10/18/18 08:21; Admin Dose 5 MG; Start 10/12/18 at 09:00 Heparin Sodium (Porcine) (Heparin (5000 Units/1ml)) 5,000 unit Q12 SC Last administered on 10/18/18 08:24; Admin Dose 5,000 UNIT; Start 10/11/18 at 22:30 Acetaminophen/ Hydrocodone Bitart ([place] (5/325)) 1 tab Q6H PRN PO .MOD PAIN 4- 6 Last administered on 10/18/18 12:19; Admin Dose 1 TAB; Start 10/11/18 at 22:30 Ibuprofen (Motrin) 600 mg Q6H PRN PO .PAIN 1-3 Last administered on 10/17/18 21:14; Admin Dose 600 MG; Start 10/11/18 at 22:30 Methylnaltrexone [place] (Relistor) 12 mg DAILY SC Last administered on at 09:04; Admin Dose 12 MG; Start 10/12/18 at 09:00 Morphine Sulfate (morphine) 2 mg Q4H PRN IV .SEVERE PAIN 7-10; Start 10/11/18 at 22:30 Ondansetron HCl (Zofran Inj) 4 mg Q6H PRN IV NAUSEA/VOMITING; Start 10/11/18 at 22:30 Sodium Biphosphate/ Sodium Phosphate (Fleet Enema) 133 ml DAILY PRN [place] .CONSTIPATION; Start 10/11/18 at 22:30 Tamsulosin HCl (Flomax) 0.4 mg DAILY@2100 PO Last administered on 10/17/18 21:21; Admin Dose 0.4 MG; Start 10/11/18 at 22:30 Simethicone (Mylicon) 160 mg PC LUNCH PO Last administered on 10/18/18 12:20; Admin Dose 160 MG; Start 10/12/18 at 13:00 IV Flush (NS 3 ml) 3 ml PER PROTOCOL IV ; Start 10/11/18 at 23:00 Lactulose (Enulose) 20 gm DAILY PRN PO CONSTIPATION Last administered on 10/16/18 12:06; Admin Dose 20 GM; Start 10/12/18 at 06:30 Bisacodyl (Dulcolax Supp) 10 mg DAILY PRN [place] CONSTIPATION Last administered on 10/16/18 21:12; Admin Dose 10 MG; Start 10/12/18 at 06:30 Multivitamins/ Minerals (Theragran-M) 1 tab DAILY PO Last administered on 10/18/18 08:22; Admin Dose 1 TAB; Start 10/13/18 at 09:00 Ascorbic Acid (Vitamin C) 250 mg DAILY PO Last administered on 10/18/18 08:22; Admin Dose 250 MG; Start 10/13/18 at 09:00 Zinc Sulfate (Zinc Sulfate) 220 mg DAILY PO Last administered on 10/18/18 08:19; Admin Dose 220 MG; Start 10/13/18 at 09:00 Losartan Potassium (Cozaar) 12.5 mg BID PO Last administered on 10/18/18 08:20; Admin Dose 12.5 MG; Start 10/14/18 at 21:00 Diltiazem HCl (Cardizem Cd) 120 mg QAM PO Last administered on 10/18/18 08:31; Admin Dose 120 MG; Start 10/16/18 at 09:00 Miscellaneous Information (Pending [facility] Order For Wound Care) This patient art... PRN PRN XX WOUND CARE; Start 10/16/18 at 15:30 Polyethylene Glycol (Miralax) 17 gm WITH LUNCH PO Last administered on 5/20/19at 12:03; Admin Dose 17 GM; Start 10/17/18 at 12:00 Bisacodyl (Dulcolax) 10 mg DAILY PO Last administered on 10/18/18at 08:18; Admin Dose 10 MG; Start 10/18/18 at 09:00 Metoprolol Tartrate (Lopressor) 25 mg BID PO Last administered on 10/17/18at 21:16; Admin Dose 25 MG; Start 10/17/18 at 21:00 Assessment/Plan Hospital Course (Demo Recall) 1. Arlene-op : 3/Echo EF 30% with moderate . Was high risk. Now is post-op s/p LE ORIF - tolerated procedure well- will monitor clinically now. Doing well, con't to recover. Con't to improve. Doing well with PT. Not in CHF by exam. Now in rehab, doing well. Good fluid status now. Doing wel- steady gradual improvement. 2. Abnormal electrocardiogram with nonspecific ST abnormality, assess for acute coronary syndrome.-neg trop x 3 - intermittently paced. Treated. 3. Atrial fibrillation, currently rate controlled at this time, not on systemic anticoagulation at baseline due to possible bleeding complications - rate controlled. STABLE - off tele now. Treated. 4. History of percutaneous transluminal coronary angioplasty and stent placem ent to the right coronary artery in 2016 and to LCX 2017(now known to be occluded chronically with CIG[employer] HEAD PEGGER of LAD that is collateralized by RCA after discussion with DR GARCIA this AM) - tolerated procedure well. NO further interventions planned. NOW BP better. 5. 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 Status post fall, mechanical by description.On meds now. 7. H/O BIV/ICD - with good function. Outpt f/upas needed. 8. Constipation - primary team follows. Lactulose given. JOSIAH SAUL MD October 18, 2018 13:57
--- NOTE | 2018-10-18 16:47 | PN ---
Date/Time of Note Date/Time of Note DATE: 10/18/18 TIME: 16:23 Assessment/Plan Lines/Catheters IV Catheter Type (from Nrsg): Saline Lock Mcgregor in Place (from Nrs): No Assessment/Plan Chief Complaint/Hosp Course 2 weeks status post intramedullary nail of right IT fracture and nonoperative treatment of right proximal humerus fracture. Overall he is doing very well. He is in acute rehab unit. X-rays today demonstrate continued nondisplaced right proximal humerus fracture and well reduced right IT fracture status post IM nailing. Continue physical therapy and Occupational Therapy. Begin pendulums for right upper extremity. Continue weightbearing as tolerated for right lower extremity. Nonweightbearing for right upper extremity. Continue DVT prophylaxis. Follow- up in clinic in 4 weeks. Subjective 24 Hr Interval Summary Patient doing well No acute events overnight Pain is well controlled Exam/Review of Systems Vital Signs Vitals Vital Signs Date Temp Pulse Resp B/P (MAP) Pulse Ox O2 O2 Flow FiO2 Time Delivery Rate 10/18/18 97.8 80 18 125/93 98 Room Air 08:00 (104) Intake and Output 10/17/18 10/17/18 10/18/18 1515:00 23:00 07:00 IntakeIntake Total 340 ml OutputOutput Total 750 ml BalanceBalance -410 ml Exam Free Text/Dictation Right upper extremity: In sling. Tender to palpation proximal humerus. Sensation intact to light touch in a median, ulnar, radial, and axillary distribution. Motor is intact in a median, ulnar, radial, anterior interosseous, and posterior interosseous nerve distribution. Radial and ulnar artery are +2. Wrist extension and flexion are intact. Compartments are soft. Right lower extremity: Incisions: Clean, dry, and intact, no erythema. Healing well Sensation intact to light touch in a sural, saphenous, deep peroneal, superficial peroneal, medial and lateral plantar nerve distribution. Motor is intact, patient able to dorsiflex and plantarflex ankle and extend and flex great toe. Dorsalis Pedis pulse +2, Brisk capillary refill. Compartments are soft. Calves non-tender to palpation bilaterally. Results Result Diagram: 10/16/18 0637 10/16/18 0637 Results Last 24 Hrs 2 views of the right femur were obtained today and personally reviewed: Demonstrate postsurgical intramedullary nail of right IT fracture. Reduction is maintained. No hardware complications. 2 views of the right shoulder were obtained and personally reviewed: Demonstrates nondisplaced proximal humerus fracture. Unchanged from prior x- rays. HAM ROBLES MD October 18, 2018 16:33
--- NOTE | 2018-10-18 18:26 | PN ---
Date/Time of Note Date/Time of Note DATE: 10/18/18 TIME: 18:23 Assessment/Plan VTE Prophylaxis Risk score (from [facility])>0 risk: 16 SCD applied (from [facility]): Yes SCD contraindicated: low risk/ambulating Pharmacological prophylaxis: heparin Pharm contraindication: low risk/ambulating Lines/Catheters [facility]from [facility] Saline Lock Urinary Cath still in place: No Assessment/Plan Problems: (1) Atrial fibrillation Status: Chronic Comment: Rate is controlled on combination beta-lenka with diltiazem and amiodarone. Given the ejection fraction consider replacing the diltiazem with digoxin. As per cardiology Qualifiers: Atrial fibrillation type: paroxysmal Qualified Codes: I48.0 - Paroxysmal atrial fibrillation (2) Aortic stenosis Status: Chronic Comment: Stable and tolerating current medication regimen. Qualifiers: Cardiac valve disease etiology: nonrheumatic Qualified Codes: I35.0 - Nonrheumatic aortic (valve) stenosis (3) Diastolic dysfunction Status: Chronic Comment: Blood pressure adequately controlled. (4) Ejection fraction < 50% Status: Chronic Comment: Consideration of using digoxin so we can discontinue diltiazem for rate control and use more traditional medications for the cardiomyopathy. As p er cardiology (5) Essential (primary) hypertension Status: Chronic Comment: Adequate control (6) BPH (benign prostatic hypertrophy) with urinary retention Status: Chronic Comment: Well-controlled currently (7) Dyslipidemia Status: Chronic Comment: On treatment. (8) Right humeral fracture Status: Acute Comment: Stable and progressive Qualifiers: Encounter type: subsequent encounter Humerus Location: proximal Fracture type: closed Fracture morphology: other fracture Fracture alignment: nondisplaced Fracture healing: with routine healing Qualified Codes: S42.294D - Other nondisplaced fracture of upper end of right humerus, subsequent encounter for fracture with routine healing (9) Status post-operative repair of closed fracture of right hip Status: Acute Comment: Progressing with a protocol of the acute rehabilitation unit Result Diagram: 10/16/18 0637 10/16/18 0637 Subjective 24 Hr Interval Summary Free Text/Dictation Patient sleeping but easily awakened no complaints Constitutional: no complaints Respiratory: no complaints Cardiovascular: no complaints (Chest pain no palpitations no orthopnea no PND no syncope) Gastrointestinal: no complaints Exam/Review of Systems Exam Vitals Vital Signs Date Temp Pulse Resp B/P (MAP) Pulse Ox O2 O2 Flow FiO2 Time Delivery Rate 10/18/18 97.8 80 18 125/93 98 Room Air 08:00 (104) Intake and Output 10/17/18 10/17/18 10/18/18 1515:00 23:00 07:00 IntakeIntake Total 340 ml OutputOutput Total 750 ml BalanceBalance -410 ml Constitutional: alert, oriented Cardiovascular: nl pulses, irregular rhythm, murmurs/extra sounds (No change) Medications Medication Current Medications Acetaminophen (Tylenol Tab) 650 mg Q6H PRN PO .PAIN 1-3 OR TEMP; Start 10/11/18 at 22:30 Amiodarone HCl (Cordarone) 200 mg DAILY PO Last administered on 10/17/18 08:59; Admin Dose 200 MG; Start 10/12/18 at 09:00; Status Hold Bisacodyl (Dulcolax) 5 mg DAILY PRN PO .CONSTIPATION Last administered on 10/16/18 17:28; Admin Dose 5 MG; Start 10/11/18 at 22:30 Clopidogrel Bisulfate (plaVIX) 75 mg DAILY PO Last administered on 10/18/18 08 :19; Admin Dose 75 MG; Start 10/12/18 at 09:00 Docusate Sodium (Colace) 100 mg Q12H PRN PO .CONSTIPATION; Start 10/11/18 at 22:30 Finasteride (Proscar) 5 mg DAILY PO Last administered on 10/18/18 08:21; Admin Dose 5 MG; Start 10/12/18 at 09:00 Heparin Sodium (Porcine) (Heparin (5000 Units/1ml)) 5,000 unit Q12 SC Last administered on 10/18/18 08:24; Admin Dose 5,000 UNIT; Start 10/11/18 at 22:30 Acetaminophen/ Hydrocodone Bitart ([place] (5/325)) 1 tab Q6H PRN PO .MOD PAIN 4- 6 Last administered on 10/18/18 12:19; Admin Dose 1 TAB; Start 10/11/18 at 22:30 Ibuprofen (Motrin) 600 mg Q6H PRN PO .PAIN 1-3 Last administered on 10/17/18 21:14; Admin Dose 600 MG; Start 10/11/18 at 22:30 Methylnaltrexone [place] (Relistor) 12 mg DAILY SC Last administered on 10/17/18 09:04; Admin Dose 12 MG; Start 10/12/18 at 09:00 Morphine Sulfate (morphine) 2 mg Q4H PRN IV .SEVERE PAIN 7-10; Start 10/11/18 at 22:30 Ondansetron HCl (Zofran Inj) 4 mg Q6H PRN IV NAUSEA/VOMITING; Start 10/11/18 at 22:30 Sodium Biphosphate/ Sodium Phosphate (Fleet Enema) 133 ml DAILY PRN [place] .CONSTIPATION; Start 10/11/18 at 22:30 Tamsulosin HCl (Flomax) 0.4 mg DAILY@2100 PO Last administered on 10/17/18 21:21; Admin Dose 0.4 MG; Start 10/11/18 at 22:30 Simethicone (Mylicon) 160 mg PC LUNCH PO Last administered on 10/18/18 12:20; Admin Dose 160 MG; Start 10/12/18 at 13:00 IV Flush (NS 3 ml) 3 ml PER PROTOCOL IV ; Start 10/11/18 at 23:00 Lactulose (Enulose) 20 gm DAILY PRN PO CONSTIPATION Last administered on 10/16/18 12:06; Admin Dose 20 GM; Start 10/12/18 at 06:30 Bisacodyl (Dulcolax Supp) 10 mg DAILY PRN [place] CONSTIPATION Last administered on 10/16/18 21:12; Admin Dose 10 MG; Start 10/12/18 at 06:30 Multivitamins/ Minerals (Theragran-M) 1 tab DAILY PO Last administered on 10/18/18 08:22; Admin Dose 1 TAB; Start 10/13/18 at 09:00 Ascorbic Acid (Vitamin C) 250 mg DAILY PO Last administered on 10/18/18 08:22; Admin Dose 250 MG; Start 10/13/18 at 09:00 Zinc Sulfate (Zinc Sulfate) 220 mg DAILY PO Last administered on 10/18/18 08:19; Admin Dose 220 MG; Start 10/13/18 at 09:00 Losartan Potassium (Cozaar) 12.5 mg BID PO Last administered on 10/18/18 08:20; Admin Dose 12.5 MG; Start 10/14/18 at 21:00 Diltiazem HCl (Cardizem Cd) 120 mg QAM PO Last administered on 10/18/18 08:31; Admin Dose 120 MG; Start 10/16/18 at 09:00 Miscellaneous Information (Pending [facility] Order For Wound Care) This patient art... PRN PRN XX WOUND CARE; Start 10/16/18 at 15:30 Polyethylene Glycol (Miralax) 17 gm WITH LUNCH PO Last administered on 10/17/18at 12:03; Admin Dose 17 GM; Start 10/17/18 at 12:00 Bisacodyl (Dulcolax) 10 mg DAILY PO Last administered on 10/18/18 08:18; Admin Dose 10 MG; Start 10/18/18 at 09:00 Metoprolol Tartrate (Lopressor) 25 mg BID PO Last administered on 10/17/18at 21:16; Admin Dose 25 MG; Start 10/17/18 at 21:00 LATIA RICE MD October 18, 2018 18:26
[2018-10-18 20:00] VITALS: BP 110/60; PULSE 80; RESP 16
[2018-10-18] MEDS: IBUPROFEN 600 MG TAB PO PRN (21:59)
[2018-10-18] MEDS: TAMSULOSIN (SR) 0.4 MG CAP PO SCH (22:01)
[2018-10-19 02:10] VITALS: BP 119/74; PULSE 80; RESP 16
[2018-10-19 07:45] VITALS: BP 120/88; PULSE 91; RESP 18
[2018-10-19] MEDS: ZINC SULFATE 220 MG CAP PO SCH (08:36)
[2018-10-19] MEDS: ASCORBIC ACID 250 MG TAB PO SCH (08:37)
[2018-10-19] MEDS: BISACODYL (EC) 5 MG TAB PO SCH (08:37)
[2018-10-19] MEDS: LOSARTAN 25 MG TAB PO SCH ×2 (08:37→21:48)
[2018-10-19] MEDS: DILTIAZEM (CD) 120 MG CAP PO SCH (08:37)
[2018-10-19] MEDS: FINASTERIDE 5 MG TAB PO SCH (08:37)
[2018-10-19] MEDS: MULTIVITAMINS/MINERALS TAB PO SCH (08:37)
[2018-10-19] MEDS: CLOPIDOGREL 75 MG TAB PO SCH (08:37)
[2018-10-19] MEDS: METOPROLOL 25 MG TAB PO SCH ×2 (08:38→21:47)
[2018-10-19] MEDS: METHYLNALTREXONE 12 MG/0.6 ML VIAL SC SCH (08:38)
[2018-10-19] MEDS: HEPARIN 5,000 UNIT/1 ML VIAL SC SCH ×2 (08:39→21:48)
[2018-10-19] MEDS: HYDROCODONE/APAP (5/325) TAB PO PRN (09:56)
[2018-10-19] MEDS ORDERED: MULTIVITAMINS THERAPEUTIC TAB PO SCH (10:30)
[2018-10-19] MEDS ORDERED: ZINC SULFATE 220 MG CAP PO SCH (10:30)
--- NOTE | 2018-10-19 10:47 | PN ---
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 Patient reports that he does heel slides frequently to exercise his legs (bilaterally). He was instructed to avoid heel slides, as he has developed bilateral heel blisters. He agrees to avoid heel slides, and wear heel protectors Objective Vital Signs Date Temp Pulse Resp B/P (MAP) Pulse Ox O2 O2 Flow FiO2 Time Delivery Rate 10/19/18 97.6 91 18 120/88 96 Room Air 07:45 (99) Intake and Output 10/18/18 10/18/18 10/19/18 1414:59 22:59 06:59 IntakeIntake Total 400 ml 300 ml OutputOutput Total 800 ml BalanceBalance 400 ml -500 ml Exam pulm-cta abd-soft integ- bilateral posterior fluid filled blisters on heels with surrounding blanchable redness mod/max transfer amb 8 feet Results/Medications Result Diagram: 10/16/1863610/16/18636 Medications Current Medications Acetaminophen (Tylenol Tab) 650 mg Q6H PRN PO .PAIN 1-3 OR TEMP; Start 10/11/18 at 22:30 Amiodarone HCl (Cordarone) 200 mg DAILY PO Last administered on 10/17/18at 08:59; Admin Dose 200 MG; Start 10/12/18 at 09:00; Status Hold Bisacodyl (Dulcolax) 5 mg DAILY PRN PO .CONSTIPATION Last administered on 10/16/18at 17:28; Admin Dose 5 MG; Start 10/11/18 at 22:30 Clopidogrel Bisulfate (plaVIX) 75 mg DAILY PO Last administered on 10/19/18at 08:37; Admin Dose 75 MG; Start 10/12/18 at 09:00 Docusate Sodium (Colace) 100 mg Q12H PRN PO .CONSTIPATION; Start 10/11/18 at 22:30 Finasteride (Proscar) 5 mg DAILY PO Last administered on 10/19/18at 08:37; Admin Dose 5 MG; Start 10/12/18 at 09:00 Heparin Sodium (Porcine) (Heparin (5000 Units/1ml)) 5,000 unit Q12 SC Last administered on 10/19/18at 08:39; Admin Dose 5,000 UNIT; Start 10/11/18 at 22:30 Acetaminophen/ Hydrocodone Bitart ([place] (5/325)) 1 tab Q6H PRN PO .MOD PAIN 4- 6 Last administered on 10/19/18 09:56; Admin Dose 1 TAB; Start 10/11/18 at 22:30 Ibuprofen (Motrin) 600 mg Q6H PRN PO .PAIN 1-3 Last administered on 10/18/18 21:59; Admin Dose 600 MG; Start 10/11/18 at 22:30 Methylnaltrexone [place] (Relistor) 12 mg DAILY SC Last administered on 10/17/18 09:04; Admin Dose 12 MG; Start 10/12/18 at 09:00 Morphine Sulfate (morphine) 2 mg Q4H PRN IV .SEVERE PAIN 7-10; Start 10/11/18 at 22:30 Ondansetron HCl (Zofran Inj) 4 mg Q6H PRN IV NAUSEA/VOMITING; Start 10/11/18 at 22:30 Sodium Biphosphate/ Sodium Phosphate (Fleet Enema) 133 ml DAILY PRN [place] .CONSTIPATION; Start 10/11/18 at 22:30 Tamsulosin HCl (Flomax) 0.4 mg DAILY@2100 PO Last administered on 10/18/18 22:01; Admin Dose 0.4 MG; Start 10/11/18 at 22:30 Simethicone (Mylicon) 160 mg PC LUNCH PO Last administered on 10/18/18 12:20; Admin Dose 160 MG; Start 10/12/18 at 13:00 IV Flush (NS 3 ml) 3 ml PER PROTOCOL IV ; Start 10/11/18 at 23:00 Lactulose (Enulose) 20 gm DAILY PRN PO CONSTIPATION Last administered on 10/16/18 12:06; Admin Dose 20 GM; Start 10/12/18 at 06:30 Bisacodyl (Dulcolax Supp) 10 mg DAILY PRN [place] CONSTIPATION Last administered on 10/16/18 21:12; Admin Dose 10 MG; Start 10/12/18 at 06:30 Multivitamins/ Minerals (Theragran-M) 1 tab DAILY PO Last administered on 10/19/18 08:37; Admin Dose 1 TAB; Start 10/13/18 at 09:00 Ascorbic Acid (Vitamin C) 250 mg DAILY PO Last administered on 10/19/18 08:37; Admin Dose 250 MG; Start 10/13/18 at 09:00 Zinc Sulfate (Zinc Sulfate) 220 mg DAILY PO Last administered on 10/19/18 08:36; Admin Dose 220 MG; Start 10/13/18 at 09:00 Losartan Potassium (Cozaar) 12.5 mg BID PO Last administered on 10/18/18 21:58; Admin Dose 12.5 MG; Start 10/14/18 at 21:00 Diltiazem HCl (Cardizem Cd) 120 mg QAM PO Last administered on 10/18/18 08:31; Admin Dose 120 MG; Start 10/16/18 at 09:00 Miscellaneous Information (Pending [facility] Order For Wound Care) This patient art... PRN PRN XX WOUND CARE; Start 10/16/18 at 15:30 Polyethylene Glycol (Miralax) 17 gm WITH LUNCH PO Last administered on 10/17/18 12:03; Admin Dose 17 GM; Start 10/17/18 at 12:00 Bisacodyl (Dulcolax) 10 mg DAILY PO Last administered on 10/19/18 08:37; Admin Dose 10 MG; Start 10/18/18 at 09:00 Metoprolol Tartrate (Lopressor) 25 mg BID PO Last administered on 10/18/18 21:58; Admin Dose 25 MG; Start 10/17/18 at 21:00 Assessment/Plan Additional Assessment/Plan Rehab- Major multiple fracture with right humeral fracture in addition to right intertrochanteric hip fracture status post intramedullary nailing. Continue rehab activities, but avoid heel slide due to friction blister. Integ- Bilateral heel with friction induced blisters. Patient instructed to avoid heel slides and also to use healmedix heel protectors at all times except when transferring or walking. Anemia Acute pain syndrome. Coronary artery disease. Atrial fibrillation. Aortic stenosis. Hypertension. Hyperlipidemia. BPH. Gastroesophageal reflux disease. Chronic kidney disease. JACI SOLORIO MD October 19, 2018 10:47
[2018-10-19] MEDS ORDERED: ASCORBIC ACID 250 MG TAB PO ONE (11:00)
[2018-10-19] MEDS: POLYETHYLENE GLYCOL 17 GM PACKET PO SCH (12:24)
[2018-10-19] MEDS: FOLIC ACID 1 MG TAB PO SCH (12:24)
--- NOTE | 2018-10-19 13:47 | PN ---
Date/Time of Note Date/Time of Note DATE: 10/19/18 TIME: 13:43 Assessment/Plan VTE Prophylaxis Risk score (from [facility] [place] [place])>0 risk: 11 SCD applied (from [facility] [place] [place]): No SCD contraindicated: low risk/ambulating Pharmacological prophylaxis: heparin Pharm contraindication: low risk/ambulating Lines/Catheters IV C[facility] Type (from [facility] Saline Lock Urinary Cath still in place: No Assessment/Plan Problems: (1) Aortic stenosis Status: Chronic Comment: Stable on medication regimen. Qualifiers: Cardiac valve disease etiology: nonrheumatic Qualified Codes: I35.0 - Nonrheumatic aortic (valve) stenosis (2) Atrial fibrillation Status: Chronic Comment: As per Dr. Barragan and Dr. Campbell Qualifiers: Atrial fibrillation type: paroxysmal Qualified Codes: I48.0 - Paroxysmal atrial fibrillation (3) Ejection fraction < 50% Status: Chronic Comment: Using both beta-blockade and afterload load reduction therapy with angiotensin II receptor [place] (4) Diastolic dysfunction Status: Chronic Comment: Adequate blood pressure control (5) BPH (benign prostatic hypertrophy) with urinary retention Status: Chronic Comment: Adequate control (6) Status post-operative repair of closed fracture of right hip Status: Acute Comment: Progressing nicely (7) Right humeral fracture Status: Acute Comment: Starting with therapy Qualifiers: Encounter type: subsequent encounter Humerus Location: proximal Fracture type: closed Fracture morphology: other fracture Fracture alignment: nondisplaced Fracture healing: with routine healing Qualified Codes: S42.294D - Other nondisplaced fracture of upper end of right humerus, subsequent encounter for fracture with routine healing Result Diagram: 10/16/18 0637 10/16/18 0637 Subjective 24 Hr Interval Summary Free Text/Dictation Patient reports doing well. Respiratory: no complaints Cardiovascular: no complaints Gastrointestinal: no complaints Genitourinary: no complaints Exam/Review of Systems Exam Vitals Vital Signs Date Temp Pulse Resp B/P (MAP) Pulse Ox O2 O2 Flow FiO2 Time Delivery Rate 10/19/18 97.6 91 18 120/88 96 Room Air 07:45 (99) Intake and Output 10/18/18 10/18/18 10/19/18 1515:00 23:00 07:00 IntakeIntake Total 400 ml 300 ml OutputOutput Total 800 ml BalanceBalance 400 ml -500 ml Constitutional: alert, oriented Respiratory: clear to auscultation, normal air movement Cardiovascular: nl pulses, irregular rhythm, murmurs/extra sounds (No change in crescendo decrescendo murmur) Medications Medication Current Medications Acetaminophen (Tylenol Tab) 650 mg Q6H PRN PO .PAIN 1-3 OR TEMP; Start 10/11/18 at 22:30 Amiodarone HCl (Cordarone) 200 mg DAILY PO Last administered on 10/17/18 08:59; Admin Dose 200 MG; Start 10/12/18 at 09:00; Status Hold Bisacodyl (Dulcolax) 5 mg DAILY PRN PO .CONSTIPATION Last administered on 10/16/18 17:28; Admin Dose 5 MG; Start 10/11/18 at 22:30 Clopidogrel Bisulfate (plaVIX) 75 mg DAILY PO Last administered on 10/19/18 08:37; Admin Dose 75 MG; Start 10/12/18 at 09:00 Docusate Sodium (Colace) 100 mg Q12H PRN PO .CONSTIPATION; Start 10/11/18 at 22:30 Finasteride (Proscar) 5 mg DAILY PO Last administered on 10/19/18 08:37; Admin Dose 5 MG; Start 10/12/18 at 09:00 Heparin Sodium (Porcine) (Heparin (5000 Units/1ml)) 5,000 unit Q12 SC Last administered on 10/19/18 08:39; Admin Dose 5,000 UNIT; Start 10/11/18 at 22:30 Acetaminophen/ Hydrocodone Bitart ([place] (5/325)) 1 tab Q6H PRN PO .MOD PAIN 4- 6 Last administered on 10/19/18 09:56; Admin Dose 1 TAB; Start 10/11/18 at 22:30 Ibuprofen (Motrin) 600 mg Q6H PRN PO .PAIN 1-3 Last administered on 10/18/18 21:59; Admin Dose 600 MG; Start 10/11/18 at 22:30 Methylnaltrexone [place] (Relistor) 12 mg DAILY SC Last administered on 10/17/18 09:04; Admin Dose 12 MG; Start 10/12/18 at 09:00 Morphine Sulfate (morphine) 2 mg Q4H PRN IV .SEVERE PAIN 7-10; Start 10/11/18 at 22:30 Ondansetron HCl (Zofran Inj) 4 mg Q6H PRN IV NAUSEA/VOMITING; Start 10/11/18 at 22:30 Sodium Biphosphate/ Sodium Phosphate (Fleet Enema) 133 ml DAILY PRN [place] .CONSTIPATION; Start 10/11/18 at 22:30 Tamsulosin HCl (Flomax) 0.4 mg DAILY@2100 PO Last administered on 10/18/18 22:01; Admin Dose 0.4 MG; Start 10/11/18 at 22:30 Simethicone (Mylicon) 160 mg PC LUNCH PO Last administered on 10/19/18 12:24; Admin Dose 160 MG; Start 10/12/18 at 13:00 IV Flush (NS 3 ml) 3 ml PER PROTOCOL IV ; Start 10/11/18 at 23:00 Lactulose (Enulose) 20 gm DAILY PRN PO CONSTIPATION Last administered on 10/16/18 12:06; Admin Dose 20 GM; Start 10/12/18 at 06:30 Bisacodyl (Dulcolax Supp) 10 mg DAILY PRN [place] CONSTIPATION Last administered on 10/16/18 21:12; Admin Dose 10 MG; Start 10/12/18 at 06:30 Multivitamins/ Minerals (Theragran-M) 1 tab DAILY PO Last administered on 10/19/18 08:37; Admin Dose 1 TAB; Start 10/13/18 at 09:00 Zinc Sulfate (Zinc Sulfate) 220 mg DAILY PO Last administered on 10/19/18 08:36; Admin Dose 220 MG; Start 10/13/18 at 09:00 Losartan Potassium (Cozaar) 12.5 mg BID PO Last administered on 10/18/18 21:58; Admin Dose 12.5 MG; Start 10/14/18 at 21:00 Diltiazem HCl (Cardizem Cd) 120 mg QAM PO Last administered on 10/18/18 08:31; Admin Dose 120 MG; Start 10/16/18 at 09:00 Miscellaneous Information (Pending [facility] Order For Wound Care) This patient art... PRN PRN XX WOUND CARE; Start 10/16/18 at 15:30 Polyethylene Glycol (Miralax) 17 gm WITH LUNCH PO Last administered on 10/19/18 12:24; Admin Dose 17 GM; Start 10/17/18 at 12:00 Bisacodyl (Dulcolax) 10 mg DAILY PO Last administered on 10/19/18at 08:37; Admin Dose 10 MG; Start 10/18/18 at 09:00 Metoprolol Tartrate (Lopressor) 25 mg BID PO Last administered on 10/18/18at 21:58; Admin Dose 25 MG; Start 10/17/18 at 21:00 Ascorbic Acid (Vitamin C) 500 mg DAILY PO ; Start 10/20/18 at 09:00 Folic Acid (Folic Acid) 1 mg DAILY PO Last administered on 10/19/18at 12:24; Admin Dose 1 MG; Start 10/19/18 at 10:30 LATIA RICE MD October 19, 2018 13:47
--- NOTE | 2018-10-19 15:50 | CONS ---
Assessment/Plan Assessment/Plan Hospital Course (Demo Recall) 1. Preoperative evaluation prior to lower extremity open reduction internal fixation for right hip fracture.-neg trop x 3/Echo EF 30% with moderate . Was high risk. Now is post-op s/p LE ORIF 2. Abnormal electrocardiogram with nonspecific ST abnormality, assess for acute coronary syndrome.-neg trop x 3 3. Atrial fibrillation, currently rate controlled at this time, not on systemic anticoagulation at baseline due to possible bleeding complications. 4. History of percutaneous transluminal coronary angioplasty and stent placement to the right coronary artery in 2016 and to LCX 2017(now known to be occluded chronically with SEAMLESS TUBE ROLLER of LAD that is collateralized by RCA after discussion with DR GARCIA this AM) 5. 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 Status post fall, mechanical by description. 7. Right hip fracture. 8. Right humeral fracture. 9. H/O BIV/ICD 10. HTN-holding of antihypertensives today Recc: -Now transferred to rehab -Continue patient dilt and BB as tolerated -Continue losartan afterload reduction as tolerated -Follow volume status clsoely -pain control -Follow volume status and spot dose lasix as necessary -PT/OT -resume outpatient plavix as tolerated Consultation Date/Type/Reason Admit Date/Time October 11, 2018 at 20:30 Initial Consult Date 10/11/18 Type of Consult Cardiology Reason for Consultation HTN/CHF/Cardiomyopathy Requesting Provider: FREEDOM REYES MD Date/Time of Note DATE: 10/19/18 TIME: 15:46 Exam/Review of Systems Vital Signs Vitals Vital Signs Date Temp Pulse Resp B/P (MAP) Pulse Ox O2 O2 Flow FiO2 Time Delivery Rate 10/19/18 97.6 91 18 120/88 96 Room Air 07:45 (99) Intake and Output 10/18/18 10/18/18 10/19/18 1515:00 23:00 07:00 IntakeIntake Total 400 ml 300 ml OutputOutput Total 800 ml BalanceBalance 400 ml -500 ml Exam Exam Review of Systems: CONSTITUTIONAL: No fevers, chills. PULMONARY: No sob CARDIOVASCULAR: No chest pain/palpitations GASTROINTESTINAL: No nausea/vomiting. GENITOURINARY: No hematuria/dysuria. MUSCULOSKELETAL: No myagias/arthalgias. PSYCHIATRIC: The patient denies depression. NEUROLOGIC: No weakness Constitutional: alert Psych: no complaints Head: normocephalic ENMT: mucosa pink and moist Neck: supple, jvd Respiratory: diminished breath sounds Cardiovascular: regular rate and rhythm Gastrointestinal: soft, non-tender Musculoskeletal: muscle tone Extremities: edema (none) Neurological: other (No focal deficits) Labs Result Diagram: 10/16/1863610/16/18636 Medications Medications Current Medications Acetaminophen (Tylenol Tab) 650 mg Q6H PRN PO .PAIN 1-3 OR TEMP; Start 10/11/18 at 22:30 Amiodarone HCl (Cordarone) 200 mg DAILY PO Last administered on 10/17/18 08:59; Admin Dose 200 MG; Start 10/12/18 at 09:00; Status Hold Bisacodyl (Dulcolax) 5 mg DAILY PRN PO .CONSTIPATION Last administered on 10/16/18 17:28; Admin Dose 5 MG; Start 10/11/18 at 22:30 Clopidogrel Bisulfate (plaVIX) 75 mg DAILY PO Last administered on 10/19/18 08:37; Admin Dose 75 MG; Start 10/12/18 at 09:00 Docusate Sodium (Colace) 100 mg Q12H PRN PO .CONSTIPATION; Start 10/11/18 at 22:30 Finasteride (Proscar) 5 mg DAILY PO Last administered on 10/19/18 08:37; Admin Dose 5 MG; Start 10/12/18 at 09:00 Heparin Sodium (Porcine) (Heparin (5000 Units/1ml)) 5,000 unit Q12 SC Last administered on 10/19/18 08:39; Admin Dose 5,000 UNIT; Start 10/11/18 at 22:30 Acetaminophen/ Hydrocodone Bitart ([place] (5/325)) 1 tab Q6H PRN PO .MOD PAIN 4- 6 Last administered on 10/19/18 09:56; Admin Dose 1 TAB; Start 10/11/18 at 22:30 Ibuprofen (Motrin) 600 mg Q6H PRN PO .PAIN 1-3 Last administered on 10/18/18 21:59; Admin Dose 600 MG; Start 10/11/18 at 22:30 Methylnaltrexone [place] (Relistor) 12 mg DAILY SC Last administered on 10/17/18 09:04; Admin Dose 12 MG; Start 10/12/18 at 09:00 Morphine Sulfate (morphine) 2 mg Q4H PRN IV .SEVERE PAIN 7-10; Start 10/11/18 at 22:30 Ondansetron HCl (Zofran Inj) 4 mg Q6H PRN IV NAUSEA/VOMITING; Start 10/11/18 at 22:30 Sodium Biphosphate/ Sodium Phosphate (Fleet Enema) 133 ml DAILY PRN [place] .CONSTIPATION; Start 10/11/18 at 22:30 Tamsulosin HCl (Flomax) 0.4 mg DAILY@2100 PO Last administered on 10/18/18 22:01; Admin Dose 0.4 MG; Start 10/11/18 at 22:30 Simethicone (Mylicon) 160 mg PC LUNCH PO Last administered on 10/19/18 12:24; Admin Dose 160 MG; Start 10/12/18 at 13:00 IV Flush (NS 3 ml) 3 ml PER PROTOCOL IV ; Start 10/11/18 at 23:00 Lactulose (Enulose) 20 gm DAILY PRN PO CONSTIPATION Last administered on 10/16/18 12:06; Admin Dose 20 GM; Start 10/12/18 at 06:30 Bisacodyl (Dulcolax Supp) 10 mg DAILY PRN [place] CONSTIPATION Last administered on 10/16/18 21:12; Admin Dose 10 MG; Start 10/12/18 at 06:30 Multivitamins/ Minerals (Theragran-M) 1 tab DAILY PO Last administered on 10/19/18 08:37; Admin Dose 1 TAB; Start 10/13/18 at 09:00 Zinc Sulfate (Zinc Sulfate) 220 mg DAILY PO Last administered on 10/19/18 08:36; Admin Dose 220 MG; Start 10/13/18 at 09:00 Losartan Potassium (Cozaar) 12.5 mg BID PO Last administered on 10/18/18 21:58; Admin Dose 12.5 MG; Start 10/14/18 at 21:00 Diltiazem HCl (Cardizem Cd) 120 mg QAM PO Last administered on 10/18/18 08:31; Admin Dose 120 MG; Start 10/16/18 at 09:00 [facility] This patient art... PRN PRN XX WOUND CARE; Start 10/16/18 at 15:30 Polyethylene Glycol (Miralax) 17 gm WITH LUNCH PO Last administered on 10/19/18at 12:24; Admin Dose 17 GM; Start 10/17/18 at 12:00 Bisacodyl (Dulcolax) 10 mg DAILY PO Last administered on 10/19/18at 08:37; Admin Dose 10 MG; Start 10/18/18 at 09:00 Metoprolol Tartrate (Lopressor) 25 mg BID PO Last administered on 10/18/18at 21:58; Admin Dose 25 MG; Start 10/17/18 at 21:00 Ascorbic Acid (Vitamin C) 500 mg DAILY PO ; Start 10/20/18 at 09:00 Folic Acid (Folic Acid) 1 mg DAILY PO Last administered on 10/19/18at 12:24; Admin Dose 1 MG; Start 10/19/18 at 10:30 JEFF REYNOSO October 19, 2018 15:50
[2018-10-19 16:15] VITALS: BP 126/78; PULSE 80; RESP 18
[2018-10-19 20:00] VITALS: BP 114/60; PULSE 80; RESP 16
[2018-10-19] MEDS: BISACODYL 10 MG SUPP PR PRN (21:41)
[2018-10-19] MEDS: TAMSULOSIN (SR) 0.4 MG CAP PO SCH (21:46)
[2018-10-19] MEDS: IBUPROFEN 600 MG TAB PO PRN (21:47)
[2018-10-20 02:00] VITALS: BP 127/75; PULSE 80; RESP 16
[2018-10-20 08:30] VITALS: BP 104/59; PULSE 80; RESP 18
[2018-10-20] MEDS: ZINC SULFATE 220 MG CAP PO SCH (08:46)
[2018-10-20] MEDS: FOLIC ACID 1 MG TAB PO SCH (08:46)
[2018-10-20] MEDS: MULTIVITAMINS/MINERALS TAB PO SCH (08:47)
[2018-10-20] MEDS: FINASTERIDE 5 MG TAB PO SCH (08:47)
[2018-10-20] MEDS: ASCORBIC ACID 500 MG TAB PO SCH (08:47)
[2018-10-20] MEDS: CLOPIDOGREL 75 MG TAB PO SCH (08:47)
[2018-10-20] MEDS: METHYLNALTREXONE 12 MG/0.6 ML VIAL SC SCH (08:48)
[2018-10-20] MEDS: HEPARIN 5,000 UNIT/1 ML VIAL SC SCH ×2 (08:55→20:15)
[2018-10-20] MEDS: METOPROLOL 25 MG TAB PO SCH ×3 (08:56→20:08)
[2018-10-20] MEDS: LOSARTAN 25 MG TAB PO SCH ×3 (08:56→20:09)
[2018-10-20] MEDS: DILTIAZEM (CD) 120 MG CAP PO SCH ×2 (08:57→10:46)
[2018-10-20] MEDS: BISACODYL (EC) 5 MG TAB PO SCH (10:23)
[2018-10-20 10:42] VITALS: BP 140/63; PULSE 80; RESP 18
[2018-10-20] MEDS: POLYETHYLENE GLYCOL 17 GM PACKET PO SCH (12:18)
[2018-10-20] MEDS: HYDROCODONE/APAP (5/325) TAB PO PRN (12:19)
--- NOTE | 2018-10-20 13:30 | PN ---
Date/Time of Note Date/Time of Note DATE: 10/20/18 TIME: 13:25 Objective Vital Signs Date Temp Pulse Resp B/P (MAP) Pulse Ox O2 O2 Flow FiO2 Time Delivery Rate 10/20/18 80 18 140/63 96 Room Air 10:42 (88) 10/20/18 97.7 08:30 Intake and Output 10/19/18 10/19/18 10/20/18 1515:00 23:00 07:00 IntakeIntake Total 240 ml OutputOutput Total 300 ml 800 ml BalanceBalance -300 ml -560 ml Exam INTERDISCIPLINARY TEAM CONFERENCE Attended by PT, OT, ST, Aviation Ordnance Officer, Social Work, Rehabilitation Nursing, Tax Appraiser and Revenue SpecialistCompensation Adjuster Exam: Pulm- cta Abd-soft BOWEL- Cont BLADDER-Cont SKIN- bilateral ischial stage 2; bilateral heel blisters OT- DRESSING-mod/max BATHING-mod/max TOILETING-mod PT- BED MOBILITY-min/mod TRANSFERS-min/mod AMBULATION-min/mod A/P- Interdisciplinary team conference held today. Please see interdisciplinary sheet. Working toward d.c. on 10/26 with post discharge follow up of physical therapy, occupational therapy and RN. Continue pressure relief, increase nutritional efforts Results/Medications Result Diagram: 10/16/1863610/16/18636 Medications Current Medications Acetaminophen (Tylenol Tab) 650 mg Q6H PRN PO .PAIN 1-3 OR TEMP; Start 10/11/18 at 22:30 Amiodarone HCl (Cordarone) 200 mg DAILY PO Last administered on 10/17/18at 08:5 9; Admin Dose 200 MG; Start 10/12/18 at 09:00; Status Hold Bisacodyl (Dulcolax) 5 mg DAILY PRN PO .CONSTIPATION Last administered on 10/16/18at 17:28; Admin Dose 5 MG; Start 10/11/18 at 22:30 Clopidogrel Bisulfate (plaVIX) 75 mg DAILY PO Last administered on 10/20/18at 08:47; Admin Dose 75 MG; Start 10/12/18 at 09:00 Docusate Sodium (Colace) 100 mg Q12H PRN PO .CONSTIPATION; Start 10/11/18 at 22 :30 Finasteride (Proscar) 5 mg DAILY PO Last administered on 10/20/18at 08:47; Admin Dose 5 MG; Start 10/12/18 at 09:00 Heparin Sodium (Porcine) (Heparin (5000 Units/1ml)) 5,000 unit Q12 SC Last adm inistered on 10/20/18 08:55; Admin Dose 5,000 UNIT; Start 10/11/18 at 22:30 Acetaminophen/ Hydrocodone Bitart ([place] (5/325)) 1 tab Q6H PRN PO .MOD PAIN 4- 6 Last administered on 10/20/18 12:19; Admin Dose 1 TAB; Start 10/11/18 at 22:30 Ibuprofen (Motrin) 600 mg Q6H PRN PO .PAIN 1-3 Last administered on 10/19/18 21:47; Admin Dose 600 MG; Start 10/11/18 at 22:30 Methylnaltrexone [place] (Relistor) 12 mg DAILY SC Last administered on 10/20/18 08:48; Admin Dose 12 MG; Start 10/12/18 at 09:00 Morphine Sulfate (morphine) 2 mg Q4H PRN IV .SEVERE PAIN 7-10; Start 10/11/18 at 22:30 Ondansetron HCl (Zofran Inj) 4 mg Q6H PRN IV NAUSEA/VOMITING; Start 10/11/18 at 22:30 Sodium Biphosphate/ Sodium Phosphate (Fleet Enema) 133 ml DAILY PRN [place] .CONSTIPATION; Start 10/11/18 at 22:30 Tamsulosin HCl (Flomax) 0.4 mg DAILY@2100 PO Last administered on 10/19/18 21:46; Admin Dose 0.4 MG; Start 10/11/18 at 22:30 Simethicone (Mylicon) 160 mg PC LUNCH PO Last administered on 10/20/18 12:18; Admin Dose 160 MG; Start 10/12/18 at 13:00 IV Flush (NS 3 ml) 3 ml PER PROTOCOL IV ; Start 10/11/18 at 23:00 Lactulose (Enulose) 20 gm DAILY PRN PO CONSTIPATION Last administered on 10/16/18 12:06; Admin Dose 20 GM; Start 10/12/18 at 06:30 Bisacodyl (Dulcolax Supp) 10 mg DAILY PRN [place] CONSTIPATION Last administered on 10/19/18 21:41; Admin Dose 10 MG; Start 10/12/18 at 06:30 Multivitamins/ Minerals (Theragran-M) 1 tab DAILY PO Last administered on 10/20/18 08:47; Admin Dose 1 TAB; Start 10/13/18 at 09:00 Zinc Sulfate (Zinc Sulfate) 220 mg DAILY PO Last administered on 10/20/18 08:46; Admin Dose 220 MG; Start 10/13/18 at 09:00 Losartan Potassium (Cozaar) 12.5 mg BID PO Last administered on 10/20/18 10:45; Admin Dose 12.5 MG; Start 10/14/18 at 21:00 Diltiazem HCl (Cardizem Cd) 120 mg QAM PO Last administered on 10/20/18 10:46; Admin Dose 120 MG; Start 10/16/18 at 09:00 Miscellaneous Information (Pending [facility] Order For Wound Care) This patient art... PRN PRN XX WOUND CARE; Start 10/16/18 at 15:30 Polyethylene Glycol (Miralax) 17 gm WITH LUNCH PO Last administered on 10/20/18 12:18; Admin Dose 17 GM; Start 10/17/18 at 12:00 Bisacodyl (Dulcolax) 10 mg DAILY PO Last administered on 10/20/18 10:23; Admin Dose 10 MG; Start 10/18/18 at 09:00 Metoprolol Tartrate (Lopressor) 25 mg BID PO Last administered on 10/20/18 10:47; Admin Dose 25 MG; Start 10/17/18 at 21:00 Ascorbic Acid (Vitamin C) 500 mg DAILY PO Last administered on 10/20/18 08:47; Admin Dose 500 MG; Start 10/20/18 at 09:00 Folic Acid (Folic Acid) 1 mg DAILY PO Last administered on 10/20/18 08:46; Admin Dose 1 MG; Start 10/19/18 at 10:30 JACI SOLORIO MD October 20, 2018 13:30
[2018-10-20 13:38] VITALS: BP 118/65; PULSE 80; RESP 18
[2018-10-20] MEDS: BALSAM PERU/CASTOR OIL 60 GM TUBE TOP SCH ×2 (16:51→20:10)
--- NOTE | 2018-10-20 17:51 | PN ---
Date/Time of Note Date/Time of Note DATE: 10/20/18 TIME: 17:47 Assessment/Plan VTE Prophylaxis Risk score (from Ns)>0 risk: 15 SCD applied [place]from [facility] [place] SCD contraindicated: low risk/ambulating Pharmacological prophylaxis: heparin Lines/Catheters IV Catheter Type [facility]from [facility] [place] Urinary Cath still in place: No Assessment/Plan Problems: (1) Ejection fraction < 50% Status: Chronic Comment: Doing well on current regimen. Consideration of getting rid of the diltiazem and using digoxin as places rate control or so we can use more beta- blockade for this. Defer to cardiology (2) Atrial fibrillation Status: Chronic Comment: Rate controlled at this time Qualifiers: Atrial fibrillation type: paroxysmal Qualified Codes: I48.0 - Paroxysmal atrial fibrillation (3) Diastolic dysfunction Status: Chronic Comment: Stable on medications (4) Aortic stenosis Status: Chronic Comment: Fortunately compensated at this time Qualifiers: Cardiac valve disease etiology: nonrheumatic Qualified Codes: I35.0 - Nonrheumatic aortic (valve) stenosis (5) Essential (primary) hypertension Status: Chronic Comment: Adequate control (6) Dyslipidemia Status: Chronic Comment: Stable on treatment (7) BPH (benign prostatic hypertrophy) with urinary retention Status: Chronic Comment: Stable on treatment (8) Right humeral fracture Status: Acute Comment: Progressing slowly Qualifiers: Encounter type: subsequent encounter Humerus Location: proximal Fracture type: closed Fracture morphology: other fracture Fracture alignment: nondisplaced Fracture healing: with routine healing Qualified Codes: S42.294D - Other nondisplaced fracture of upper end of right humerus, subsequent encounter for fracture with routine healing (9) Status post-operative repair of closed fracture of right hip Status: Acute Comment: Progressing with physical therapy Result Diagram: 10/16/18 0637 10/16/18 0637 CC: CLYDE GARCIA MD ; Subjective 24 Hr Interval Summary Free Text/Dictation Reports he is doing well and is tolerating the protocol for acute rehab unit Constitutional: no complaints Cardiovascular: no complaints Gastrointestinal: no complaints Exam/Review of Systems Exam Vitals Vital Signs Date Temp Pulse Resp B/P (MAP) Pulse Ox O2 O2 Flow FiO2 Time Delivery Rate 10/20/18 98.1 80 18 118/65 96 Room Air 13:38 (82) Intake and Output 5/10/19/18 10/20/18 1515:00 23:00 07:00 IntakeIntake Total 240 ml OutputOutput Total 300 ml 800 ml BalanceBalance -300 ml -560 ml Constitutional: alert, oriented Respiratory: clear to auscultation, normal air movement Cardiovascular: nl pulses, irregular rhythm Gastrointestinal: soft, nl liver, spleen, non-tender Medications Medication Current Medications Acetaminophen (Tylenol Tab) 650 mg Q6H PRN PO .PAIN 1-3 OR TEMP; Start 10/11/18 at 22:30 Amiodarone HCl (Cordarone) 200 mg DAILY PO Last administered on 10/17/18 08:59; Admin Dose 200 MG; Start 10/12/18 at 09:00; Status Hold Bisacodyl (Dulcolax) 5 mg DAILY PRN PO .CONSTIPATION Last administered on 10/16/18 17:28; Admin Dose 5 MG; Start 10/11/18 at 22:30 Clopidogrel Bisulfate (plaVIX) 75 mg DAILY PO Last administered on 10/20/18 08:47; Admin Dose 75 MG; Start 10/12/18 at 09:00 Docusate Sodium (Colace) 100 mg Q12H PRN PO .CONSTIPATION; Start 10/11/18 at 22:30 Finasteride (Proscar) 5 mg DAILY PO Last administered on 10/20/18 08:47; Admin Dose 5 MG; Start 10/12/18 at 09:00 Heparin Sodium (Porcine) (Heparin (5000 Units/1ml)) 5,000 unit Q12 SC Last administered on 10/20/18 08:55; Admin Dose 5,000 UNIT; Start 10/11/18 at 22:30 Acetaminophen/ Hydrocodone Bitart ([place] (5/325)) 1 tab Q6H PRN PO .MOD PAIN 4- 6 Last administered on 10/20/18 12:19; Admin Dose 1 TAB; Start 10/11/18 at 22:30 Ibuprofen (Motrin) 600 mg Q6H PRN PO .PAIN 1-3 Last administered on 10/19/18 21:47; Admin Dose 600 MG; Start 10/11/18 at 22:30 Methylnaltrexone [place] (Relistor) 12 mg DAILY SC Last administered on 10/20/18 08:48; Admin Dose 12 MG; Start 10/12/18 at 09:00 Morphine Sulfate (morphine) 2 mg Q4H PRN IV .SEVERE PAIN 7-10; Start 10/11/18 at 22:30 Ondansetron HCl (Zofran Inj) 4 mg Q6H PRN IV NAUSEA/VOMITING; Start 10/11/18 at 22:30 Sodium Biphosphate/ Sodium Phosphate (Fleet Enema) 133 ml DAILY PRN [place] .CONSTIPATION; Start 10/11/18 at 22:30 Tamsulosin HCl (Flomax) 0.4 mg DAILY@2100 PO Last administered on 10/19/18 21:46; Admin Dose 0.4 MG; Start 10/11/18 at 22:30 Simethicone (Mylicon) 160 mg PC LUNCH PO Last administered on 10/20/18 12:18; Admin Dose 160 MG; Start 10/12/18 at 13:00 IV Flush (NS 3 ml) 3 ml PER PROTOCOL IV ; Start 10/11/18 at 23:00 Lactulose (Enulose) 20 gm DAILY PRN PO CONSTIPATION Last administered on 10/16/18 12:06; Admin Dose 20 GM; Start 10/12/18 at 06:30 Bisacodyl (Dulcolax Supp) 10 mg DAILY PRN [place] CONSTIPATION Last administered on 10/19/18 21:41; Admin Dose 10 MG; Start 10/12/18 at 06:30 Multivitamins/ Minerals (Theragran-M) 1 tab DAILY PO Last administered on 10/20/18 08:47; Admin Dose 1 TAB; Start 10/13/18 at 09:00 Zinc Sulfate (Zinc Sulfate) 220 mg DAILY PO Last administered on 10/20/18 08:46; Admin Dose 220 MG; Start 10/13/18 at 09:00 Losartan Potassium (Cozaar) 12.5 mg BID PO Last administered on 10/20/18 10:45; Admin Dose 12.5 MG; Start 10/14/18 at 21:00 Diltiazem HCl (Cardizem Cd) 120 mg QAM PO Last administered on 10/20/18 10:46; Admin Dose 120 MG; Start 10/16/18 at 09:00 Miscellaneous Information (Pending Santyl Order For Wound Care) This patient art... PRN PRN XX WOUND CARE; Start 10/16/18 at 15:30 Polyethylene Glycol (Miralax) 17 gm WITH LUNCH PO Last administered on 10/20/18 12:18; Admin Dose 17 GM; Start 10/17/18 at 12:00 Bisacodyl (Dulcolax) 10 mg DAILY PO Last administered on 10/20/18 10:23; Admin Dose 10 MG; Start 10/18/18 at 09:00 Metoprolol Tartrate (Lopressor) 25 mg BID PO Last administered on 10/20/18 10:47; Admin Dose 25 MG; Start 10/17/18 at 21:00 Ascorbic Acid (Vitamin C) 500 mg DAILY PO Last administered on 10/20/18 08:47; Admin Dose 500 MG; Start 10/20/18 at 09:00 Folic Acid (Folic Acid) 1 mg DAILY PO Last administered on 10/20/18 08:46; Admin Dose 1 MG; Start 10/19/18 at 10:30 LATIA RICE MD October 20, 2018 17:51
[2018-10-20 19:29] VITALS: BP 109/61; PULSE 80; RESP 18
[2018-10-20] MEDS: IBUPROFEN 600 MG TAB PO PRN (20:07)
[2018-10-20] MEDS: TAMSULOSIN (SR) 0.4 MG CAP PO SCH (20:07)
--- NOTE | 2018-10-20 20:15 | CONS ---
Assessment/Plan Assessment/Plan Hospital Course (Demo Recall) 1. Preoperative evaluation prior to lower extremity open reduction internal fixation for right hip fracture.-neg trop x 3/Echo EF 30% with moderate . Was high risk. Now is post-op s/p LE ORIF 2. Abnormal electrocardiogram with nonspecific ST abnormality, assess for acute coronary syndrome.-neg trop x 3 3. Atrial fibrillation, currently rate controlled at this time, not on systemic anticoagulation at baseline due to possible bleeding complications. 4. History of percutaneous transluminal coronary angioplasty and stent placement to the right coronary artery in 2016 and to LCX 2017(now known to be occluded chronically with SOLID DIE CUTTER of LAD that is collateralized by RCA after discussion with DR GARCIA this AM) 5. 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 Status post fall, mechanical by description. 7. Right hip fracture. 8. Right humeral fracture. 9. H/O BIV/ICD 10. HTN-holding of antihypertensives today Recc: -Now transferred to rehab -Continue patient dilt and BB as tolerated with possible d/c of diltiazem if BP remains marginal or have holding of medications -Continue losartan afterload reduction as tolerated -Continue plavix -Follow volume status closely -pain control -Follow volume status and spot dose lasix as necessary -PT/OT Consultation Date/Type/Reason Admit Date/Time October 11, 2018 at 20:30 Initial Consult Date 10/11/18 Type of Consult Cardiology Reason for Consultation cardiomyopathy Requesting Provider: FREEDOM REYES MD Date/Time of Note DATE: 10/20/18 TIME: 20:13 Exam/Review of Systems Vital Signs Vitals Vital Signs Date Temp Pulse Resp B/P (MAP) Pulse Ox O2 O2 Flow FiO2 Time Delivery Rate 10/20/18 98.0 80 18 109/61 98 Room Air 19:29 (77) Intake and Output 10/19/18 10/19/18 10/20/18 1515:00 23:00 07:00 IntakeIntake Total 240 ml OutputOutput Total 300 ml 800 ml BalanceBalance -300 ml -560 ml Exam Exam Review of Systems: CONSTITUTIONAL: No fevers, chills. PULMONARY: No sob CARDIOVASCULAR: No chest pain/palpitations GASTROINTESTINAL: No nausea/vomiting. GENITOURINARY: No hematuria/dysuria. MUSCULOSKELETAL: No myagias/arthalgias. PSYCHIATRIC: The patient denies depression. NEUROLOGIC: mild generalized weakness Constitutional: alert Psych: no complaints Head: normocephalic ENMT: mucosa pink and moist Neck: supple, jvd (9 cm water) Respiratory: clear to auscultation Cardiovascular: irregular rhythm Gastrointestinal: soft, non-tender Musculoskeletal: muscle weakness (generalized) Extremities: edema (none) Labs Result Diagram: 10/16/1863610/16/18636 Medications Medications Current Medications Acetaminophen (Tylenol Tab) 650 mg Q6H PRN PO .PAIN 1-3 OR TEMP; Start 10/11/18 at 22:30 Amiodarone HCl (Cordarone) 200 mg DAILY PO Last administered on 10/17/18 08:59; Admin Dose 200 MG; Start 10/12/18 at 09:00; Status Hold Bisacodyl (Dulcolax) 5 mg DAILY PRN PO .CONSTIPATION Last administered on 10/16/18 17:28; Admin Dose 5 MG; Start 10/11/18 at 22:30 Clopidogrel Bisulfate (plaVIX) 75 mg DAILY PO Last administered on 10/20/18 08:47; Admin Dose 75 MG; Start 10/12/18 at 09:00 Docusate Sodium (Colace) 100 mg Q12H PRN PO .CONSTIPATION; Start 10/11/18 at 22:30 Finasteride (Proscar) 5 mg DAILY PO Last administered on 10/20/18 08:47; Admin Dose 5 MG; Start 10/12/18 at 09:00 Heparin Sodium (Porcine) (Heparin (5000 Units/1ml)) 5,000 unit Q12 SC Last administered on 10/20/18 08:55; Admin Dose 5,000 UNIT; Start 10/11/18 at 22:30 Acetaminophen/ Hydrocodone Bitart ([place] (5/325)) 1 tab Q6H PRN PO .MOD PAIN 4- 6 Last administered on 10/20/18 12:19; Admin Dose 1 TAB; Start 10/11/18 at 22:30 Ibuprofen (Motrin) 600 mg Q6H PRN PO .PAIN 1-3 Last administered on 10/19/18 21:47; Admin Dose 600 MG; Start 10/11/18 at 22:30 Methylnaltrexone [place] (Relistor) 12 mg DAILY SC Last administered on 10/20/18 08:48; Admin Dose 12 MG; Start 10/12/18 at 09:00 Morphine Sulfate (morphine) 2 mg Q4H PRN IV .SEVERE PAIN 7-10; Start 10/11/18 at 22:30 Ondansetron HCl (Zofran Inj) 4 mg Q6H PRN IV NAUSEA/VOMITING; Start 10/11/18 at 22:30 Sodium Biphosphate/ Sodium Phosphate (Fleet Enema) 133 ml DAILY PRN [place] .CONSTIPATION; Start 10/11/18 at 22:30 Tamsulosin HCl (Flomax) 0.4 mg DAILY@2100 PO Last administered on 10/19/18 21:46; Admin Dose 0.4 MG; Start 10/11/18 at 22:30 Simethicone (Mylicon) 160 mg PC LUNCH PO Last administered on 10/20/18 12:18; Admin Dose 160 MG; Start 10/12/18 at 13:00 IV Flush (NS 3 ml) 3 ml PER PROTOCOL IV ; Start 10/11/18 at 23:00 Lactulose (Enulose) 20 gm DAILY PRN PO CONSTIPATION Last administered on 10/16 12:06; Admin Dose 20 GM; Start 10/12/18 at 06:30 Bisacodyl (Dulcolax Supp) 10 mg DAILY PRN [place] CONSTIPATION Last administered on 10/19/18 21:41; Admin Dose 10 MG; Start 10/12/18 at 06:30 Multivitamins/ Minerals (Theragran-M) 1 tab DAILY PO Last administered on 10/20/18 08:47; Admin Dose 1 TAB; Start 10/13/18 at 09:00 Zinc Sulfate (Zinc Sulfate) 220 mg DAILY PO Last administered on 10/20/18 08:46; Admin Dose 220 MG; Start 10/13/18 at 09:00 Losartan Potassium (Cozaar) 12.5 mg BID PO Last administered on 10/20/18 10:45; Admin Dose 12.5 MG; Start 10/14/18 at 21:00 Diltiazem HCl (Cardizem Cd) 120 mg QAM PO Last administered on 10/20/18 10:46; Admin Dose 120 MG; Start 10/16/18 at 09:00 Miscellaneous Information (Pending Santyl Order For Wound Care) This patient art... PRN PRN XX WOUND CARE; Start 10/16/18 at 15:30 Polyethylene Glycol (Miralax) 17 gm WITH LUNCH PO Last administered on 10/20/18 12:18; Admin Dose 17 GM; Start 10/17/18 at 12:00 Bisacodyl (Dulcolax) 10 mg DAILY PO Last administered on 10/20/18 10:23; Admin Dose 10 MG; Start 10/18/18 at 09:00 Metoprolol Tartrate (Lopressor) 25 mg BID PO Last administered on 10/20/18 10:47; Admin Dose 25 MG; Start 10/17/18 at 21:00 Ascorbic Acid (Vitamin C) 500 mg DAILY PO Last administered on 10/20/18 08:47; Admin Dose 500 MG; Start 10/20/18 at 09:00 Folic Acid (Folic Acid) 1 mg DAILY PO Last administered on 10/20/18 08:46; Admin Dose 1 MG; Start 10/19/18 at 10:30 JEFF REYNOSO October 20, 2018 20:15
[2018-10-21] MEDS: HYDROCODONE/APAP (5/325) TAB PO PRN (00:20)
[2018-10-21 02:00] VITALS: BP 125/68; PULSE 79; RESP 18
[2018-10-21 07:00] VITALS: BP 125/66; PULSE 86; RESP 18
[2018-10-21] MEDS: FINASTERIDE 5 MG TAB PO SCH (10:27)
[2018-10-21] MEDS: MULTIVITAMINS/MINERALS TAB PO SCH (10:27)
[2018-10-21] MEDS: ZINC SULFATE 220 MG CAP PO SCH (10:27)
[2018-10-21] MEDS: CLOPIDOGREL 75 MG TAB PO SCH (10:27)
[2018-10-21] MEDS: METOPROLOL 25 MG TAB PO SCH ×2 (10:27→20:29)
[2018-10-21] MEDS: FOLIC ACID 1 MG TAB PO SCH (10:28)
[2018-10-21] MEDS: ASCORBIC ACID 500 MG TAB PO SCH (10:28)
[2018-10-21] MEDS: DILTIAZEM (CD) 120 MG CAP PO SCH (10:28)
[2018-10-21] MEDS: LOSARTAN 25 MG TAB PO SCH ×2 (10:28→20:29)
[2018-10-21] MEDS: BISACODYL (EC) 5 MG TAB PO SCH (10:30)
[2018-10-21] MEDS: HEPARIN 5,000 UNIT/1 ML VIAL SC SCH ×2 (10:31→20:31)
[2018-10-21] MEDS: METHYLNALTREXONE 12 MG/0.6 ML VIAL SC SCH (10:31)
[2018-10-21] MEDS: BALSAM PERU/CASTOR OIL 60 GM TUBE TOP SCH ×2 (10:31→20:36)
[2018-10-21] MEDS: POLYETHYLENE GLYCOL 17 GM PACKET PO SCH (12:42)
--- NOTE | 2018-10-21 13:13 | PN ---
Date/Time of Note Date/Time of Note DATE: 10/21/18 TIME: 13:13 Objective Vital Signs Date Temp Pulse Resp B/P (MAP) Pulse Ox O2 O2 Flow FiO2 Time Delivery Rate 10/21/18 97.7 86 18 125/66 97 Room Air 07:00 (85) Intake and Output 10/20/18 10/20/18 10/21/18 1515:00 23:00 07:00 IntakeIntake Total 500 ml 260 ml OutputOutput Total 900 ml 900 ml BalanceBalance -400 ml -640 ml Results/Medications Medications Current Medications Acetaminophen (Tylenol Tab) 650 mg Q6H PRN PO .PAIN 1-3 OR TEMP; Start 10/11/18 at 22:30 Amiodarone HCl (Cordarone) 200 mg DAILY PO Last administered on 10/17/18 08:59; Admin Dose 200 MG; Start 10/12/18 at 09:00; Status Hold Bisacodyl (Dulcolax) 5 mg DAILY PRN PO .CONSTIPATION Last administered on 10/16/18 17:28; Admin Dose 5 MG; Start 10/11/18 at 22:30 Clopidogrel Bisulfate (plaVIX) 75 mg DAILY PO Last administered on 10/21/18 10:27; Admin Dose 75 MG; Start 10/12/18 at 09:00 Docusate Sodium (Colace) 100 mg Q12H PRN PO .CONSTIPATION Last administered on 10/20/18 20:07; Admin Dose 100 MG; Start 10/11/18 at 22:30 Finasteride (Proscar) 5 mg DAILY PO Last administered on 10/21/18 10:27; Admin Dose 5 MG; Start 10/12/18 at 09:00 Heparin Sodium (Porcine) (Heparin (5000 Units/1ml)) 5,000 unit Q12 SC Last administered on 10/21/18 10:31; Admin Dose 5,000 UNIT; Start 10/11/18 at 22:30 Acetaminophen/ Hydrocodone Bitart ([place] (5/325)) 1 tab Q6H PRN PO .MOD PAIN 4- 6 Last administered on 10/21/18 00:20; Admin Dose 1 TAB; Start 10/11/18 at 22:30 Ibuprofen (Motrin) 600 mg Q6H PRN PO .PAIN 1-3 Last administered on 10/20/18 20:07; Admin Dose 600 MG; Start 10/11/18 at 22:30 Methylnaltrexone [place] (Relistor) 12 mg DAILY SC Last administered on 10/21/18 10:31; Admin Dose 12 MG; Start 10/12/18 at 09:00 Morphine Sulfate (morphine) 2 mg Q4H PRN IV .SEVERE PAIN 7-10; Start 10/11/18 at 22:30 Ondansetron HCl (Zofran Inj) 4 mg Q6H PRN IV NAUSEA/VOMITING; Start 10/11/18 at 22:30 Sodium Biphosphate/ Sodium Phosphate (Fleet Enema) 133 ml DAILY PRN [place] .CONSTIPATION; Start 10/11/18 at 22:30 Tamsulosin HCl (Flomax) 0.4 mg DAILY@2100 PO Last administered on 10/20/18 20:07; Admin Dose 0.4 MG; Start 10/11/18 at 22:30 Simethicone (Mylicon) 160 mg PC LUNCH PO Last administered on 10/21/18 12:42; Admin Dose 160 MG; Start 10/12/18 at 13:00 IV Flush (NS 3 ml) 3 ml PER PROTOCOL IV ; Start 10/11/18 at 23:00 Lactulose (Enulose) 20 gm DAILY PRN PO CONSTIPATION Last administered on 10/16/18 12:06; Admin Dose 20 GM; Start 10/12/18 at 06:30 Bisacodyl (Dulcolax Supp) 10 mg DAILY PRN [place] CONSTIPATION Last administered on 10/19/18 21:41; Admin Dose 10 MG; Start 10/12/18 at 06:30 Multivitamins/ Minerals (Theragran-M) 1 tab DAILY PO Last administered on 10/21/18 10:27; Admin Dose 1 TAB; Start 10/13/18 at 09:00 Zinc Sulfate (Zinc Sulfate) 220 mg DAILY PO Last administered on 10/21/18 10:27; Admin Dose 220 MG; Start 10/13/18 at 09:00 Losartan Potassium (Cozaar) 12.5 mg BID PO Last administered on 10/21/18 10:28; Admin Dose 12.5 MG; Start 10/14/18 at 21:00 Diltiazem HCl (Cardizem Cd) 120 mg QAM PO Last administered on 10/21/18 10:28; Admin Dose 120 MG; Start 10/16/18 at 09:00 Miscellaneous Information (Pending Santyl Order For Wound Care) This patient art... PRN PRN XX WOUND CARE; Start 10/16/18 at 15:30 Polyethylene Glycol (Miralax) 17 gm WITH LUNCH PO Last administered on 10/21/18 12:42; Admin Dose 17 GM; Start 10/17/18 at 12:00 Bisacodyl (Dulcolax) 10 mg DAILY PO Last administered on 10/21/18 10:30; Admin Dose 10 MG; Start 10/18/18 at 09:00 Metoprolol Tartrate (Lopressor) 25 mg BID PO Last administered on 10/21/18 10:27; Admin Dose 25 MG; Start 10/17/18 at 21:00 Ascorbic Acid (Vitamin C) 500 mg DAILY PO Last administered on 10/21/18 10:28; Admin Dose 500 MG; Start 10/20/18 at 09:00 Folic Acid (Folic Acid) 1 mg DAILY PO Last administered on 10/21/18 10:28; Admin Dose 1 MG; Start 10/19/18 at 10:30 JACI SOLORIO MD October 21, 2018 13:13
--- NOTE | 2018-10-21 13:23 | PN ---
Date/Time of Note Date/Time of Note DATE: 10/21/18 TIME: 13:20 Subjective patient complains of bilateral lateral malleoli burning pain last night Objective Vital Signs Date Temp Pulse Resp B/P (MAP) Pulse Ox O2 O2 Flow FiO2 Time Delivery Rate 10/21/18 97.7 86 18 125/66 97 Room Air 07:00 (85) Intake and Output 10/20/18 10/20/18 10/21/18 1515:00 23:00 07:00 IntakeIntake Total 500 ml 260 ml OutputOutput Total 900 ml 900 ml BalanceBalance -400 ml -640 ml Exam pulm-cta abd-soft integ- Lower extremities seen with Environmental Health Physician. Bilateral heels unchanged. Bilateral lateral malleoli with abrasion Results/Medications Medications Current Medications Acetaminophen (Tylenol Tab) 650 mg Q6H PRN PO .PAIN 1-3 OR TEMP; Start 10/11/18 at 22:30 Amiodarone HCl (Cordarone) 200 mg DAILY PO Last administered on 10/17/18 08:59; Admin Dose 200 MG; Start 10/12/18 at 09:00; Status Hold Bisacodyl (Dulcolax) 5 mg DAILY PRN PO .CONSTIPATION Last administered on 10/16/18 17:28; Admin Dose 5 MG; Start 10/11/18 at 22:30 Clopidogrel Bisulfate (plaVIX) 75 mg DAILY PO Last administered on 10/21/18 10:27; Admin Dose 75 MG; Start 10/12/18 at 09:00 Docusate Sodium (Colace) 100 mg Q12H PRN PO .CONSTIPATION Last administered on 10/20/18 20:07; Admin Dose 100 MG; Start 10/11/18 at 22:30 Finasteride (Proscar) 5 mg DAILY PO Last administered on 10/21/18 10:27; Admin Dose 5 MG; Start 10/12/18 at 09:00 Heparin Sodium (Porcine) (Heparin (5000 Units/1ml)) 5,000 unit Q12 SC Last administered on 10/21/18 10:31; Admin Dose 5,000 UNIT; Start 10/11/18 at 22:30 Acetaminophen/ Hydrocodone Bitart ([place] (5/325)) 1 tab Q6H PRN PO .MOD PAIN 4- 6 Last administered on 10/21/18 00:20; Admin Dose 1 TAB; Start 10/11/18 at 2 2:30 Ibuprofen (Motrin) 600 mg Q6H PRN PO .PAIN 1-3 Last administered on 10/20/18 20:07; Admin Dose 600 MG; Start 10/11/18 at 22:30 Methylnaltrexone [place] (Relistor) 12 mg DAILY SC Last administered on 10/21/18 10:31; Admin Dose 12 MG; Start 10/12/18 at 09:00 Morphine Sulfate (morphine) 2 mg Q4H PRN IV .SEVERE PAIN 7-10; Start 10/11/18 at 22:30 Ondansetron HCl (Zofran Inj) 4 mg Q6H PRN IV NAUSEA/VOMITING; Start 10/11/18 at 22:30 Sodium Biphosphate/ Sodium Phosphate (Fleet Enema) 133 ml DAILY PRN [place] .CONSTIPATION; Start 10/11/18 at 22:30 Tamsulosin HCl (Flomax) 0.4 mg DAILY@2100 PO Last administered on 10/20/18 20:07; Admin Dose 0.4 MG; Start 10/11/18 at 22:30 Simethicone (Mylicon) 160 mg PC LUNCH PO Last administered on 10/21/18 12:42; Admin Dose 160 MG; Start 10/12/18 at 13:00 IV Flush (NS 3 ml) 3 ml PER PROTOCOL IV ; Start 10/11/18 at 23:00 Lactulose (Enulose) 20 gm DAILY PRN PO CONSTIPATION Last administered on 10/16/18 12:06; Admin Dose 20 GM; Start 10/12/18 at 06:30 Bisacodyl (Dulcolax Supp) 10 mg DAILY PRN [place] CONSTIPATION Last administered on 10/19/18 21:41; Admin Dose 10 MG; Start 10/12/18 at 06:30 Multivitamins/ Minerals (Theragran-M) 1 tab DAILY PO Last administered on 10/21/18 10:27; Admin Dose 1 TAB; Start 10/13/18 at 09:00 Zinc Sulfate (Zinc Sulfate) 220 mg DAILY PO Last administered on 10/21/18 10:27; Admin Dose 220 MG; Start 10/13/18 at 09:00 Losartan Potassium (Cozaar) 12.5 mg BID PO Last administered on 10/21/18 10:28; Admin Dose 12.5 MG; Start 10/14/18 at 21:00 Diltiazem HCl (Cardizem Cd) 120 mg QAM PO Last administered on 10/21/18 10:28; Admin Dose 120 MG; Start 10/16/18 at 09:00 Miscellaneous Information (Pending Santyl Order For Wound Care) This patient art... PRN PRN XX WOUND CARE; Start 10/16/18 at 15:30 Polyethylene Glycol (Miralax) 17 gm WITH LUNCH PO Last administered on 10/21/18 12:42; Admin Dose 17 GM; Start 10/17/18 at 12:00 Bisacodyl (Dulcolax) 10 mg DAILY PO Last administered on 10/21/18 10:30; Admin Dose 10 MG; Start 10/18/18 at 09:00 Metoprolol Tartrate (Lopressor) 25 mg BID PO Last administered on 10/21/18 10:27; Admin Dose 25 MG; Start 10/17/18 at 21:00 Ascorbic Acid (Vitamin C) 500 mg DAILY PO Last administered on 10/21/18 10:28; Admin Dose 500 MG; Start 10/20/18 at 09:00 Folic Acid (Folic Acid) 1 mg DAILY PO Last administered on 10/21/18 10:28; Admin Dose 1 MG; Start 10/19/18 at 10:30 Assessment/Plan Additional Assessment/Plan Rehab- Major multiple fracture with right humeral fracture in addition to right intertrochanteric hip fracture status post intramedullary nailing. Continue rehab activities, avoid heel slide Integ- Stage 2 buttock, Bilateral heel with friction induced blisters, now with lateral malleoli abrasions. Feet are somewhat cold. Consider vascular eval Anemia Acute pain syndrome. Coronary artery disease. Atrial fibrillation. Aortic stenosis. Hypertension. Hyperlipidemia. BPH. Gastroesophageal reflux disease. Chronic kidney disease. Copies To: JACI SOLORIO MD October 21, 2018 13:23
[2018-10-21 14:00] VITALS: BP 108/72; PULSE 50; RESP 18
--- NOTE | 2018-10-21 15:41 | CONS ---
DATE OF ADMISSION: 10/11/2018 DATE OF CONSULTATION: 10/21/2018 TYPE OF CONSULTATION: Vascular. REFERRING PHYSICIAN: Jaci Segal MD REASON FOR CONSULTATION: Right heel blister. HISTORY OF PRESENT ILLNESS: This is a very pleasant 88-year-old gentleman with hypertension, hyperli pidemia, long history of coronary artery disease. He has atrial fibrillation. He basically fell and broke his right shoulder and right hip several days ago. He has undergone an ORIF of the humeral fr acture. He has got a sling on the right arm. He is in the acute rehabilitation and he developed a b justin on the right heel. I was asked to evaluate him. He has a known history of peripheral arteria l disease. PAST MEDICAL HISTORY: Significant for coronary artery disease. He has had a CABG in 1973. He has h ad multiple subsequent interventions. Most recently it looks like Dr. Ng had couple of stents in a fter hernia repair a few years ago for I do not exactly what reason. He said he was not having any c hest pain or shortness of breath but he did have stents placed. He is in atrial fibrillation. He art s had 8 ablation procedures at [facility]. He has a pacemaker. He was actually scheduled for another ab lation procedure at some point right after he fell and broke his hip. He has aortic stenosis, hypert ension, hyperlipidemia, BPH, reflux, chronic kidney disease. Somewhere in the chart did mention righ t leg angioplasty in the past. He denies any history of claudication or any wounds on the feet, but would not surprise me if someone had done an angioplasty without any indication. MEDICATIONS: Consist of: 1. [place]. 2. Ibuprofen. 3. Relistor. 4. Lopressor. 5. Protonix. 6. Cordarone. 7. Plavix. 8. Cardizem. 9. Proscar. 10. Heparin. 11. Flomax. 12. Mylicon. ALLERGIES: 1. PENICILLIN. 2. SULFA. 3. CEPHALEXIN. 4. NITROFURANTOIN. 5. CIPROFLOXACIN. 6. AVODART. 7. BRILINTA. SOCIAL HISTORY: He is a former smoker. He stopped smoking and drinking he says about 50 years ago, so he has been quite some time. FAMILY HISTORY: Noncontributory. REVIEW OF SYSTEMS: He currently has no complaints. He denies any chest pain or shortness of breath. No nausea, vomiting, diarrhea. No fever, no chills. No recent weight gain or weight loss. He has never had any trouble walking. No claudication symptoms. No rest pain at least prior to having fal piyush and broken his hip. PHYSICAL EXAMINATION: GENERAL: He is an elderly gentleman. He is a very good historian. He appears well nouris hed. VITAL SIGNS: He has been afebrile. His blood pressure is 125/66, heart rate is 86, respiratory rate is 18, he is 97% sat on room air. PERIPHERAL VASCULAR: He has 2+ carotid, radial and brachial pulses bilaterally. LUNGS: Clear. HEART: Regular rate and rhythm. ABDOMEN: Soft, nontender, nondistended. There is no palpable aneurysm. EXTREMITIES: He has 2+ femoral pulses bilaterally. I do not feel popliteal, DP or PT pulses in [facility] lower extremities. His feet are a little cool, but there is no discoloration. There are no wound s on the toes. When I came in to see him, he has been offloaded. He has got some padding on the steffanie ls and offloading boots on both heels. The right heel, I removed all the dressings. He does have in tact water blister on the right heel. I do not see any discoloration, no ecchymosis around it. It i s fairly good size, about 2 cm in diameter. DIAGNOSTIC DATA: He has not had any lower extremity arterial imaging studies. LABORATORY VALUES: All looked pretty normal. His creatinine is 1.2. It is fairly good for 88-year- old. His platelet count is normal, hemoglobin is 9.6. IMPRESSION: Right heel blister. Right now, it looks very superficial. Hopefully, he would not deve lop anything further. We are going to order some arterial studies to evaluate his lower extremity ar terial circulation. We will continue offloading the heels. I spoke to the nurses and they are doing good job. He is going to continue that. I will see him again in a few days and if it heals, then h e will not need anything further. If it does develop into an ulceration or there is more of deep tis korina injury that is evident then actually need an intervention in the future, but I doubt it. I think he is going to be fine. I will keep an eye on him while he is here and follow him as an outpatient as well if he goes home. Dictated By: JEFF NINA/JONATAN Conf#: [id number] DID#: [id number] CC: ROLAND STEPHEN MD; JEFF REYNOSO MD; JACI SEGAL MD;*End*
--- NOTE | 2018-10-21 16:14 | PN ---
Date/Time of Note Date/Time of Note DATE: 10/21/18 TIME: 16:13 Assessment/Plan VTE Prophylaxis Risk score (from [facility])>0 risk: 15 SCD applied (from [facility]): No SCD contraindicated: low risk/ambulating Pharmacological prophylaxis: heparin Lines/Catheters IV Catheter Type (from [facility]): [place] Urinary Cath still in place: No Assessment/Plan Problems: (1) Atrial fibrillation Status: Chronic Comment: Adequate rate control Qualifiers: Atrial fibrillation type: paroxysmal Qualified Codes: I48.0 - Paroxysmal atrial fibrillation (2) Aortic stenosis Status: Chronic Comment: Adequate control Qualifiers: Cardiac valve disease etiology: nonrheumatic Qualified Codes: I35.0 - Nonrheumatic aortic (valve) stenosis (3) Ejection fraction < 50% Status: Chronic Comment: As noted previously continue with treatment (4) Essential (primary) hypertension Status: Chronic Comment: Adequate control (5) Status post-operative repair of closed fracture of right hip Status: Acute Comment: Continue with rehab protocol Results 24hrs Laboratory Tests Test 10/21/18 16:07 White Blood Count Pending Red Blood Count Pending Hemoglobin Pending Hematocrit Pending Mean Corpuscular Volume Pending Mean Corpuscular Hemoglobin Pending Mean Corpuscular Hemoglobin Concent Pending Red Cell Distribution Width Pending Platelet Count Pending Mean Platelet Volume Pending Subjective 24 Hr Interval Summary Free Text/Dictation Appreciate input from vascular surgery as well as continued excellent care from Dr. Barrientos Constitutional: no complaints Cardiovascular: no complaints Gastrointestinal: no complaints Genitourinary: no complaints Exam/Review of Systems Exam Vitals Vital Signs Date Temp Pulse Resp B/P (MAP) Pulse Ox O2 O2 Flow FiO2 Time Delivery Rate 10/21/18 97.9 50 18 108/72 94 Room Air 14:00 (84) Intake and Output 10/20/18 10/20/18 10/21/18 1515:00 23:00 07:00 IntakeIntake Total 500 ml 260 ml OutputOutput Total 900 ml 900 ml BalanceBalance -400 ml -640 ml Constitutional: alert, oriented Respiratory: clear to auscultation, normal air movement Cardiovascular: regular rate and rhythm, nl pulses Results Results 24hrs Laboratory Tests Test 10/21/18 16:07 White Blood Count Pending Red Blood Count Pending Hemoglobin Pending Hematocrit Pending Mean Corpuscular Volume Pending Mean Corpuscular Hemoglobin Pending Mean Corpuscular Hemoglobin Concent Pending Red Cell Distribution Width Pending Platelet Count Pending Mean Platelet Volume Pending Medications Medication Current Medications Acetaminophen (Tylenol Tab) 650 mg Q6H PRN PO .PAIN 1-3 OR TEMP; Start 10/11/18 at 22:30 Amiodarone HCl (Cordarone) 200 mg DAILY PO Last administered on 10/17/18 08:59; Admin Dose 200 MG; Start 10/12/18 at 09:00; Status Hold Bisacodyl (Dulcolax) 5 mg DAILY PRN PO .CONSTIPATION Last administered on 10/16/18 17:28; Admin Dose 5 MG; Start 10/11/18 at 22:30 Clopidogrel Bisulfate (plaVIX) 75 mg DAILY PO Last administered on 10/21/18 10:27; Admin Dose 75 MG; Start 10/12/18 at 09:00 Docusate Sodium (Colace) 100 mg Q12H PRN PO .CONSTIPATION Last administered on 10/20/18 20:07; Admin Dose 100 MG; Start 10/11/18 at 22:30 Finasteride (Proscar) 5 mg DAILY PO Last administered on 10/21/18 10:27; Admin Dose 5 MG; Start 10/12/18 at 09:00 Heparin Sodium (Porcine) (Heparin (5000 Units/1ml)) 5,000 unit Q12 SC Last administered on 10/21/18 10:31; Admin Dose 5,000 UNIT; Start 10/11/18 at 22:30 Acetaminophen/ Hydrocodone Bitart ([place] (5/325)) 1 tab Q6H PRN PO .MOD PAIN 4- 6 Last administered on 10/21/18 00:20; Admin Dose 1 TAB; Start 10/11/18 at 22:30 Ibuprofen (Motrin) 600 mg Q6H PRN PO .PAIN 1-3 Last administered on 10/20/18 20:07; Admin Dose 600 MG; Start 10/11/18 at 22:30 Methylnaltrexone [place] (Relistor) 12 mg DAILY SC Last administered on 10/21/18 10:31; Admin Dose 12 MG; Start 10/12/18 at 09:00 Morphine Sulfate (morphine) 2 mg Q4H PRN IV .SEVERE PAIN 7-10; Start 10/11/18 at 22:30 Ondansetron HCl (Zofran Inj) 4 mg Q6H PRN IV NAUSEA/VOMITING; Start 10/11/18 at 22:30 Sodium Biphosphate/ Sodium Phosphate (Fleet Enema) 133 ml DAILY PRN [place] .CONSTIPATION; Start 10/11/18 at 22:30 Tamsulosin HCl (Flomax) 0.4 mg DAILY@2100 PO Last administered on 10/20/18 20:07; Admin Dose 0.4 MG; Start 10/11/18 at 22:30 Simethicone (Mylicon) 160 mg PC LUNCH PO Last administered on 10/21/18 12:42; Admin Dose 160 MG; Start 10/12/18 at 13:00 IV Flush (NS 3 ml) 3 ml PER PROTOCOL IV ; Start 10/11/18 at 23:00 Lactulose (Enulose) 20 gm DAILY PRN PO CONSTIPATION Last administered on 10/16/18 12:06; Admin Dose 20 GM; Start 10/12/18 at 06:30 Bisacodyl (Dulcolax Supp) 10 mg DAILY PRN [place] CONSTIPATION Last administered on 10/19/18 21:41; Admin Dose 10 MG; Start 10/12/18 at 06:30 Multivitamins/ Minerals (Theragran-M) 1 tab DAILY PO Last administered on 10/21/18 10:27; Admin Dose 1 TAB; Start 10/13/18 at 09:00 Zinc Sulfate (Zinc Sulfate) 220 mg DAILY PO Last administered on 10/21/18 10:27; Admin Dose 220 MG; Start 10/13/18 at 09:00 Losartan Potassium (Cozaar) 12.5 mg BID PO Last administered on 10/21/18 10:28; Admin Dose 12.5 MG; Start 10/14/18 at 21:00 Diltiazem HCl (Cardizem Cd) 120 mg QAM PO Last administered on 10/21/18 10:28; Admin Dose 120 MG; Start 10/16/18 at 09:00 Miscellaneous Information (Pending Santyl Order For Wound Care) This patient art... PRN PRN XX WOUND CARE; Start 10/16/18 at 15:30 Polyethylene Glycol (Miralax) 17 gm WITH LUNCH PO Last administered on 10/21/18 12:42; Admin Dose 17 GM; Start 10/17/18 at 12:00 Bisacodyl (Dulcolax) 10 mg DAILY PO Last administered on 10/21/18 10:30; Admin Dose 10 MG; Start 10/18/18 at 09:00 Metoprolol Tartrate (Lopressor) 25 mg BID PO Last administered on 10/21/18 10:27; Admin Dose 25 MG; Start 10/17/18 at 21:00 Ascorbic Acid (Vitamin C) 500 mg DAILY PO Last administered on 10/21/18 10:28; Admin Dose 500 MG; Start 10/20/18 at 09:00 Folic Acid (Folic Acid) 1 mg DAILY PO Last administered on 10/21/18 10:28; Admin Dose 1 MG; Start 10/19/18 at 10:30 LATIA RICE MD October 21, 2018 16:14
--- NOTE | 2018-10-21 16:44 | CONS ---
Assessment/Plan Assessment/Plan Hospital Course (Demo Recall) 1. Preoperative evaluation prior to lower extremity open reduction internal fixation for right hip fracture.-neg trop x 3/Echo EF 30% with moderate . Was high risk. Now is post-op s/p LE ORIF 2. Abnormal electrocardiogram with nonspecific ST abnormality, assess for acute coronary syndrome.-neg trop x 3 3. Atrial fibrillation, currently rate controlled at this time, not on systemic anticoagulation at baseline due to possible bleeding complications. 4. History of percutaneous transluminal coronary angioplasty and stent placement to the right coronary artery in 2016 and to LCX 2017(now known to be occluded chronically with [employer]PRES[employer]IVE of LAD that is collateralized by RCA after discussion with DR GARCIA this AM) 5. 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 Status post fall, mechanical by description. 7. Right hip fracture. 8. Right humeral fracture. 9. H/O BIV/ICD 10. HTN-holding of antihypertensives today Recc: -Now transferred to rehab -Continue patient BB and losartan afterload reduction as tolerated with dilt currently held for ? low HR/marginal BP. Follow HR closely off of dilt -Continue plavix -Follow volume status closely -pain control -Follow volume status and spot dose lasix as necessary -PT/OT Consultation Date/Type/Reason Admit Date/Time October 11, 2018 at 20:30 Initial Consult Date 10/11/18 Type of Consult Cardiology Reason for Consultation cardiomyopathy/CHF Requesting Provider: RFEEDOM REYES MD Date/Time of Note DATE: 10/21/18 TIME: 16:41 Exam/Review of Systems Vital Signs Vitals Vital Signs Date Temp Pulse Resp B/P (MAP) Pulse Ox O2 O2 Flow FiO2 Time Delivery Rate 10/21/18 97.9 50 18 108/72 94 Room Air 14:00 (84) Intake and Output 10/20/18 10/20/18 10/21/18 1515:00 23:00 07:00 IntakeIntake Total 500 ml 260 ml OutputOutput Total 900 ml 900 ml BalanceBalance -400 ml -640 ml Exam Exam Review of Systems: CONSTITUTIONAL: No fevers, chills. PULMONARY: No sob CARDIOVASCULAR: No chest pain/palpitations GASTROINTESTINAL: No nausea/vomiting. GENITOURINARY: No hematuria/dysuria. MUSCULOSKELETAL: No myagias/arthalgias. PSYCHIATRIC: The patient denies depression. NEUROLOGIC: mild generalized weakness Constitutional: alert, oriented Psych: no complaints Head: normocephalic ENMT: mucosa pink and moist Neck: supple, jvd (9 cm water) Respiratory: clear to auscultation Cardiovascular: regular rate and rhythm Gastrointestinal: soft, non-tender Musculoskeletal: muscle weakness (mild generalized) Extremities: edema (none) Neurological: other (NO focal deficits) Labs Result Diagram: 10/21/18 1607 Results 24hrs Laboratory Tests Test 10/21/18 16:07 White Blood Count 9.8 Red Blood Count 3.47 L Hemoglobin 10.7 L Hematocrit 33.6 L Mean Corpuscular Volume 96.8 Mean Corpuscular Hemoglobin 30.8 Mean Corpuscular Hemoglobin Concent 31.8 L Red Cell Distribution Width 17.2 H Platelet Count 370 Mean Platelet Volume 9.7 Immature Granulocytes % 0.500 H Neutrophils % 73.9 Lymphocytes % 13.8 L Monocytes % 7.4 Eosinophils % 3.2 Basophils % 1.2 Nucleated Red Blood Cells % 0.0 Immature Granulocytes # 0.050 H Neutrophils # 7.2 Lymphocytes # 1.4 Monocytes # 0.7 Eosinophils # 0.3 Basophils # 0.1 Nucleated Red Blood Cells # 0.0 Medications Medications Current Medications Acetaminophen (Tylenol Tab) 650 mg Q6H PRN PO .PAIN 1-3 OR TEMP; Start 10/11/18 at 22:30 Amiodarone HCl (Cordarone) 200 mg DAILY PO Last administered on 10/17/18at 08:59; Admin Dose 200 MG; Start 10/12/18 at 09:00; Status Hold Bisacodyl (Dulcolax) 5 mg DAILY PRN PO .CONSTIPATION Last administered on 10/16/18at 17:28; Admin Dose 5 MG; Start 10/11/18 at 22:30 Clopidogrel Bisulfate (plaVIX) 75 mg DAILY PO Last administered on 10/21/18 10:27; Admin Dose 75 MG; Start 10/12/18 at 09:00 Docusate Sodium (Colace) 100 mg Q12H PRN PO .CONSTIPATION Last administered on 10/20/18 20:07; Admin Dose 100 MG; Start 10/11/18 at 22:30 Finasteride (Proscar) 5 mg DAILY PO Last administered on 5/24/19at 10:27; Admin Dose 5 MG; Start 10/12/18 at 09:00 Heparin Sodium (Porcine) (Heparin (5000 Units/1ml)) 5,000 unit Q12 SC Last ad ministered on 10/21/18 10:31; Admin Dose 5,000 UNIT; Start 10/11/18 at 22:30 Acetaminophen/ Hydrocodone Bitart ([place] (5/325)) 1 tab Q6H PRN PO .MOD PAIN 4- 6 Last administered on 10/21/18 00:20; Admin Dose 1 TAB; Start 10/11/18 at 22:30 Ibuprofen (Motrin) 600 mg Q6H PRN PO .PAIN 1-3 Last administered on 10/20/18 20:07; Admin Dose 600 MG; Start 10/11/18 at 22:30 Methylnaltrexone [place] (Relistor) 12 mg DAILY SC Last administered on 10/21/18 10:31; Admin Dose 12 MG; Start 10/12/18 at 09:00 Morphine Sulfate (morphine) 2 mg Q4H PRN IV .SEVERE PAIN 7-10; Start 10/11/18 at 22:30 Ondansetron HCl (Zofran Inj) 4 mg Q6H PRN IV NAUSEA/VOMITING; Start 10/11/18 at 22:30 Sodium Biphosphate/ Sodium Phosphate (Fleet Enema) 133 ml DAILY PRN [place] .CONSTIPATION; Start 10/11/18 at 22:30 Tamsulosin HCl (Flomax) 0.4 mg DAILY@2100 PO Last administered on 10/20/18 20:07; Admin Dose 0.4 MG; Start 10/11/18 at 22:30 Simethicone (Mylicon) 160 mg PC LUNCH PO Last administered on 10/21/18 12:42; Admin Dose 160 MG; Start 10/12/18 at 13:00 IV Flush (NS 3 ml) 3 ml PER PROTOCOL IV ; Start 10/11/18 at 23:00 Lactulose (Enulose) 20 gm DAILY PRN PO CONSTIPATION Last administered on 10/16/18 12:06; Admin Dose 20 GM; Start 10/12/18 at 06:30 Bisacodyl (Dulcolax Supp) 10 mg DAILY PRN [place] CONSTIPATION Last administered on 10/19/18 21:41; Admin Dose 10 MG; Start 10/12/18 at 06:30 Multivitamins/ Minerals (Theragran-M) 1 tab DAILY PO Last administered on 10/21/18 10:27; Admin Dose 1 TAB; Start 10/13/18 at 09:00 Zinc Sulfate (Zinc Sulfate) 220 mg DAILY PO Last administered on 10/21/18 10:27; Admin Dose 220 MG; Start 10/13/18 at 09:00 Losartan Potassium (Cozaar) 12.5 mg BID PO Last administered on 10/21/18 10:28; Admin Dose 12.5 MG; Start 10/14/18 at 21:00 Diltiazem HCl (Cardizem Cd) 120 mg QAM PO Last administered on 10/21/18 10:28; Admin Dose 120 MG; Start 10/16/18 at 09:00; Status Hold Miscellaneous Information (Pending [facility] Order For Wound Care) This patient art... PRN PRN XX WOUND CARE; Start 10/16/18 at 15:30 Polyethylene Glycol (Miralax) 17 gm WITH LUNCH PO Last administered on 10/21/18 12:42; Admin Dose 17 GM; Start 10/17/18 at 12:00 Bisacodyl (Dulcolax) 10 mg DAILY PO Last administered on 10/21/18 10:30; Admin Dose 10 MG; Start 10/18/18 at 09:00 Metoprolol Tartrate (Lopressor) 25 mg BID PO Last administered on 10/21/18 10:27; Admin Dose 25 MG; Start 10/17/18 at 21:00 Ascorbic Acid (Vitamin C) 500 mg DAILY PO Last administered on 10/21/18 10:28; Admin Dose 500 MG; Start 10/20/18 at 09:00 Folic Acid (Folic Acid) 1 mg DAILY PO Last administered on 10/21/18 10:28; Admin Dose 1 MG; Start 10/19/18 at 10:30 JEFF REYNOSO October 21, 2018 16:44
[2018-10-21 19:42] VITALS: BP 131/75; PULSE 82; RESP 18
[2018-10-21] MEDS: IBUPROFEN 600 MG TAB PO PRN (20:28)
[2018-10-21] MEDS: TAMSULOSIN (SR) 0.4 MG CAP PO SCH (20:28)
[2018-10-22 02:00] VITALS: BP 122/78; PULSE 75; RESP 18
[2018-10-22 07:00] VITALS: BP 155/78; PULSE 83; RESP 18
[2018-10-22] MEDS: FOLIC ACID 1 MG TAB PO SCH (08:49)
[2018-10-22] MEDS: ZINC SULFATE 220 MG CAP PO SCH (08:51)
[2018-10-22] MEDS: METOPROLOL 25 MG TAB PO SCH ×2 (08:51→20:23)
[2018-10-22] MEDS: CLOPIDOGREL 75 MG TAB PO SCH (08:52)
[2018-10-22] MEDS: ASCORBIC ACID 500 MG TAB PO SCH (08:52)
[2018-10-22] MEDS: FINASTERIDE 5 MG TAB PO SCH (08:52)
[2018-10-22] MEDS: MULTIVITAMINS/MINERALS TAB PO SCH (08:52)
[2018-10-22] MEDS: METHYLNALTREXONE 12 MG/0.6 ML VIAL SC SCH (08:53)
[2018-10-22] MEDS: LOSARTAN 25 MG TAB PO SCH ×2 (08:53→20:22)
[2018-10-22] MEDS: BISACODYL (EC) 5 MG TAB PO SCH (08:54)
[2018-10-22] MEDS: BALSAM PERU/CASTOR OIL 60 GM TUBE TOP SCH ×2 (08:55→20:29)
[2018-10-22] MEDS: HEPARIN 5,000 UNIT/1 ML VIAL SC SCH ×2 (09:02→20:25)
--- NOTE | 2018-10-22 10:00 | PN ---
Date/Time of Note Date/Time of Note DATE: 10/22/18 TIME: 09:57 Subjective Patient in good spirits Objective Vital Signs Date Temp Pulse Resp B/P (MAP) Pulse Ox O2 O2 Flow FiO2 Time Delivery Rate 10/22/18 98.0 83 18 155/78 96 Room Air 07:00 (103) Intake and Output 10/21/18 10/21/18 10/22/18 1515:00 23:00 07:00 IntakeIntake Total 1200 ml OutputOutput Total 1100 ml 350 ml BalanceBalance 100 ml -350 ml Exam [id number] heels- unchanged min assist Results/Medications Result Diagram: 10/21/18 1607 10/21/18 1607 Results 24 hrs Laboratory Tests Test 10/21/18 16:07 White Blood Count 9.8 Red Blood Count 3.47 L Hemoglobin 10.7 L Hematocrit 33.6 L Mean Corpuscular Volume 96.8 Mean Corpuscular Hemoglobin 30.8 Mean Corpuscular Hemoglobin Concent 31.8 L Red Cell Distribution Width 17.2 H Platelet Count 370 Mean Platelet Volume 9.7 Immature Granulocytes % 0.500 H Neutrophils % 73.9 Lymphocytes % 13.8 L Monocytes % 7.4 Eosinophils % 3.2 Basophils % 1.2 Nucleated Red Blood Cells % 0.0 Immature Granulocytes # 0.050 H Neutrophils # 7.2 Lymphocytes # 1.4 Monocytes # 0.7 Eosinophils # 0.3 Basophils # 0.1 Nucleated Red Blood Cells # 0.0 Sodium Level 138 Potassium Level 4.9 Chloride Level 106 Carbon Dioxide Level 24 Anion Gap 8 Blood Urea Nitrogen 26 H Creatinine 1.29 H Est Glomerular Filtrat Rate mL/min Glucose Level 98 Calcium Level 8.9 Total Bilirubin 0.6 Direct Bilirubin 0.00 Indirect Bilirubin 0.6 Aspartate Amino Transf (AST/SGOT) 24 Alanine Aminotransferase (ALT/SGPT) 17 Alkaline Phosphatase 97 Total Protein 6.7 Albumin 3.5 Globulin 3.20 Albumin/Globulin Ratio 1.09 Medications Current Medications Acetaminophen (Tylenol Tab) 650 mg Q6H PRN PO .PAIN 1-3 OR TEMP; Start 10/11/18 at 22:30 Amiodarone HCl (Cordarone) 200 mg DAILY PO Last administered on 10/17/18at 08:59; Admin Dose 200 MG; Start 10/12/18 at 09:00; Status Hold Bisacodyl (Dulcolax) 5 mg DAILY PRN PO .CONSTIPATION Last administered on 10/16/18 17:28; Admin Dose 5 MG; Start 10/11/18 at 22:30 Clopidogrel Bisulfate (plaVIX) 75 mg DAILY PO Last administered on 10/22/18 08:52; Admin Dose 75 MG; Start 10/12/18 at 09:00 Docusate Sodium (Colace) 100 mg Q12H PRN PO .CONSTIPATION Last administered on 10/20/18 20:07; Admin Dose 100 MG; Start 10/11/18 at 22:30 Finasteride (Proscar) 5 mg DAILY PO Last administered on 10/22/18 08:52; Admin Dose 5 MG; Start 10/12/18 at 09:00 Heparin Sodium (Porcine) (Heparin (5000 Units/1ml)) 5,000 unit Q12 SC Last administered on 10/22/18 09:02; Admin Dose 5,000 UNIT; Start 10/11/18 at 22:30 Acetaminophen/ Hydrocodone Bitart ([place] (5/325)) 1 tab Q6H PRN PO .MOD PAIN 4- 6 Last administered on 10/21/18 00:20; Admin Dose 1 TAB; Start 10/11/18 at 22:30 Ibuprofen (Motrin) 600 mg Q6H PRN PO .PAIN 1-3 Last administered on 10/21/18 20:28; Admin Dose 600 MG; Start 10/11/18 at 22:30 Methylnaltrexone [place] (Relistor) 12 mg DAILY SC Last administered on 10/22/18 08:53; Admin Dose 12 MG; Start 10/12/18 at 09:00 Morphine Sulfate (morphine) 2 mg Q4H PRN IV .SEVERE PAIN 7-10; Start 10/11/18 at 22:30 Ondansetron HCl (Zofran Inj) 4 mg Q6H PRN IV NAUSEA/VOMITING; Start 10/11/18 at 22:30 Sodium Biphosphate/ Sodium Phosphate (Fleet Enema) 133 ml DAILY PRN [place] .CONSTIPATION; Start 10/11/18 at 22:30 Tamsulosin HCl (Flomax) 0.4 mg DAILY@2100 PO Last administered on 10/21/18 20:28; Admin Dose 0.4 MG; Start 10/11/18 at 22:30 Simethicone (Mylicon) 160 mg PC LUNCH PO Last administered on 10/21/18 12:42; Admin Dose 160 MG; Start 10/12/18 at 13:00 IV Flush (NS 3 ml) 3 ml PER PROTOCOL IV ; Start 10/11/18 at 23:00 Lactulose (Enulose) 20 gm DAILY PRN PO CONSTIPATION Last administered on 10/16/18 12:06; Admin Dose 20 GM; Start 10/12/18 at 06:30 Bisacodyl (Dulcolax Supp) 10 mg DAILY PRN [place] CONSTIPATION Last administered on 10/19/18 21:41; Admin Dose 10 MG; Start 10/12/18 at 06:30 Multivitamins/ Minerals (Theragran-M) 1 tab DAILY PO Last administered on 10/22/18 08:52; Admin Dose 1 TAB; Start 10/13/18 at 09:00 Zinc Sulfate (Zinc Sulfate) 220 mg DAILY PO Last administered on 10/22/18 08:51; Admin Dose 220 MG; Start 10/13/18 at 09:00 Losartan Potassium (Cozaar) 12.5 mg BID PO Last administered on 10/22/18 08:53; Admin Dose 12.5 MG; Start 10/14/18 at 21:00 Diltiazem HCl (Cardizem Cd) 120 mg QAM PO Last administered on 10/21/18 10:28; Admin Dose 120 MG; Start 10/16/18 at 09:00; Status Hold [facility] This patient art... PRN PRN XX WOUND CARE; Start 10/16/18 at 15:30 Polyethylene Glycol (Miralax) 17 gm WITH LUNCH PO Last administered on 10/21/18 12:42; Admin Dose 17 GM; Start 10/17/18 at 12:00 Bisacodyl (Dulcolax) 10 mg DAILY PO Last administered on 10/22/18 08:54; Admin Dose 10 MG; Start 10/18/18 at 09:00 Metoprolol Tartrate (Lopressor) 25 mg BID PO Last administered on 10/22/18 08:51; Admin Dose 25 MG; Start 10/17/18 at 21:00 Ascorbic Acid (Vitamin C) 500 mg DAILY PO Last administered on 10/22/18at 08:52; Admin Dose 500 MG; Start 10/20/18 at 09:00 Folic Acid (Folic Acid) 1 mg DAILY PO Last administered on 10/22/18at 08:49; Admin Dose 1 MG; Start 10/19/18 at 10:30 Assessment/Plan Additional Assessment/Plan Rehab- Major multiple fracture with right humeral fracture in addition to right intertrochanteric hip fracture status post intramedullary nailing. Continue rehab activities, avoid heel slide. Overall good progress Integ- Stage 2 buttock, Bilateral heel with friction induced blisters. Appreciate Vascular consult. Continue current care Anemia Acute pain syndrome. Coronary artery disease. Atrial fibrillation. Aortic stenosis. Hypertension. Hyperlipidemia. BPH. Gastroesophageal reflux disease. Chronic kidney disease. JACI SOLORIO MD October 22, 2018 10:00
[2018-10-22] MEDS: POLYETHYLENE GLYCOL 17 GM PACKET PO SCH (12:57)
[2018-10-22 14:00] VITALS: BP 124/64; PULSE 80; RESP 18
--- NOTE | 2018-10-22 16:24 | PN ---
Date/Time of Note Date/Time of Note DATE: 10/22/18 TIME: 16:19 Assessment/Plan VTE Prophylaxis Risk score (from [facility] [place])>0 risk: 15 SCD applied (from [facility] [place]): No SCD contraindicated: low risk/ambulating Pharmacological prophylaxis: NA/contraindicated Pharm contraindication: low risk/ambulating Lines/Catheters IV Catheter Type (from [facility]): Saline Lock Urinary Cath still in place: No Assessment/Plan Problems: (1) Status post-operative repair of closed fracture of right hip Status: Acute Comment: Therapy per ARU (2) Right humeral fracture Status: Acute Comment: Therapy per ortho and ARU Qualifiers: Encounter type: subsequent encounter Humerus Location: proximal Fracture type: closed Fracture morphology: other fracture Fracture alignment: nondisplaced Fracture healing: with routine healing Qualified Codes: S42.294D - Other nondisplaced fracture of upper end of right humerus, subsequent encounter for fracture with routine healing (3) Atrial fibrillation Status: Chronic Comment: Stable and rate controlled Qualifiers: Atrial fibrillation type: paroxysmal Qualified Codes: I48.0 - Paroxysmal atrial fibrillation (4) Chronic CHF Status: Chronic Comment: Stable and monitored by cardiology (5) Essential (primary) hypertension Status: Chronic Comment: Controlled (6) Constipation Status: Chronic Comment: Has received stool softeners and laxatives. Result Diagram: 10/21/18 1607 10/21/18 1607 Subjective 24 Hr Interval Summary Free Text/Dictation C/O constipation otherwise without complaints. Feels progressing and getting stronger. Exam/Review of Systems Exam Vitals Vital Signs Date Temp Pulse Resp B/P (MAP) Pulse Ox O2 O2 Flow FiO2 Time Delivery Rate 10/22/18 98.0 83 18 155/78 96 Room Air 07:00 (103) Intake and Output 10/21/18 10/21/18 10/22/18 1515:00 23:00 07:00 IntakeIntake Total 1200 ml OutputOutput Total 1100 ml 350 ml BalanceBalance 100 ml -350 ml Constitutional: alert, oriented Neck: supple Respiratory: clear to auscultation Cardiovascular: irregular rhythm Gastrointestinal: soft Musculoskeletal: other (Right upper extremity in sling and bandage) Medications Medication Current Medications Acetaminophen (Tylenol Tab) 650 mg Q6H PRN PO .PAIN 1-3 OR TEMP; Start 10/11/18 at 22:30 Amiodarone HCl (Cordarone) 200 mg DAILY PO Last administered on 10/17/18 08:59; Admin Dose 200 MG; Start 10/12/18 at 09:00; Status Hold Bisacodyl (Dulcolax) 5 mg DAILY PRN PO .CONSTIPATION Last administered on 10/16/18 17:28; Admin Dose 5 MG; Start 10/11/18 at 22:30 Clopidogrel Bisulfate (plaVIX) 75 mg DAILY PO Last administered on 10/22/18 08:52; Admin Dose 75 MG; Start 10/12/18 at 09:00 Docusate Sodium (Colace) 100 mg Q12H PRN PO .CONSTIPATION Last administered on 10/20/18 20:07; Admin Dose 100 MG; Start 10/11/18 at 22:30 Finasteride (Proscar) 5 mg DAILY PO Last administered on 10/22/18 08:52; Admin Dose 5 MG; Start 10/12/18 at 09:00 Heparin Sodium (Porcine) (Heparin (5000 Units/1ml)) 5,000 unit Q12 SC Last administered on 10/22/18 09:02; Admin Dose 5,000 UNIT; Start 10/11/18 at 22:30 Acetaminophen/ Hydrocodone Bitart ([place] (5/325)) 1 tab Q6H PRN PO .MOD PAIN 4- 6 Last administered on 10/21/18 00:20; Admin Dose 1 TAB; Start 10/11/18 at 22:30 Ibuprofen (Motrin) 600 mg Q6H PRN PO .PAIN 1-3 Last administered on 10/21/18 20:28; Admin Dose 600 MG; Start 10/11/18 at 22:30 Methylnaltrexone [place] (Relistor) 12 mg DAILY SC Last administered on 10/22/18 08:53; Admin Dose 12 MG; Start 10/12/18 at 09:00 Morphine Sulfate (morphine) 2 mg Q4H PRN IV .SEVERE PAIN 7-10; Start 10/11/18 at 22:30 Ondansetron HCl (Zofran Inj) 4 mg Q6H PRN IV NAUSEA/VOMITING; Start 10/11/18 at 22:30 Sodium Biphosphate/ Sodium Phosphate (Fleet Enema) 133 ml DAILY PRN [place] .CONSTIPATION; Start 10/11/18 at 22:30 Tamsulosin HCl (Flomax) 0.4 mg DAILY@2100 PO Last administered on 10/21/18 20:28; Admin Dose 0.4 MG; Start 10/11/18 at 22:30 Simethicone (Mylicon) 160 mg PC LUNCH PO Last administered on 10/22/18 12:57; Admin Dose 160 MG; Start 10/12/18 at 13:00 IV Flush (NS 3 ml) 3 ml PER PROTOCOL IV ; Start 10/11/18 at 23:00 Lactulose (Enulose) 20 gm DAILY PRN PO CONSTIPATION Last administered on 10/16/18 12:06; Admin Dose 20 GM; Start 10/12/18 at 06:30 Bisacodyl (Dulcolax Supp) 10 mg DAILY PRN [place] CONSTIPATION Last administered on 10/19/18 21:41; Admin Dose 10 MG; Start 10/12/18 at 06:30 Multivitamins/ Minerals (Theragran-M) 1 tab DAILY PO Last administered on 10/22/18 08:52; Admin Dose 1 TAB; Start 10/13/18 at 09:00 Zinc Sulfate (Zinc Sulfate) 220 mg DAILY PO Last administered on 10/22/18 08:51; Admin Dose 220 MG; Start 10/13/18 at 09:00 Losartan Potassium (Cozaar) 12.5 mg BID PO Last administered on 10/22/18 08:53; Admin Dose 12.5 MG; Start 10/14/18 at 21:00 Diltiazem HCl (Cardizem Cd) 120 mg QAM PO Last administered on 10/21/18 10:28; Admin Dose 120 MG; Start 10/16/18 at 09:00; Status Hold Miscellaneous Information (Pending [facility]yl Order For Wound Care) This patient art... PRN PRN XX WOUND CARE; Start 10/16/18 at 15:30 Polyethylene Glycol (Miralax) 17 gm WITH LUNCH PO Last administered on 10/22/18 12:57; Admin Dose 17 GM; Start 10/17/18 at 12:00 Bisacodyl (Dulcolax) 10 mg DAILY PO Last administered on 10/22/18 08:54; Admin Dose 10 MG; Start 10/18/18 at 09:00 Metoprolol Tartrate (Lopressor) 25 mg BID PO Last administered on 10/22/18 08:51; Admin Dose 25 MG; Start 10/17/18 at 21:00 Ascorbic Acid (Vitamin C) 500 mg DAILY PO Last administered on 10/22/18 08:52; Admin Dose 500 MG; Start 10/20/18 at 09:00 Folic Acid (Folic Acid) 1 mg DAILY PO Last administered on 10/22/18 08:49; Admin Dose 1 MG; Start 10/19/18 at 10:30 JESU ALVAREZ MD October 22, 2018 16:24
[2018-10-22 19:19] VITALS: BP 132/77; PULSE 77; RESP 18
--- NOTE | 2018-10-22 19:58 | CONS ---
Assessment/Plan Assessment/Plan Hospital Course (Demo Recall) 1. Preoperative evaluation prior to lower extremity open reduction internal fixation for right hip fracture.-neg trop x 3/Echo EF 30% with moderate . Was high risk. Now is post-op s/p LE ORIF 2. Abnormal electrocardiogram with nonspecific ST abnormality, assess for acute coronary syndrome.-neg trop x 3 3. Atrial fibrillation, currently rate controlled at this time, not on systemic anticoagulation at baseline due to possible bleeding complications. 4. History of percutaneous transluminal coronary angioplasty and stent placement to the right coronary artery in 2016 and to LCX 2017(now known to be occluded chronically with [employer] of LAD that is collateralized by RCA after discussion with DR GARCIA this AM) 5. History of [employer] to lower extremities with occlusion of RLE 6. Status post fall, mechanical by description. 7. Right hip fracture. 8. Right humeral fracture. 9. H/O BIV/ICD 10. HTN-somelability 11. Renal insuff Recc: -Now transferred to rehab -Continue patient BB and losartan afterload reduction as tolerated with dilt currently held for low HR. Joaquin consider increase to losartan -Continue plavix -pain control -Follow volume status closely currently off of lasix -PT/OT Consultation Date/Type/Reason Admit Date/Time October 11, 2018 at 20:30 Initial Consult Date 10/11/18 Type of Consult Cardiology Reason for Consultation CHF Requesting Provider: FREEDOM REYES MD Date/Time of Note DATE: 10/22/18 TIME: 19:55 Exam/Review of Systems Vital Signs Vitals Vital Signs Date Temp Pulse Resp B/P (MAP) Pulse Ox O2 O2 Flow FiO2 Time Delivery Rate 10/22/18 98.0 77 18 132/77 96 Room Air 19:19 (95) Intake and Output 10/21/18 10/21/18 10/22/18 1515:00 23:00 07:00 IntakeIntake Total 1200 ml OutputOutput Total 1100 ml 350 ml BalanceBalance 100 ml -350 ml Exam Exam Review of Systems: CONSTITUTIONAL: No fevers, chills. PULMONARY: No sob CARDIOVASCULAR: No chest pain/palpitations GASTROINTESTINAL: No nausea/vomiting. GENITOURINARY: No hematuria/dysuria. MUSCULOSKELETAL: No myagias/arthalgias. PSYCHIATRIC: The patient denies depression. NEUROLOGIC: No weakness Constitutional: alert Psych: no complaints Head: normocephalic ENMT: mucosa pink and moist Neck: supple, jvd (9 cm water) Respiratory: clear to auscultation Cardiovascular: regular rate and rhythm Gastrointestinal: soft, non-tender Musculoskeletal: muscle tone (normal) Extremities: edema (none) Neurological: other (No focal deficits) Labs Result Diagram: 10/21/18 1607 10/21/18 1607 Medications Medications Current Medications Acetaminophen (Tylenol Tab) 650 mg Q6H PRN PO .PAIN 1-3 OR TEMP; Start 10/11/18 at 22:30 Amiodarone HCl (Cordarone) 200 mg DAILY PO Last administered on 10/17/18 08:59; Admin Dose 200 MG; Start 10/12/18 at 09:00; Status Hold Bisacodyl (Dulcolax) 5 mg DAILY PRN PO .CONSTIPATION Last administered on 10/16/18 17:28; Admin Dose 5 MG; Start 10/11/18 at 22:30 Clopidogrel Bisulfate (plaVIX) 75 mg DAILY PO Last administered on 10/22/18 08:52; Admin Dose 75 MG; Start 10/12/18 at 09:00 Docusate Sodium (Colace) 100 mg Q12H PRN PO .CONSTIPATION Last administered on 10/20/18 20:07; Admin Dose 100 MG; Start 10/11/18 at 22:30 Finasteride (Proscar) 5 mg DAILY PO Last administered on 10/22/18 08:52; Admin Dose 5 MG; Start 10/12/18 at 09:00 Heparin Sodium (Porcine) (Heparin (5000 Units/1ml)) 5,000 unit Q12 SC Last administered on 10/22/18 09:02; Admin Dose 5,000 UNIT; Start 10/11/18 at 22:30 Acetaminophen/ Hydrocodone Bitart ([place] (5/325)) 1 tab Q6H PRN PO .MOD PAIN 4- 6 Last administered on 10/21/18 00:20; Admin Dose 1 TAB; Start 10/11/18 at 22:30 Ibuprofen (Motrin) 600 mg Q6H PRN PO .PAIN 1-3 Last administered on 10/21/18 20:28; Admin Dose 600 MG; Start 10/11/18 at 22:30 Methylnaltrexone [place] (Relistor) 12 mg DAILY SC Last administered on 10/22/18 08:53; Admin Dose 12 MG; Start 10/12/18 at 09:00 Morphine Sulfate (morphine) 2 mg Q4H PRN IV .SEVERE PAIN 7-10; Start 10/11/18 at 22:30 Ondansetron HCl (Zofran Inj) 4 mg Q6H PRN IV NAUSEA/VOMITING; Start 10/11/18 at 22:30 Sodium Biphosphate/ Sodium Phosphate (Fleet Enema) 133 ml DAILY PRN [place] .CONSTIPATION; Start 10/11/18 at 22:30 Tamsulosin HCl (Flomax) 0.4 mg DAILY@2100 PO Last administered on 10/21/18 20: 28; Admin Dose 0.4 MG; Start 10/11/18 at 22:30 Simethicone (Mylicon) 160 mg PC LUNCH PO Last administered on 10/22/18 12:57; Admin Dose 160 MG; Start 10/12/18 at 13:00 IV Flush (NS 3 ml) 3 ml PER PROTOCOL IV ; Start 10/11/18 at 23:00 Lactulose (Enulose) 20 gm DAILY PRN PO CONSTIPATION Last administered on 10/16/18 12:06; Admin Dose 20 GM; Start 10/12/18 at 06:30 Bisacodyl (Dulcolax Supp) 10 mg DAILY PRN [place] CONSTIPATION Last administered on 10/19/18 21:41; Admin Dose 10 MG; Start 10/12/18 at 06:30 Multivitamins/ Minerals (Theragran-M) 1 tab DAILY PO Last administered on 10/22/18 08:52; Admin Dose 1 TAB; Start 10/13/18 at 09:00 Zinc Sulfate (Zinc Sulfate) 220 mg DAILY PO Last administered on 10/22/18 08:51; Admin Dose 220 MG; Start 10/13/18 at 09:00 Losartan Potassium (Cozaar) 12.5 mg BID PO Last administered on 10/22/18 08:53; Admin Dose 12.5 MG; Start 10/14/18 at 21:00 Diltiazem HCl (Cardizem Cd) 120 mg QAM PO Last administered on 10/21/18 10:28; Admin Dose 120 MG; Start 10/16/18 at 09:00; Status Hold Miscellaneous Information (Pending Santyl Order For Wound Care) This patient art... PRN PRN XX WOUND CARE; Start 10/16/18 at 15:30 Polyethylene Glycol (Miralax) 17 gm WITH LUNCH PO Last administered on 10/22/18at 12:57; Admin Dose 17 GM; Start 10/17/18 at 12:00 Bisacodyl (Dulcolax) 10 mg DAILY PO Last administered on 10/22/18at 08:54; Admin Dose 10 MG; Start 10/18/18 at 09:00 Metoprolol Tartrate (Lopressor) 25 mg BID PO Last administered on 10/22/18at 08:51; Admin Dose 25 MG; Start 10/17/18 at 21:00 Ascorbic Acid (Vitamin C) 500 mg DAILY PO Last administered on 10/22/18at 08:52; Admin Dose 500 MG; Start 10/20/18 at 09:00 Folic Acid (Folic Acid) 1 mg DAILY PO Last administered on 10/22/18at 08:49; Admin Dose 1 MG; Start 10/19/18 at 10:30 JEFF REYNOSO October 22, 2018 19:58
[2018-10-22] MEDS: BISACODYL 10 MG SUPP PR PRN (20:20)
[2018-10-22] MEDS: TAMSULOSIN (SR) 0.4 MG CAP PO SCH (20:22)
[2018-10-22] MEDS: HYDROCODONE/APAP (5/325) TAB PO PRN (21:21)
[2018-10-23 02:00] VITALS: BP 125/68; PULSE 80; RESP 18
[2018-10-23 07:00] VITALS: BP 137/78; PULSE 81; RESP 18
[2018-10-23] MEDS: METHYLNALTREXONE 12 MG/0.6 ML VIAL SC SCH (09:00)
[2018-10-23] MEDS: MULTIVITAMINS/MINERALS TAB PO SCH (09:05)
[2018-10-23] MEDS: CLOPIDOGREL 75 MG TAB PO SCH (09:05)
[2018-10-23] MEDS: BISACODYL (EC) 5 MG TAB PO SCH (09:06)
[2018-10-23] MEDS: FOLIC ACID 1 MG TAB PO SCH (09:06)
[2018-10-23] MEDS: FINASTERIDE 5 MG TAB PO SCH (09:06)
[2018-10-23] MEDS: LOSARTAN 25 MG TAB PO SCH ×2 (09:06→20:22)
[2018-10-23] MEDS: METOPROLOL 25 MG TAB PO SCH ×2 (09:07→20:21)
[2018-10-23] MEDS: ASCORBIC ACID 500 MG TAB PO SCH (09:07)
[2018-10-23] MEDS: ZINC SULFATE 220 MG CAP PO SCH (09:07)
[2018-10-23] MEDS: BALSAM PERU/CASTOR OIL 60 GM TUBE TOP SCH ×2 (09:08→20:22)
[2018-10-23] MEDS: HEPARIN 5,000 UNIT/1 ML VIAL SC SCH ×2 (09:13→20:41)
[2018-10-23] MEDS: POLYETHYLENE GLYCOL 17 GM PACKET PO SCH (12:41)
--- NOTE | 2018-10-23 13:12 | PN ---
Date/Time of Note Date/Time of Note DATE: 10/23/18 TIME: 13:09 Assessment/Plan VTE Prophylaxis Risk score (from [facility] [place] risk: 15 SCD applied (from [facility] [place]): No SCD contraindicated: low risk/ambulating Pharmacological prophylaxis: heparin Pharm contraindication: low risk/ambulating Lines/Catheters IV Catheter Type (from [place]): Saline Lock Urinary Cath still in place: No Assessment/Plan Problems: (1) Right humeral fracture Status: Acute Qualifiers: Encounter type: subsequent encounter Humerus Location: proximal Fracture type: closed Fracture morphology: other fracture Fracture alignment: nondisplaced Fracture healing: with routine healing Qualified Codes: S42.294D - Other nondisplaced fracture of upper end of right humerus, subsequent encounter for fracture with routine healing (2) CVD (cardiovascular disease) Status: Chronic (3) Chronic CHF Status: Chronic (4) Status post-operative repair of closed fracture of right hip Status: Acute (5) Aortic stenosis Status: Chronic Qualifiers: Cardiac valve disease etiology: nonrheumatic Qualified Codes: I35.0 - Nonrheumatic aortic (valve) stenosis (6) Constipation Status: Resolved Result Diagram: 10/21/18 1607 10/21/18 1607 Subjective 24 Hr Interval Summary Free Text/Dictation Large bowel movement last night. Feeling well today. No complaints Exam/Review of Systems Exam Vitals Vital Signs Date Temp Pulse Resp B/P (MAP) Pulse Ox O2 O2 Flow FiO2 Time Delivery Rate 10/23/18 97.9 81 18 137/78 96 Room Air 07:00 (97) Intake and Output 10/22/18 10/22/18 10/23/18 1515:00 23:00 07:00 IntakeIntake Total 950 ml 1100 ml 400 ml OutputOutput Total 200 ml 500 ml 750 ml BalanceBalance 750 ml 600 ml -350 ml Constitutional: alert, oriented Neck: supple Respiratory: clear to auscultation Cardiovascular: irregular rhythm Gastrointestinal: soft Musculoskeletal: other (Right upeer extremity in bandage and sling) Medications Medication Current Medications Acetaminophen (Tylenol Tab) 650 mg Q6H PRN PO .PAIN 1-3 OR TEMP; Start 10/11/18 at 22:30 Amiodarone HCl (Cordarone) 200 mg DAILY PO Last administered on 10/17/18at 08:59; Admin Dose 200 MG; Start 10/12/18 at 09:00; Status Hold Bisacodyl (Dulcolax) 5 mg DAILY PRN PO .CONSTIPATION Last administered on 10/16/18 17:28; Admin Dose 5 MG; Start 10/11/18 at 22:30 Clopidogrel Bisulfate (plaVIX) 75 mg DAILY PO Last administered on 10/23/18 09:05; Admin Dose 75 MG; Start 10/12/18 at 09:00 Docusate Sodium (Colace) 100 mg Q12H PRN PO .CONSTIPATION Last administered on 10/20/18 20:07; Admin Dose 100 MG; Start 10/11/18 at 22:30 Finasteride (Proscar) 5 mg DAILY PO Last administered on 10/23/18 09:06; Admin Dose 5 MG; Start 10/12/18 at 09:00 Heparin Sodium (Porcine) (Heparin (5000 Units/1ml)) 5,000 unit Q12 SC Last administered on 10/23/18 09:13; Admin Dose 5,000 UNIT; Start 10/11/18 at 22:30 Acetaminophen/ Hydrocodone Bitart ([place] (5/325)) 1 tab Q6H PRN PO .MOD PAIN 4- 6 Last administered on 10/22/18 21:21; Admin Dose 1 TAB; Start 10/11/18 at 22:30 Ibuprofen (Motrin) 600 mg Q6H PRN PO .PAIN 1-3 Last administered on 10/21/18 20:28; Admin Dose 600 MG; Start 10/11/18 at 22:30 Methylnaltrexone [place] (Relistor) 12 mg DAILY SC Last administered on 10/22/18 08:53; Admin Dose 12 MG; Start 10/12/18 at 09:00 Morphine Sulfate (morphine) 2 mg Q4H PRN IV .SEVERE PAIN 7-10; Start 10/11/18 at 22:30 Ondansetron HCl (Zofran Inj) 4 mg Q6H PRN IV NAUSEA/VOMITING; Start 10/11/18 at 22:30 Sodium Biphosphate/ Sodium Phosphate (Fleet Enema) 133 ml DAILY PRN [place] .CONSTIPATION; Start 10/11/18 at 22:30 Tamsulosin HCl (Flomax) 0.4 mg DAILY@2100 PO Last administered on 10/22/18 20:22; Admin Dose 0.4 MG; Start 10/11/18 at 22:30 Simethicone (Mylicon) 160 mg PC LUNCH PO Last administered on 10/22/18 12:57; Admin Dose 160 MG; Start 10/12/18 at 13:00 IV Flush (NS 3 ml) 3 ml PER PROTOCOL IV ; Start 10/11/18 at 23:00 Lactulose (Enulose) 20 gm DAILY PRN PO CONSTIPATION Last administered on 10/16/18 12:06; Admin Dose 20 GM; Start 10/12/18 at 06:30 Bisacodyl (Dulcolax Supp) 10 mg DAILY PRN [place] CONSTIPATION Last administered on 10/22/18 20:20; Admin Dose 10 MG; Start 10/12/18 at 06:30 Multivitamins/ Minerals (Theragran-M) 1 tab DAILY PO Last administered on 10/23/18 09:05; Admin Dose 1 TAB; Start 10/13/18 at 09:00 Zinc Sulfate (Zinc Sulfate) 220 mg DAILY PO Last administered on 10/23/18 09:07; Admin Dose 220 MG; Start 10/13/18 at 09:00 Losartan Potassium (Cozaar) 12.5 mg BID PO Last administered on 10/23/18 09:06; Admin Dose 12.5 MG; Start 10/14/18 at 21:00 Diltiazem HCl (Cardizem Cd) 120 mg QAM PO Last administered on 10/21/18 10:28; Admin Dose 120 MG; Start 10/16/18 at 09:00; Status Hold Miscellaneous Information (Pending Santyl Order For Wound Care) This patient art... PRN PRN XX WOUND CARE; Start 10/16/18 at 15:30 Polyethylene Glycol (Miralax) 17 gm WITH LUNCH PO Last administered on 10/23/18 12:41; Admin Dose 17 GM; Start 10/17/18 at 12:00 Bisacodyl (Dulcolax) 10 mg DAILY PO Last administered on 10/23/18 09:06; Admin Dose 10 MG; Start 10/18/18 at 09:00 Metoprolol Tartrate (Lopressor) 25 mg BID PO Last administered on 10/23/18 09:07; Admin Dose 25 MG; Start 10/17/18 at 21:00 Ascorbic Acid (Vitamin C) 500 mg DAILY PO Last administered on 10/23/18at 09:07; Admin Dose 500 MG; Start 10/20/18 at 09:00 Folic Acid (Folic Acid) 1 mg DAILY PO Last administered on 10/23/18at 09:06; Admin Dose 1 MG; Start 10/19/18 at 10:30 JESU ALVAREZ MD October 23, 2018 13:12
--- NOTE | 2018-10-23 13:45 | CONS ---
Assessment/Plan Assessment/Plan Hospital Course (Demo Recall) 1. Preoperative evaluation prior to lower extremity open reduction internal fixation for right hip fracture.-neg trop x 3/Echo EF 30% with moderate . Was high risk. Now is post-op s/p LE ORIF 2. Abnormal electrocardiogram with nonspecific ST abnormality, assess for acute coronary syndrome.-neg trop x 3 3. Atrial fibrillation, currently rate controlled at this time, not on systemic anticoagulation at baseline due to possible bleeding complications. 4. History of percutaneous transluminal coronary angioplasty and stent placement to the right coronary artery in 2016 and to LCX 2017(now known to be occluded chronically with IT PROJECT COORDINATOR of LAD that is collateralized by RCA after discussion with DR GARCIA this AM) 5. 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 Status post fall, mechanical by description. 7. Right hip fracture. 8. Right humeral fracture. 9. H/O BIV/ICD 10. HTN-somelability 11. Renal insuff Recc: -Now transferred to rehab -Continue patient BB and losartan afterload reduction as tolerated with dilt currently held for low HR. Will consider increase to losartan after following up creatnine -Continue plavix -pain control -Follow volume status closely currently off of lasix -PT/OT Consultation Date/Type/Reason Admit Date/Time October 11, 2018 at 20:30 Initial Consult Date 10/11/18 Type of Consult Cardiology Reason for Consultation cardiomyopathy Requesting Provider: FREEDOM REYES MD Date/Time of Note DATE: 10/23/18 TIME: 13:42 Exam/Review of Systems Vital Signs Vitals Vital Signs Date Temp Pulse Resp B/P (MAP) Pulse Ox O2 O2 Flow FiO2 Time Delivery Rate 10/23/18 97.9 81 18 137/78 96 Room Air 07:00 (97) Intake and Output 10/22/18 10/22/18 10/23/18 1515:00 23:00 07:00 IntakeIntake Total 950 ml 1100 ml 400 ml OutputOutput Total 200 ml 500 ml 750 ml BalanceBalance 750 ml 600 ml -350 ml Exam Exam Review of Systems: CONSTITUTIONAL: No fevers, chills. PULMONARY: No sob CARDIOVASCULAR: No chest pain/palpitations GASTROINTESTINAL: No nausea/vomiting. GENITOURINARY: No hematuria/dysuria. MUSCULOSKELETAL: No myagias/arthalgias. PSYCHIATRIC: The patient denies depression. NEUROLOGIC: mild generalized weakness Constitutional: alert, oriented Psych: no complaints Head: normocephalic ENMT: mucosa pink and moist Neck: supple, jvd (9 cm water) Respiratory: clear to auscultation Cardiovascular: regular rate and rhythm Gastrointestinal: soft, non-tender Musculoskeletal: muscle tone (normal) Extremities: edema (none) Neurological: other (No focal deficits) Labs Result Diagram: 10/21/18 1607 10/21/18 1607 Medications Medications Current Medications Acetaminophen (Tylenol Tab) 650 mg Q6H PRN PO .PAIN 1-3 OR TEMP; Start 10/11/18 at 22:30 Amiodarone HCl (Cordarone) 200 mg DAILY PO Last administered on 10/17/18 08:59; Admin Dose 200 MG; Start 10/12/18 at 09:00; Status Hold Bisacodyl (Dulcolax) 5 mg DAILY PRN PO .CONSTIPATION Last administered on 10/16/18 17:28; Admin Dose 5 MG; Start 10/11/18 at 22:30 Clopidogrel Bisulfate (plaVIX) 75 mg DAILY PO Last administered on 10/23/18 09:05; Admin Dose 75 MG; Start 10/12/18 at 09:00 Docusate Sodium (Colace) 100 mg Q12H PRN PO .CONSTIPATION Last administered on 10/20/18 20:07; Admin Dose 100 MG; Start 10/11/18 at 22:30 Finasteride (Proscar) 5 mg DAILY PO Last administered on 10/23/18 09:06; Admin Dose 5 MG; Start 10/12/18 at 09:00 Heparin Sodium (Porcine) (Heparin (5000 Units/1ml)) 5,000 unit Q12 SC Last administered on 10/23/18 09:13; Admin Dose 5,000 UNIT; Start 10/11/18 at 22:30 Acetaminophen/ Hydrocodone Bitart ([place] (5/325)) 1 tab Q6H PRN PO .MOD PAIN 4- 6 Last administered on 10/22/18 21:21; Admin Dose 1 TAB; Start 10/11/18 at 22:30 Ibuprofen (Motrin) 600 mg Q6H PRN PO .PAIN 1-3 Last administered on 10/21/18 20:28; Admin Dose 600 MG; Start 10/11/18 at 22:30 Methylnaltrexone [place] (Relistor) 12 mg DAILY SC Last administered on 10/22/18 08:53; Admin Dose 12 MG; Start 10/12/18 at 09:00 Morphine Sulfate (morphine) 2 mg Q4H PRN IV .SEVERE PAIN 7-10; Start 10/11/18 at 22:30 Ondansetron HCl (Zofran Inj) 4 mg Q6H PRN IV NAUSEA/VOMITING; Start 10/11/18 at 22:30 Sodium Biphosphate/ Sodium Phosphate (Fleet Enema) 133 ml DAILY PRN [place] .CONSTIPATION; Start 10/11/18 at 22:30 Tamsulosin HCl (Flomax) 0.4 mg DAILY@2100 PO Last administered on 10/22/18 20:22; Admin Dose 0.4 MG; Start 10/11/18 at 22:30 Simethicone (Mylicon) 160 mg PC LUNCH PO Last administered on 10/23/18 13:29; Admin Dose 160 MG; Start 10/12/18 at 13:00 IV Flush (NS 3 ml) 3 ml PER PROTOCOL IV ; Start 10/11/18 at 23:00 Lactulose (Enulose) 20 gm DAILY PRN PO CONSTIPATION Last administered on 12:06; Admin Dose 20 GM; Start 10/12/18 at 06:30 Bisacodyl (Dulcolax Supp) 10 mg DAILY PRN [place] CONSTIPATION Last administered on 10/22/18 20:20; Admin Dose 10 MG; Start 10/12/18 at 06:30 Multivitamins/ Minerals (Theragran-M) 1 tab DAILY PO Last administered on 10/23/18 09:05; Admin Dose 1 TAB; Start 10/13/18 at 09:00 Zinc Sulfate (Zinc Sulfate) 220 mg DAILY PO Last administered on 10/23/18 09:07; Admin Dose 220 MG; Start 10/13/18 at 09:00 Losartan Potassium (Cozaar) 12.5 mg BID PO Last administered on 10/23/18 09:06; Admin Dose 12.5 MG; Start 10/14/18 at 21:00 Diltiazem HCl (Cardizem Cd) 120 mg QAM PO Last administered on 5/24/19at 10:28; Admin Dose 120 MG; Start 10/16/18 at 09:00; Status Hold Miscellaneous Information (Pending Santyl Order For Wound Care) This patient art. .. PRN PRN XX WOUND CARE; Start 10/16/18 at 15:30 Polyethylene Glycol (Miralax) 17 gm WITH LUNCH PO Last administered on 10/23/18at 12:41; Admin Dose 17 GM; Start 10/17/18 at 12:00 Bisacodyl (Dulcolax) 10 mg DAILY PO Last administered on 10/23/18at 09:06; Admin Dose 10 MG; Start 10/18/18 at 09:00 Metoprolol Tartrate (Lopressor) 25 mg BID PO Last administered on 10/23/18at 09:07; Admin Dose 25 MG; Start 10/17/18 at 21:00 Ascorbic Acid (Vitamin C) 500 mg DAILY PO Last administered on 10/23/18 09:07; Admin Dose 500 MG; Start 10/20/18 at 09:00 Folic Acid (Folic Acid) 1 mg DAILY PO Last administered on 10/23/18at 09:06; Admin Dose 1 MG; Start 10/19/18 at 10:30 JEFF REYNOSO October 23, 2018 13:45
[2018-10-23 14:00] VITALS: BP 113/67; PULSE 87; RESP 18
[2018-10-23 20:00] VITALS: BP 132/70; PULSE 79; RESP 16
[2018-10-23] MEDS: TAMSULOSIN (SR) 0.4 MG CAP PO SCH (20:21)
[2018-10-23] MEDS: IBUPROFEN 600 MG TAB PO PRN (20:42)
[2018-10-24 02:03] VITALS: BP 134/73; PULSE 78; RESP 18
[2018-10-24 07:30] VITALS: BP 130/76; PULSE 83; RESP 18
[2018-10-24] MEDS: HEPARIN 5,000 UNIT/1 ML VIAL SC SCH ×2 (08:10→20:15)
[2018-10-24] MEDS: CLOPIDOGREL 75 MG TAB PO SCH (08:11)
[2018-10-24] MEDS: ASCORBIC ACID 500 MG TAB PO SCH (08:11)
[2018-10-24] MEDS: LOSARTAN 25 MG TAB PO SCH ×2 (08:11→20:17)
[2018-10-24] MEDS: FOLIC ACID 1 MG TAB PO SCH (08:11)
[2018-10-24] MEDS: MULTIVITAMINS/MINERALS TAB PO SCH (08:12)
[2018-10-24] MEDS: FINASTERIDE 5 MG TAB PO SCH (08:12)
[2018-10-24] MEDS: METOPROLOL 25 MG TAB PO SCH ×2 (08:12→20:17)
[2018-10-24] MEDS: ZINC SULFATE 220 MG CAP PO SCH (08:12)
[2018-10-24] MEDS: BALSAM PERU/CASTOR OIL 60 GM TUBE TOP SCH ×2 (08:13→20:21)
[2018-10-24] MEDS: BISACODYL (EC) 5 MG TAB PO SCH (08:25)
[2018-10-24] MEDS: METHYLNALTREXONE 12 MG/0.6 ML VIAL SC SCH (08:25)
--- NOTE | 2018-10-24 10:01 | PN ---
Date/Time of Note Date/Time of Note DATE: 10/24/18 TIME: 09:52 Assessment/Plan VTE [place]axis [place] [facility] [place]: 10 [place] [facility] [place] SCD contraindicated: low risk/ambulating Pharmacological prophylaxis: heparin Pharm contraindication: low risk/ambulating Lines/Catheters [facility] Saline Lock Urinary Cath still in place: No Assessment/Plan Problems: (1) Status post-operative repair of closed fracture of right hip Status: Acute Comment: He is doing quite nicely with the protocol from the acute rehabilitation unit. Possible discharge in 48 hours. (2) Atrial fibrillation Status: Chronic Comment: Adequate rate control with beta-blockade. Qualifiers: Atrial fibrillation type: paroxysmal Qualified Codes: I48.0 - Paroxysmal atrial fibrillation (3) Aortic stenosis Status: Chronic Comment: Fortunately without symptoms and his blood pressure is holding on the current medication regimen which includes angiotensin II receptor lenka and beta blockade Qualifiers: Cardiac valve disease etiology: nonrheumatic Qualified Codes: I35.0 - Nonrheumatic aortic (valve) stenosis (4) Ejection fraction < 50% Status: Chronic Comment: On angiotensin II receptor lenka and beta-blockade. Adjustment of those as per cardiology consult (5) Diastolic dysfunction Status: Chronic Comment: Adequate blood pressure control (6) Essential (primary) hypertension Status: Chronic Comment: Adequate control (7) Dyslipidemia Status: Chronic Comment: Stable on statin therapy (8) BPH (benign prostatic hypertrophy) with urinary retention Status: Chronic Comment: Adequate control Result Diagram: 10/21/18 1607 10/24/18 0626 Results 24hrs Laboratory Tests Test 10/24/18 06:26 Sodium Level 138 Potassium Level 4.2 Chloride Level 110 Carbon Dioxide Level 22 Anion Gap 6 Blood Urea Nitrogen 22 H Creatinine 1.18 Est Glomerular Filtrat Rate mL/min Glucose Level 86 Calcium Level 8.9 CC: JEFF REYNOSO MOINAKHTAR MD ; Subjective 24 Hr Interval Summary Free Text/Dictation Patient reports he is doing well and the wounds on his heels are healing. Constitutional: no complaints Respiratory: no complaints Cardiovascular: no complaints Gastrointestinal: no complaints Genitourinary: no complaints Exam/Review of Systems Exam Vitals Vital Signs Date Temp Pulse Resp B/P (MAP) Pulse Ox O2 O2 Flow FiO2 Time Delivery Rate 10/24/18 98.0 83 18 130/76 98 Room Air 07:30 (94) Intake and Output 10/23/18 10/23/18 10/24/18 1515:00 23:00 07:00 IntakeIntake Total 200 ml 1200 ml OutputOutput Total 1400 ml 200 ml BalanceBalance 200 ml -200 ml -200 ml Constitutional: alert, oriented Neck: supple, non-tender Respiratory: clear to auscultation, normal air movement Cardiovascular: regular rate and rhythm, nl pulses Results Results 24hrs Laboratory Tests Test 10/24/18 06:26 Sodium Level 138 Potassium Level 4.2 Chloride Level 110 Carbon Dioxide Level 22 Anion Gap 6 Blood Urea Nitrogen 22 H Creatinine 1.18 Est Glomerular Filtrat Rate mL/min Glucose Level 86 Calcium Level 8.9 Medications Medication Current Medications Acetaminophen (Tylenol Tab) 650 mg Q6H PRN PO .PAIN 1-3 OR TEMP; Start 10/11/18 at 22:30 Amiodarone HCl (Cordarone) 200 mg DAILY PO Last administered on 10/17/18 08:59; Admin Dose 200 MG; Start 10/12/18 at 09:00; Status Hold Bisacodyl (Dulcolax) 5 mg DAILY PRN PO .CONSTIPATION Last administered on 17:28; Admin Dose 5 MG; Start 10/11/18 at 22:30 Clopidogrel Bisulfate (plaVIX) 75 mg DAILY PO Last administered on 10/24/18 08:11; Admin Dose 75 MG; Start 10/12/18 at 09:00 Docusate Sodium (Colace) 100 mg Q12H PRN PO .CONSTIPATION Last administered on 10/20/18 20:07; Admin Dose 100 MG; Start 10/11/18 at 22:30 Finasteride (Proscar) 5 mg DAILY PO Last administered on 10/24/18 08:12; Admin Dose 5 MG; Start 10/12/18 at 09:00 Heparin Sodium (Porcine) (Heparin (5000 Units/1ml)) 5,000 unit Q12 SC Last administered on 10/24/18 08:10; Admin Dose 5,000 UNIT; Start 10/11/18 at 22:30 Acetaminophen/ Hydrocodone Bitart ([place] (5/325)) 1 tab Q6H PRN PO .MOD PAIN 4- 6 Last administered on 10/22/18 21:21; Admin Dose 1 TAB; Start 10/11/18 at 22:30 Ibuprofen (Motrin) 600 mg Q6H PRN PO .PAIN 1-3 Last administered on 10/23/18 20:42; Admin Dose 600 MG; Start 10/11/18 at 22:30 Methylnaltrexone [place] (Relistor) 12 mg DAILY SC Last administered on 10/22/18 08:53; Admin Dose 12 MG; Start 10/12/18 at 09:00 Morphine Sulfate (morphine) 2 mg Q4H PRN IV .SEVERE PAIN 7-10; Start 10/11/18 a t 22:30 Ondansetron HCl (Zofran Inj) 4 mg Q6H PRN IV NAUSEA/VOMITING; Start 10/11/18 at 22:30 Sodium Biphosphate/ Sodium Phosphate (Fleet Enema) 133 ml DAILY PRN [place] .CONSTIPATION; Start 10/11/18 at 22:30 Tamsulosin HCl (Flomax) 0.4 mg DAILY@2100 PO Last administered on 10/23/18 20:21; Admin Dose 0.4 MG; Start 10/11/18 at 22:30 Simethicone (Mylicon) 160 mg PC LUNCH PO Last administered on 10/23/18 13:29; Admin Dose 160 MG; Start 10/12/18 at 13:00 IV Flush (NS 3 ml) 3 ml PER PROTOCOL IV ; Start 10/11/18 at 23:00 Lactulose (Enulose) 20 gm DAILY PRN PO CONSTIPATION Last administered on 09/28 12:06; Admin Dose 20 GM; Start 10/12/18 at 06:30 Bisacodyl (Dulcolax Supp) 10 mg DAILY PRN [place] CONSTIPATION Last administered on 10/22/18 20:20; Admin Dose 10 MG; Start 10/12/18 at 06:30 Multivitamins/ Minerals (Theragran-M) 1 tab DAILY PO Last administered on 10/24/18 08:12; Admin Dose 1 TAB; Start 10/13/18 at 09:00 Zinc Sulfate (Zinc Sulfate) 220 mg DAILY PO Last administered on 10/24/18 08:12; Admin Dose 220 MG; Start 10/13/18 at 09:00 Losartan Potassium (Cozaar) 12.5 mg BID PO Last administered on 10/24/18 08:11; Admin Dose 12.5 MG; Start 10/14/18 at 21:00 Diltiazem HCl (Cardizem Cd) 120 mg QAM PO Last administered on 10/21/18 10:28; Admin Dose 120 MG; Start 10/16/18 at 09:00; Status Hold Miscellaneous Information (Pending Santyl Order For Wound Care) This patient art... PRN PRN XX WOUND CARE; Start 10/16/18 at 15:30 Polyethylene Glycol (Miralax) 17 gm WITH LUNCH PO Last administered on 10/23/18 12:41; Admin Dose 17 GM; Start 10/17/18 at 12:00 Bisacodyl (Dulcolax) 10 mg DAILY PO Last administered on 10/23/18 09:06; Admin Dose 10 MG; Start 10/18/18 at 09:00 Metoprolol Tartrate (Lopressor) 25 mg BID PO Last administered on 10/24/18 08:12; Admin Dose 25 MG; Start 10/17/18 at 21:00 Ascorbic Acid (Vitamin C) 500 mg DAILY PO Last administered on 10/24/18 08:11; Admin Dose 500 MG; Start 10/20/18 at 09:00 Folic Acid (Folic Acid) 1 mg DAILY PO Last administered on 10/24/18 08:11; Admin Dose 1 MG; Start 10/19/18 at 10:30 LATIA RICE MD October 24, 2018 10:01
--- NOTE | 2018-10-24 10:34 | PN ---
Date/Time of Note Date/Time of Note DATE: 10/24/18 TIME: 10:33 Subjective Patient is comfortable Objective Vital Signs Date Temp Pulse Resp B/P (MAP) Pulse Ox O2 O2 Flow FiO2 Time Delivery Rate 10/24/18 98.0 83 18 130/76 98 Room Air 07:30 (94) Intake and Output 10/23/18 10/23/18 10/24/18 1414:59 22:59 06:59 IntakeIntake Total 200 ml 1200 ml OutputOutput Total 1400 ml 200 ml BalanceBalance 200 ml -200 ml -200 ml Exam pulm-cta cga ambulation Results/Medications Result Diagram: 10/21/18 1607 10/24/18 0626 Results 24 hrs Laboratory Tests Test 10/24/18 06:26 Sodium Level 138 Potassium Level 4.2 Chloride Level 110 Carbon Dioxide Level 22 Anion Gap 6 Blood Urea Nitrogen 22 H Creatinine 1.18 Est Glomerular Filtrat Rate mL/min Glucose Level 86 Calcium Level 8.9 Medications Current Medications Acetaminophen (Tylenol Tab) 650 mg Q6H PRN PO .PAIN 1-3 OR TEMP; Start 10/11/18 at 22:30 Amiodarone HCl (Cordarone) 200 mg DAILY PO Last administered on 10/17/18 08:59; Admin Dose 200 MG; Start 10/12/18 at 09:00; Status Hold Bisacodyl (Dulcolax) 5 mg DAILY PRN PO .CONSTIPATION Last administered on 10/16/18 17:28; Admin Dose 5 MG; Start 10/11/18 at 22:30 Clopidogrel Bisulfate (plaVIX) 75 mg DAILY PO Last administered on 10/24/18 08:11; Admin Dose 75 MG; Start 10/12/18 at 09:00 Docusate Sodium (Colace) 100 mg Q12H PRN PO .CONSTIPATION Last administered on 10/20/18 20:07; Admin Dose 100 MG; Start 10/11/18 at 22:30 Finasteride (Proscar) 5 mg DAILY PO Last administered on 10/24/18 08:12; Admin Dose 5 MG; Start 10/12/18 at 09:00 Heparin Sodium (Porcine) (Heparin (5000 Units/1ml)) 5,000 unit Q12 SC Last administered on 10/24/18 08:10; Admin Dose 5,000 UNIT; Start 10/11/18 at 22:30 Acetaminophen/ Hydrocodone Bitart ([place] (5/325)) 1 tab Q6H PRN PO .MOD PAIN 4- 6 Last administered on 10/22/18 21:21; Admin Dose 1 TAB; Start 10/11/18 at 22:30 Ibuprofen (Motrin) 600 mg Q6H PRN PO .PAIN 1-3 Last administered on 10/23/18 20:42; Admin Dose 600 MG; Start 10/11/18 at 22:30 Methylnaltrexone [place] (Relistor) 12 mg DAILY SC Last administered on 10/22/18 08:53; Admin Dose 12 MG; Start 10/12/18 at 09:00 Morphine Sulfate (morphine) 2 mg Q4H PRN IV .SEVERE PAIN 7-10; Start 10/11/18 at 22:30 Ondansetron HCl (Zofran Inj) 4 mg Q6H PRN IV NAUSEA/VOMITING; Start 10/11/18 at 22:30 Sodium Biphosphate/ Sodium Phosphate (Fleet Enema) 133 ml DAILY PRN [place] .CONSTIPATION; Start 10/11/18 at 22:30 Tamsulosin HCl (Flomax) 0.4 mg DAILY@2100 PO Last administered on 10/23/18 20:21; Admin Dose 0.4 MG; Start 10/11/18 at 22:30 Simethicone (Mylicon) 160 mg PC LUNCH PO Last administered on 10/23/18 13:29; Admin Dose 160 MG; Start 10/12/18 at 13:00 IV Flush (NS 3 ml) 3 ml PER PROTOCOL IV ; Start 10/11/18 at 23:00 Lactulose (Enulose) 20 gm DAILY PRN PO CONSTIPATION Last administered on 12:06; Admin Dose 20 GM; Start 10/12/18 at 06:30 Bisacodyl (Dulcolax Supp) 10 mg DAILY PRN [place] CONSTIPATION Last administered on 10/22/18 20:20; Admin Dose 10 MG; Start 10/12/18 at 06:30 Multivitamins/ Minerals (Theragran-M) 1 tab DAILY PO Last administered on 10/24/18 08:12; Admin Dose 1 TAB; Start 10/13/18 at 09:00 Zinc Sulfate (Zinc Sulfate) 220 mg DAILY PO Last administered on 10/24/18 08:12; Admin Dose 220 MG; Start 10/13/18 at 09:00 Losartan Potassium (Cozaar) 12.5 mg BID PO Last administered on 10/24/18 08:11; Admin Dose 12.5 MG; Start 10/14/18 at 21:00 Miscellaneous Information (Pending Santyl Order For Wound Care) This patient art... PRN PRN XX WOUND CARE; Start 10/16/18 at 15:30 Polyethylene Glycol (Miralax) 17 gm WITH LUNCH PO Last administered on 10/23/18 12:41; Admin Dose 17 GM; Start 10/17/18 at 12:00 Bisacodyl (Dulcolax) 10 mg DAILY PO Last administered on 10/23/18 09:06; Admin Dose 10 MG; Start 10/18/18 at 09:00 Metoprolol Tartrate (Lopressor) 25 mg BID PO Last administered on 10/24/18 08:12; Admin Dose 25 MG; Start 10/17/18 at 21:00 Ascorbic Acid (Vitamin C) 500 mg DAILY PO Last administered on 10/24/18 08:11; Admin Dose 500 MG; Start 10/20/18 at 09:00 Folic Acid (Folic Acid) 1 mg DAILY PO Last administered on 10/24/18 08:11; Admin Dose 1 MG; Start 10/19/18 at 10:30 Assessment/Plan Additional Assessment/Plan Rehab- Major multiple fracture with right humeral fracture in addition to right intertrochanteric hip fracture status post intramedullary nailing. Continue rehab activities, avoid heel slide, continued good progress Integ- Stage 2 buttock, Bilateral heel with friction induced blisters, Continue current care Anemia Acute pain syndrome. Coronary artery disease. Atrial fibrillation. Aortic stenosis. Hypertension. Hyperlipidemia. BPH. Gastroesophageal reflux disease. Chronic kidney disease. JACI SOLORIO MD October 24, 2018 10:34
[2018-10-24] MEDS: POLYETHYLENE GLYCOL 17 GM PACKET PO SCH (11:01)
--- NOTE | 2018-10-24 11:01 | PN ---
Date/Time of Note Date/Time of Note DATE: 10/24/18 TIME: 10:59 Assessment/Plan Lines/Catheters IV Catheter Type (from Nrsg): Saline Lock [place] in Place (from Nrsg): No Assessment/Plan Assessment/Plan R heel blister - early ulceration, superficial and may heel with offloading and wound care Arterial duplex showed bilateral SFA occlusions c/w pulse exam Continue to offload - no intervention for now, will follow Subjective 24 Hr Interval Summary No pain. Ambulating with PT. Heels are offloaded well. Exam/Review of Systems Vital Signs Vitals Vital Signs Date Temp Pulse Resp B/P (MAP) Pulse Ox O2 O2 Flow FiO2 Time Delivery Rate 10/24/18 98.0 83 18 130/76 98 Room Air 07:30 (94) Intake and Output 10/23/18 10/23/18 10/24/18 1515:00 23:00 07:00 IntakeIntake Total 200 ml 1200 ml OutputOutput Total 1400 ml 200 ml BalanceBalance 200 ml -200 ml -200 ml Exam Free Text/Dictation R heel blister - still superficial, no clear evidence of deep tissue necrosis, no erythema or drainage Results Result Diagram: 10/21/18 1607 10/24/18 0626 JEFF ELAINE MD October 24, 2018 11:01
--- NOTE | 2018-10-24 13:14 | CONS ---
Assessment/Plan Assessment/Plan Hospital Course (Demo Recall) 1. Preoperative evaluation prior to lower extremity open reduction internal fixation for right hip fracture.-neg trop x 3/Echo EF 30% with moderate . Was high risk. Now is post-op s/p LE ORIF 2. Abnormal electrocardiogram with nonspecific ST abnormality, assess for acute coronary syndrome.-neg trop x 3 3. Atrial fibrillation, currently rate controlled at this time, not on systemic anticoagulation at baseline due to possible bleeding complications. 4. History of percutaneous transluminal coronary angioplasty and stent placement to the right coronary artery in 2016 and to LCX 2017(now known to be occluded chronically with SUPPLY AIDE of LAD that is collateralized by RCA after discussion with DR GARCIA this AM) 5. 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 Status post fall, mechanical by description. 7. Right hip fracture. 8. Right humeral fracture. 9. H/O BIV/ICD 10. HTN-somelability 11. Renal insuff Recc: -Now transferred to rehab -Continue patient BB and losartan afterload reduction as tolerated with dilt currently held for low HR. -Continue plavix -pain control -Follow volume status closely currently off of lasix -PT/OT Consultation Date/Type/Reason Admit Date/Time October 11, 2018 at 20:30 Initial Consult Date 10/11/18 Type of Consult Cardiology Reason for Consultation CHF/cardiomyopathy Requesting Provider: FREEDOM REYES MD Date/Time of Note DATE: 10/24/18 TIME: 13:13 Exam/Review of Systems Vital Signs Vitals Vital Signs Date Temp Pulse Resp B/P (MAP) Pulse Ox O2 O2 Flow FiO2 Time Delivery Rate 10/24/18 98.0 83 18 130/76 98 Room Air 07:30 (94) Intake and Output 10/23/18 10/23/18 10/24/18 1515:00 23:00 07:00 IntakeIntake Total 200 ml 1200 ml OutputOutput Total 1400 ml 200 ml BalanceBalance 200 ml -200 ml -200 ml Exam Exam Review of Systems: CONSTITUTIONAL: No fevers, chills. PULMONARY: No sob CARDIOVASCULAR: No chest pain/palpitations GASTROINTESTINAL: No nausea/vomiting. GENITOURINARY: No hematuria/dysuria. MUSCULOSKELETAL: pain in shoulder PSYCHIATRIC: The patient denies depression. NEUROLOGIC: No weakness Constitutional: alert Psych: no complaints Head: normocephalic Respiratory: diminished breath sounds Cardiovascular: regular rate and rhythm Gastrointestinal: soft, non-tender Musculoskeletal: muscle tone (normal) Extremities: edema (none) Neurological: other (No focal deficits) Labs Result Diagram: 10/21/18 1607 10/24/18 0626 Results 24hrs Laboratory Tests Test 10/24/18 06:26 Sodium Level 138 Potassium Level 4.2 Chloride Level 110 Carbon Dioxide Level 22 Anion Gap 6 Blood Urea Nitrogen 22 H Creatinine 1.18 Est Glomerular Filtrat Rate mL/min Glucose Level 86 Calcium Level 8.9 Medications Medications Current Medications Acetaminophen (Tylenol Tab) 650 mg Q6H PRN PO .PAIN 1-3 OR TEMP; Start 10/11/18 at 22:30 Amiodarone HCl (Cordarone) 200 mg DAILY PO Last administered on 10/17/18 08:59; Admin Dose 200 MG; Start 10/12/18 at 09:00; Status Hold Bisacodyl (Dulcolax) 5 mg DAILY PRN PO .CONSTIPATION Last administered on 10/16/18 17:28; Admin Dose 5 MG; Start 10/11/18 at 22:30 Clopidogrel Bisulfate (plaVIX) 75 mg DAILY PO Last administered on 10/24/18 08:11; Admin Dose 75 MG; Start 10/12/18 at 09:00 Docusate Sodium (Colace) 100 mg Q12H PRN PO .CONSTIPATION Last administered on 10/20/18 20:07; Admin Dose 100 MG; Start 10/11/18 at 22:30 Finasteride (Proscar) 5 mg DAILY PO Last administered on 10/24/18 08:12; Admin Dose 5 MG; Start 10/12/18 at 09:00 Heparin Sodium (Porcine) (Heparin (5000 Units/1ml)) 5,000 unit Q12 SC Last administered on 10/24/18 08:10; Admin Dose 5,000 UNIT; Start 10/11/18 at 22:30 Acetaminophen/ Hydrocodone Bitart ([place] (5/325)) 1 tab Q6H PRN PO .MOD PAIN 4- 6 Last administered on 10/22/18 21:21; Admin Dose 1 TAB; Start 10/11/18 at 22: 30 Ibuprofen (Motrin) 600 mg Q6H PRN PO .PAIN 1-3 Last administered on 10/23/18 20:42; Admin Dose 600 MG; Start 10/11/18 at 22:30 Methylnaltrexone [place] (Relistor) 12 mg DAILY SC Last administered on 10/22/18 08:53; Admin Dose 12 MG; Start 10/12/18 at 09:00 Morphine Sulfate (morphine) 2 mg Q4H PRN IV .SEVERE PAIN 7-10; Start 10/11/18 at 22:30 Ondansetron HCl (Zofran Inj) 4 mg Q6H PRN IV NAUSEA/VOMITING; Start 10/11/18 at 22:30 Sodium Biphosphate/ Sodium Phosphate (Fleet Enema) 133 ml DAILY PRN [place] .CONSTIPATION; Start 10/11/18 at 22:30 Tamsulosin HCl (Flomax) 0.4 mg DAILY@2100 PO Last administered on 10/23/18 20:21; Admin Dose 0.4 MG; Start 10/11/18 at 22:30 Simethicone (Mylicon) 160 mg PC LUNCH PO Last administered on 10/24/18 13:10; Admin Dose 160 MG; Start 10/12/18 at 13:00 IV Flush (NS 3 ml) 3 ml PER PROTOCOL IV ; Start 10/11/18 at 23:00 Lactulose (Enulose) 20 gm DAILY PRN PO CONSTIPATION Last administered on 10/16/18 12:06; Admin Dose 20 GM; Start 10/12/18 at 06:30 Bisacodyl (Dulcolax Supp) 10 mg DAILY PRN [place] CONSTIPATION Last administered on 10/22/18 20:20; Admin Dose 10 MG; Start 10/12/18 at 06:30 Multivitamins/ Minerals (Theragran-M) 1 tab DAILY PO Last administered on 10/24/18 08:12; Admin Dose 1 TAB; Start 10/13/18 at 09:00 Zinc Sulfate (Zinc Sulfate) 220 mg DAILY PO Last administered on 10/24/18 08:12; Admin Dose 220 MG; Start 10/13/18 at 09:00 Losartan Potassium (Cozaar) 12.5 mg BID PO Last administered on 10/24/18 08:11; Admin Dose 12.5 MG; Start 10/14/18 at 21:00 Miscellaneous Information (Pending [facility]yl Order For Wound Care) This patient art... PRN PRN XX WOUND CARE; Start 10/16/18 at 15:30 Polyethylene Glycol (Miralax) 17 gm WITH LUNCH PO Last administered on 10/23/18at 12:41; Admin Dose 17 GM; Start 10/17/18 at 12:00 Bisacodyl (Dulcolax) 10 mg DAILY PO Last administered on 10/23/18 09:06; Admin Dose 10 MG; Start 10/18/18 at 09:00 Metoprolol Tartrate (Lopressor) 25 mg BID PO Last administered on 10/24/18 08:12; Admin Dose 25 MG; Start 10/17/18 at 21:00 Ascorbic Acid (Vitamin C) 500 mg DAILY PO Last administered on 10/24/18 08:11; Admin Dose 500 MG; Start 10/20/18 at 09:00 Folic Acid (Folic Acid) 1 mg DAILY PO Last administered on 10/24/18 08:11; Admin Dose 1 MG; Start 10/19/18 at 10:30 JEFF REYNOSO October 24, 2018 13:14
[2018-10-24 14:00] VITALS: BP 115/69; PULSE 78; RESP 18
[2018-10-24 20:00] VITALS: BP 114/66; PULSE 71; RESP 18
[2018-10-24] MEDS: IBUPROFEN 600 MG TAB PO PRN (20:15)
[2018-10-24] MEDS: TAMSULOSIN (SR) 0.4 MG CAP PO SCH (20:20)
[2018-10-25 01:48] VITALS: BP 116/74; PULSE 63; RESP 16
[2018-10-25 07:00] VITALS: BP 127/78; PULSE 70; RESP 18
[2018-10-25] MEDS: BISACODYL (EC) 5 MG TAB PO SCH (09:16)
[2018-10-25] MEDS: CLOPIDOGREL 75 MG TAB PO SCH (09:18)
[2018-10-25] MEDS: FOLIC ACID 1 MG TAB PO SCH (09:18)
[2018-10-25] MEDS: MULTIVITAMINS/MINERALS TAB PO SCH (09:18)
[2018-10-25] MEDS: LOSARTAN 25 MG TAB PO SCH ×2 (09:18→21:15)
[2018-10-25] MEDS: METOPROLOL 25 MG TAB PO SCH ×2 (09:18→21:00)
[2018-10-25] MEDS: ASCORBIC ACID 500 MG TAB PO SCH (09:18)
[2018-10-25] MEDS: BALSAM PERU/CASTOR OIL 60 GM TUBE TOP SCH ×2 (09:19→21:23)
[2018-10-25] MEDS: METHYLNALTREXONE 12 MG/0.6 ML VIAL SC SCH (09:19)
[2018-10-25] MEDS: ZINC SULFATE 220 MG CAP PO SCH (09:19)
[2018-10-25] MEDS: FINASTERIDE 5 MG TAB PO SCH (09:19)
[2018-10-25] MEDS: HEPARIN 5,000 UNIT/1 ML VIAL SC SCH ×2 (09:25→21:18)
--- NOTE | 2018-10-25 11:38 | CONS ---
Consult Date/Type/Reason Admit Date/Time October 11, 2018 at 20:30 Initial Consult Date Requesting Provider: FREEDOM REEYS MD Date/Time of Note DATE: 10/25/18 TIME: 11:37 Subjective NO acute events - pt doing very well - increased ambulation to 120+ steps today - dispo planned for tomorrow if stable ROS: No fever, no chills, no nausea, no vomiting, no diarrhea/constipation No recent weight changes No chest pain, no PND, no orthopnea - mild CHARLES No dizziness, blurred vision No thirst, no heat or cold intolerance Objective Vitals Vital Signs Date Temp Pulse Resp B/P (MAP) Pulse Ox O2 O2 Flow FiO2 Time Delivery Rate 10/25/18 98.6 70 18 127/78 96 Room Air 07:00 (94) Intake and Output 10/24/18 10/24/18 10/25/18 1515:00 23:00 07:00 IntakeIntake Total 90 ml 1340 ml OutputOutput Total 150 ml 420 ml 900 ml BalanceBalance -60 ml 920 ml -900 ml Exam General: WN/WD/NAD, AOx 3 HEENT: Unicetric/atraumatic/EOMI (follow commands) NECK: JVD elevated, no thyromegaly Lymph: no lymphadenopathy HEART: regular with no S3, II/ systolic murmur at apex, ICD LUNGS: Coarse sounds ABD: soft, NT, ND, +BS : Intact Neuro: non focal, TR UE sling SKIN: chronic changes EXT: trace edema Results/Medications Result Diagram: 10/25/1862610/25/18 0627 Results 24 hrs Laboratory Tests Test 10/25/18 06:27 White Blood Count 6.7 # Red Blood Count 3.23 L Hemoglobin 10.0 L Hematocrit 30.6 L Mean Corpuscular Volume 94.7 Mean Corpuscular Hemoglobin 31.0 Mean Corpuscular Hemoglobin Concent 32.7 Red Cell Distribution Width 17.1 H Platelet Count 271 # Mean Platelet Volume 10.0 Immature Granulocytes % 0.300 Neutrophils % 62.4 Lymphocytes % 22.8 Monocytes % 7.9 Eosinophils % 5.1 Basophils % 1.5 Nucleated Red Blood Cells % 0.0 Immature Granulocytes # 0.020 Neutrophils # 4.2 Lymphocytes # 1.5 Monocytes # 0.5 Eosinophils # 0.3 Basophils # 0.1 Nucleated Red Blood Cells # 0.0 Sodium Level 138 Potassium Level 4.3 Chloride Level 108 Carbon Dioxide Level 25 Anion Gap 5 Blood Urea Nitrogen 28 H Creatinine 1.39 H Est Glomerular Filtrat Rate mL/min Glucose Level 86 Calcium Level 8.8 Total Bilirubin 0.6 Direct Bilirubin 0.00 Indirect Bilirubin 0.6 Aspartate Amino Transf (AST/SGOT) 21 Alanine Aminotransferase (ALT/SGPT) 22 Alkaline Phosphatase 79 Total Protein 5.7 L Albumin 3.0 L Globulin 2.70 Albumin/Globulin Ratio 1.11 Home Meds Reported Medications Tamsulosin Hcl* (Flomax*) 0.4 Mg Cap.er.24h, 0.4 MG PO DAILY, CAP 10/01/18 Pantoprazole* (Protonix*) 40 Mg Tablet.dr, 40 MG PO DAILY, TAB 10/01/18 Isosorbide Mononitrate* (Isosorbide Mononitrate*) 30 Mg Tab.er.24h, 30 MG PO DAILY, TAB 10/01/18 Clopidogrel Bisulfate (Clopidogrel) 75 Mg Tablet, 75 MG PO DAILY, #30 TAB 10/01/18 Diltiazem Hcl* (Cardizem CD*) 180 Mg Cap.sr.24h, 180 MG PO DAILY, #30 CAP 10/01/18 Amiodarone Hcl* (Amiodarone Hcl*) 200 Mg Tablet, 200 MG PO DAILY, #30 TAB 10/01/18 Medications Current Medications Acetaminophen (Tylenol Tab) 650 mg Q6H PRN PO .PAIN 1-3 OR TEMP; Start 10/11/18 at 22:30 Amiodarone HCl (Cordarone) 200 mg DAILY PO Last administered on 10/17/18at 08:59; Admin Dose 200 MG; Start 10/12/18 at 09:00; Status Hold Bisacodyl (Dulcolax) 5 mg DAILY PRN PO .CONSTIPATION Last administered on 10/16/18at 17:28; Admin Dose 5 MG; Start 10/11/18 at 22:30 Clopidogrel Bisulfate (plaVIX) 75 mg DAILY PO Last administered on 10/25/18 09:18; Admin Dose 75 MG; Start 10/12/18 at 09:00 Docusate Sodium (Colace) 100 mg Q12H PRN PO .CONSTIPATION Last administered on 10/20/18at 20:07; Admin Dose 100 MG; Start 10/11/18 at 22:30 Finasteride (Proscar) 5 mg DAILY PO Last administered on 10/25/18 09:19; Admin Dose 5 MG; Start 10/12/18 at 09:00 Heparin Sodium (Porcine) (Heparin (5000 Units/1ml)) 5,000 unit Q12 SC Last administered on 10/25/18 09:25; Admin Dose 5,000 UNIT; Start 10/11/18 at 22:30 Acetaminophen/ Hydrocodone Bitart ([place] (5/325)) 1 tab Q6H PRN PO .MOD PAIN 4- 6 Last administered on 10/22/18 21:21; Admin Dose 1 TAB; Start 10/11/18 at 22:30 Ibuprofen (Motrin) 600 mg Q6H PRN PO .PAIN 1-3 Last administered on 10/24/18 20:15; Admin Dose 600 MG; Start 10/11/18 at 22:30 Methylnaltrexone [place] (Relistor) 12 mg DAILY SC Last administered on 10/25/18 09:19; Admin Dose 12 MG; Start 10/12/18 at 09:00 Morphine Sulfate (morphine) 2 mg Q4H PRN IV .SEVERE PAIN 7-10; Start 10/11/18 at 22:30 Ondansetron HCl (Zofran Inj) 4 mg Q6H PRN IV NAUSEA/VOMITING; Start 10/11/18 at 22:30 Sodium Biphosphate/ Sodium Phosphate (Fleet Enema) 133 ml DAILY PRN [place] .CONSTIP ATION; Start 10/11/18 at 22:30 Tamsulosin HCl (Flomax) 0.4 mg DAILY@2100 PO Last administered on 10/24/18 20:20; Admin Dose 0.4 MG; Start 10/11/18 at 22:30 Simethicone (Mylicon) 160 mg PC LUNCH PO Last administered on 10/24/18 13:10; Admin Dose 160 MG; Start 10/12/18 at 13:00 IV Flush (NS 3 ml) 3 ml PER PROTOCOL IV ; Start 10/11/18 at 23:00 Lactulose (Enulose) 20 gm DAILY PRN PO CONSTIPATION Last administered on 10/16/18 12:06; Admin Dose 20 GM; Start 10/12/18 at 06:30 Bisacodyl (Dulcolax Supp) 10 mg DAILY PRN [place] CONSTIPATION Last administered on 10/22/18 20:20; Admin Dose 10 MG; Start 10/12/18 at 06:30 Multivitamins/ Minerals (Theragran-M) 1 tab DAILY PO Last administered on 09:18; Admin Dose 1 TAB; Start 10/13/18 at 09:00 Zinc Sulfate (Zinc Sulfate) 220 mg DAILY PO Last administered on 10/25/18 09:19; Admin Dose 220 MG; Start 10/13/18 at 09:00 Losartan Potassium (Cozaar) 12.5 mg BID PO Last administered on 10/25/18 09:18; Admin Dose 12.5 MG; Start 10/14/18 at 21:00 [facility] This patient art... PRN PRN XX WOUND CARE; Start 10/16/18 at 15:30 Polyethylene Glycol (Miralax) 17 gm WITH LUNCH PO Last administered on 10/23/18 12:41; Admin Dose 17 GM; Start 10/17/18 at 12:00 Bisacodyl (Dulcolax) 10 mg DAILY PO Last administered on 10/25/18 09:16; Admin Dose 10 MG; Start 10/18/18 at 09:00 Metoprolol Tartrate (Lopressor) 25 mg BID PO Last administered on 10/25/18 09:18; Admin Dose 25 MG; Start 10/17/18 at 21:00 Ascorbic Acid (Vitamin C) 500 mg DAILY PO Last administered on 10/25/18 09:18; Admin Dose 500 MG; Start 10/20/18 at 09:00 Folic Acid (Folic Acid) 1 mg DAILY PO Last administered on 10/25/18 09:18; Admin Dose 1 MG; Start 10/19/18 at 10:30 Assessment/Plan Hospital Course (Demo Recall) 1. Arlene-op : 3/Echo EF 30% with moderate . Was high risk. Now is post-op s/p LE ORIF - tolerated procedure well- will monitor clinically now. Doing well, con't to recover. Con't to improve. Doing well with PT. Not in CHF by exam. Now in rehab, doing well. Good fluid status now. Doing wel- steady gradual improvement. Much improved overall- con;t rehab - dispo planned now. 2. Abnormal electrocardiogram with nonspecific ST abnormality, assess for acute coronary syndrome.-neg trop x 3 - intermittently paced. Treated. 3. Atrial fibrillation, currently rate controlled at this time, not on systemic anticoagulation at baseline due to possible bleeding complications - rate controlled. STABLE - off tele now. Treated. Controlled. 4. History of percutaneous transluminal coronary angioplasty and stent placement to the right coronary artery in 2016 and to LCX 2017(now known to be occluded chronically with ORACLE BUSINESS ANALYST of LAD that is collateralized by RCA after d iscussion with DR GARCIA this AM) - tolerated procedure well. NO further interventions planned. NOW BP better. BP maintained. 5. 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 Status post fall, mechanical by description.On meds now. 7. H/O BIV/ICD - with good function. Outpt f/upas needed. 8. Constipation - primary team follows. Lactulose given. JOSIAH SAUL MD October 25, 2018 11:38
[2018-10-25] MEDS: POLYETHYLENE GLYCOL 17 GM PACKET PO SCH (12:23)
--- NOTE | 2018-10-25 13:49 | PN ---
Date/Time of Note Date/Time of Note DATE: 10/25/18 TIME: 13:49 Subjective Comfortable Objective Vital Signs Date Temp Pulse Resp B/P (MAP) Pulse Ox O2 O2 Flow FiO2 Time Delivery Rate 10/25/18 98.6 70 18 127/78 96 Room Air 07:00 (94) Intake and Output 10/24/18 10/24/18 10/25/18 1515:00 23:00 07:00 IntakeIntake Total 90 ml 1340 ml OutputOutput Total 150 ml 420 ml 900 ml BalanceBalance -60 ml 920 ml -900 ml Exam pulm-cta abd-soft Results/Medications Result Diagram: 10/25/18 0627 10/25/18 0627 Results 24 hrs Laboratory Tests Test 10/25/18 06:27 White Blood Count 6.7 # Red Blood Count 3.23 L Hemoglobin 10.0 L Hematocrit 30.6 L Mean Corpuscular Volume 94.7 Mean Corpuscular Hemoglobin 31.0 Mean Corpuscular Hemoglobin Concent 32.7 Red Cell Distribution Width 17.1 H Platelet Count 271 # Mean Platelet Volume 10.0 Immature Granulocytes % 0.300 Neutrophils % 62.4 Lymphocytes % 22.8 Monocytes % 7.9 Eosinophils % 5.1 Basophils % 1.5 Nucleated Red Blood Cells % 0.0 Immature Granulocytes # 0.020 Neutrophils # 4.2 Lymphocytes # 1.5 Monocytes # 0.5 Eosinophils # 0.3 Basophils # 0.1 Nucleated Red Blood Cells # 0.0 Sodium Level 138 Potassium Level 4.3 Chloride Level 108 Carbon Dioxide Level 25 Anion Gap 5 Blood Urea Nitrogen 28 H Creatinine 1.39 H Est Glomerular Filtrat Rate mL/min Glucose Level 86 Calcium Level 8.8 Total Bilirubin 0.6 Direct Bilirubin 0.00 Indirect Bilirubin 0.6 Aspartate Amino Transf (AST/SGOT) 21 Alanine Aminotransferase (ALT/SGPT) 22 Alkaline Phosphatase 79 Total Protein 5.7 L Albumin 3.0 L Globulin 2.70 Albumin/Globulin Ratio 1.11 Medications Current Medications Acetaminophen (Tylenol Tab) 650 mg Q6H PRN PO .PAIN 1-3 OR TEMP; Start 10/11/18 at 22:30 Amiodarone HCl (Cordarone) 200 mg DAILY PO Last administered on 10/17/18at 08:59; Admin Dose 200 MG; Start 10/12/18 at 09:00; Status Hold Bisacodyl (Dulcolax) 5 mg DAILY PRN PO .CONSTIPATION Last administered on 10/16/18 17:28; Admin Dose 5 MG; Start 10/11/18 at 22:30 Clopidogrel Bisulfate (plaVIX) 75 mg DAILY PO Last administered on 10/25/18 09:18; Admin Dose 75 MG; Start 10/12/18 at 09:00 Docusate Sodium (Colace) 100 mg Q12H PRN PO .CONSTIPATION Last administered on 10/20/18 20:07; Admin Dose 100 MG; Start 10/11/18 at 22:30 Finasteride (Proscar) 5 mg DAILY PO Last administered on 10/25/18 09:19; Admin Dose 5 MG; Start 10/12/18 at 09:00 Heparin Sodium (Porcine) (Heparin (5000 Units/1ml)) 5,000 unit Q12 SC Last administered on 10/25/18 09:25; Admin Dose 5,000 UNIT; Start 10/11/18 at 22:30 Acetaminophen/ Hydrocodone Bitart ([place] (5/325)) 1 tab Q6H PRN PO .MOD PAIN 4- 6 Last administered on 10/22/18 21:21; Admin Dose 1 TAB; Start 10/11/18 at 22:30 Ibuprofen (Motrin) 600 mg Q6H PRN PO .PAIN 1-3 Last administered on 10/24/18 20:15; Admin Dose 600 MG; Start 10/11/18 at 22:30 Methylnaltrexone [place] (Relistor) 12 mg DAILY SC Last administered on 10/25/18 09:19; Admin Dose 12 MG; Start 10/12/18 at 09:00 Morphine Sulfate (morphine) 2 mg Q4H PRN IV .SEVERE PAIN 7-10; Start 10/11/18 at 22:30 Ondansetron HCl (Zofran Inj) 4 mg Q6H PRN IV NAUSEA/VOMITING; Start 10/11/18 at 22:30 Sodium Biphosphate/ Sodium Phosphate (Fleet Enema) 133 ml DAILY PRN [place] .CONSTI PATION; Start 10/11/18 at 22:30 Tamsulosin HCl (Flomax) 0.4 mg DAILY@2100 PO Last administered on 10/24/18 20:20; Admin Dose 0.4 MG; Start 10/11/18 at 22:30 Simethicone (Mylicon) 160 mg PC LUNCH PO Last administered on 10/25/18 12:23; Admin Dose 160 MG; Start 10/12/18 at 13:00 IV Flush (NS 3 ml) 3 ml PER PROTOCOL IV ; Start 10/11/18 at 23:00 Lactulose (Enulose) 20 gm DAILY PRN PO CONSTIPATION Last administered on 10/16/18 12:06; Admin Dose 20 GM; Start 10/12/18 at 06:30 Bisacodyl (Dulcolax Supp) 10 mg DAILY PRN [place] CONSTIPATION Last administered on 10/22/18 20:20; Admin Dose 10 MG; Start 10/12/18 at 06:30 Multivitamins/ Minerals (Theragran-M) 1 tab DAILY PO Last administered on 10/25 09:18; Admin Dose 1 TAB; Start 10/13/18 at 09:00 Zinc Sulfate (Zinc Sulfate) 220 mg DAILY PO Last administered on 10/25/18 09:19; Admin Dose 220 MG; Start 10/13/18 at 09:00 Losartan Potassium (Cozaar) 12.5 mg BID PO Last administered on 10/25/18 09:18; Admin Dose 12.5 MG; Start 10/14/18 at 21:00 Miscellaneous Information (Pending [facility] Order For Wound Care) This patient art... PRN PRN XX WOUND CARE; Start 10/16/18 at 15:30 Polyethylene Glycol (Miralax) 17 gm WITH LUNCH PO Last administered on 10/25/18 12:23; Admin Dose 17 GM; Start 10/17/18 at 12:00 Bisacodyl (Dulcolax) 10 mg DAILY PO Last administered on 10/25/18 09:16; Admin Dose 10 MG; Start 10/18/18 at 09:00 Metoprolol Tartrate (Lopressor) 25 mg BID PO Last administered on 10/25/18 09:18; Admin Dose 25 MG; Start 10/17/18 at 21:00 Ascorbic Acid (Vitamin C) 500 mg DAILY PO Last administered on 10/25/18 09:18; Admin Dose 500 MG; Start 10/20/18 at 09:00 Folic Acid (Folic Acid) 1 mg DAILY PO Last administered on 5/28/19at 09:18; Admin Dose 1 MG; Start 10/19/18 at 10:30 Assessment/Plan Additional Assessment/Plan Rehab- Major Multiple Fracture Overall excellent progress. Complete training and work towards home 10/26 JACI SOLORIO MD October 25, 2018 13:49
[2018-10-25 14:00] VITALS: BP 139/63; PULSE 86; RESP 18
--- NOTE | 2018-10-25 18:34 | PN ---
Date/Time of Note Date/Time of Note DATE: 10/25/18 TIME: 18:31 Assessment/Plan VTE Prophylaxis Risk score (from [facility] [place]0 risk: 11 SCD applied (from [facility] [place]): No SCD contraindicated: low risk/ambulating Pharmacological prophylaxis: heparin Pharm contraindication: low risk/ambulating Lines/Catheters IV C[facility]ter Type (from [facility] Saline Lock Urinary Cath still in place: No Assessment/Plan Problems: (1) Status post-operative repair of closed fracture of right hip Status: Acute Comment: Is done well with the acute rehabilitation protocol and the plan is for discharge in the morning. I concur (2) Right humeral fracture Status: Acute Comment: 30 days out of 90 days in an immobilizer. Knee with treatment Qualifiers: Encounter type: subsequent encounter Humerus Location: proximal Fracture type: closed Fracture morphology: other fracture Fracture alignment: nondisplaced Fracture healing: with routine healing Qualified Codes: S42.294D - Other nondisplaced fracture of upper end of right humerus, subsequent encounter for fracture with routine healing (3) Atrial fibrillation Status: Chronic Comment: Adequate rate control with beta-blockade. Please note he has not been taking the amiodarone due to his belief that it causes some GI side effects Qualifiers: Atrial fibrillation type: paroxysmal Qualified Codes: I48.0 - Paroxysmal atrial fibrillation (4) Aortic stenosis Status: Chronic Comment: Stable on current medication regimen Qualifiers: Cardiac valve disease etiology: nonrheumatic Qualified Codes: I35.0 - Nonrheumatic aortic (valve) stenosis (5) Ejection fraction < 50% Status: Chronic Comment: Stable on combination beta-blockade and afterload reduction agent (6) Diastolic dysfunction Status: Chronic Comment: Blood pressure is adequately controlled (7) Dyslipidemia Status: Chronic Comment: Stable on treatment (8) BPH (benign prostatic hypertrophy) with urinary retention Status: Chronic Comment: Stable on treatment Result Diagram: 10/25/1862610/25/18626 Results 24hrs Laboratory Tests Test 10/25/18 06:27 White Blood Count 6.7 # Red Blood Count 3.23 L Hemoglobin 10.0 L Hematocrit 30.6 L Mean Corpuscular Volume 94.7 Mean Corpuscular Hemoglobin 31.0 Mean Corpuscular Hemoglobin Concent 32.7 Red Cell Distribution Width 17.1 H Platelet Count 271 # Mean Platelet Volume 10.0 Immature Granulocytes % 0.300 Neutrophils % 62.4 Lymphocytes % 22.8 Monocytes % 7.9 Eosinophils % 5.1 Basophils % 1.5 Nucleated Red Blood Cells % 0.0 Immature Granulocytes # 0.020 Neutrophils # 4.2 Lymphocytes # 1.5 Monocytes # 0.5 Eosinophils # 0.3 Basophils # 0.1 Nucleated Red Blood Cells # 0.0 Sodium Level 138 Potassium Level 4.3 Chloride Level 108 Carbon Dioxide Level 25 Anion Gap 5 Blood Urea Nitrogen 28 H Creatinine 1.39 H Est Glomerular Filtrat Rate mL/min Glucose Level 86 Calcium Level 8.8 Total Bilirubin 0.6 Direct Bilirubin 0.00 Indirect Bilirubin 0.6 Aspartate Amino Transf (AST/SGOT) 21 Alanine Aminotransferase (ALT/SGPT) 22 Alkaline Phosphatase 79 Total Protein 5.7 L Albumin 3.0 L Globulin 2.70 Albumin/Globulin Ratio 1.11 CC: JEFF REYNOSO; CLYDE GARCIA MD; JOSIAH SAUL MD ; Subjective 24 Hr Interval Summary Constitutional: no complaints Respiratory: no complaints Cardiovascular: no complaints Gastrointestinal: no complaints Exam/Review of Systems Exam Vitals Vital Signs Date Temp Pulse Resp B/P (MAP) Pulse Ox O2 O2 Flow FiO2 Time Delivery Rate 10/25/18 97.7 86 18 139/63 99 Room Air 14:00 (88) Intake and Output 10/24/18 10/24/18 10/25/18 1515:00 23:00 07:00 IntakeIntake Total 90 ml 1340 ml OutputOutput Total 150 ml 420 ml 900 ml BalanceBalance -60 ml 920 ml -900 ml Constitutional: alert, oriented Neck: supple, non-tender Respiratory: clear to auscultation, normal air movement Cardiovascular: nl pulses, irregular rhythm Gastrointestinal: soft, nl liver, spleen, non-tender Results Results 24hrs Laboratory Tests Test 10/25/18 06:27 White Blood Count 6.7 # Red Blood Count 3.23 L Hemoglobin 10.0 L Hematocrit 30.6 L Mean Corpuscular Volume 94.7 Mean Corpuscular Hemoglobin 31.0 Mean Corpuscular Hemoglobin Concent 32.7 Red Cell Distribution Width 17.1 H Platelet Count 271 # Mean Platelet Volume 10.0 Immature Granulocytes % 0.300 Neutrophils % 62.4 Lymphocytes % 22.8 Monocytes % 7.9 Eosinophils % 5.1 Basophils % 1.5 Nucleated Red Blood Cells % 0.0 Immature Granulocytes # 0.020 Neutrophils # 4.2 Lymphocytes # 1.5 Monocytes # 0.5 Eosinophils # 0.3 Basophils # 0.1 Nucleated Red Blood Cells # 0.0 Sodium Level 138 Potassium Level 4.3 Chloride Level 108 Carbon Dioxide Level 25 Anion Gap 5 Blood Urea Nitrogen 28 H Creatinine 1.39 H Est Glomerular Filtrat Rate mL/min Glucose Level 86 Calcium Level 8.8 Total Bilirubin 0.6 Direct Bilirubin 0.00 Indirect Bilirubin 0.6 Aspartate Amino Transf (AST/SGOT) 21 Alanine Aminotransferase (ALT/SGPT) 22 Alkaline Phosphatase 79 Total Protein 5.7 L Albumin 3.0 L Globulin 2.70 Albumin/Globulin Ratio 1.11 Medications Medication Current Medications Acetaminophen (Tylenol Tab) 650 mg Q6H PRN PO .PAIN 1-3 OR TEMP; Start 10/11/18 at 22:30 Amiodarone HCl (Cordarone) 200 mg DAILY PO Last administered on 10/17/18 08:59; Admin Dose 200 MG; Start 10/12/18 at 09:00; Status Hold Bisacodyl (Dulcolax) 5 mg DAILY PRN PO .CONSTIPATION Last administered on 10/16/18 17:28; Admin Dose 5 MG; Start 10/11/18 at 22:30 Clopidogrel Bisulfate (plaVIX) 75 mg DAILY PO Last administered on 10/25/18 09:18; Admin Dose 75 MG; Start 10/12/18 at 09:00 Docusate Sodium (Colace) 100 mg Q12H PRN PO .CONSTIPATION Last administered on 10/20/18 20:07; Admin Dose 100 MG; Start 10/11/18 at 22:30 Finasteride (Proscar) 5 mg DAILY PO Last administered on 10/25/18 09:19; Admin Dose 5 MG; Start 10/12/18 at 09:00 Heparin Sodium (Porcine) (Heparin (5000 Units/1ml)) 5,000 unit Q12 SC Last adm inistered on 10/25/18 09:25; Admin Dose 5,000 UNIT; Start 10/11/18 at 22:30 Acetaminophen/ Hydrocodone Bitart ([place] (5/325)) 1 tab Q6H PRN PO .MOD PAIN 4- 6 Last administered on 10/22/18 21:21; Admin Dose 1 TAB; Start 10/11/18 at 22:30 Ibuprofen (Motrin) 600 mg Q6H PRN PO .PAIN 1-3 Last administered on 10/24/18 20:15; Admin Dose 600 MG; Start 10/11/18 at 22:30 Methylnaltrexone [place] (Relistor) 12 mg DAILY SC Last administered on 10/25/18 09:19; Admin Dose 12 MG; Start 10/12/18 at 09:00 Morphine Sulfate (morphine) 2 mg Q4H PRN IV .SEVERE PAIN 7-10; Start 10/11/18 at 22:30 Ondansetron HCl (Zofran Inj) 4 mg Q6H PRN IV NAUSEA/VOMITING; Start 10/11/18 at 22:30 Sodium Biphosphate/ Sodium Phosphate (Fleet Enema) 133 ml DAILY PRN RI .CONSTIPATION; Start 10/11/18 at 22:30 Tamsulosin HCl (Flomax) 0.4 mg DAILY@2100 PO Last administered on 10/24/18 20:20; Admin Dose 0.4 MG; Start 10/11/18 at 22:30 Simethicone (Mylicon) 160 mg PC LUNCH PO Last administered on 10/25/18 12:23; Admin Dose 160 MG; Start 10/12/18 at 13:00 IV Flush (NS 3 ml) 3 ml PER PROTOCOL IV ; Start 10/11/18 at 23:00 Lactulose (Enulose) 20 gm DAILY PRN PO CONSTIPATION Last administered on 10/16/18 12:06; Admin Dose 20 GM; Start 10/12/18 at 06:30 Bisacodyl (Dulcolax Supp) 10 mg DAILY PRN RI CONSTIPATION Last administered on 10/22/18 20:20; Admin Dose 10 MG; Start 10/12/18 at 06:30 Multivitamins/ Minerals (Theragran-M) 1 tab DAILY PO Last administered on 10/25/18 09:18; Admin Dose 1 TAB; Start 10/13/18 at 09:00 Zinc Sulfate (Zinc Sulfate) 220 mg DAILY PO Last administered on 10/25/18 09:19; Admin Dose 220 MG; Start 10/13/18 at 09:00 Losartan Potassium (Cozaar) 12.5 mg BID PO Last administered on 10/25/18 09:18; Admin Dose 12.5 MG; Start 10/14/18 at 21:00 Miscellaneous Information (Pending [facility] Order For Wound Care) This patient art... PRN PRN XX WOUND CARE; Start 10/16/18 at 15:30 Polyethylene Glycol (Miralax) 17 gm WITH LUNCH PO Last administered on 10/25/18 12:23; Admin Dose 17 GM; Start 10/17/18 at 12:00 Bisacodyl (Dulcolax) 10 mg DAILY PO Last administered on 10/25/18 09:16; Admin Dose 10 MG; Start 10/18/18 at 09:00 Metoprolol Tartrate (Lopressor) 25 mg BID PO Last administered on 10/25/18 09:18; Admin Dose 25 MG; Start 10/17/18 at 21:00 Ascorbic Acid (Vitamin C) 500 mg DAILY PO Last administered on 10/25/18 09:18; Admin Dose 500 MG; Start 10/20/18 at 09:00 Folic Acid (Folic Acid) 1 mg DAILY PO Last administered on 10/25/18 09:18; Admin Dose 1 MG; Start 10/19/18 at 10:30 LATIA RICE MD October 25, 2018 18:34
[2018-10-25 20:00] VITALS: BP 119/60; PULSE 59; RESP 18
[2018-10-25] MEDS: IBUPROFEN 600 MG TAB PO PRN (21:13)
[2018-10-25] MEDS: TAMSULOSIN (SR) 0.4 MG CAP PO SCH (21:15)
[2018-10-25] MEDS: BISACODYL 10 MG SUPP PR PRN (22:15)
[2018-10-26 02:07] VITALS: BP 110/58; PULSE 64; RESP 18
[2018-10-26 07:00] VITALS: BP 135/70; PULSE 83; RESP 18
[2018-10-26] MEDS: FINASTERIDE 5 MG TAB PO SCH (08:14)
[2018-10-26] MEDS: LOSARTAN 25 MG TAB PO SCH (08:14)
[2018-10-26] MEDS: ZINC SULFATE 220 MG CAP PO SCH (08:14)
[2018-10-26] MEDS: ASCORBIC ACID 500 MG TAB PO SCH (08:15)
[2018-10-26] MEDS: CLOPIDOGREL 75 MG TAB PO SCH (08:15)
[2018-10-26] MEDS: FOLIC ACID 1 MG TAB PO SCH (08:15)
[2018-10-26] MEDS: METOPROLOL 25 MG TAB PO SCH (08:16)
[2018-10-26] MEDS: BALSAM PERU/CASTOR OIL 60 GM TUBE TOP SCH (08:17)
[2018-10-26] MEDS: MULTIVITAMINS/MINERALS TAB PO SCH (08:18)
[2018-10-26] MEDS: METHYLNALTREXONE 12 MG/0.6 ML VIAL SC SCH (08:19)
[2018-10-26] MEDS: HEPARIN 5,000 UNIT/1 ML VIAL SC SCH (08:19)
[2018-10-26] MEDS: BISACODYL (EC) 5 MG TAB PO SCH (08:22)
--- NOTE | 2018-10-26 13:05 | QN ---
Documentation Comment No c/o. Ambulating. I saw him on his way home from rehab floor. - he will followup with me in the office Wednesday to reassess the R heel blister - I instructed his son to make sure the heels are offloaded while he is in bed JEFF ELAINE MD October 26, 2018 13:05
--- NOTE | 2018-10-26 17:32 | DS ---
Date/Time of Note Date/Time of Note DATE: 10/26/18 TIME: 17:28 Discharge Summary Admission/Discharge Info Admit Date/Time October 11, 2018 at 20:30 Discharge Date/Time October 26, 2018 at 12:50 Discharge Diagnosis 1.Major multiple fracture with right humeral fracture in addition to right intertrochanteric hip fracture status post intramedullary nailing. 2. Coronary artery disease. 3. Atrial fibrillation. 4. Aortic stenosis. 5. Hypertension. 6. Hyperlipidemia. 7. BPH. 8. Gastroesophageal reflux disease. 9. Chronic kidney disease. 10. Stage 2 bilateral buttock, with improvement by discharge 10. Improvements in self-care and mobility. Patient Condition: Good Hospital Course The patient was admitted for comprehensive interdisciplinary rehabilitation and made steady functional gains from a Max/mod level to a SBA/cga level for self care tasks and mobility including ambulating over 150 feet with the use of a FWW. Patient was noted to develop bilateral buttock pressure injuries during stay, which healed on left, and significantly improved on right by discharge. Shyamn also noted to have heel blisters with clear fluid, presumed secondary to the heel slide exercises he rigorously did. He was instructed to avoid the heel slides, and was noted to have improvements in the heels.Patient is being discharged home with the recommendation of home health PT, OT and RN follow up. The DC meds are per the medication reconciliation sheet. The discharge equipment recommendations include: FWW, BSC, shower chair. The patient will follow up with PMD upon DC. Home Meds Reported Medications Tamsulosin Hcl* (Flomax*) 0.4 Mg Cap.er.24h, 0.4 MG PO DAILY, CAP 10/01/18 Pantoprazole* (Protonix*) 40 Mg Tablet.dr, 40 MG PO DAILY, TAB 10/01/18 Isosorbide Mononitrate* (Isosorbide Mononitrate*) 30 Mg Tab.er.24h, 30 MG PO DAILY, TAB 10/01/18 Clopidogrel Bisulfate (Clopidogrel) 75 Mg Tablet, 75 MG PO DAILY, #30 TAB 10/01/18 Diltiazem Hcl* (Cardizem CD*) 180 Mg Cap.sr.24h, 180 MG PO DAILY, #30 CAP 10/01/18 Amiodarone Hcl* (Amiodarone Hcl*) 200 Mg Tablet, 200 MG PO DAILY, #30 TAB 10/01/18 Primary Care Provider Not On Staff Doctor JACI SOLORIO MD October 26, 2018 17:32
== END 2018-10-26 12:50 | disposition home health service (06) | DRG 560 ==
LOC: VRC 20:30 → UNDOADMIN 20:50
PROVIDERS: ADMIT Physical Medicine & Rehabilitation; ATTEND Internal Medicine
DX: S72.141D Displaced intertrochanteric fracture of right femur, subsequent encounter for closed fracture with routine healing (principal); I13.0 Hypertensive heart and chronic kidney disease with heart failure and stage 1 through stage 4 chronic kidney disease, or unspecified chronic kidney disease; I50.32 Chronic diastolic (congestive) heart failure; C84.05 Mycosis fungoides, lymph nodes of inguinal region and lower limb; G89.18 Other acute postprocedural pain; I25.10 Atherosclerotic heart disease of native coronary artery without angina pectoris; I48.91 Unspecified atrial fibrillation; I35.0 Nonrheumatic aortic (valve) stenosis; E78.5 Hyperlipidemia, unspecified; K21.9 Gastro-esophageal reflux disease without esophagitis; X58.XXXD Exposure to other specified factors, subsequent encounter; D64.9 Anemia, unspecified; N18.3 Chronic kidney disease, stage 3 (moderate); N40.1 Benign prostatic hyperplasia with lower urinary tract symptoms; R33.8 Other retention of urine; Z95.5 Presence of coronary angioplasty implant and graft; Z74.09 Other reduced mobility; K59.00 Constipation, unspecified; Z95.0 Presence of cardiac pacemaker; S90.821A Blister (nonthermal), right foot, initial encounter
CPT/HCPCS: 73550; 80048; 80053; 81001; 85025; 87081; 87086; 93922; 97110; 97112; 97116; 97163; 97167; 97530; 97535; 97542; J1644; L3675